=== PATIENT | male | born 1955 | race Caucasian/White ===

== ENCOUNTER 2016-06-08 16:38 | Inpatient (IN) ==
[2016-06-08 19:54] LABS: Basophils % 0.5 %; Eosinophils # 0.2 K/mcL (0.0-0.6); Eosinophils % 5.8 %; Hematocrit 24.2 % (37.5-50.1); Hemoglobin 7.9 g/dL (12.9-16.9); Immature Granulocytes % 0.3 % (0-4); Lymphocytes # 0.7 K/mcL (0.6-4.6); Lymphocytes % 16.3 %; Mean Corpuscular HGB Conc 32.6 g/dL (31.6-35.5); Mean Corpuscular Hemoglobin 28.6 pg (28.0-33.3); Mean Corpuscular Volume 87.7 fL (83.0-100.0); Mean Platelet Volume 10.6 fL (9.4-12.4); Monocytes # 0.3 K/mcL (0.0-1.3); Monocytes % 7.8 %; Neutrophils # 2.8 K/mcL (1.6-8.9); Platelet Count 135 K/mcL (140-400); Red Blood Count 2.76 M/mcL (4.19-5.50); Red Cell Distribution Width 13.3 % (11.5-14.5); Segmented Neutrophils % 69.3 %
[2016-06-08 20:09] LABS: Albumin 2.3 g/dL (3.5-5.0); Albumin/Globulin Ratio 0.8 (1.1-2.2); Bilirubin,Direct 0.2 mg/dL (0.0-0.5); Bilirubin,Indirect 0.4 mg/dL (0.0-1.2); Bilirubin,Total 0.6 mg/dL (0.2-1.2); Calcium 7.7 mg/dL (8.6-10.8); Globulin 2.9 g/dL (2.4-3.5); Potassium 4.8 mEq/L (3.5-4.5); Total Protein 5.2 g/dL (6.0-8.3)
--- NOTE | 2016-06-08 20:43 | Emergency Department Note ---
Disposition Clinical Impression: Generalized edema Proteinuria Qualifiers: Proteinuria type: other Qualified Code(s): R80.8 - Other proteinuria Disposition: Admitted As Inpatient Condition: Fair General Adult HPI - General Chief complaint: ED General Medical Stated complaint: "all swollen up" Time Seen by Provider: 06/08/16 18:41 Source: patient Limitations: no limitations Nursing Notes Reviewed: Yes Vital Signs Reviewed: Yes - History of Present Illness HPI Narrative: Mr. Renee, a 60yo male, presents from home by POV with chief complaint of, "swollen all over." Onset 2-3 days ago. Patient states this happened previously and he was admitted to [facility], transferred to [place], and diagnosed with congestive heart failure. He currently follows with Dr. Cha at [place] [facility]. Patient has associated dyspnea; he does not use supplemental oxygen at home however does require the use of it in the emergency department. PMH: CHF. Hypertension, hyperlipidemia, history of [place] with stent 12/2013, diabetes. Current everyday smoker; [id number] history. Patient has bladder dysfunction requiring self catheterization.. Pain Scale: 0 - Related Data Home Medications Medication Instructions Recorded Confirmed Aspirin Enteric Coated [Aspirin EC] 81 mg PO DAILY 06/08/16 06/08/16 Atorvastatin Calcium [Lipitor] 80 mg PO HS 06/08/16 06/08/16 Carvedilol [Coreg] 6.25 mg PO BIDWM 06/08/16 06/08/16 Clopidogrel [Plavix] 75 mg PO DAILY 06/08/16 06/08/16 Cyclobenzaprine HCl 5 mg PO TID 06/08/16 06/08/16 Dextrose [Glucose Gel] 15 gm PO ONCE PRN 06/08/16 06/08/16 Ergocalciferol (VITAMIN D2) 50,000 unit PO QWEEK 06/08/16 06/08/16 [Vitamin D2] FLUoxetine HCl [Prozac] 40 mg PO QAM 06/08/16 06/08/16 Furosemide [Lasix] 40 mg PO DAILY 06/08/16 06/08/16 Glucagon,Human Recombinant 1 mg IJ ONCE PRN 06/08/16 06/08/16 [Glucagon Emergency Kit] Insulin ASPART [Novolog Flexpen] 20 unit SQ TIDAC 06/08/16 06/08/16 Insulin DETEMIR [Levemir Flextouch] 30 unit SQ QAM 06/08/16 06/08/16 Insulin DETEMIR [Levemir Flextouch] 60 unit SQ HS 06/08/16 06/08/16 Isosorbide MONOnitrate (24 HR) 60 mg PO DAILY 06/08/16 06/08/16 [Imdur] Lubiprostone [Amitiza] 24 mcg PO BID 06/08/16 06/08/16 Nitroglycerin [Nitrostat] 0.4 mg SL Q5M PRN 06/08/16 06/08/16 Oxycodone HCl 10 mg PO Q6H PRN 06/08/16 06/08/16 Pantoprazole Sodium [Protonix] 40 mg PO DAILY 06/08/16 06/08/16 Pregabalin [Lyrica] 50 mg PO BID 06/08/16 06/08/16 Quetiapine Fumarate [Seroquel] 50 mg PO HS 06/08/16 06/08/16 Ranitidine HCl [Zantac] 150 mg PO BID 06/08/16 06/08/16 Ranolazine [Ranexa] 500 mg PO BID 06/08/16 06/08/16 Tamsulosin [Flomax] 0.4 mg PO DAILY 06/08/16 06/08/16 Topiramate [Topamax] 25 mg PO BID 06/08/16 06/08/16 Allergies Allergy/AdvReac Type Severity Reaction Status Date / Time Methadone Allergy Hives Verified 06/08/16 17:11 Penicillins Allergy Hives Verified 06/08/16 17:11 linaclotide [From Linzess] AdvReac Nausea Verified 06/08/16 17:11 All systems ED: reviewed and negative except as stated. Constitutional: Reports: weakness. Denies: fever, chills ENT ED: Denies: congestion Cardiovascular: Reports: dyspnea on exertion. Denies: chest pain, palpitations Respiratory: Reports: dyspnea. Denies: cough, wheezes Gastrointestinal: Denies: abdominal pain, nausea, vomiting, diarrhea, constipation, hematemesis, melena, hematochezia Genitourinary: Denies: urgency, dysuria Musculoskeletal: Denies: back pain, neck pain, joint swelling, myalgia Integumentary: Denies: rash, abrasion Neurological: Denies: headache, weakness, numbness, paresthesias, confusion, abnormal gait, vertigo Hematological/Lymphatic: Denies: easy bleeding, easy bruising Past Medical History - Past Medical History Medical history: Reports: coronary artery disease, diabetes, renal disease - Social History Smoking Status: Current every day smoker Alcohol use: Reports: none Drug use: Reports: none Physical Exam General: Patient is alert, oriented, and in no acute distress. HEENT: No facial asymmetry. Head is normocephalic and atraumatic. Oral mucosa moist. Trachea midline. Cardiovascular: Heart regular rate and rhythm without clicks, rubs, gallops, or murmurs. No JVD. PMI nondisplaced. 2+ pitting pedal edema bilaterally extending to the patient's knee. Notable increase in swelling in patient's hands and fingers. Respiratory: Symmetric chest rise with good respiratory effort. Bilateral breath sounds are clear without wheezing, crackles, or rhonchi. Abdomen: Bowel sounds present normoactive x-4 quadrants. Abdomen is soft, nondistended, and nontender. Psych: Patient's affect is appropriate for situation. - General Limitations: no limitations General appearance: alert, in no apparent distress Course Course Narrative: Carotid image 04/14/16: Right carotid with minimal plaque throughout. Left carotid normal. Echo 05/25/16: LVEF 60-65%. Mild left ventricular diastolic dysfunction. No significant valvular dysfunction. Normal right ventricular size and function. Patient's lab studies show leukocytopenia, slowly progressive anemia, low albumin, elevated BNP. He does have elevated creatinine. Normal hepatic function. Given that the patient is unable to urinate and requires self-catheterization, I will order a Quan catheter in place urine sample looking for proteinuria. Patient's urine return was noted to have proteinuria. Cause is currently unknown this time. However this does give explanation for his low albumin causing low oncotic pressure causing generalized edema. Spoke with the patient and his at bedside regarding the need for continued evaluation. That he was told previously he had congestive heart failure, his recent echo would suggest otherwise. They agree to admission for continued evaluation. I spoke with the hospitalist, Dr. Mace, regarding the patient's story, history, laboratory workup. He agrees to accept the patient for continued evaluation. Vital Signs Temperature 97.9 F 06/08/16 17:11 Pulse Rate 66 06/08/16 17:11 Respiratory Rate 18 06/08/16 17:11 Blood Pressure 98/58 06/08/16 17:11 O2 Sat by Pulse Oximetry 96 06/08/16 17:11 Temperature 97.3 F L 06/08/16 22:31 Pulse Rate 62 06/08/16 22:31 Respiratory Rate 15 06/08/16 22:31 Blood Pressure 181/80 06/08/16 22:31 O2 Sat by Pulse Oximetry 97 06/08/16 22:31 Oxygen Delivery Oxygen Delivery Nasal Cannula Medical Decision Making - Medical Records Medical records reviewed: Yes I reviewed the patient's medical records. - Lab Data Lab results reviewed: Yes I reviewed the patient's lab results. Result diagrams: 06/08/16 19:43 06/08/16 19:43 Lab Results 06/08/16 06/08/16 06/08/16 Range/Units 19:43 19:43 19:43 WBC 4.0 L (4.3-11.1) K/mcL RBC 2.76 L (4.19-5.50) M/mcL Hgb 7.9 L (12.9-16.9) g/dL Hct 24.2 L (37.5-50.1) % MCV 87.7 (83.0-100.0) fL MCH 28.6 (28.0-33.3) pg MCHC 32.6 (31.6-35.5) g/dL RDW 13.3 (11.5-14.5) % Plt Count 135 L (140-400) K/mcL MPV 10.6 (9.4-12.4) fL Immature Gran % 0.3 (0-4) % Seg Neutrophils % 69.3 % Lymphocytes % 16.3 % Monocytes % 7.8 % Eosinophils % 5.8 % Basophils % 0.5 % Neutrophils # 2.8 (1.6-8.9) K/mcL Lymphocytes # 0.7 (0.6-4.6) K/mcL Monocytes # 0.3 (0.0-1.3) K/mcL Eosinophils # 0.2 (0.0-0.6) K/mcL Basophils # 0.0 (0.0-0.2) K/mcL Sodium 136 (136-145) mEq/L Potassium 4.8 H (3.5-4.5) mEq/L Chloride 106 (98-109) mEq/L Carbon Dioxide 25 (19-29) mEq/L BUN 42 H (8-26) mg/dL Creatinine 1.59 H (0.72-1.25) mg/dL Est GFR ( Amer) 54 L (> 60) Est GFR (Non-Af Amer) 45 L (> 60) BUN/Creatinine Ratio 26 (6-26) Glucose 368 H (70-99) mg/dL Calculated Osmolality 307 H (280-300) Calcium 7.7 L (8.6-10.8) mg/dL Total Bilirubin 0.6 (0.2-1.2) mg/dL Direct Bilirubin 0.2 (0.0-0.5) mg/dL Indirect Bilirubin 0.4 (0.0-1.2) mg/dL AST 9 (5-34) Units/L ALT 12 (0-55) Units/L Alkaline Phosphatase 74 (38-126) Units/L Troponin I (0-0.03) ng/mL B-Natriuretic Peptide 495 H (0-100) pg/mL Serum Total Protein 5.2 L (6.0-8.3) g/dL Albumin 2.3 L (3.5-5.0) g/dL Globulin 2.9 (2.4-3.5) g/dL Albumin/Globulin Ratio 0.8 L (1.1-2.2) 06/08/16 Range/Units 19:43 WBC (4.3-11.1) K/mcL RBC (4.19-5.50) M/mcL Hgb (12.9-16.9) g/dL Hct (37.5-50.1) % MCV (83.0-100.0) fL MCH (28.0-33.3) pg MCHC (31.6-35.5) g/dL RDW (11.5-14.5) % Plt Count (140-400) K/mcL MPV (9.4-12.4) fL Immature Gran % (0-4) % Seg Neutrophils % % Lymphocytes % % Monocytes % % Eosinophils % % Basophils % % Neutrophils # (1.6-8.9) K/mcL Lymphocytes # (0.6-4.6) K/mcL Monocytes # (0.0-1.3) K/mcL Eosinophils # (0.0-0.6) K/mcL Basophils # (0.0-0.2) K/mcL Sodium (136-145) mEq/L Potassium (3.5-4.5) mEq/L Chloride (98-109) mEq/L Carbon Dioxide (19-29) mEq/L BUN (8-26) mg/dL Creatinine (0.72-1.25) mg/dL Est GFR ( Amer) (> 60) Est GFR (Non-Af Amer) (> 60) BUN/Creatinine Ratio (6-26) Glucose (70-99) mg/dL Calculated Osmolality (280-300) Calcium (8.6-10.8) mg/dL Total Bilirubin (0.2-1.2) mg/dL Direct Bilirubin (0.0-0.5) mg/dL Indirect Bilirubin (0.0-1.2) mg/dL AST (5-34) Units/L ALT (0-55) Units/L Alkaline Phosphatase (38-126) Units/L Troponin I 0.01 (0-0.03) ng/mL B-Natriuretic Peptide (0-100) pg/mL Serum Total Protein (6.0-8.3) g/dL Albumin (3.5-5.0) g/dL Globulin (2.4-3.5) g/dL Albumin/Globulin Ratio (1.1-2.2) - Radiology Data Radiology results reviewed: Yes I reviewed the patient's radiology results. Chest X-Ray 06/08/16 19:04 IMPRESSION: Incomplete inspiration with bibasilar atelectasis D/ / Hector Gallegos MD / Hector Gallegos MD Interpreting Provider: Hector Gallegos MD - EKG Data EKG #1 EKG attestation: Yes I reviewed and interpreted this EKG. EKG results narrative: EKG dated marked at 19:13 interpreted as sinus rhythm with rate of 61. Normal intervals with UT 164, QRS 109, QT/QTc 434/438. Left axis. Nonspecific ST-T changes. Compared to previous dated 07/24/2013 shows no acute ischemic changes a comparison. Attestation Statement - Attestation Attestation: DR Abbott note: Pt seen in conjunction w/ Resident Tawanda Clark; Please see his charting for complete documentation; I agree w/ pt's treatment and disposition and spent face to face time w/ the pt; x-ray was REVIEWED. Progressive anemia noted. Admitted in stable condition
[2016-06-08 22:03] LABS: Bilirubin,Urine Negative (Negative); Blood,Urine Small (Negative); Clarity,Urine Clear (Clear); Color,Urine Yellow (Yellow); Glucose,Urine (UA) 250 mg/dL (Normal); Ketones,Urine Negative (Negative); Leukocyte Esterase,Urine Negative (Negative); Nitrite,Urine Negative (Negative); PH,Urine 6.5 pH Units (5.0-8.0); Protein,Urine >=300 mg/dL (Neg-Trace); Specific Gravity,Urine 1.016 (1.010-1.025); Urobilinogen,Urine Normal (Normal)
[2016-06-08 22:05] LABS: Bacteria,Urine Many per hpf (None-Few); Hyaline Casts,Urine None Seen per lpf (None-Few); Squamous Epithelial Cell,Urine Many per lpf (None-Few)
[2016-06-09] MEDS ORDERED: Naloxone 0.4 MG/ML INJ IVP PRN (00:35)
[2016-06-09] MEDS ORDERED: Nitroglycerin 0.4 MG TAB.SUBL SL PRN (00:39)
[2016-06-09] MEDS ORDERED: D5% in Water 1,000 ML IV PRN (00:44)
[2016-06-09] MEDS ORDERED: Dextrose Gel 15 GM PO PRN ×2 (00:44)
[2016-06-09] MEDS ORDERED: *HR* Dextrose 50 % in Water (Syg) 50 ML SYRINGE IVP PRN (00:44)
[2016-06-09] MEDS ORDERED: Furosemide 20 MG/2 ML VIAL IVP ONE (00:46)
--- NOTE | 2016-06-09 00:51 | Internal Med History&Physical ---
Date of Encounter: 06/09/16 Time of Encounter: 00:51 Assessment and Plan (1) Anasarca Current visit: Yes Status: Acute Possibly due to CHF + hypoalbuminemia related to proteinuria. Treatment intravenous Lasix. Daily weights. Low sodium diet and fluid restriction. Cardiology consultation. (2) Heart failure with preserved ejection fraction Current visit: Yes Status: Chronic Treatment intravenous Lasix. Daily weights. Low sodium diet and fluid restriction. Cardiology consultation. Pt has significant proteinuria. Consider starting ACEI, prior to discharge. 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 Continue tamsulosin. (6) Normocytic anemia Current visit: Yes Status: Acute Possibly related to CKD/anemia of chronic disease. Will check for iron profile , vitamin B12 and folate level. (7) CKD (chronic kidney disease) Current visit: Yes Status: Acute Monitor renal function. Pt has proteinuria. Consider Nephrology consult. Qualifiers: Chronic kidney disease stage: stage 3 (moderate) Qualified Code(s): N18.3 - Chronic kidney disease, stage 3 (moderate) (8) Hypoalbuminemia Current visit: Yes Status: Acute Possibly due to proteinuria. Consider Nephrology consultation. Internal Medicine - H&P: HPI Chief complaint: Swelling of extremities Admitted From: Emergency Dept Plans for Post Hospital Care: Home History of present illness: Mr. Renee is a 60 year old male with Past medical history significant for Hypertension, hyperlipidemia, history of [place] with stent 12/2013, CHF (Echo in May 2015 showed LVEF of 60-65%), diabetes, neurogenic bladder requiring intermittent self-catheterization. He presents to the emergency department with history of swelling all over for 3 days. Started in the legs and now in the upper extremities as well. He denies chest pain, shortness of breath, cough , expectoration, palpitations, fever, chills, abdominal pain, hematuria, bowel problems. He was evaluated in the emergency department and was noted to have elevated BNP. He is admitted to the hospitalist service for further management. Family hx of CAD Past Med Surg Social Fam HX - Past Medical History Medical history: coronary artery disease, diabetes, renal disease Psychiatric history: depression - Past Surgical History Surgical History: other - Social History Smoking Status: Current every day smoker Packs per day: 1 Smokeless Tobacco Status: No Alcohol use: none Drug use: none Internal Medicine - H&P: Meds Aspirin Enteric Coated [Aspirin EC] 81 mg PO DAILY 06/08/16 [History] Atorvastatin Calcium [Lipitor] 80 mg PO HS 06/08/16 [History] Carvedilol [Coreg] 6.25 mg PO BIDWM 06/08/16 [History] Clopidogrel [Plavix] 75 mg PO DAILY 06/08/16 [History] Cyclobenzaprine HCl 5 mg PO TID 06/08/16 [History] Dextrose [Glucose Gel] 15 gm PO ONCE PRN 06/08/16 [History] Ergocalciferol (VITAMIN D2) [Vitamin D2] 50,000 unit PO QWEEK 06/08/16 [History] FLUoxetine HCl [Prozac] 40 mg PO QAM 06/08/16 [History] Furosemide [Lasix] 40 mg PO DAILY 06/08/16 [History] Glucagon,Human Recombinant [Glucagon Emergency Kit] 1 mg IJ ONCE PRN 06/08/16 [ History] Insulin ASPART [Novolog Flexpen] 20 unit SQ TIDAC 06/08/16 [History] Insulin DETEMIR [Levemir Flextouch] 30 unit SQ QAM 06/08/16 [History] Insulin DETEMIR [Levemir Flextouch] 60 unit SQ HS 06/08/16 [History] Isosorbide MONOnitrate (24 HR) [Imdur] 60 mg PO DAILY 06/08/16 [History] Lubiprostone [Amitiza] 24 mcg PO BID 06/08/16 [History] Nitroglycerin [Nitrostat] 0.4 mg SL Q5M PRN 06/08/16 [History] Oxycodone HCl 10 mg PO Q6H PRN 06/08/16 [History] Pantoprazole Sodium [Protonix] 40 mg PO DAILY 06/08/16 [History] Pregabalin [Lyrica] 50 mg PO BID 06/08/16 [History] Quetiapine Fumarate [Seroquel] 50 mg PO HS 06/08/16 [History] Ranitidine HCl [Zantac] 150 mg PO BID 06/08/16 [History] Ranolazine [Ranexa] 500 mg PO BID 06/08/16 [History] Tamsulosin [Flomax] 0.4 mg PO DAILY 06/08/16 [History] Topiramate [Topamax] 25 mg PO BID 06/08/16 [History] Allergies Methadone Allergy (Verified 06/08/16 17:11) Hives Penicillins Allergy (Verified 06/08/16 17:11) Hives linaclotide [From Linzess] Adverse Reaction (Verified 06/08/16 17:11) Nausea All Systems PM: A 10-system review of systems was performed and is negative for pertinent findings except as documented above in the HPI. - Constitutional Vitals: Temp Pulse Resp BP Pulse Ox 97.3 F L 62 15 181/80 97 06/08/16 22:31 06/08/16 22:31 06/08/16 22:31 06/08/16 22:31 06/08/16 22:31 Exam: General: Not in acute distress at the time of my evaluation HEENT: Oral mucosa is moist. No conjunctival palor or scleral icterus Neck: No obvious neck swellings Lungs: B/L basal crackles present Cardiac: Regular rate and rhythm. No significant murmurs Abdomen: Soft, non tender. Bowel sounds present Genitourinary: niño catheter present Neurological: Alert and oriented. No gross localizing deficits Psych: Not aggressive or agitated Extremities: B/L leg edema present Skin: No generalized rash Internal Med - H&P Results - Labs CBC & Chem 7: 06/09/16 04:06 06/09/16 04:06 Labs: Urine 06/08/16 Range/Units 21:40 Urine Color Yellow (Yellow) Urine Clarity Clear (Clear) Urine pH 6.5 (5.0-8.0) pH Units Ur Specific [place] 1.016 (1.010-1.025) Urine Protein >=300 H (Neg-Trace) mg/dL Urine Glucose (UA) 250 H (Normal) mg/dL - EKG Data -: EKG Interpreted by Myself EKG shows normal: sinus rhythm - Impressions ITS Impressions Chest X-Ray 06/08/16 19:04 IMPRESSION: Incomplete inspiration with bibasilar atelectasis D/ / Hector Gallegos MD / Hector Gallegos MD Interpreting Provider: Hector Gallegos MD
[2016-06-09] MEDS: *HR* OxyCODONE Immed Rel 5 MG TABLET PO PRN ×2 (04:17→19:49)
[2016-06-09 04:49] LABS: Hematocrit 24.5 % (37.5-50.1); Hemoglobin 8.2 g/dL (12.9-16.9); Mean Corpuscular HGB Conc 33.5 g/dL (31.6-35.5); Mean Corpuscular Hemoglobin 29.3 pg (28.0-33.3); Mean Corpuscular Volume 87.5 fL (83.0-100.0); Mean Platelet Volume 11.4 fL (9.4-12.4); Platelet Count 141 K/mcL (140-400); Red Cell Distribution Width 13.2 % (11.5-14.5)
[2016-06-09 05:03] LABS: BUN/Creatinine Ratio 28 (6-26); Blood Urea Nitrogen 38 mg/dL (8-26); Calcium 7.7 mg/dL (8.6-10.8); Carbon Dioxide 24 mEq/L (19-29); Chloride 108 mEq/L (98-109); Glucose 330 mg/dL (70-99); Magnesium 2.3 mg/dL (1.6-2.6); Osmolality,Calculated 310 (280-300); Sodium 139 mEq/L (136-145); eGFR For African Americans > 60 (> 60); eGFR For Non-African Americans 53 (> 60)
[2016-06-09] MEDS: Famotidine 20 MG TABLET PO SCH ×2 (08:18→15:45)
[2016-06-09] MEDS: Pregabalin 50 MG CAPSULE PO SCH ×2 (08:18→20:01)
[2016-06-09] MEDS: Furosemide 40 MG/4 ML VIAL IVP SCH (08:18)
[2016-06-09] MEDS: FLUoxetine 20 MG CAPSULE PO SCH (08:19)
[2016-06-09] MEDS: Topiramate 25 MG TABLET PO SCH ×2 (08:19→20:01)
[2016-06-09] MEDS: Aspirin Enteric Coated 81 MG Tablet PO SCH (08:19)
[2016-06-09] MEDS: Isosorbide MONOnitrate (24 HR) 60 MG TAB.ER.24H PO SCH (08:19)
[2016-06-09] MEDS: Insulin LISPRO 300 UNITS/3 ML VIAL SQ SCH ×4 (08:42→20:58)
[2016-06-09] MEDS: Ranolazine 500 MG TAB.ER.12H PO SCH ×2 (08:43→20:00)
[2016-06-09] MEDS ORDERED: NON-FORMULARY MEDICATION 1 EACH EACH (Insulin Detemir [Levemir Flextouch] 30 UNIT) SQ SCH (09:00)
[2016-06-09] MEDS ORDERED: Insulin DETEMIR 100 UNIT/ML X5UNITS SQ SCH ×2 (09:00→21:00)
--- NOTE | 2016-06-09 10:29 | Cardiology Consult Note ---
Date of Encounter: 06/09/16 Time of Encounter: 10:23 Assessment and Plan (1) Anasarca Current Visit: Yes Status: Acute Likely secondary to hypoalbuminemia, proteinuria and recent increased PO fluid intake due to constipation. BNP 495. Albumin 2.3. Currently receiving IV Lasix, 40mg daily and reports improving symptoms. Recommend daily weights, low sodium diet and fluid restriction. Recommend elevation of lower extremities, compression stockings. Recent echo 05/25/16 EF preserved 60-65%, mild diastolic dysfunction. No further cardiac work-up warranted while inpt. Anticipate sign off once seen and evaluated by Dr. Cha. (2) CAD (coronary artery disease) Current Visit: Yes Status: Acute [facility] 11/14/13--3 vessel CAD, CLAIMS ATTORNEY of prox-mid LAD with mid-distal LAD filling via R -L collaterals, moderate ISR of prior LCx stent, EF 65%, medical management was recommended. Pt denies chest pain. Continue ASA, Plavix, Statin, BB. Qualifiers: Coronary Disease-Associated Artery/Lesion type: [place] artery [place] vs. transplanted heart: [place] heart Associated angina: without angina Qualified Code(s): I25.10 - Atherosclerotic heart disease of [place] coronary artery without angina pectoris (3) Hypoalbuminemia Current Visit: Yes Status: Acute Possibly due to proteinuria. Primary team noted to be considering nephrology consult. (4) Hypertension Current Visit: Yes Status: Chronic Not well controlled. BP 180s systolic this AM. Add norvasc and adjust antihypertensives as necessary. Qualifiers: Hypertension type: essential hypertension Qualified Code(s): I10 - Essential (primary) hypertension (5) CKD (chronic kidney disease) Current Visit: Yes Status: Acute Monitor renal function with diuresis. Pt has proteinuria. Primary team noted to be considering nephrology consult. Qualifiers: Chronic kidney disease stage: stage 3 (moderate) Qualified Code(s): N18.3 - Chronic kidney disease, stage 3 (moderate) (6) Normocytic anemia Current Visit: Yes Status: Acute Possibly related to CKD/anemia of chronic disease. 7.9 on admission, 8.2 today. Pt denies any evidence of bleeding. Reports recent EGD at [facility] and polyp removal. Management per primary team. Discussion w patient/family: The assessment and plan as outlined above was discussed with the patient and/or family members who expressed understanding and agreement. All questions were answered. Thank you for involving us in the care of your patient. Please call with any questions. I will discuss all the above with Dr. Cha and make changes as necessary. History of Present Illness Consult date: 06/09/16 Requesting physician: Madhu Landa Consult reason: edema Chief complaint: edema, dyspnea History of present illness: Mr. Renee is a 60 year old male with PMH of hypertension, hyperlipidemia, tobacco abuse, CAD with history of MS and PCI, diabetes, neurogenic bladder requiring intermittent self-catheterization, pancreatitis. He presented to the ED with history of swelling all over for 3 days. He reports it started in the legs and now in the upper extremities as well. He denies chest pain. He reports worsening dyspnea. He reported being seen at [facility] ED this past week and was told he was constipated and to increase his fluid intake and after increasing fluids, noticed the swelling. Found to have proteinuria, hypoalbuminemia 2.3, mildly elevated BNP 495, CXR with atelectasis. Recent echo 05/25/16 EF 60-65%, mild diastolic dysfunction. HGB 7.9, then 8.2 today. Reports EGD last month at [facility] with polyp removal. States he has ongoing issues with chronic pacreatitis. Given IV Lasix and reports improved symptoms. Weight does appear to be up 9 lbs compared to office visit with Dr. Ramsey on 05/15. [facility] 11/14/13--3 vessel CAD, CLAIMS ATTORNEY of prox-mid LAD with mid-distal LAD filling via R -L collaterals, moderate ISR of prior LCx stent, EF 65%, medical management was recommended. Past Med Surg Social Fam HX - Past Medical History Medical history: coronary artery disease, diabetes, renal disease Psychiatric history: depression - Past Surgical History Surgical History: other - Social History Smoking Status: Current every day smoker Packs per day: 1 Smokeless Tobacco Status: No Alcohol use: none Drug use: none Medications and Allergies Aspirin Enteric Coated [Aspirin EC] 81 mg PO DAILY 06/08/16 [History] Atorvastatin Calcium [Lipitor] 80 mg PO HS 06/08/16 [History] Carvedilol [Coreg] 6.25 mg PO BIDWM 06/08/16 [History] Clopidogrel [Plavix] 75 mg PO DAILY 06/08/16 [History] Cyclobenzaprine HCl 5 mg PO TID 06/08/16 [History] Dextrose [Glucose Gel] 15 gm PO ONCE PRN 06/08/16 [History] Ergocalciferol (VITAMIN D2) [Vitamin D2] 50,000 unit PO QWEEK 06/08/16 [History] FLUoxetine HCl [Prozac] 40 mg PO QAM 06/08/16 [History] Furosemide [Lasix] 40 mg PO DAILY 06/08/16 [History] Glucagon,Human Recombinant [Glucagon Emergency Kit] 1 mg IJ ONCE PRN 06/08/16 [ History] Insulin ASPART [Novolog Flexpen] 20 unit SQ TIDAC 06/08/16 [History] Insulin DETEMIR [Levemir Flextouch] 30 unit SQ QAM 06/08/16 [History] Insulin DETEMIR [Levemir Flextouch] 60 unit SQ HS 06/08/16 [History] Isosorbide MONOnitrate (24 HR) [Imdur] 60 mg PO DAILY 06/08/16 [History] Lubiprostone [Amitiza] 24 mcg PO BID 06/08/16 [History] Nitroglycerin [Nitrostat] 0.4 mg SL Q5M PRN 06/08/16 [History] Oxycodone HCl 10 mg PO Q6H PRN 06/08/16 [History] Pantoprazole Sodium [Protonix] 40 mg PO DAILY 06/08/16 [History] Pregabalin [Lyrica] 50 mg PO BID 06/08/16 [History] Quetiapine Fumarate [Seroquel] 50 mg PO HS 06/08/16 [History] Ranitidine HCl [Zantac] 150 mg PO BID 06/08/16 [History] Ranolazine [Ranexa] 500 mg PO BID 06/08/16 [History] Tamsulosin [Flomax] 0.4 mg PO DAILY 06/08/16 [History] Topiramate [Topamax] 25 mg PO BID 06/08/16 [History] Allergies Methadone Allergy (Verified 06/08/16 17:11) Hives Penicillins Allergy (Verified 06/08/16 17:11) Hives linaclotide [From Linzess] Adverse Reaction (Verified 06/08/16 17:11) Nausea All Systems Review: A 10-system review of systems was performed and is negative for pertinent findings except as documented above in the HPI. - Cardiovascular Cardiovascular: as per HPI, dyspnea at rest, dyspnea on exertion, leg edema, orthopnea - Respiratory Respiratory: dyspnea Physical Examination Vital Signs, Last 4 Hours Temp Pulse Resp BP Pulse Ox 06/09/16 08:19 98.1 F 71 17 182/53 96 Vital Signs Temp Pulse Resp BP Pulse Ox 06/09/16 08:19 98.1 F 71 17 182/53 96 06/09/16 05:19 97.7 F 63 15 165/68 95 06/09/16 03:17 98.8 F 63 15 194/78 96 06/08/16 22:31 97.3 F L 62 15 181/80 97 06/08/16 22:17 98 F 18 148/80 06/08/16 21:26 97 06/08/16 21:25 65 18 153/86 97 06/08/16 18:46 64 16 145/65 97 06/08/16 17:11 97.9 F 66 18 98/58 96 Intake and Output 06/08/16 06/09/16 06/09/16 23:59 07:59 15:59 Intake Total 0 / 0 340 / 340 240 / 240 Output Total 100 / 100 2099 / 2100 Balance -100 / -100 -1760 / -1760 240 / 240 Intake: Oral 0 / 0 340 / 340 240 / 240 Output: Catheter 100 / 100 2099 / 2100 Other: Meal Breakfast Percent of Meal Consumed 100% Weight 87.572 kg 87.543 kg Blood Glucose* 363 Patient Weight 06/09/16 23:59 Weight 87.543 kg General: Conversant HEENT: Atraumatic, Normocephaly, Mucus Membranes Moist Neck: No JVD, Normal carotid pulses Cardiac: Reg Rate and Rhythm, Normal S1 and S2, No Murmur Lungs: Normal Breath Sounds, No Wheeze, Rales, Rhonchi Neuro: Alert and responsive, No focal deficits noted Abdomen: Soft, Non-Tender Skin: No rashes noted on visualized skin Musculoskeletal: No Chest Wall Tenderness Extremities: Other (mild BLE edema) Results 06/09/16 04:06 06/09/16 04:06 Lab Results 06/09/16 06/09/16 04:06 04:06 WBC 4.5 Hgb 8.2 L Hct 24.5 L Plt Count 141 Sodium 139 Potassium 4.0 Chloride 108 Carbon Dioxide 24 BUN 38 H Creatinine 1.37 H Glucose 330 H Calcium 7.7 L Magnesium 2.3 Short CBC 06/09/16 06/08/16 Range/Units 04:06 19:43 WBC 4.5 4.0 L (4.3-11.1) K/mcL Hgb 8.2 L 7.9 L (12.9-16.9) g/dL Hct 24.5 L 24.2 L (37.5-50.1) % Plt Count 141 135 L (140-400) K/mcL Neutrophils # 2.8 (1.6-8.9) K/mcL BMP 06/09/16 06/08/16 Range/Units 04:06 19:43 Sodium 139 136 (136-145) mEq/L Potassium 4.0 4.8 H (3.5-4.5) mEq/L Chloride 108 106 (98-109) mEq/L Carbon Dioxide 24 25 (19-29) mEq/L BUN 38 H 42 H (8-26) mg/dL Creatinine 1.37 H 1.59 H (0.72-1.25) mg/dL Glucose 330 H 368 H (70-99) mg/dL Calcium 7.7 L 7.7 L (8.6-10.8) mg/dL Cardiac Enzymes 06/08/16 Range/Units 19:43 Troponin I 0.01 (0-0.03) ng/mL Liver Function 06/08/16 Range/Units 19:43 Total Bilirubin 0.6 (0.2-1.2) mg/dL Direct Bilirubin 0.2 (0.0-0.5) mg/dL AST 9 (5-34) Units/L ALT 12 (0-55) Units/L Alkaline Phosphatase 74 (38-126) Units/L Albumin 2.3 L (3.5-5.0) g/dL Urine 06/08/16 Range/Units 21:40 Urine Color Yellow (Yellow) Urine Clarity Clear (Clear) Urine pH 6.5 (5.0-8.0) pH Units Ur Specific [place] 1.016 (1.010-1.025) Urine Protein >=300 H (Neg-Trace) mg/dL Urine Glucose (UA) 250 H (Normal) mg/dL Impressions Chest X-Ray 06/08/16 19:04 IMPRESSION: Incomplete inspiration with bibasilar atelectasis D/ / Hector Gallegos MD / Hector Gallegos MD Interpreting Provider: Hector Gallegos MD Active Medications Aspirin (Aspirin Ec) 81 mg PO DAILY [facility] Stop: 12/09/16 09:01 Last Admin: 06/09/16 08:19 Dose: 81 mg Atorvastatin Calcium (Lipitor) 80 mg PO HS [facility] Stop: 12/09/16 21:01 Carvedilol (Coreg) 6.25 mg PO BIDWM [facility] PRN Reason: Protocol Stop: 12/09/16 08:01 Last Admin: 06/09/16 08:20 Dose: 6.25 mg Clopidogrel Bisulfate (Plavix) 75 mg PO DAILY [facility] Stop: 12/09/16 09:01 Last Admin: 06/09/16 08:18 Dose: 75 mg Cyclobenzaprine HCl (Flexeril) 5 mg PO TID [facility] Stop: 12/09/16 09:01 Last Admin: 06/09/16 08:19 Dose: 5 mg Dextrose/Water (Dextrose 50% (Syg)) 25 ml IVP AD PRN PRN Reason: Hypoglycemia Stop: 12/09/16 00:45 Ergocalciferol (Drisdol (50,000 Unit)) 50,000 unit PO QWEEK [facility] Stop: 12/11/16 09:01 Famotidine (Pepcid) 20 mg PO BIDAC [facility] Stop: 12/09/16 07:31 Last Admin: 06/09/16 08:18 Dose: 20 mg Fluoxetine HCl (Prozac) 40 mg PO QAM [facility] Stop: 12/09/16 09:01 Last Admin: 06/09/16 08:19 Dose: 40 mg Furosemide (Lasix) 40 mg IVP DAILY [facility] Stop: 12/09/16 09:01 Last Admin: 06/09/16 08:18 Dose: 40 mg Glucagon (Glucagen) 1 mg IM ONCE PRN PRN Reason: Hypoglycemia Stop: 12/09/16 00:45 Glucose (Gluctose) 15 gm PO ONCE PRN PRN Reason: Hypoglycemia Stop: 12/09/16 00:45 Glucose (Gluctose) 30 gm PO ONCE PRN PRN Reason: Hypoglycemia Stop: 12/09/16 00:45 Dextrose (Dextrose 5%) 1,000 mls @ 100 mls/hr IV CONT PRN PRN Reason: HYPOGLYCEMIA Stop: 12/09/16 00:45 Insulin Detemir (Levemir) 30 unit SQ QAM [facility] Stop: 12/09/16 09:01 Last Admin: 06/09/16 08:40 Dose: 30 unit Insulin Detemir (Levemir) 60 unit SQ HS [facility] Stop: 12/09/16 21:01 Insulin Human Lispro (Humalog) 0 units SQ HS [facility] PRN Reason: Protocol Stop: 12/09/16 21:01 Insulin Human Lispro (Humalog) 0 units SQ TIDAC [facility] PRN Reason: Protocol Stop: 12/09/16 07:31 Last Admin: 06/09/16 08:42 Dose: 14 units Isosorbide Mononitrate (Imdur) 60 mg PO DAILY [facility] Stop: 12/09/16 09:01 Last Admin: 06/09/16 08:19 Dose: 60 mg Naloxone HCl (Narcan) 0.4 mg IVP Q2MIN PRN PRN Reason: Opioid Reversal Stop: 12/09/16 00:36 Nitroglycerin (Nitroglycerin) 0.4 mg SL Q5M PRN PRN Reason: Chest Pain Stop: 12/09/16 00:40 Omeprazole (Prilosec) 20 mg PO 0630 [facility] Stop: 12/09/16 06:31 Last Admin: 06/09/16 05:33 Dose: 20 mg Oxycodone HCl (Roxicodone) 10 mg PO Q6H PRN PRN Reason: Pain Last Admin: 06/09/16 04:17 Dose: 10 mg Pharmacy Profile Note (Patient Taking Own Medication) 1 each PO BID [facility] Stop: 12/09/16 09:01 Last Admin: 06/09/16 08:36 Dose: Not Given Pregabalin (Lyrica) 50 mg PO BID [facility] Stop: 12/09/16 09:01 Last Admin: 06/09/16 08:18 Dose: 50 mg Quetiapine Fumarate (Seroquel) 50 mg PO HS [facility] Stop: 12/09/16 00:46 Last Admin: 06/09/16 01:02 Dose: 50 mg Ranolazine (Ranexa) 500 mg PO BID [facility] Stop: 12/09/16 09:01 Last Admin: 06/09/16 08:43 Dose: 500 mg Tamsulosin HCl (Flomax) 0.4 mg PO HS [facility] PRN Reason: Protocol Stop: 12/09/16 21:01 Topiramate (Topamax) 25 mg PO BID [facility] Stop: 12/09/16 09:01 Last Admin: 06/09/16 08:19 Dose: 25 mg - Imaging and Cardiology Chest Xray: report reviewed Echo: report reviewed (05/25/16 EF 60-65%, mild diastolic dysfunction.) Cardiac cath: report reviewed (11/14/13--3 vessel CAD, CLAIMS ATTORNEY of prox-mid LAD with mid-distal LAD filling via R-L collaterals, moderate ISR of prior LCx stent, EF 65%, medical management was recommended.) - EKG Interpretation EKG results cardiology: personally reviewed (SR) Consult Discharge Plan - Plan Referrals: Marcial Wolf DO [Primary Care Provider] -
--- NOTE | 2016-06-09 13:40 | Event Note ---
Date of Encounter: 06/09/16 Time of Encounter: 13:35 Mr. Renee is a 60 year old male with PMH of hypertension, hyperlipidemia, tobacco abuse, CAD with history of RI and PCI, diabetes, neurogenic bladder requiring intermittent self-catheterization, pancreatitis. He presented to the ED with history of swelling all over for 3 days. work u revealed proteinuria, hypoalbuminemia 2.3, mildly elevated BNP 495, CXR with atelectasis. Recent echo 05/25/16 EF 60-65%, mild diastolic dysfunction. HGB 7.9, then 8.2 today. Reports EGD last month at [facility] with polyp removal.Given IV Lasix and reports improved symptoms. his symptoms could be mutifactorial in etiology , he may have diastolic CHF, cardio was consulted and recommended to continue IV lasix for now. he says he was going to his kidney doctor for his CKD which he says is from his DM, the vice president of sales left and he has not seen a nephrologost after that. given the worsening anasarca , proteinuria and hypoalbuminemia, will consult renal for any further intervention for possible nephrotic syndrome. AT the bedside he says he feels a lot better, however still has generalized anasarca. will continue the IV lasix for now, appreciate cardio recs, will follwo renal recx.
--- NOTE | 2016-06-09 18:00 | Electrocardiograph Report ---
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
[2016-06-09] MEDS ORDERED: NON-FORMULARY MEDICATION 1 EACH EACH (Insulin Detemir [Levemir Flextouch] 60 UNIT) SQ SCH (21:00)
[2016-06-09 22:26] LABS: % Iron Saturation 18 % (20-55); Iron 42 mcg/dL (65-175); Transferrin 171 mg/dL (174-364)
[2016-06-09 22:47] LABS: Ferritin 61 ng/ml (22-275)
[2016-06-09 23:01] LABS: Folate 17.3 ng/mL (7.0-31.4)
[2016-06-10] MEDS: Acetaminophen 325 MG TABLET PO PRN (00:23)
[2016-06-10] MEDS: D10% in Water 500 ML IVC SCH (03:27)
[2016-06-10] MEDS: Ranolazine 500 MG TAB.ER.12H PO SCH ×2 (08:03→20:43)
[2016-06-10] MEDS: Aspirin Enteric Coated 81 MG Tablet PO SCH (08:03)
[2016-06-10] MEDS: Famotidine 20 MG TABLET PO SCH ×2 (08:04→16:30)
[2016-06-10] MEDS: Isosorbide MONOnitrate (24 HR) 60 MG TAB.ER.24H PO SCH (08:04)
[2016-06-10] MEDS: FLUoxetine 20 MG CAPSULE PO SCH (08:04)
[2016-06-10] MEDS: Pregabalin 50 MG CAPSULE PO SCH ×2 (08:04→20:44)
[2016-06-10] MEDS: Furosemide 40 MG/4 ML VIAL IVP SCH (08:04)
[2016-06-10] MEDS: Topiramate 25 MG TABLET PO SCH ×2 (08:07→20:44)
[2016-06-10] MEDS: Insulin LISPRO 300 UNITS/3 ML VIAL SQ SCH ×4 (08:20→20:50)
[2016-06-10 10:07] LABS: Albumin 2.2 g/dL (3.5-5.0); Albumin/Globulin Ratio 0.7 (1.1-2.2); Bilirubin,Total 0.4 mg/dL (0.2-1.2); Calcium 7.8 mg/dL (8.6-10.8); Potassium 3.9 mEq/L (3.5-4.5); Total Protein 5.2 g/dL (6.0-8.3)
--- NOTE | 2016-06-10 12:55 | Nephrology Consult Note ---
Date of Encounter: 06/10/16 Time of Encounter: 12:15 Assessment and Plan (1) Proteinuria Current Visit: Yes Status: Acute Proteuinuria most likely in setting of known CKD stage 3 in setting of DM, HTN, neurogenic bladder, renal stone. Baseline creat 1.3-1.6. Will start on ACEI, will check complements, IEP, SETH, Hep B/C, 24 HR urine protein in progress. Avoid nephrotoxins. Qualifiers: Proteinuria type: persistent Qualified Code(s): R80.1 - Persistent proteinuria, unspecified History of Present Illness - Reason for Consult proteinuria - History of Present Illness Mr. Renee is a 60 year old male who presented to ER with "swelling all over." for three days. PMH DM, HTN, CAD, [place] with stent, CHF. denies SOB or CP, fever, chills, abdominal pain, N/V or diarrhea. ER labs showed elevated BNP , proteinuria, elevated creatinine, low albumin and normal hepatic fct. [facility] had similar swelling incident in April and was started on Lasix. Today Mr Renee is sitting up in chair, states swelling greatly improved. [facility] told he has CKD stage 3 in Apr 2016, followed by Dr. Casillas at [facility].He admits diabetes since 1994, insulin dependent since 1995, never under good control. Hypertension diagnosed "few months ago." He denies past or present NSAID use. He has neurogenic bladder since 2006 and straight caths self. Follows with Dr. Olmstead. He denies proteinuria, admits hematuria. History of renal stone/bladder stone event x one with Lithotrypsy in 2006, Denies other events and does not know stone composition. Denies UTI's. Past Med Surg Social Fam HX - Past Medical History Medical history: coronary artery disease, diabetes, renal disease Psychiatric history: depression - Past Surgical History Surgical History: other - Social History Smoking Status: Current every day smoker Packs per day: 1 Smokeless Tobacco Status: No Alcohol use: none Drug use: none Medications and Allergies Aspirin Enteric Coated [Aspirin EC] 81 mg PO DAILY 06/08/16 [History] Atorvastatin Calcium [Lipitor] 80 mg PO HS 06/08/16 [History] Carvedilol [Coreg] 6.25 mg PO BIDWM 06/08/16 [History] Clopidogrel [Plavix] 75 mg PO DAILY 06/08/16 [History] Cyclobenzaprine HCl 5 mg PO TID 06/08/16 [History] Dextrose [Glucose Gel] 15 gm PO ONCE PRN 06/08/16 [History] Ergocalciferol (VITAMIN D2) [Vitamin D2] 50,000 unit PO QWEEK 06/08/16 [History] FLUoxetine HCl [Prozac] 40 mg PO QAM 06/08/16 [History] Furosemide [Lasix] 40 mg PO DAILY 06/08/16 [History] Glucagon,Human Recombinant [Glucagon Emergency Kit] 1 mg IJ ONCE PRN 06/08/16 [ History] Insulin ASPART [Novolog Flexpen] 20 unit SQ TIDAC 06/08/16 [History] Insulin DETEMIR [Levemir Flextouch] 30 unit SQ QAM 06/08/16 [History] Insulin DETEMIR [Levemir Flextouch] 60 unit SQ HS 06/08/16 [History] Isosorbide MONOnitrate (24 HR) [Imdur] 60 mg PO DAILY 06/08/16 [History] Lubiprostone [Amitiza] 24 mcg PO BID 06/08/16 [History] Nitroglycerin [Nitrostat] 0.4 mg SL Q5M PRN 06/08/16 [History] Oxycodone HCl 10 mg PO Q6H PRN 06/08/16 [History] Pantoprazole Sodium [Protonix] 40 mg PO DAILY 06/08/16 [History] Pregabalin [Lyrica] 50 mg PO BID 06/08/16 [History] Quetiapine Fumarate [Seroquel] 50 mg PO HS 06/08/16 [History] Ranitidine HCl [Zantac] 150 mg PO BID 06/08/16 [History] Ranolazine [Ranexa] 500 mg PO BID 06/08/16 [History] Tamsulosin [Flomax] 0.4 mg PO DAILY 06/08/16 [History] Topiramate [Topamax] 25 mg PO BID 06/08/16 [History] Allergies Methadone Allergy (Verified 06/08/16 17:11) Hives Penicillins Allergy (Verified 06/08/16 17:11) Hives linaclotide [From Linzess] Adverse Reaction (Verified 06/08/16 17:11) Nausea Review of Systems All Systems: reviewed and no additional remarkable complaints except as stated Exam - Vital Signs Vital signs: Initial Vital Signs Temp Pulse Resp BP Pulse Ox 97.9 F 66 18 98/58 96 06/08/16 17:11 06/08/16 17:11 06/08/16 17:11 06/08/16 17:11 06/08/16 17:11 Vital Signs - Last 8 Hours Temp Pulse Resp BP Pulse Ox 06/10/16 10:44 97.5 F L 69 16 100/46 96 06/10/16 08:00 64 06/10/16 07:04 97.6 F 58 16 163/76 97 Intake and Output 06/09/16 06/10/16 06/10/16 23:59 07:59 15:59 Intake Total 240 / 240 721 / 721 480 / 480 Output Total 900 / 900 450 / 450 800 / 800 Balance -660 / -660 271 / 271 -320 / -320 Intake: IV Fluids 121 / 121 Dextrose 10% Water 500 Ml 121 / 121 Ivbag 500 ML @ 50 mls/hr IVC .Q10H [facility] Rx#: [id number] Oral 240 / 240 600 / 600 480 / 480 Output: Urine 450 / 450 Catheter 900 / 900 0 / 0 800 / 800 Other: Meal Breakfast Percent of Meal Consumed 100% # Bowel Movements 0 # Bowel Movement Diapers 0 Weight 84.878 kg Blood Glucose* 138 205 202 Patient Weight 06/10/16 23:59 Weight 84.878 kg - General Appearance General appearance: well-developed, well-nourished, appears started age EENT: mucous membranes moist Neck: no JVD Respiratory: clear Cardiology: regular rate, regular rhythm Additional Comments: mild to 1+ pitting edema knees down. Gastrointestinal: normoactive bowel sounds, no tenderness Integumentary: no rash, warm and dry Neurologic: alert and oriented x3 Psychiatric: mood/affect appropriate, cooperative Results - Lab Results 06/09/16 04:06 06/10/16 09:37 Most recent lab results Calcium 7.8 mg/dL (8.6-10.8) L 06/10/16 09:37 Magnesium 2.3 mg/dL (1.6-2.6) 06/09/16 04:06 Consult Discharge Plan - Plan Referrals: Marcial Wolf DO [Primary Care Provider] -
[2016-06-10 14:37] LABS: Hepatitis B Surface Antigen Nonreactive (Nonreactive)
--- NOTE | 2016-06-10 17:31 | Internal Med Progress Note ---
Date of Encounter: 06/10/16 Time of Encounter: 17:29 - Assessment and plan (1) Anasarca Current Visit: Yes Status: Acute Assessment and plan: possible multifactorial given CHF, CKD , proteinuria and hypoalbuminemia. will check 24 hrs urine protein for renal loss (2) CAD (coronary artery disease) Current Visit: Yes Status: Acute Assessment and plan: stable Qualifiers: Coronary Disease-Associated Artery/Lesion type: [place] artery [place] vs. transplanted heart: [place] heart Associated angina: without angina Qualified Code(s): I25.10 - Atherosclerotic heart disease of [place] coronary artery without angina pectoris (3) CHF (congestive heart failure) Current Visit: Yes Status: Acute Assessment and plan: Recent echo 05/25/16 EF preserved 60-65%, mild diastolic dysfunction. No further cardiac work-up warranted while inpt as per cardio currently on lasix and tolerating well. Qualifiers: Congestive heart failure type: diastolic Congestive heart failure chronicity: acute on chronic Qualified Code(s): I50.33 - Acute on chronic diastolic (congestive) heart failure (4) CKD (chronic kidney disease) Current Visit: Yes Status: Acute Assessment and plan: 2/2 DM most likely however given worsening anasarca, proteinuria and hypoalbuminemia will check for 24 hrs urine protein. renal has been consulted, will follow recommendtaion has been added lisinopril Qualifiers: Chronic kidney disease stage: stage 3 (moderate) Qualified Code(s): N18.3 - Chronic kidney disease, stage 3 (moderate) - Time Spent With Patient 25 - 35 minutes - Subjective Interval history: seen at the bedside, reports that he feels better. blood sugar was noted to be low this morning, he says that if his blood sugar is ~200 at night, he only takes half his levemir. reports that the swelling is getting better - Constitutional Vitals: Temp Pulse Resp BP Pulse Ox 98.1 F 63 16 143/60 98 06/10/16 14:35 06/10/16 14:35 06/10/16 14:35 06/10/16 14:35 06/10/16 14:35 General appearance: Present: A&O X 3, no acute distress Exam: HEENT: Atraumatic, Normocephaly, Mucus Membranes Moist Neck: No JVD, Normal carotid pulses Cardiac: Reg Rate and Rhythm, Normal S1 and S2, No Murmur Lungs: Normal Breath Sounds, No Wheeze, Rales, Rhonchi Neuro: Alert and responsive, No focal deficits noted Abdomen: Soft, Non-Tender Skin: No rashes noted on visualized skin Musculoskeletal: No Chest Wall Tenderness Extremities: Other (mild BLE edema) Internal Medicine: Result - Labs CBC & Chem 7: 06/09/16 04:06 06/10/16 09:37 Labs: BMP 06/10/16 09:37 Sodium 142 Potassium 3.9 Chloride 110 H Carbon Dioxide 25 BUN 38 H Creatinine 1.57 H Glucose 200 H Calcium 7.8 L Liver Function 06/10/16 Range/Units 09:37 Total Bilirubin 0.4 (0.2-1.2) mg/dL AST 11 (5-34) Units/L ALT 10 (0-55) Units/L Alkaline Phosphatase 67 (38-126) Units/L Albumin 2.2 L (3.5-5.0) g/dL Consult Discharge Plan - Plan Referrals: Marcial Wolf DO [Primary Care Provider] -
[2016-06-10] MEDS: *HR* OxyCODONE Immed Rel 5 MG TABLET PO PRN (20:43)
[2016-06-11] MEDS: Acetaminophen 325 MG TABLET PO PRN (01:48)
[2016-06-11] MEDS: Insulin LISPRO 300 UNITS/3 ML VIAL SQ SCH ×4 (08:33→20:51)
[2016-06-11] MEDS: Furosemide 40 MG/4 ML VIAL IVP SCH (08:33)
[2016-06-11] MEDS: FLUoxetine 20 MG CAPSULE PO SCH (08:34)
[2016-06-11] MEDS: Isosorbide MONOnitrate (24 HR) 60 MG TAB.ER.24H PO SCH (08:34)
[2016-06-11] MEDS: Famotidine 20 MG TABLET PO SCH ×2 (08:34→17:05)
[2016-06-11] MEDS: Aspirin Enteric Coated 81 MG Tablet PO SCH (08:34)
[2016-06-11] MEDS: Ranolazine 500 MG TAB.ER.12H PO SCH ×2 (08:34→20:50)
[2016-06-11] MEDS: Pregabalin 50 MG CAPSULE PO SCH ×2 (08:35→20:49)
[2016-06-11] MEDS: Topiramate 25 MG TABLET PO SCH ×2 (08:38→20:50)
[2016-06-11 08:54] LABS: Alanine Aminotransferase 11 Units/L (0-55); Albumin 2.2 g/dL (3.5-5.0); Albumin/Globulin Ratio 0.7 (1.1-2.2); Alkaline Phosphatase 66 Units/L (38-126); Aspartate Amino Transferase 12 Units/L (5-34); BUN/Creatinine Ratio 26 (6-26); Bilirubin,Total 0.4 mg/dL (0.2-1.2); Blood Urea Nitrogen 37 mg/dL (8-26); Carbon Dioxide 24 mEq/L (19-29); Chloride 113 mEq/L (98-109); Globulin 3.2 g/dL (2.4-3.5); Glucose 165 mg/dL (70-99); Osmolality,Calculated 308 (280-300); Potassium 3.7 mEq/L (3.5-4.5); Sodium 143 mEq/L (136-145); Total Protein 5.4 g/dL (6.0-8.3); eGFR For African Americans > 60 (> 60); eGFR For Non-African Americans 52 (> 60)
--- NOTE | 2016-06-11 09:39 | Nephrology Progress Note ---
Date of Encounter: 06/11/16 Time of Encounter: 09:20 - Assessment and Plan (1) Proteinuria Current Visit: Yes Status: Acute Proteuinuria most likely in setting of known CKD stage 3 in setting of DM, HTN, neurogenic bladder, renal stone. Baseline creat 1.3-1.6. Renal fct stable. Started on ACEI, will check complements, IEP, SETH, Hep B/C, 24 HR urine protein in progress. Avoid nephrotoxins. Qualifiers: Qualifiers: Proteinuria type: persistent Qualified Code(s): R80.1 - Persistent proteinuria, unspecified Subjective Interval history: Sitting up in bed, states no swelling, feeling better. Objective - Vital Signs Vital signs: Vital Signs Temp Pulse Resp BP Pulse Ox 06/11/16 06:44 98.0 F 58 15 172/73 95 06/11/16 03:00 97.6 F 60 15 165/62 98 06/10/16 20:00 98.4 F 65 16 147/61 98 06/10/16 14:35 98.1 F 63 16 143/60 98 06/10/16 10:44 97.5 F L 69 16 100/46 96 Intake and Output 06/10/16 06/11/16 06/11/16 22:59 07:59 15:59 Intake Total Output Total Balance Intake: Oral Output: Catheter Other: Meal Percent of Meal Consumed # Bowel Movements Weight Blood Glucose* Patient Weight 06/12/16 00:59 Weight 86.2 kg - General Appearance General appearance: Present: well-developed, well-nourished, appears started age EENT: Present: mucous membranes moist Neck: Present: no JVD Respiratory: Present: clear Cardiology: Present: regular rate, regular rhythm Additional Comments: trace pitting LE Gastrointestinal: Present: normoactive bowel sounds, no tenderness Integumentary: Present: warm and dry Neurologic: Present: alert and oriented x3 Psychiatric: Present: mood/affect appropriate, cooperative - Lab 06/09/16 04:06 06/11/16 08:12 Most recent lab results Calcium 8.0 mg/dL (8.6-10.8) L 06/11/16 08:12 Magnesium 2.3 mg/dL (1.6-2.6) 06/09/16 04:06 Consult Discharge Plan - Plan Referrals: Marcial Wolf DO [Primary Care Provider] -
--- NOTE | 2016-06-11 10:06 | Internal Med Progress Note ---
Date of Encounter: 06/11/16 Time of Encounter: 10:04 - Assessment and plan (1) Anasarca Current Visit: Yes Status: Acute Assessment and plan: possible multifactorial given CHF, CKD , proteinuria and hypoalbuminemia. will check 24 hrs urine protein for renal loss results pending currently on 40 mg of IV lasix, swelling has imporved (2) CAD (coronary artery disease) Current Visit: Yes Status: Acute Assessment and plan: stable continue home meds Qualifiers: Coronary Disease-Associated Artery/Lesion type: [place] artery [place] vs. transplanted heart: [place] heart Associated angina: without angina Qualified Code(s): I25.10 - Atherosclerotic heart disease of [place] coronary artery without angina pectoris (3) CHF (congestive heart failure) Current Visit: Yes Status: Acute Assessment and plan: Recent echo 05/25/16 EF preserved 60-65%, mild diastolic dysfunction. No further cardiac work-up warranted while inpt as per cardio currently on lasix and tolerating well. Qualifiers: Congestive heart failure type: diastolic Congestive heart failure chronicity: acute on chronic Qualified Code(s): I50.33 - Acute on chronic diastolic (congestive) heart failure (4) CKD (chronic kidney disease) Current Visit: Yes Status: Acute Assessment and plan: 2/2 DM most likely however given worsening anasarca, proteinuria and hypoalbuminemia will check for 24 hrs urine protein. renal has been consulted, will follow recommendtaion has been added lisinopril, urine results pending Qualifiers: Chronic kidney disease stage: stage 3 (moderate) Qualified Code(s): N18.3 - Chronic kidney disease, stage 3 (moderate) - Time Spent With Patient 25 - 35 minutes - Subjective Interval history: seen at the bedside, reports that he feels better. blood sugar was noted to be low yest morning, has stopped the levemir, doing better today. no further episodes of hypoglycemia - Constitutional Vitals: Temp Pulse Resp BP Pulse Ox 98.0 F 58 15 172/73 95 06/11/16 06:44 06/11/16 06:44 06/11/16 06:44 06/11/16 06:44 06/11/16 06:44 General appearance: Present: A&O X 3, no acute distress Exam: HEENT: Atraumatic, Normocephaly, Mucus Membranes Moist Neck: No JVD, Normal carotid pulses Cardiac: Reg Rate and Rhythm, Normal S1 and S2, No Murmur Lungs: Normal Breath Sounds, No Wheeze, Rales, Rhonchi Neuro: Alert and responsive, No focal deficits noted Abdomen: Soft, Non-Tender Skin: No rashes noted on visualized skin Musculoskeletal: No Chest Wall Tenderness Extremities: b/l lower leg edema has improved. Internal Medicine: Result - Labs CBC & Chem 7: 06/09/16 04:06 06/11/16 08:12 Labs: BMP 06/10/16 06/11/16 09:37 08:12 Sodium 142 143 Potassium 3.9 3.7 Chloride 110 H 113 H Carbon Dioxide 25 24 BUN 38 H 37 H Creatinine 1.57 H 1.41 H Glucose 200 H 165 H Calcium 7.8 L 8.0 L Liver Function 06/10/16 06/11/16 Range/Units 09:37 08:12 Total Bilirubin 0.4 0.4 (0.2-1.2) mg/dL AST 11 12 (5-34) Units/L ALT 10 11 (0-55) Units/L Alkaline Phosphatase 67 66 (38-126) Units/L Albumin 2.2 L 2.2 L (3.5-5.0) g/dL Consult Discharge Plan - Plan Referrals: Marcial Wolf DO [Primary Care Provider] -
[2016-06-11 13:22] LABS: Total Volume 24 Hour,Urine 1.83 Liters (0.80-1.80)
[2016-06-11 13:49] LABS: Creatinine 24 Hour,Urine 1.28 g/day (0.71-1.65)
[2016-06-11 13:50] LABS: Creatinine 24 Hour,Urine 1.28 g/day (0.71-1.65); Creatinine,Urine 70 mg/dL; Microalbum/Creatinine Ratio,Ur 2857 (0-30)
[2016-06-11 13:52] LABS: Microalbumin,Urine > 2000 mg/L
[2016-06-11] MEDS: *HR* OxyCODONE Immed Rel 5 MG TABLET PO PRN (15:32)
[2016-06-11] MEDS: D10% in Water 500 ML IVC SCH ×3 (20:51→20:56)
[2016-06-12] MEDS: Insulin LISPRO 300 UNITS/3 ML VIAL SQ SCH ×2 (09:28→12:01)
[2016-06-12] MEDS: Furosemide 40 MG/4 ML VIAL IVP SCH (09:28)
[2016-06-12] MEDS: FLUoxetine 20 MG CAPSULE PO SCH (09:31)
[2016-06-12] MEDS: amLODIPine 5 MG TABLET PO SCH ×2 (09:31→09:41)
[2016-06-12] MEDS: Aspirin Enteric Coated 81 MG Tablet PO SCH (09:31)
[2016-06-12] MEDS: Famotidine 20 MG TABLET PO SCH (09:32)
[2016-06-12] MEDS: Pregabalin 50 MG CAPSULE PO SCH (09:32)
[2016-06-12] MEDS: Topiramate 25 MG TABLET PO SCH (09:33)
[2016-06-12] MEDS: Isosorbide MONOnitrate (24 HR) 60 MG TAB.ER.24H PO SCH (09:34)
[2016-06-12] MEDS: Ranolazine 500 MG TAB.ER.12H PO SCH (09:34)
--- NOTE | 2016-06-12 09:46 | Nephrology Progress Note ---
Date of Encounter: 06/12/16 Time of Encounter: 09:44 - Assessment and Plan (1) Proteinuria Current Visit: Yes Status: Acute The patient has a clinical picture of stage III chronic kidney disease with nephrotic range proteinuria. This is in the setting of long-standing diabetes. He also has a neurogenic bladder and requires bladder self-catheterization. Currently evaluation is in progress to rule out any other causes of his proteinuria. His lisinopril is being increased today. I am going to discontinue the IV Lasix and place him on chlorthalidone both for diuretic and also to assist with blood pressure control. Patient will require nephrology follow-up following hospital discharge. Qualifiers: Proteinuria type: persistent Qualified Code(s): R80.1 - Persistent proteinuria, unspecified (2) Chronic kidney disease, stage III (moderate) Current Visit: Yes Status: Acute (3) Diabetic renal disease Current Visit: Yes Status: Acute Qualifiers: Diabetes mellitus type: type 2 Qualified Code(s): E11.21 - Type 2 diabetes mellitus with diabetic nephropathy Subjective Interval history: Patient reports she is feeling better. His swelling seems to have resolved. Renal function remained stable. 24-hour urine protein shows nephrotic range proteinuria with 6.6 g per day. Blood pressure remains elevated. Urine culture is growing Klebsiella. Objective - Vital Signs Vital signs: Vital Signs Temp Pulse Resp BP Pulse Ox 06/12/16 05:44 98.1 F 60 16 182/73 96 06/11/16 23:45 98.3 F 62 16 171/76 96 06/11/16 17:00 98.1 F 58 14 164/73 97 06/11/16 14:38 97.5 F L 61 16 160/67 98 06/11/16 11:04 98.1 F 65 16 157/69 97 Intake and Output 06/11/16 06/12/16 06/12/16 23:59 07:59 15:59 Intake Total 340 / 340 240 / 240 Output Total 500 / 500 350 / 350 Balance 340 / 340 -500 / -500 -110 / -110 Intake: Oral 340 / 340 240 / 240 Output: Catheter 500 / 500 350 / 350 Other: Meal Dinner Breakfast Percent of Meal Consumed 75% 20% Weight 84.5 kg Blood Glucose* 157 183 Patient Weight 06/12/16 23:59 Weight 84.5 kg - General Appearance Exam: Patient is alert and oriented. He is in no acute distress. Lungs breath sounds otherwise clear. Heart regular rate and rhythm. Abdomen is benign. There is no notable peripheral edema. - Lab 06/09/16 04:06 06/11/16 08:12 Most recent lab results Calcium 8.0 mg/dL (8.6-10.8) L 06/11/16 08:12 Magnesium 2.3 mg/dL (1.6-2.6) 06/09/16 04:06 Urine Creatinine 70 mg/dL 06/11/16 12:00 Ur Total Protein 24 Hr 6643 mg/day (0-299) H 06/11/16 12:00 Urine Total Protein 363 mg/dL (1-14) H 06/11/16 12:00 Consult Discharge Plan - Plan Referrals: Marcial Wolf DO [Primary Care Provider] -
[2016-06-12 10:18] LABS: Hepatitis B Surface Antibody 0.11 mIU/mL; Hepatitis C Virus Antibody Nonreactive (Nonreactive)
[2016-06-12] MEDS ORDERED: *HR* OxyCODONE Immed Rel 5 MG TABLET PO PRN (10:24)
[2016-06-12] MEDS: D10% in Water 500 ML IVC SCH (11:11)
[2016-06-12 14:35] VITALS: BP 114/56
--- NOTE | 2016-06-12 15:40 | Discharge Summary ---
Date of Encounter: 06/12/16 Time of Encounter: 15:27 - Discharge Diagnosis (1) Anasarca Priority: Primary Status: Acute (2) CAD (coronary artery disease) Priority: Secondary Status: Acute Qualifiers: Coronary Disease-Associated Artery/Lesion type: [place] artery [place] vs. transplanted heart: [place] heart Associated angina: without angina Qualified Code(s): I25.10 - Atherosclerotic heart disease of [place] coronary artery without angina pectoris (3) CHF (congestive heart failure) Priority: Secondary Status: Acute Qualifiers: Congestive heart failure type: diastolic Congestive heart failure chronicity: acute on chronic Qualified Code(s): I50.33 - Acute on chronic diastolic (congestive) heart failure (4) CKD (chronic kidney disease) Priority: Secondary Status: Acute Qualifiers: Chronic kidney disease stage: stage 3 (moderate) Qualified Code(s): N18.3 - Chronic kidney disease, stage 3 (moderate) - Discharge Medications Prescriptions: Amlodipine [Norvasc] 10 mg PO DAILY #60 tablet Carvedilol [Coreg] 12.5 mg PO BIDWM #120 tablet Chlorthalidone 50 mg PO DAILY #30 tablet Furosemide [Lasix] 20 mg PO DAILY #30 tablet Lisinopril [Zestril] 20 mg PO DAILY #30 tablet Home Medications: Aspirin Enteric Coated [Aspirin EC] 81 mg PO DAILY 06/08/16 [History] Atorvastatin Calcium [Lipitor] 80 mg PO HS 06/08/16 [History] Clopidogrel [Plavix] 75 mg PO DAILY 06/08/16 [History] Cyclobenzaprine HCl 5 mg PO TID 06/08/16 [History] Dextrose [Glucose Gel] 15 gm PO ONCE PRN 06/08/16 [History] Ergocalciferol (VITAMIN D2) [Vitamin D2] 50,000 unit PO QWEEK 06/08/16 [History] FLUoxetine HCl [Prozac] 40 mg PO QAM 06/08/16 [History] Glucagon,Human Recombinant [Glucagon Emergency Kit] 1 mg IJ ONCE PRN 06/08/16 [ History] Insulin ASPART [Novolog Flexpen] 20 unit SQ TIDAC 06/08/16 [History] Insulin DETEMIR [Levemir Flextouch] 30 unit SQ QAM 06/08/16 [History] Insulin DETEMIR [Levemir Flextouch] 60 unit SQ HS 06/08/16 [History] Isosorbide MONOnitrate (24 HR) [Imdur] 60 mg PO DAILY 06/08/16 [History] Lubiprostone [Amitiza] 24 mcg PO BID 06/08/16 [History] Nitroglycerin [Nitrostat] 0.4 mg SL Q5M PRN 06/08/16 [History] Oxycodone HCl 10 mg PO Q6H PRN 06/08/16 [History] Pantoprazole Sodium [Protonix] 40 mg PO DAILY 06/08/16 [History] Pregabalin [Lyrica] 50 mg PO BID 06/08/16 [History] Quetiapine Fumarate [Seroquel] 50 mg PO HS 06/08/16 [History] Ranitidine HCl [Zantac] 150 mg PO BID 06/08/16 [History] Ranolazine [Ranexa] 500 mg PO BID 06/08/16 [History] Tamsulosin [Flomax] 0.4 mg PO DAILY 06/08/16 [History] Topiramate [Topamax] 25 mg PO BID 06/08/16 [History] Amlodipine [Norvasc] 10 mg PO DAILY #60 tablet 06/12/16 [Rx] Carvedilol [Coreg] 12.5 mg PO BIDWM #120 tablet 06/12/16 [Rx] Chlorthalidone 50 mg PO DAILY #30 tablet 06/12/16 [Rx] Furosemide [Lasix] 20 mg PO DAILY #30 tablet 06/12/16 [Rx] Lisinopril [Zestril] 20 mg PO DAILY #30 tablet 06/12/16 [Rx] Allergies/Adverse Reactions: Allergies Methadone Allergy (Verified 06/08/16 17:11) Hives Penicillins Allergy (Verified 06/08/16 17:11) Hives linaclotide [From Linzess] Adverse Reaction (Verified 06/08/16 17:11) Nausea Procedures/tests Complete & Pending: Procedures Performed prior 72 hours Category Date Time Status Retroperitoneal Ultrasound - Complete [US Exams 06/12/16 10:00 Draft retroperitoneal comp] [US] Stat Date of admission: 06/09/16 00:35 Primary care physician: Marcial Wolf, Consults: 06/09/16 00:47 Consult to Cardiology [CONS] Routine Comment: Consulting Provider: Cardiology Susie Reason for Consult: Acute exacerbation of CHF Call Completed: No 06/09/16 12:53 Consult to Nephrology [CONS] Routine Consulting Provider: [facility] Hoang PALOMARES Reason for Consult: please evaluate for worsening anasarca and hypoalbunemia in this patinet with CKD for any further testing. thank you. Call Completed: Yes Discharging clinician: August Gillette Anticipated date of discharge: 06/12/16 - Patient Status Disposition: Home, Self-Care Condition: Fair Functional capacity at discharge: independent ambulation Overall status at discharge: patient is back to baseline - Discharge Instructions Follow Up With: Jorge Palomares DO [Non-Partnered Physician] - Marcial Wolf DO [Primary Care Provider] - 06/23/16 1:35 pm - Diet and Activity Activity: resume usual activities as tolerated Diet: diabetic diet (fluid restriction to 1.5l/day) Interval History: Mr. Renee is a 60 year old male with Past medical history significant for Hypertension, hyperlipidemia, history of VT with stent 12/2013, CHF (Echo in May 2015 showed LVEF of 60-65%), diabetes, neurogenic bladder requiring intermittent self-catheterization. He presents to the emergency department with history of swelling all over for 3 days. Started in the legs and now in the upper extremities as well. He denies chest pain, shortness of breath, cough , expectoration, palpitations, fever, chills, abdominal pain, hematuria, bowel problems. He was evaluated in the emergency department and was noted to have elevated BNP. He is admitted to the hospitalist service for further management. HE was started on IV lasix,cardio and renal was consulted. cardio recommended cautious diuresus however no other medication change was done.Recent echo 05/25/16 EF preserved 60-65%, mild diastolic dysfunction. No further cardiac work-up warranted while inpt. Patient had a 24-hour urine protein checked. As per nephrology, the patient has a clinical picture of stage III chronic kidney disease with nephrotic range proteinuria. This is in the setting of long-standing diabetes. He also has a neurogenic bladder and requires bladder self-catheterization. Currently evaluation is in progress to rule out any other causes of his proteinuria. His blood pressure was noted to be very high, lisinopril was added along with Norvasc and chlorthalidone was added by a renal. With the medication adjustment, his blood pressure seems to be stable today. Given the addition of chlorthalidone, we will decrease the dose of Lasix to 20 mg daily at home to prevent dehydration. Patient will require nephrology follow-up following hospital discharge. He is being discharged today in stable condition, his edema and anasarca has improved. Hospital course: Mr. Renee is a 60 year old male Time spent discussing smoking cessation with patient: more than 10 minutes - Time Spent with Patient Total time spent providing and/or coordinating discharge services: Greater than 30 minutes - Constitutional Vitals: Temp Pulse Resp BP Pulse Ox 98.0 F 63 14 114/56 97 06/12/16 14:34 06/12/16 14:34 06/12/16 14:34 06/12/16 14:34 06/12/16 14:34 General appearance: Present: A&O X 3, no acute distress Exam: HEENT: Atraumatic, Normocephaly, Mucus Membranes Moist Neck: No JVD, Normal carotid pulses Cardiac: Reg Rate and Rhythm, Normal S1 and S2, No Murmur Lungs: Normal Breath Sounds, No Wheeze, Rales, Rhonchi Neuro: Alert and responsive, No focal deficits noted Abdomen: Soft, Non-Tender Skin: No rashes noted on visualized skin Musculoskeletal: No Chest Wall Tenderness Extremities: b/l lower leg edema has improved. - VTE Documentation of Mechanical Device: Graduated compression elastic hosiery
[2016-06-14 07:38] LABS: Complement Component 3 109 mg/dL (88-201); Complement Component 4 23 mg/dL (10-40)
[2016-06-14 15:11] LABS: ANA IgG by ELISA NONE DETECTED (None Detected)
[2016-06-14 22:33] LABS: Urine Collection Duration 24 hr; Urine Collection Volume 1829 mL
[2016-06-15 01:33] LABS: Alpha 2 Globulin (PEP) 0.97 g/dL (0.48-1.05); Beta Globulin (PEP) 0.66 g/dL (0.48-1.10)
[2016-06-15 07:33] LABS: IFE Reflexed NOT DONE
== END 2016-06-12 17:00 | disposition home or self-care (01) | DRG 291 ==
LOC: 3ANU 16:38 → EMEROO 16:38 → 3ANU 22:19 → SUATTDRO 06-09 00:35
PROVIDERS: ADMIT Hospitalist; ATTEND Internal Medicine Endocrinology, Diabetes & Metabolism

== ENCOUNTER 2016-08-31 18:16 | Inpatient (IN) ==
--- NOTE | 2016-08-31 19:25 | Emergency Department Note ---
Disposition Clinical Impression: Hematuria, Renal failure (ARF), acute on chronic, Emphysematous cystitis CKD (chronic kidney disease) Qualifiers: Chronic kidney disease stage: unspecified stage Qualified Code(s): N18.9 - Chronic kidney disease, unspecified Disposition: Admitted As Inpatient Condition: Fair Referrals: Marcial Wolf DO [Primary Care Provider] - Forms: ED Satisfaction Letter General Adult HPI - General Chief complaint: ED Urogenital-Male Stated complaint: Blood in urine, sent from [facility] Time Seen by Provider: 08/31/16 18:28 Source: patient Limitations: no limitations Nursing Notes Reviewed: Yes Vital Signs Reviewed: Yes - History of Present Illness HPI Narrative: Patient presents with hematuria which started home yesterday which was bright red blood present every time that he did self-catheterization on himself and he was seen at the [facility] emergency department and sent here for a CT scan. He does have some bruising of the skin but is on Plavix after a myocardial infarction - he does have chronic back pain but nothing new. Denies any abdominal pain. No fevers. He has not used any medication for the hematuria. He has had 5 pounds unintentional weight loss. Social history: Smoker, no alcohol or drugs Pain Scale: 8 - Related Data Home Medications Medication Instructions Recorded Confirmed Aspirin Enteric Coated [Aspirin EC] 81 mg PO DAILY 06/08/16 08/31/16 Atorvastatin Calcium [Lipitor] 80 mg PO HS 06/08/16 08/31/16 Clopidogrel [Plavix] 75 mg PO DAILY 06/08/16 08/31/16 Cyclobenzaprine HCl 5 mg PO TID 06/08/16 08/31/16 Dextrose [Glucose Gel] 15 gm PO ONCE PRN 06/08/16 08/31/16 Ergocalciferol (VITAMIN D2) 50,000 unit PO QWEEK 06/08/16 08/31/16 [Vitamin D2] FLUoxetine HCl [Prozac] 40 mg PO QAM 06/08/16 08/31/16 Glucagon,Human Recombinant 1 mg IJ ONCE PRN 06/08/16 08/31/16 [Glucagon Emergency Kit] Insulin ASPART [Novolog Flexpen] 20 unit SQ TIDAC 06/08/16 08/31/16 Insulin DETEMIR [Levemir Flextouch] 30 unit SQ QAM 06/08/16 08/31/16 Insulin DETEMIR [Levemir Flextouch] 60 unit SQ HS 06/08/16 08/31/16 Isosorbide MONOnitrate (24 HR) 60 mg PO DAILY 06/08/16 08/31/16 [Imdur] Nitroglycerin [Nitrostat] 0.4 mg SL Q5M PRN 06/08/16 08/31/16 Oxycodone HCl 10 mg PO Q6H PRN 06/08/16 08/31/16 Pregabalin [Lyrica] 50 mg PO TID 06/08/16 08/31/16 Ranitidine HCl [Zantac] 150 mg PO BID 06/08/16 08/31/16 Ranolazine [Ranexa] 500 mg PO BID 06/08/16 08/31/16 Tamsulosin [Flomax] 0.4 mg PO DAILY 06/08/16 08/31/16 Topiramate [Topamax] 25 mg PO BID 06/08/16 08/31/16 Furosemide [Lasix] 20 mg PO BID 08/31/16 08/31/16 Lipase/Protease/Amylase [Zenpep Dr 1 cap PO AD 08/31/16 08/31/16 40,000 Units Capsule] Previous Rx's Medication Instructions Recorded Carvedilol [Coreg] 12.5 mg PO BIDWM #120 tablet 06/12/16 Allergies Allergy/AdvReac Type Severity Reaction Status Date / Time Methadone Allergy Hives Verified 08/31/16 18:23 Penicillins Allergy Hives Verified 08/31/16 18:23 linaclotide [From Linzess] AdvReac Nausea Verified 08/31/16 18:23 phenazopyridine AdvReac See Verified 08/31/16 18:23 [From Pyridium] Comments Review of Systems: Constitutional: No fever Vision: + blurred vision ENT: No rhinorrhea Respiratory: No cough Allergic: No allergies : + blood in urine GI: No blood in stool Hematologic: + bruising Dermatologic: No skin rash Musculoskeletal: No pain in the extremities Neuro: No new numbness of the extremities but does have chronic lower extremity peripheral neuropathy Past Medical History - Past Medical History Medical history: Reports: coronary artery disease, diabetes, renal disease Surgical history: Reports: other Psychiatric history: Reports: depression - Social History Smoking Status: Current every day smoker Smokeless Tobacco Status: No Alcohol use: Reports: none Drug use: Reports: none Physical Exam CONSTITUTIONAL: Alert and oriented X3, well-nourished, well appearing, in no apparent distress HEAD: Normocephalic; atraumatic. EYES: PERRL, no scleral icterus. NOSE: The nose is normal in appearance without rhinorrhea RESP: Normal chest excursion with respiration; breath sounds clear and equal bilaterally; no wheezes, rhonchi, or rales CARD: Regular rhythm, without murmurs, rub or gallop ABD: Non-distended; non-tender, soft,without rigidity, rebound or guarding SKIN: Normal for age and race; warm and dry; no apparent lesions - General Limitations: no limitations General appearance: alert, in no apparent distress Course Vital Signs Temperature 98.9 F 08/31/16 18:24 Pulse Rate 72 08/31/16 18:24 Respiratory Rate 18 08/31/16 18:24 Blood Pressure 104/56 08/31/16 18:24 O2 Sat by Pulse Oximetry 97 08/31/16 18:24 Temperature 98.9 F 08/31/16 18:24 Pulse Rate 72 08/31/16 18:24 Respiratory Rate 18 08/31/16 18:24 Blood Pressure 104/56 08/31/16 18:24 O2 Sat by Pulse Oximetry 97 08/31/16 18:24 Oxygen Delivery Oxygen Delivery Room Air Medical Decision Making - [facility] Narrative Medical decision making narrative: Patient does have labs which were done earlier today and not repeat those. He does seem to have increased creatinine level which is worse than baseline as the level was 2.0 today. He does have a CT scan ordered to look for a ureteral stone or mass. Did have some bacteria and a few white blood cells in his urine but much blood. Urinalysis will be repeated here. 1926 I did get additional history in that the patient had a large bladder stone 11 years ago and did have lithotripsy but no surgery however had been left with a atonic bladder and so has been performing self catheterization. The patient's CT scan, and I did speak with the radiologist, does show emphysematous cystitis and I did discuss this further with Dr. Ayala from urology and the patient is not a emergent surgical candidate tonight and I will admit the patient and start the patient on Rocephin 2 g IV and I will admit to the hospitalist doctor. At this point he is bright and alert and in no distress. He does have acute on chronic renal failure. He did have labs done just several hours ago at the outside emergency department so not repeat those at this time. 2022 I did speak with Dr. Chong who accepted the patient for admission 2131 - Medical Records Medical records reviewed: Yes I reviewed the patient's medical records. - Lab Data Lab results reviewed: Yes I reviewed the patient's lab results. Lab Results 08/31/16 Range/Units 19:47 Urine Color Red A (Yellow) Urine Clarity Turbid A (Clear) Urine pH 5.5 (5.0-8.0) pH Units Ur Specific [place] 1.030 H (1.010-1.025) Urine Protein >=300 H (Neg-Trace) mg/dL Urine Glucose (UA) 100 H (Normal) mg/dL Urine Ketones Trace H (Negative) mg/dL Urine Blood Large H (Negative) Urine Nitrite Negative (Negative) Urine Bilirubin Negative (Negative) Urine Urobilinogen Normal (Normal) mg/dL Ur Leukocyte Esterase Moderate H (Negative) Urine Microscopic RBC TNTC H (0-3) per hpf Urine Microscopic WBC TNTC H (0-3) per hpf Ur Squamous Epith Cells Many H (None-Few) per lpf Urine Bacteria Moderate H (None-Few) per hpf Hyaline Casts None Seen (None-Few) per lpf - Radiology Data Radiology results reviewed: Yes I reviewed the patient's radiology results. Abdomen/Pelvis CT 08/31/16 18:54 IMPRESSION: Markedly thickened urinary bladder wall which contains gas. 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 Left nephrolithiasis. D/ / Ebony Interiano Cha, MD / Ebony Interiano Cha, MD Interpreting Provider: Ebony Interiano Cha, MD
[2016-08-31 20:05] LABS: Bilirubin,Urine Negative (Negative); Blood,Urine Large (Negative); Clarity,Urine Turbid (Clear); Color,Urine Red (Yellow); Glucose,Urine (UA) 100 mg/dL (Normal); Ketones,Urine Trace mg/dL (Negative); Leukocyte Esterase,Urine Moderate (Negative); Nitrite,Urine Negative (Negative); PH,Urine 5.5 pH Units (5.0-8.0); Protein,Urine >=300 mg/dL (Neg-Trace); Urobilinogen,Urine Normal (Normal)
[2016-08-31 20:07] LABS: Bacteria,Urine Moderate per hpf (None-Few); Hyaline Casts,Urine None Seen per lpf (None-Few); RBC,Urine TNTC per hpf (0-3); Squamous Epithelial Cell,Urine Many per lpf (None-Few); WBC,Urine TNTC per hpf (0-3)
[2016-08-31 22:01] LABS: Basophils % 0.5 %; Eosinophils # 0.2 K/mcL (0.0-0.6); Eosinophils % 2.6 %; Hematocrit 25.7 % (37.5-50.1); Hemoglobin 8.7 g/dL (12.9-16.9); Immature Granulocytes % 0.4 % (0-4); Lymphocytes % 11.7 %; Mean Corpuscular HGB Conc 33.9 g/dL (31.6-35.5); Mean Corpuscular Hemoglobin 28.8 pg (28.0-33.3); Mean Corpuscular Volume 85.1 fL (83.0-100.0); Mean Platelet Volume 11.2 fL (9.4-12.4); Monocytes # 0.5 K/mcL (0.0-1.3); Monocytes % 6.4 %; Neutrophils # 6.4 K/mcL (1.6-8.9); Platelet Count 136 K/mcL (140-400); Red Blood Count 3.02 M/mcL (4.19-5.50); Red Cell Distribution Width 13.2 % (11.5-14.5); Segmented Neutrophils % 78.4 %
[2016-08-31 22:14] LABS: Albumin 2.7 g/dL (3.5-5.0); Albumin/Globulin Ratio 0.9 (1.1-2.2); Bilirubin,Total 0.7 mg/dL (0.2-1.2); Calcium 8.8 mg/dL (8.6-10.8); Globulin 3.1 g/dL (2.4-3.5); Potassium 4.6 mEq/L (3.5-4.5); Total Protein 5.8 g/dL (6.0-8.3)
[2016-08-31] MEDS ORDERED: Naloxone 0.4 MG/ML INJ IVP PRN (23:08)
[2016-08-31] MEDS ORDERED: Nitroglycerin 0.4 MG TAB.SUBL SL PRN (23:11)
[2016-08-31] MEDS ORDERED: D5% in Water 1,000 ML IVC PRN ×2 (23:14→23:19)
[2016-08-31] MEDS ORDERED: Dextrose Gel 15 GM PO PRN ×2 (23:14)
[2016-08-31] MEDS ORDERED: Insulin DETEMIR 100 UNIT/ML X5UNITS SQ SCH (23:15)
[2016-08-31] MEDS ORDERED: Insulin LISPRO 300 UNITS/3 ML VIAL SQ SCH (23:34)
[2016-09-01] MEDS: *HR* OxyCODONE Immed Rel 5 MG TABLET PO PRN ×2 (01:58→16:21)
[2016-09-01 04:38] LABS: Calcium 9.1 mg/dL (8.6-10.8); Potassium 3.9 mEq/L (3.5-4.5)
[2016-09-01 04:39] LABS: Basophils % 0.5 %; Eosinophils # 0.3 K/mcL (0.0-0.6); Eosinophils % 5.5 %; Hematocrit 26.5 % (37.5-50.1); Hemoglobin 8.8 g/dL (12.9-16.9); Immature Granulocytes % 0.2 % (0-4); Lymphocytes # 1.1 K/mcL (0.6-4.6); Lymphocytes % 18.4 %; Mean Corpuscular HGB Conc 33.2 g/dL (31.6-35.5); Mean Corpuscular Hemoglobin 28.4 pg (28.0-33.3); Mean Corpuscular Volume 85.5 fL (83.0-100.0); Mean Platelet Volume 11.8 fL (9.4-12.4); Monocytes # 0.6 K/mcL (0.0-1.3); Neutrophils # 3.8 K/mcL (1.6-8.9); Platelet Count 132 K/mcL (140-400); Red Cell Distribution Width 13.3 % (11.5-14.5); Segmented Neutrophils % 65.4 %
--- NOTE | 2016-09-01 04:57 | Internal Med History&Physical ---
Date of Encounter: 08/31/16 Time of Encounter: 23:00 Assessment and Plan (1) DVT prophylaxis Current visit: Yes Status: Acute EPCD, no heparin because of hematuria (2) Diabetes mellitus Current visit: No Status: Chronic Poorly controlled. No DKA. Continue basal and sliding scale insulin. Closely monitor glucose. 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 mellitus complication status: with kidney complications Diabetes mellitus complication detail: with chronic kidney disease Diabetes mellitus exterminator termite insulin use: with exterminator termite use Chronic kidney disease stage: stage 3 (moderate) Qualified Code(s): E11.22 - Type 2 diabetes mellitus with diabetic chronic kidney disease; N18.3 - Chronic kidney disease, stage 3 (moderate); Z79.4 - adjunct faculty for medical terminology (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 insulin (3) Hypertension Current visit: No Status: Chronic Continue home medications. Qualifiers: Hypertension type: essential hypertension Qualified Code(s): I10 - Essential (primary) hypertension (4) Neurogenic bladder Current visit: No Status: Chronic (5) CKD (chronic kidney disease) Current visit: Yes Status: Acute Closely follow renal function. Avoid the nephrotoxic medication Qualifiers: Chronic kidney disease stage: stage 3 (moderate) Qualified Code(s): N18.9 - Chronic kidney disease, unspecified (6) Hematuria Current visit: Yes Status: Acute Possibly due to UTI. Closely monitor hemoglobin. Urology consult. (7) Emphysematous cystitis Current visit: Yes Status: Acute Consuled urology. Recommend Rocephin 2 g IV. We will continue Rocephin IV. Urology consult will see patient. Internal Medicine - H&P: HPI Chief complaint: Hematuria Admitted From: Home Plans for Post Hospital Care: Home History of present illness: Mr. Renee is a 61 year old male with history of neurogenic bladder need to self catheterization present to ER for hematuria for 2 days. Patient also complained burning when he urinates. Patient denies fever, no nausea, no vomiting, no abdominal pain. In emergency room, CT scan shows gas in the bladder wall. Urology was counseled by the emergency doctor, recommend admitted patient and urology will consult in a.m. Patient was admitted as UTI. CODE STATUS discussed with patient. He is a full code. Past Med Surg Social Fam HX - Past Medical History Medical history: coronary artery disease, diabetes, renal disease Psychiatric history: depression - Past Surgical History Surgical History: other - Social History Smoking Status: Current every day smoker Smokeless Tobacco Status: No Alcohol use: none Drug use: none - Family History Father Hx Family Cardiac Disorders: Yes (triple bypass) Hx Family Cancer: Yes (lung) Hx Family Endocrine Disorder: Yes (diabetes) Mother Hx Family Respiratory Disorders: No Hx Family Cancer: Yes (throat, lung) Internal Medicine - H&P: Meds Aspirin Enteric Coated [Aspirin EC] 81 mg PO DAILY 06/08/16 [History] Atorvastatin Calcium [Lipitor] 80 mg PO HS 06/08/16 [History] Clopidogrel [Plavix] 75 mg PO DAILY 06/08/16 [History] Cyclobenzaprine HCl 5 mg PO TID 06/08/16 [History] Dextrose [Glucose Gel] 15 gm PO ONCE PRN 06/08/16 [History] Ergocalciferol (VITAMIN D2) [Vitamin D2] 50,000 unit PO QWEEK 06/08/16 [History] FLUoxetine HCl [Prozac] 40 mg PO QAM 06/08/16 [History] Glucagon,Human Recombinant [Glucagon Emergency Kit] 1 mg IJ ONCE PRN 06/08/16 [ History] Insulin ASPART [Novolog Flexpen] 20 unit SQ TIDAC 06/08/16 [History] Insulin DETEMIR [Levemir Flextouch] 30 unit SQ QAM 06/08/16 [History] Insulin DETEMIR [Levemir Flextouch] 60 unit SQ HS 06/08/16 [History] Isosorbide MONOnitrate (24 HR) [Imdur] 60 mg PO DAILY 06/08/16 [History] Nitroglycerin [Nitrostat] 0.4 mg SL Q5M PRN 06/08/16 [History] Oxycodone HCl 10 mg PO Q6H PRN 06/08/16 [History] Pregabalin [Lyrica] 50 mg PO TID 06/08/16 [History] Ranitidine HCl [Zantac] 150 mg PO BID 06/08/16 [History] Ranolazine [Ranexa] 500 mg PO BID 06/08/16 [History] Tamsulosin [Flomax] 0.4 mg PO DAILY 06/08/16 [History] Topiramate [Topamax] 25 mg PO BID 06/08/16 [History] Carvedilol [Coreg] 12.5 mg PO BIDWM #120 tablet 06/12/16 [Rx] Furosemide [Lasix] 20 mg PO BID 08/31/16 [History] Lipase/Protease/Amylase [Zenpep Dr 40,000 Units Capsule] 1 cap PO AD 08/31/16 [ History] Allergies Methadone Allergy (Verified 08/31/16 18:23) Hives Penicillins Allergy (Verified 08/31/16 18:23) Hives linaclotide [From Linzess] Adverse Reaction (Verified 08/31/16 18:23) Nausea phenazopyridine [From Pyridium] Adverse Reaction (Verified 08/31/16 18:23) See Comments bladder spasms All Systems PM: A 10-system review of systems was performed and is negative for pertinent findings except as documented above in the HPI. - Constitutional Vitals: Temp Pulse Resp BP Pulse Ox 97.9 F 55 16 159/70 93 09/01/16 04:18 09/01/16 04:18 09/01/16 04:18 09/01/16 04:18 09/01/16 04:18 General appearance: Present: A&O X 3, no acute distress, answers questions appropriately - Head Head exam: Present: atraumatic, normocephalic - Eye Eye exam: Present: PERRL, conjuntiva pink, sclera anicteric Pupils: Present: PERRL - Neck Neck exam general surgery: Present: supple, trachea midline. Absent: lymphadenopathy - Respiratory Respiratory exam: Present: CTAB. Absent: accessory muscle use, rales, rhonchi, wheezes - Cardiovascular Cardiovascular exam: Present: RRR, +S1, +S2. Absent: diastolic murmur, gallop, rubs, systolic murmur - GI/Abdominal GI/Abdominal exam: Present: normal bowel sounds, soft, no peritoneal signs. Absent: distended, tenderness - Extremities Exam Extremities exam: Present: warm, radial pulses palpable and symetrical. Absent : calf tenderness, cyanotic, pedal edema - Neurological Exam Neurological exam: Present: CN II-XII intact, oriented X3, no focal deficits. Absent: pronater drift, facial droop, speech deficit - Skin Skin exam: Present: dry, intact Internal Med - H&P Results - Labs CBC & Chem 7: 09/01/16 04:06 09/01/16 04:06 Labs: Short CBC 09/01/16 Range/Units 04:06 WBC 5.8 (4.3-11.1) K/mcL Hgb 8.8 L (12.9-16.9) g/dL Hct 26.5 L (37.5-50.1) % Plt Count 132 L (140-400) K/mcL Neutrophils # 3.8 (1.6-8.9) K/mcL BMP 09/01/16 04:06 Sodium 142 Potassium 3.9 Chloride 108 Carbon Dioxide 28 BUN 55 H Creatinine 1.70 H Glucose 50 L Calcium 9.1
[2016-09-01] MEDS ORDERED: *HR* Heparin 5,000 UNIT/ML VIAL SQ SCH (06:00)
[2016-09-01] MEDS ORDERED: Insulin LISPRO 300 UNITS/3 ML VIAL SQ SCH ×4 (06:44→21:00)
[2016-09-01] MEDS: FLUoxetine 20 MG CAPSULE PO SCH (08:35)
[2016-09-01] MEDS: Aspirin Enteric Coated 81 MG Tablet PO SCH (08:35)
[2016-09-01] MEDS: Ranolazine 500 MG TAB.ER.12H PO SCH ×2 (08:35→21:04)
[2016-09-01] MEDS: Famotidine 20 MG TABLET PO SCH ×2 (08:35→16:21)
[2016-09-01] MEDS: Pregabalin 50 MG CAPSULE PO SCH ×3 (08:35→21:03)
[2016-09-01] MEDS: Isosorbide MONOnitrate (24 HR) 60 MG TAB.ER.24H PO SCH (08:36)
[2016-09-01] MEDS: Topiramate 25 MG TABLET PO SCH ×2 (08:36→21:03)
[2016-09-01] MEDS: Furosemide 40 MG TABLET PO SCH ×2 (08:36→16:20)
[2016-09-01] MEDS ORDERED: Insulin DETEMIR 100 UNIT/ML X5UNITS SQ SCH ×2 (09:00→21:00)
--- NOTE | 2016-09-01 10:57 | Event Note ---
Date of Encounter: 09/01/16 Time of Encounter: 10:57 Patient is a 61y/o male who was admitted for hematuria, UTI, and hyperglycemia secondary to uncontrolled DM. pt has a history of urinary retention and continues to self catheterize. Pt seen and examined at bedside. Reports of feeling well. States he saw his PCP a month ago. reports of having appropriate control of his BG. Will obtain A1C given his current FS readings. Will continue IV abx for UTI urology consultation placed, Dr. Ayala to see the patient later today Insulin regimen adjusted as per his current BG readings, will closely monitor and adjust insulin therapy as needed. Noted to be hypertensive. Started Hydralazine 10mg IV q6h PRN SBP>150 and Amlodipine 5mg PO qd. Will closely monitor BP.
[2016-09-01 11:19] LABS: Hemoglobin A1C 10.6 %
[2016-09-01] MEDS: Insulin LISPRO 300 UNITS/3 ML VIAL SQ SCH ×5 (11:25→21:04)
[2016-09-01] MEDS: amLODIPine 5 MG TABLET PO SCH (12:34)
[2016-09-01] MEDS: Nicotine 21 MG PATCH.TD24 TD SCH (17:22)
--- NOTE | 2016-09-01 18:46 | Urology - Consult Note ---
Date of Encounter: 09/01/16 Time of Encounter: 18:44 - Assessment and Plan (1) Emphysematous cystitis Current Visit: Yes Status: Acute Assessment and plan: 61-year-old man with a history of diabetes and neurogenic bladder. He now has emphysematous cystitis. I recommend placement of a Quan catheter and treatment with broad spectrum antibiotics. Once his infection has resolved, we can have him resume intermittent catheterization. At this point, there doesn't appear to be a surgical urgency. The antibiotics should resolve this infection. I will follow along. Urology [id number]:[email or web address] Consult date: 09/01/16 Reason for consult Urology: Other (emphysematous cystitis) Requesting physician: Elizabeth Muse History of present illness: 61-year-old man presents with fevers and lower abdominal pain. He has a history of urinary retention and performs intermittent catheterization 6 times a day. He was seen in the emergency department yesterday. A CT scan was performed which showed gas within the bladder. This was concerning for emphysematous cystitis. He was started on broad-spectrum antibiotics and admitted to the hospital. He continues to catheterize himself. He says he is feeling better. He had some hematuria, but he says his urine is clearing now. Past Med Surg Social Fam HX - Past Medical History Medical history: coronary artery disease, diabetes, renal disease Psychiatric history: depression - Past Surgical History Surgical History: other - Social History Smoking Status: Current every day smoker Smokeless Tobacco Status: No Alcohol use: none Drug use: none - Family History Father Hx Family Cardiac Disorders: Yes (triple bypass) Hx Family Cancer: Yes (lung) Hx Family Endocrine Disorder: Yes (diabetes) Mother Hx Family Respiratory Disorders: No Hx Family Cancer: Yes (throat, lung) Medications and Allergies Aspirin Enteric Coated [Aspirin EC] 81 mg PO DAILY 06/08/16 [History] Atorvastatin Calcium [Lipitor] 80 mg PO HS 06/08/16 [History] Clopidogrel [Plavix] 75 mg PO DAILY 06/08/16 [History] Cyclobenzaprine HCl 5 mg PO TID 06/08/16 [History] Dextrose [Glucose Gel] 15 gm PO ONCE PRN 06/08/16 [History] Ergocalciferol (VITAMIN D2) [Vitamin D2] 50,000 unit PO QWEEK 06/08/16 [History] FLUoxetine HCl [Prozac] 40 mg PO QAM 06/08/16 [History] Glucagon,Human Recombinant [Glucagon Emergency Kit] 1 mg IJ ONCE PRN 06/08/16 [ History] Insulin ASPART [Novolog Flexpen] 20 unit SQ TIDAC 06/08/16 [History] Insulin DETEMIR [Levemir Flextouch] 30 unit SQ QAM 06/08/16 [History] Insulin DETEMIR [Levemir Flextouch] 60 unit SQ HS 06/08/16 [History] Isosorbide MONOnitrate (24 HR) [Imdur] 60 mg PO DAILY 06/08/16 [History] Nitroglycerin [Nitrostat] 0.4 mg SL Q5M PRN 06/08/16 [History] Oxycodone HCl 10 mg PO Q6H PRN 06/08/16 [History] Pregabalin [Lyrica] 50 mg PO TID 06/08/16 [History] Ranitidine HCl [Zantac] 150 mg PO BID 06/08/16 [History] Ranolazine [Ranexa] 500 mg PO BID 06/08/16 [History] Tamsulosin [Flomax] 0.4 mg PO DAILY 06/08/16 [History] Topiramate [Topamax] 25 mg PO BID 06/08/16 [History] Carvedilol [Coreg] 12.5 mg PO BIDWM #120 tablet 06/12/16 [Rx] Furosemide [Lasix] 20 mg PO BID 08/31/16 [History] Lipase/Protease/Amylase [Zenpep Dr 40,000 Units Capsule] 1 cap PO AD 08/31/16 [ History] Allergies Methadone Allergy (Verified 08/31/16 18:23) Hives Penicillins Allergy (Verified 08/31/16 18:23) Hives linaclotide [From Linzess] Adverse Reaction (Verified 08/31/16 18:23) Nausea phenazopyridine [From Pyridium] Adverse Reaction (Verified 08/31/16 18:23) See Comments bladder spasms Review of Systems - Constitutional no chills, no fever(s) - EENT Nose, mouth and throat: no dizziness - Cardiovascular no chest pain - Respiratory no dyspnea - Gastrointestinal no nausea, no vomiting - Genitourinary hematuria, no flank pain - Musculoskeletal no back pain - Integumentary no erythema, no rash - Neurological no weakness - Psychiatric no suicidal ideation - Hematologic/Lymphatic no easy bleeding - Allergic/Immunologic no wheezing Exam Initial Vital Signs Temp Pulse Resp BP Pulse Ox 98.9 F 72 18 104/56 97 08/31/16 18:24 08/31/16 18:24 08/31/16 18:24 08/31/16 18:24 08/31/16 18:24 - General physical appearance Present: well developed, well nourished, no distress - Eyes Absent: icteric - ENT Present: normal nares - Neck Present: trachea midline - Respiratory Present: normal respiratory effort - Cardiovascular Cardiovascular exam IM: RRR - Abdomen Abdomen: Present: soft Urology Results - Labs 09/01/16 04:06 09/01/16 04:06 Abnormal lab results RBC 3.10 M/mcL (4.19-5.50) L 09/01/16 04:06 Hgb 8.8 g/dL (12.9-16.9) L 09/01/16 04:06 Hct 26.5 % (37.5-50.1) L 09/01/16 04:06 Plt Count 132 K/mcL (140-400) L 09/01/16 04:06 BUN 55 mg/dL (8-26) H 09/01/16 04:06 Creatinine 1.70 mg/dL (0.72-1.25) H 09/01/16 04:06 Est GFR ( Amer) 50 (> 60) L 09/01/16 04:06 Est GFR (Non-Af Amer) 41 (> 60) L 09/01/16 04:06 BUN/Creatinine Ratio 32 (6-26) H 09/01/16 04:06 Glucose 50 mg/dL (70-99) L 09/01/16 04:06 Hemoglobin A1c 10.6 % (-5.6) H 09/01/16 04:06 Calculated Osmolality 306 (280-300) H 09/01/16 04:06 Serum Total Protein 5.8 g/dL (6.0-8.3) L 08/31/16 21:55 Albumin 2.7 g/dL (3.5-5.0) L 08/31/16 21:55 Albumin/Globulin Ratio 0.9 (1.1-2.2) L 08/31/16 21:55 Urine Color Red (Yellow) A 08/31/16 19:47 Urine Clarity Turbid (Clear) A 08/31/16 19:47 Ur Specific [place] 1.030 (1.010-1.025) H 08/31/16 19:47 Urine Protein >=300 mg/dL (Neg-Trace) H 08/31/16 19:47 Urine Glucose (UA) 100 mg/dL (Normal) H 08/31/16 19:47 Urine Ketones Trace mg/dL (Negative) H 08/31/16 19:47 Urine Blood Large (Negative) H 08/31/16 19:47 Ur Leukocyte Esterase Moderate (Negative) H 08/31/16 19:47 Urine Microscopic RBC TNTC per hpf (0-3) H 08/31/16 19:47 Urine Microscopic WBC TNTC per hpf (0-3) H 08/31/16 19:47 Ur Squamous Epith Cells Many per lpf (None-Few) H 08/31/16 19:47 Urine Bacteria Moderate per hpf (None-Few) H 08/31/16 19:47 Diabetes panel 09/01/16 09/01/16 Range/Units 04:06 04:06 Sodium 142 (136-145) mEq/L Potassium 3.9 (3.5-4.5) mEq/L Chloride 108 (98-109) mEq/L Carbon Dioxide 28 (19-29) mEq/L BUN 55 H (8-26) mg/dL Creatinine 1.70 H (0.72-1.25) mg/dL Glucose 50 L (70-99) mg/dL Hemoglobin A1c 10.6 H ( - 5.6) % Calcium 9.1 (8.6-10.8) mg/dL Calcium panel 09/01/16 Range/Units 04:06 Calcium 9.1 (8.6-10.8) mg/dL Pituitary panel 09/01/16 Range/Units 04:06 Sodium 142 (136-145) mEq/L Potassium 3.9 (3.5-4.5) mEq/L Chloride 108 (98-109) mEq/L Carbon Dioxide 28 (19-29) mEq/L BUN 55 H (8-26) mg/dL Creatinine 1.70 H (0.72-1.25) mg/dL Glucose 50 L (70-99) mg/dL Calcium 9.1 (8.6-10.8) mg/dL Adrenal panel 09/01/16 Range/Units 04:06 Sodium 142 (136-145) mEq/L Potassium 3.9 (3.5-4.5) mEq/L Chloride 108 (98-109) mEq/L Carbon Dioxide 28 (19-29) mEq/L BUN 55 H (8-26) mg/dL Creatinine 1.70 H (0.72-1.25) mg/dL Glucose 50 L (70-99) mg/dL Calcium 9.1 (8.6-10.8) mg/dL All other labs normal. - Imaging CT scan - abdomen: report reviewed, image reviewed CT scan - pelvis: report reviewed, image reviewed Consult Discharge Plan - Plan Referrals: Marcial Wolf DO [Primary Care Provider] - (Web requested 08/31/16)
[2016-09-01] MEDS: Insulin DETEMIR 100 UNIT/ML X5UNITS SQ SCH (22:27)
[2016-09-02] MEDS ORDERED: Nitroglycerin 1 INCH/GM PACKET TP ONE (03:40)
[2016-09-02] MEDS: *HR* Dextrose 50 % in Water (Syg) 50 ML SYRINGE IVP PRN ×2 (04:14→20:16)
[2016-09-02] MEDS: Famotidine 20 MG TABLET PO SCH ×2 (06:41→15:56)
[2016-09-02 06:52] LABS: Basophils % 0.3 %; Eosinophils # 0.2 K/mcL (0.0-0.6); Eosinophils % 2.1 %; Hematocrit 29.1 % (37.5-50.1); Hemoglobin 9.8 g/dL (12.9-16.9); Immature Granulocytes % 0.5 % (0-4); Lymphocytes % 8.3 %; Mean Corpuscular HGB Conc 33.7 g/dL (31.6-35.5); Mean Corpuscular Hemoglobin 28.7 pg (28.0-33.3); Mean Corpuscular Volume 85.1 fL (83.0-100.0); Mean Platelet Volume 12.1 fL (9.4-12.4); Monocytes # 0.5 K/mcL (0.0-1.3); Monocytes % 5.3 %; Neutrophils # 8.5 K/mcL (1.6-8.9); Platelet Count 144 K/mcL (140-400); Red Blood Count 3.42 M/mcL (4.19-5.50); Red Cell Distribution Width 13.4 % (11.5-14.5); Segmented Neutrophils % 83.5 %
[2016-09-02 06:59] LABS: Lymphocytes # 0.9 K/mcL (0.6-4.6)
[2016-09-02 07:01] LABS: Calcium 8.7 mg/dL (8.6-10.8); Magnesium 2.1 mg/dL (1.6-2.6); Phosphorous 3.3 mg/dL (2.3-4.7); Potassium 3.7 mEq/L (3.5-4.5)
[2016-09-02] MEDS ORDERED: Insulin DETEMIR 100 UNIT/ML X5UNITS SQ SCH (09:00)
--- NOTE | 2016-09-02 09:53 | Urology Progress Note ---
Date of Encounter: 09/02/16 Time of Encounter: 09:52 - Assessment and Plan (1) Emphysematous cystitis Current Visit: Yes Status: Acute Assessment and plan: continue IV antibiotics. Await urine cultures. Continue catheter to maximally drain urine. Okay to resume clean intermittent catheterization upon discharge. Progress Note Narrative: Doing well. Catheter placed yesterday. Urine is clear yellow. Objective Initial Vital Signs Temp Pulse Resp BP Pulse Ox 98.9 F 72 18 104/56 97 08/31/16 18:24 08/31/16 18:24 08/31/16 18:24 08/31/16 18:24 08/31/16 18:24 - General physical appearance Present: well developed, well nourished, no distress - Respiratory Present: normal respiratory effort - Abdomen Present: soft - Genitourinary Urine Appearance: Present: Clear - Labs 09/02/16 06:24 09/02/16 06:24 Diabetes panel 09/01/16 09/02/16 Range/Units 04:06 06:24 Sodium 141 (136-145) mEq/L Potassium 3.7 (3.5-4.5) mEq/L Chloride 108 (98-109) mEq/L Carbon Dioxide 25 (19-29) mEq/L BUN 49 H (8-26) mg/dL Creatinine 1.64 H (0.72-1.25) mg/dL Glucose 93 (70-99) mg/dL Hemoglobin A1c 10.6 H ( - 5.6) % Calcium 8.7 (8.6-10.8) mg/dL Calcium panel 09/02/16 Range/Units 06:24 Calcium 8.7 (8.6-10.8) mg/dL Phosphorus 3.3 (2.3-4.7) mg/dL Pituitary panel 09/02/16 Range/Units 06:24 Sodium 141 (136-145) mEq/L Potassium 3.7 (3.5-4.5) mEq/L Chloride 108 (98-109) mEq/L Carbon Dioxide 25 (19-29) mEq/L BUN 49 H (8-26) mg/dL Creatinine 1.64 H (0.72-1.25) mg/dL Glucose 93 (70-99) mg/dL Calcium 8.7 (8.6-10.8) mg/dL Adrenal panel 09/02/16 Range/Units 06:24 Sodium 141 (136-145) mEq/L Potassium 3.7 (3.5-4.5) mEq/L Chloride 108 (98-109) mEq/L Carbon Dioxide 25 (19-29) mEq/L BUN 49 H (8-26) mg/dL Creatinine 1.64 H (0.72-1.25) mg/dL Glucose 93 (70-99) mg/dL Calcium 8.7 (8.6-10.8) mg/dL - VTE Documentation of Mechanical Device: Intermittent pneumatic compression device Consult Discharge Plan - Plan Referrals: Marcial Wolf DO [Primary Care Provider] - (Web requested 08/31/16)
[2016-09-02] MEDS: FLUoxetine 20 MG CAPSULE PO SCH (10:17)
[2016-09-02] MEDS: Ranolazine 500 MG TAB.ER.12H PO SCH ×2 (10:17→20:24)
[2016-09-02] MEDS: Furosemide 40 MG TABLET PO SCH ×2 (10:17→17:08)
[2016-09-02] MEDS: Insulin LISPRO 300 UNITS/3 ML VIAL SQ SCH ×6 (10:18→17:12)
[2016-09-02] MEDS: Isosorbide MONOnitrate (24 HR) 60 MG TAB.ER.24H PO SCH (10:18)
[2016-09-02] MEDS: amLODIPine 5 MG TABLET PO SCH (10:18)
[2016-09-02] MEDS: Pregabalin 50 MG CAPSULE PO SCH ×3 (10:18→20:23)
[2016-09-02] MEDS: Aspirin Enteric Coated 81 MG Tablet PO SCH (10:18)
[2016-09-02] MEDS: Topiramate 25 MG TABLET PO SCH ×2 (10:18→20:25)
[2016-09-02] MEDS: Nicotine 21 MG PATCH.TD24 TD SCH (10:19)
--- NOTE | 2016-09-02 12:14 | Internal Med Progress Note ---
Date of Encounter: 09/02/16 Time of Encounter: 12:13 - Subjective Interval history: Patient seen and examined. rEsting comfortably in chair. reports of feeling well. Noted to be have recurrent episodes of hypoglycemia. Home dose of basal insulin has been decreased. BP better controlled. Urology follow up appreciated. Niño cath in place Assessment and Plan (1) DVT prophylaxis Current visit: Yes Status: Acute SCD (2) Diabetes mellitus Current visit: No Status: Chronic BG better controlled A1C: 10.6, unclear of patient's compliance, as patient is noted to become severely hypoglycemic with administration of his home insulin dose however A1C is worsened from earlier this year will only continue Levemir 25units SQ daily continue sliding scale insulin algorithm monitor FS and BG will adjust insulin therapy as needed 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 mellitus complication status: with kidney complications Diabetes mellitus complication detail: with chronic kidney disease Diabetes mellitus detention insulin use: with tool adjuster use Chronic kidney disease stage: stage 3 (moderate) Qualified Code(s): E11.22 - Type 2 diabetes mellitus with diabetic chronic kidney disease; N18.3 - Chronic kidney disease, stage 3 (moderate); Z79.4 - shelter (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 insulin (3) Hypertension Current visit: No Status: Chronic BP within acceptable range Continue home medications. Qualifiers: Hypertension type: essential hypertension Qualified Code(s): I10 - Essential (primary) hypertension (4) Neurogenic bladder Current visit: No Status: Chronic patient to continue self clean catheterizations after discharge will continue niño cath at this time (5) CKD (chronic kidney disease) Current visit: Yes Status: Acute Renal function at baseline continue to monitor Qualifiers: Chronic kidney disease stage: stage 3 (moderate) Qualified Code(s): N18.9 - Chronic kidney disease, unspecified (6) Hematuria Current visit: Yes Status: Acute resolved (7) Emphysematous cystitis Current visit: Yes Status: Acute Urology consultation appreciated continue IV abx f/u urine cultures - Constitutional Vitals: Temp Pulse Resp BP Pulse Ox 97.6 F 64 16 149/68 99 09/02/16 11:41 09/02/16 11:41 09/02/16 11:41 09/02/16 11:41 09/02/16 11:41 General appearance: Present: A&O X 3, no acute distress, answers questions appropriately - Head Head exam: Present: atraumatic, normocephalic - Respiratory Respiratory exam: Present: CTAB. Absent: respiratory distress, wheezes - Cardiovascular Cardiovascular exam: Present: RRR, +S1, +S2. Absent: diastolic murmur, gallop, rubs, systolic murmur - GI/Abdominal GI/Abdominal exam: Present: normal bowel sounds, soft, no peritoneal signs. Absent: distended, tenderness - Extremities Exam Extremities exam: Present: warm, radial pulses palpable and symetrical. Absent : calf tenderness, pedal edema - Neurological Exam Neurological exam: Present: alert, oriented X3 - Psychiatric Psychiatric exam: Present: normal affect, normal mood Internal Medicine: Result - Labs CBC & Chem 7: 09/02/16 06:24 09/02/16 06:24 Labs: Short CBC 09/02/16 Range/Units 06:24 WBC 10.2 D (4.3-11.1) K/mcL Hgb 9.8 L (12.9-16.9) g/dL Hct 29.1 L (37.5-50.1) % Plt Count 144 (140-400) K/mcL Neutrophils # 8.5 (1.6-8.9) K/mcL BMP 09/02/16 06:24 Sodium 141 Potassium 3.7 Chloride 108 Carbon Dioxide 25 BUN 49 H Creatinine 1.64 H Glucose 93 Calcium 8.7 - VTE Documentation of Mechanical Device: Intermittent pneumatic compression device Consult Discharge Plan - Plan Referrals: Marcial Wolf DO [Primary Care Provider] - (Web requested 08/31/16)
[2016-09-03] MEDS ORDERED: *HR* LORazepam 0.5 MG TABLET PO ONE (00:03)
[2016-09-03] MEDS: Insulin LISPRO 300 UNITS/3 ML VIAL SQ SCH ×8 (00:21→20:01)
[2016-09-03] MEDS: Insulin DETEMIR 100 UNIT/ML X5UNITS SQ SCH ×2 (01:16→20:02)
[2016-09-03 07:00] LABS: Calcium 8.3 mg/dL (8.6-10.8); Magnesium 2.1 mg/dL (1.6-2.6); Phosphorous 3.2 mg/dL (2.3-4.7); Potassium 4.1 mEq/L (3.5-4.5)
[2016-09-03 07:09] LABS: Basophils % 0.6 %; Eosinophils # 0.2 K/mcL (0.0-0.6); Eosinophils % 2.7 %; Hematocrit 29.6 % (37.5-50.1); Hemoglobin 9.6 g/dL (12.9-16.9); Immature Granulocytes % 0.3 % (0-4); Lymphocytes # 0.8 K/mcL (0.6-4.6); Lymphocytes % 11.9 %; Mean Corpuscular HGB Conc 32.4 g/dL (31.6-35.5); Mean Corpuscular Volume 86.3 fL (83.0-100.0); Mean Platelet Volume 12.3 fL (9.4-12.4); Monocytes # 0.4 K/mcL (0.0-1.3); Monocytes % 6.3 %; Neutrophils # 5.2 K/mcL (1.6-8.9); Platelet Count 145 K/mcL (140-400); Red Blood Count 3.43 M/mcL (4.19-5.50); Red Cell Distribution Width 13.5 % (11.5-14.5); Segmented Neutrophils % 78.2 %
[2016-09-03] MEDS ORDERED: Insulin DETEMIR 100 UNIT/ML X5UNITS SQ ONE (08:21)
[2016-09-03] MEDS: Ranolazine 500 MG TAB.ER.12H PO SCH ×2 (09:03→20:00)
[2016-09-03] MEDS: Aspirin Enteric Coated 81 MG Tablet PO SCH (09:04)
[2016-09-03] MEDS: Famotidine 20 MG TABLET PO SCH ×2 (09:04→16:55)
[2016-09-03] MEDS: Isosorbide MONOnitrate (24 HR) 60 MG TAB.ER.24H PO SCH (09:04)
[2016-09-03] MEDS: Furosemide 40 MG TABLET PO SCH ×2 (09:04→16:56)
[2016-09-03] MEDS: Pregabalin 50 MG CAPSULE PO SCH ×3 (09:05→20:00)
[2016-09-03] MEDS: Topiramate 25 MG TABLET PO SCH ×2 (09:05→20:00)
[2016-09-03] MEDS: Nicotine 21 MG PATCH.TD24 TD SCH (09:06)
[2016-09-03] MEDS: amLODIPine 5 MG TABLET PO SCH (09:07)
[2016-09-03] MEDS: FLUoxetine 20 MG CAPSULE PO SCH (09:07)
[2016-09-03] MEDS: *HR* OxyCODONE Immed Rel 5 MG TABLET PO PRN (09:09)
--- NOTE | 2016-09-03 10:03 | Internal Med Progress Note ---
Date of Encounter: 09/03/16 Time of Encounter: 09:59 - Subjective Interval history: Patient seen and examined. Resting comfortably in chair, denies any discomfort. Noted to have BG in low 100s overnight due to which he did not receive his Levemir dose last night, this morning he is noted to have hyperglycemia in 300s. Nursing staff educated in regards to not holding full levemir dosing despite FS readings and to cut the dose in half if patient is found to have low BG readings. Pt also noted to have elevated BP, however he is to receive his morning medications and will recheck BP after. Urology follow up appreciated. Niño cath in place. Will remove niño prior to discharge and patient will continue to self catheterize. Assessment and Plan (1) DVT prophylaxis Current visit: Yes Status: Acute SCD (2) Diabetes mellitus Current visit: No Status: Chronic Noted to be hyperglycemic this morning due to missed levemir dosing overnight Will give one time dose of Levemir 15unit this morning (pt reports of taking Levemir 30 qAM and 60qPM) A1C: 10.6, unclear of patient's compliance, as patient is noted to become severely hypoglycemic with administration of his home insulin dose however A1C is worsened from earlier this year will only continue Levemir 25units SQ HS, reduce the dose by half if noted to have BG in low 100s. continue sliding scale insulin algorithm monitor FS and BG will adjust insulin therapy as needed 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 mellitus complication status: with kidney complications Diabetes mellitus complication detail: with chronic kidney disease Diabetes mellitus medical terminologist insulin use: with medical terminologist use Chronic kidney disease stage: stage 3 (moderate) Qualified Code(s): E11.22 - Type 2 diabetes mellitus with diabetic chronic kidney disease; N18.3 - Chronic kidney disease, stage 3 (moderate); Z79.4 - care home (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 insulin (3) Hypertension Current visit: No Status: Chronic Noted to be hypertensive this morning, will repeat BP after he receives his morning meds Clinically asymptomatic will continue to monitor. Continue home medications. Qualifiers: Hypertension type: essential hypertension Qualified Code(s): I10 - Essential (primary) hypertension (4) Neurogenic bladder Current visit: No Status: Chronic patient to continue self clean catheterizations after discharge will continue niño cath at this time (5) CKD (chronic kidney disease) Current visit: Yes Status: Acute Renal function at baseline continue to monitor Qualifiers: Chronic kidney disease stage: stage 3 (moderate) Qualified Code(s): N18.9 - Chronic kidney disease, unspecified (6) Hematuria Current visit: Yes Status: Acute resolved (7) Emphysematous cystitis Current visit: Yes Status: Acute Urology consultation appreciated continue IV abx f/u urine cultures - Constitutional Vitals: Temp Pulse Resp BP Pulse Ox 98.4 F 65 16 172/83 98 09/03/16 07:15 09/03/16 07:15 09/03/16 07:15 09/03/16 07:15 09/03/16 07:15 General appearance: Present: A&O X 3, no acute distress, answers questions appropriately - Head Head exam: Present: atraumatic, normocephalic - Eye Eye exam: Present: normal appearance, conjuntiva pink, sclera anicteric - Respiratory Respiratory exam: Present: CTAB. Absent: respiratory distress, wheezes - Cardiovascular Cardiovascular exam: Present: RRR, +S1, +S2. Absent: diastolic murmur, gallop, rubs, systolic murmur - GI/Abdominal GI/Abdominal exam: Present: normal bowel sounds, soft. Absent: distended, tenderness - Extremities Exam Extremities exam: Present: warm, radial pulses palpable and symetrical. Absent : pedal edema - Neurological Exam Neurological exam: Present: alert, oriented X3 - Psychiatric Psychiatric exam: Present: normal affect, normal mood Internal Medicine: Result - Labs CBC & Chem 7: 09/03/16 05:21 09/03/16 05:21 Labs: Short CBC 09/03/16 Range/Units 05:21 WBC 6.6 (4.3-11.1) K/mcL Hgb 9.6 L (12.9-16.9) g/dL Hct 29.6 L (37.5-50.1) % Plt Count 145 (140-400) K/mcL Neutrophils # 5.2 (1.6-8.9) K/mcL BMP 09/03/16 05:21 Sodium 139 Potassium 4.1 Chloride 107 Carbon Dioxide 24 BUN 46 H Creatinine 1.92 H Glucose 355 H Calcium 8.3 L - VTE Documentation of Mechanical Device: Intermittent pneumatic compression device Consult Discharge Plan - Plan Referrals: Marcial Wolf DO [Primary Care Provider] - (Web requested 08/31/16)
[2016-09-03] MEDS: 0.9 % Sodium Chloride 1,000 ML IVC SCH (10:35)
[2016-09-03 23:51] VITALS: BP 155/80
[2016-09-04] MEDS: 0.9 % Sodium Chloride 1,000 ML IVC SCH (00:27)
--- NOTE | 2016-09-04 07:08 | Event Note ---
Date of Encounter: 09/04/16 Time of Encounter: 03:00 Called by RN that pt wants to leave with AMA. D/W pt at bedside, he is awake, alert, oriented x 3, understanding the risk of leaving hospital w/o treatment. He said he will see PCP tomorrow and no need for any prescription. Finally pt signed AMA form and left hospital.
== END 2016-09-04 03:00 | disposition left against medical advice (07) | DRG 690 ==
LOC: 2ANU 18:16 → EMEROO 18:16 → 2ANU 22:41
PROVIDERS: ADMIT Internal Medicine; ATTEND Internal Medicine

== ENCOUNTER 2017-01-01 00:41 | Inpatient (IN) ==
[2017-01-01] MEDS ORDERED: Ondansetron 4 MG/2 ML VIAL IVP PRN (02:53)
[2017-01-01] MEDS ORDERED: *HR* Morphine 2 MG/ML SYRINGE IVP PRN (02:53)
[2017-01-01] MEDS ORDERED: Naloxone 0.4 MG/ML INJ IVP PRN (02:53)
[2017-01-01] MEDS ORDERED: Nitroglycerin 0.4 MG TAB.SUBL SL PRN (03:05)
[2017-01-01] MEDS ORDERED: *HR* Dextrose 50 % in Water (Syg) 50 ML SYRINGE IVP PRN (03:08)
[2017-01-01] MEDS ORDERED: Dextrose Gel 15 GM PO PRN ×2 (03:08)
[2017-01-01] MEDS ORDERED: D5% in Water 1,000 ML IVC PRN (03:08)
--- NOTE | 2017-01-01 03:12 | Internal Med History&Physical ---
Date of Encounter: 01/01/17 Time of Encounter: 02:45 Assessment and Plan (1) CHF (congestive heart failure) Current visit: No Status: Chronic Acute exacerbation of chronic diastolic CHF LVEF 60-65% - with worsening bilateral leg edema Continue IV Lasix, Coreg, Imdur, Ranexa Chest x-ray - pending BNP - pending EKG - pending Troponin - pending Cardiac telemetry, fluid restriction, strict I's and O's, daily weight, monitor closely Qualifiers: Congestive heart failure type: diastolic Congestive heart failure chronicity: acute on chronic Qualified Code(s): I50.33 - Acute on chronic diastolic (congestive) heart failure (2) CAD (coronary artery disease) Current visit: No Status: Acute Coronary artery disease, stable - status post stent Continue Aspirin, Plavix, Lipitor Troponin - pending EKG - pending Qualifiers: Coronary Disease-Associated Artery/Lesion type: [place] artery [place] vs. transplanted heart: [place] heart Associated angina: without angina Qualified Code(s): I25.10 - Atherosclerotic heart disease of [place] coronary artery without angina pectoris (3) Chronic kidney disease, stage III (moderate) Current visit: No Status: Chronic Chronic Kidney Disease stage III with probable TIANA, as per report from [facility] pending (4) Diabetes mellitus Current visit: No Status: Chronic Diabetes mellitus type 2, insulin-dependent, hyperglycemia Continue Levemir, insulin sliding scale, glucose checks 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 mellitus complication status: with kidney complications Diabetes mellitus complication detail: with chronic kidney disease Diabetes mellitus terminologist insulin use: with terminologist use Chronic kidney disease stage: stage 3 (moderate) Qualified Code(s): E11.22 - Type 2 diabetes mellitus with diabetic chronic kidney disease; N18.3 - Chronic kidney disease, stage 3 (moderate); Z79.4 - [facility] (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 insulin (5) Hypertension Current visit: No Status: Chronic Essential hypertension, uncontrolled, monitor Continue home dose of Coreg, Imdur Qualifiers: Hypertension type: essential hypertension Qualified Code(s): I10 - Essential (primary) hypertension (6) Neurogenic bladder Current visit: No Status: Chronic Chronic neurogenic bladder, patient self caths at home (7) Tobacco abuse Current visit: Yes Status: Chronic Patient states he smokes about 1 pack of cigarettes daily Counseled about cessation, nicotine patch (8) DVT prophylaxis Current visit: Yes Status: Acute Continue heparin subcutaneous Internal Medicine - H&P: HPI Chief complaint: Edema Admitted From: Emergency Dept Plans for Post Hospital Care: Home History of present illness: Mr. Renee is a 61 year old male with past medical history of hypertension, diabetes, chronic kidney disease, neurogenic bladder, CHF, COPD, hyperlipidemia and chronic anemia. Patient presents as a transfer from [facility] for worsening edema and mild shortness of breath. Examined in the room. Patient is awake and alert. Not in any distress. Able to provide all history. No family members at bedside. Patient states his bilateral lower leg edema has been worsening over the past week. Patient states it is severe and he is having difficulty walking because of edema. He also complains of mild shortness of breath. Denies chest pain or palpitations or headache or vomiting or fever. Patient denies any aggravating or alleviating factors. He states he has been taking all his medications regularly. Patient states he has not been drinking more fluids than what he is supposed to. No other associated symptoms. No other acute complaints. Patient has apparently been to the ER at [facility] several times over the past few days for edema. Initial workup is pending. From the reports that I have reviewed from [facility], workup is negative. Chest x-ray is pending. Patient will be continued on all home medications and he will be on IV Lasix. Patient has been explained about his condition and plan of care in detail. He understood and agreed. No unanswered questions. CODE STATUS full code. Past Med Surg Social Fam HX - Past Medical History Medical history: coronary artery disease, diabetes, renal disease Psychiatric history: depression - Past Surgical History Surgical History: other - Social History Smoking Status: Current every day smoker Smokeless Tobacco Status: No Alcohol use: none Drug use: none - Family History Father Hx Family Cardiac Disorders: Yes (triple bypass) Hx Family Cancer: Yes (lung) Hx Family Endocrine Disorder: Yes (diabetes) Mother Hx Family Respiratory Disorders: No Hx Family Cancer: Yes (throat, lung) Internal Medicine - H&P: Meds Aspirin Enteric Coated [Aspirin EC] 81 mg PO DAILY 06/08/16 [History] Atorvastatin Calcium [Lipitor] 80 mg PO HS 06/08/16 [History] Clopidogrel [Plavix] 75 mg PO DAILY 06/08/16 [History] Cyclobenzaprine HCl 5 mg PO TID 06/08/16 [History] Dextrose [Glucose Gel] 15 gm PO ONCE PRN 06/08/16 [History] Ergocalciferol (VITAMIN D2) [Vitamin D2] 50,000 unit PO QWEEK 06/08/16 [History] FLUoxetine HCl [Prozac] 40 mg PO QAM 06/08/16 [History] Glucagon,Human Recombinant [Glucagon Emergency Kit] 1 mg IJ ONCE PRN 06/08/16 [ History] Insulin ASPART [Novolog Flexpen] 20 unit SQ TIDAC 06/08/16 [History] Insulin DETEMIR [Levemir Flextouch] 30 unit SQ QAM 06/08/16 [History] Insulin DETEMIR [Levemir Flextouch] 60 unit SQ HS 06/08/16 [History] Isosorbide MONOnitrate (24 HR) [Imdur] 60 mg PO DAILY 06/08/16 [History] Nitroglycerin [Nitrostat] 0.4 mg SL Q5M PRN 06/08/16 [History] Oxycodone HCl 10 mg PO Q6H PRN 06/08/16 [History] Pregabalin [Lyrica] 50 mg PO TID 06/08/16 [History] Ranitidine HCl [Zantac] 150 mg PO BID 06/08/16 [History] Ranolazine [Ranexa] 500 mg PO BID 06/08/16 [History] Tamsulosin [Flomax] 0.4 mg PO DAILY 06/08/16 [History] Topiramate [Topamax] 25 mg PO BID 06/08/16 [History] Carvedilol [Coreg] 12.5 mg PO BIDWM #120 tablet 06/12/16 [Rx] Furosemide [Lasix] 20 mg PO BID 08/31/16 [History] Lipase/Protease/Amylase [Zenpep Dr 40,000 Units Capsule] 1 cap PO AD 08/31/16 [ History] 3 Allergy/AdvReac Type Severity Reaction Status Date / Time Methadone Allergy Hives Verified 08/31/16 18:23 Penicillins Allergy Hives Verified 08/31/16 18:23 linaclotide [From Linzess] AdvReac Nausea Verified 08/31/16 18:23 phenazopyridine AdvReac See Verified 08/31/16 18:23 [From Pyridium] Comments All Systems PM: A 10-system review of systems was performed and is negative for pertinent findings except as documented above in the HPI. - Constitutional Constitutional: fatigue, weakness, no fever(s) - EENT Eyes: no blurry vision - Cardiovascular Cardiovascular ROS IM: dyspnea, dyspnea on exertion, edema, no chest pain, no claudication, no orthopnea, no palpitations, no syncope - Respiratory Respiratory: dyspnea, dyspnea on exertion, no cough, no hemoptysis, no wheezing , no snoring, no chest congestion - Gastrointestinal Gastrointestinal: no abdominal pain, no cramping, no diarrhea, no hematemesis, no hematochezia, no melena, no nausea, no vomiting - Genitourinary Genitourinary ROS male: no dysuria - Neurological Neurological ROS: no abnormal gait, no confusion, no dizziness, no loss of vision, no numbness, no tingling - Constitutional Vitals: Temp Pulse Resp BP Pulse Ox 98.0 F 72 16 173/81 94 01/01/17 02:34 01/01/17 02:34 01/01/17 02:34 01/01/17 02:34 01/01/17 02:34 General appearance: Present: cooperative, A&O X 3, pleasant, no acute distress, answers questions appropriately - Head Head exam: Present: atraumatic - Eye Eye exam: Present: EOMI - ENT ENT exam: Present: mucous membranes moist - Respiratory Respiratory exam: Present: CTAB. Absent: accessory muscle use, chest wall tenderness, rales, rhonchi, wheezes, tachypnea - Cardiovascular Cardiovascular exam: Present: RRR, +S1, +S2 - GI/Abdominal GI/Abdominal exam: Present: soft. Absent: distended, firm, guarding, tenderness - Additional comments: Edema to the groin - Extremities Exam Extremities exam: Present: pedal edema (Bilateral lower leg 3+ pitting edema), radial pulses palpable and symmetrical. Absent: calf tenderness, cyanotic - Neurological Exam Neurological exam: Present: alert, oriented X3, no focal deficits. Absent: facial droop, speech deficit
[2017-01-01 04:04] LABS: Basophils % 0.5 %; Eosinophils # 0.2 K/mcL (0.0-0.6); Eosinophils % 2.1 %; Hematocrit 26.7 % (37.5-50.1); Hemoglobin 8.8 g/dL (12.9-16.9); Immature Granulocytes % 0.5 % (0-4); Lymphocytes # 0.9 K/mcL (0.6-4.6); Lymphocytes % 11.6 %; Mean Corpuscular Hemoglobin 28.4 pg (28.0-33.3); Mean Corpuscular Volume 86.1 fL (83.0-100.0); Mean Platelet Volume 10.8 fL (9.4-12.4); Monocytes # 0.6 K/mcL (0.0-1.3); Monocytes % 7.5 %; Platelet Count 200 K/mcL (140-400); Red Cell Distribution Width 13.5 % (11.5-14.5); Segmented Neutrophils % 77.8 %
[2017-01-01 04:09] LABS: INR 0.9; Prothrombin Time 9.6 Seconds (9.4-12.1)
[2017-01-01 04:21] LABS: Hemoglobin A1C 9.7 %
[2017-01-01 04:23] LABS: Potassium 4.2 mEq/L (3.5-4.5)
[2017-01-01 04:24] LABS: Chol/HDL Ratio 9.6 (0-4.9); Cholesterol 316 mg/dL (< 200); HDL Cholesterol 33 mg/dL (40-59); Triglycerides 579 mg/dL (< 150)
[2017-01-01 04:31] LABS: Magnesium 2.2 mg/dL (1.6-2.6)
[2017-01-01] MEDS ORDERED: Famotidine 20 MG/2 ML VIAL IVP SCH (06:00)
[2017-01-01] MEDS: *HR* Heparin 5,000 UNIT/ML VIAL SQ SCH ×2 (06:29→17:01)
[2017-01-01] MEDS: Topiramate 25 MG TABLET PO SCH ×2 (07:36→21:36)
[2017-01-01] MEDS: Aspirin Enteric Coated 81 MG Tablet PO SCH (07:36)
[2017-01-01] MEDS: Ranolazine 500 MG TAB.ER.12H PO SCH ×2 (07:36→21:36)
[2017-01-01] MEDS: FLUoxetine 20 MG CAPSULE PO SCH (07:36)
[2017-01-01] MEDS: Isosorbide MONOnitrate (24 HR) 60 MG TAB.ER.24H PO SCH (07:36)
[2017-01-01] MEDS: Nicotine 21 MG PATCH.TD24 TD SCH (07:37)
[2017-01-01] MEDS: Furosemide 40 MG/4 ML VIAL IVP SCH ×2 (07:37→16:28)
[2017-01-01] MEDS: Insulin LISPRO 300 UNITS/3 ML VIAL SQ SCH ×4 (07:39→20:19)
[2017-01-01] MEDS ORDERED: AMYLASE PO SCH (08:00)
[2017-01-01] MEDS ORDERED: [UNRECOGNIZED DRUG - OTHER] PO SCH (08:00)
[2017-01-01] MEDS ORDERED: LIPASE PO SCH (08:00)
[2017-01-01] MEDS ORDERED: PROTEASE PO SCH (08:00)
--- NOTE | 2017-01-01 08:33 | Nephrology Consult Note ---
Date of Encounter: 01/01/17 Time of Encounter: 08:31 Assessment and Plan (1) Acute kidney failure, unspecified Current Visit: Yes Status: Acute The patient has a clinical picture of acute kidney injury superimposed on stage III chronic kidney disease. Presents with a complaint of worsening lower extremity swelling. His edema may be related to the fact that he has proteinuria and possible nephrotic syndrome in the face of chronic kidney disease. He also presents with poorly controlled hypertension. From a cardiac perspective he appears to be stable. He has no symptoms of shortness of breath orthopnea or chest pain. I would recommend continuing with the Lasix for diuresis. We will quantitate the 24 hour urine protein excretion. We will make changes to his antihypertensive regimen for better blood pressure control. We will also repeat an echocardiogram to see if there has been any changes in his left ventricular function. Qualifiers: Acute renal failure type: unspecified Qualified Code(s): N17.9 - Acute kidney failure, unspecified (2) Generalized edema Current Visit: Yes Status: Acute (3) Chronic kidney disease, stage III (moderate) Current Visit: Yes Status: Acute (4) Proteinuria Current Visit: Yes Status: Acute Qualifiers: Proteinuria type: unspecified Qualified Code(s): R80.9 - Proteinuria, unspecified (5) Neurogenic bladder Current Visit: No Status: Chronic History of Present Illness - History of Present Illness This is a 61-year-old male who was admitted to the hospital with a one-week history of worsening lower extremity swelling. He denies any shortness of breath orthopnea or chest pain. He was noted to have a creatinine of 2.53 which is higher than usual. He has a history of underlying stage III chronic kidney disease and proteinuria. Baseline creatinine ranges from 1.6-1.9. He does have a long-standing history of diabetes, diabetic retinopathy, and diabetic nephropathy, he presents with poorly controlled hypertension with a blood pressure of 202/84. He has a neurogenic bladder and does self- catheterization 6 times per day. He denies any history of hematuria or renal stones or recurrent urinary tract infections. He does have a history of coronary disease. He has an occlusion of the LAD with collaterals. He has a stent in the circumflex artery. His echocardiogram in May of this year showed a preserved EF of 60-65% and no significant valvular heart disease. He presents with a hemoglobin A1c of 9.7. He is currently undergoing diuresis with Lasix. He reports his lower extremity swelling appears to be improved today. Past Med Surg Social Fam HX - Past Medical History Medical history: coronary artery disease, diabetes, renal disease Psychiatric history: depression - Past Surgical History Surgical History: other - Social History Smoking Status: Current every day smoker Smokeless Tobacco Status: No Alcohol use: none Drug use: none - Family History Father Hx Family Cardiac Disorders: Yes (triple bypass) Hx Family Cancer: Yes (lung) Hx Family Endocrine Disorder: Yes (diabetes) Mother Hx Family Respiratory Disorders: No Hx Family Cancer: Yes (throat, lung) Medications and Allergies Aspirin Enteric Coated [Aspirin EC] 81 mg PO DAILY 06/08/16 [History] Atorvastatin Calcium [Lipitor] 80 mg PO HS 06/08/16 [History] Clopidogrel [Plavix] 75 mg PO DAILY 06/08/16 [History] Dextrose [Glucose Gel] 15 gm PO ONCE PRN 06/08/16 [History] FLUoxetine HCl [Prozac] 40 mg PO QAM 06/08/16 [History] Glucagon,Human Recombinant [Glucagon Emergency Kit] 1 mg IJ ONCE PRN 06/08/16 [ History] Insulin ASPART [Novolog Flexpen] 20 unit SQ TIDAC 06/08/16 [History] Isosorbide MONOnitrate (24 HR) [Imdur] 60 mg PO DAILY 06/08/16 [History] Nitroglycerin [Nitrostat] 0.4 mg SL Q5M PRN 06/08/16 [History] Oxycodone HCl 10 mg PO Q6H PRN 06/08/16 [History] Ranitidine HCl [Zantac] 150 mg PO BID 06/08/16 [History] Ranolazine [Ranexa] 500 mg PO BID 06/08/16 [History] Topiramate [Topamax] 25 mg PO BID 06/08/16 [History] Carvedilol [Coreg] 12.5 mg PO BIDWM #120 tablet 06/12/16 [Rx] Furosemide [Lasix] 40 mg PO BID 08/31/16 [History] Amlodipine Besylate 10 mg PO DAILY 01/01/17 [History] Insulin Degludec [Tresiba Flextouch U-200] 90 unit SQ HS 01/01/17 [History] Naloxegol Oxalate [Movantik] 12.5 mg PO DAILY 01/01/17 [History] Pregabalin [Lyrica] 100 mg PO BID 01/01/17 [History] Tizanidine HCl [Zanaflex] 4 mg PO TID PRN 01/01/17 [History] Trazodone HCl 50 mg PO HS 01/01/17 [History] 3 Allergy/AdvReac Type Severity Reaction Status Date / Time Methadone Allergy Hives Verified 01/01/17 07:13 Penicillins Allergy Hives Verified 01/01/17 07:13 linaclotide [From Linzess] AdvReac Nausea Verified 01/01/17 07:13 phenazopyridine AdvReac See Verified 01/01/17 07:13 [From Pyridium] Comments Review of Systems Constitutional: as per HPI Eyes: bilateral: blurred vision (patient denies), diplopia (patient denies) Nose, mouth and throat: no dizziness, no headache(s) Cardiovascular: edema, no chest pain, no palpitations Respiratory: no cough, no dyspnea Gastrointestinal: no abdominal pain, no change in bowel habits Genitourinary Male: difficulty urinating Musculoskeletal: no muscle weakness, no numbness Integumentary: no hirsutism, no striae Neurological: as per HPI Psychiatric: no depression, no difficulty concentrating Endocrine: as per HPI Hematologic/Lymphatic: no easy bruising, no lymphadenopathy Exam - Vital Signs Vital signs: Initial Vital Signs Temp Pulse Resp BP Pulse Ox 98.0 F 72 16 173/81 94 01/01/17 02:34 01/01/17 02:34 01/01/17 02:34 01/01/17 02:34 01/01/17 02:34 Vital Signs - Last 8 Hours Temp Pulse Resp BP Pulse Ox 01/01/17 07:51 95 01/01/17 07:12 198/70 01/01/17 06:59 98.1 F 68 18 202/84 95 01/01/17 02:34 98.0 F 72 16 173/81 94 Intake and Output 12/31/16 01/01/17 01/01/17 23:59 07:59 15:59 Output Total 600 / 600 Balance -600 / -600 Output: Catheter 600 / 600 Other: Weight 87.2 kg Blood Glucose* 239 Patient Weight 01/01/17 23:59 Weight 87.2 kg - General Appearance Exam: Patient is alert and oriented. He is in no acute distress. Neck is supple. Lungs coarse breath sounds in the bases otherwise clear. Heart regular rate and rhythm with a 2/6 ejection murmur. Abdomen shows normal bowel sounds. No bruits masses organomegaly or tenderness. Lower extremities show 2+ swelling up to the patient's knees. Results - Lab Results 01/01/17 03:52 01/01/17 03:52 Most recent lab results Calcium 8.0 mg/dL (8.6-10.8) L 01/01/17 03:52 Magnesium 2.2 mg/dL (1.6-2.6) 01/01/17 03:52 Consult Discharge Plan - Plan Referrals: Marcial Wolf DO [Primary Care Provider] -
--- NOTE | 2017-01-01 08:46 | Internal Med Progress Note ---
Date of Encounter: 01/01/17 Time of Encounter: 08:44 - Assessment and plan (1) CHF (congestive heart failure) Current Visit: Yes Status: Chronic Qualifiers: Congestive heart failure type: diastolic Congestive heart failure chronicity: acute on chronic Qualified Code(s): I50.33 - Acute on chronic diastolic (congestive) heart failure (2) CKD (chronic kidney disease) Current Visit: Yes Status: Acute Qualifiers: Chronic kidney disease stage: stage 3 (moderate) Qualified Code(s): N18.3 - Chronic kidney disease, stage 3 (moderate) (3) Diabetes mellitus Current Visit: Yes Status: Chronic 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 mellitus complication status: with kidney complications Diabetes mellitus complication detail: with chronic kidney disease Diabetes mellitus penitentiary insulin use: with penitentiary use Chronic kidney disease stage: stage 3 (moderate) Qualified Code(s): E11.22 - Type 2 diabetes mellitus with diabetic chronic kidney disease; N18.3 - Chronic kidney disease, stage 3 (moderate); N18.3 - Chronic kidney disease, stage 3 ( moderate); Z79.4 - [facility] (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 insulin; Z79.4 - USP ( 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 insulin; Z79.4 - USP (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 insulin; Z79.4 - [facility]P (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 insulin (4) Hypertension Current Visit: Yes Status: Chronic Qualifiers: Hypertension type: essential hypertension Qualified Code(s): I10 - Essential (primary) hypertension (5) Neurogenic bladder Current Visit: Yes Status: Chronic (6) CAD (coronary artery disease) Current Visit: Yes Status: Acute Qualifiers: Coronary Disease-Associated Artery/Lesion type: [place] artery [place] vs. transplanted heart: [place] heart Associated angina: without angina Qualified Code(s): I25.10 - Atherosclerotic heart disease of [place] coronary artery without angina pectoris - Subjective Interval history: Mr. Renee is a 61 year old male with past medical history of hypertension, diabetes, chronic kidney disease, neurogenic bladder, CHF, COPD, hyperlipidemia and chronic anemia. Patient presents as a transfer from [facility] for worsening edema and mild shortness of breath. However patient told me that he does not have any shortness of breath or orthopnea. The main reason he came because of scrotal swelling as well as penile edema which he could not self catheterize himself. He has neurogenic bladder. He was also concerned about his bilateral lower extremity edema. Detailed discussion carried about the nature of lower extremity edema and the need of her head and keeping his legs slightly inclined. We will try to diurese the patient aggressively and check CBC CMP magnesium and phosphate on daily basis. Anticipate worsening of renal function while trying to get diuresed. His scrotal and penile swelling examined and does not seem too much but patient states he has improved since yesterday. Urology has already seen the patient and asked that patient can self catheterize himself now. - Constitutional Vitals: Temp Pulse Resp BP Pulse Ox 98.1 F 68 18 198/70 95 01/01/17 06:59 01/01/17 06:59 01/01/17 06:59 01/01/17 07:12 01/01/17 07:51 General appearance: Present: cooperative, A&O X 3, pleasant, no acute distress, answers questions appropriately Internal Medicine: Result - Labs CBC & Chem 7: 01/01/17 03:52 01/01/17 12:01 Labs: Short CBC 01/01/17 Range/Units 03:52 WBC 7.7 (4.3-11.1) K/mcL Hgb 8.8 L (12.9-16.9) g/dL Hct 26.7 L (37.5-50.1) % Plt Count 200 (140-400) K/mcL Neutrophils # 6.0 (1.6-8.9) K/mcL BMP 01/01/17 03:52 Sodium 137 Potassium 4.2 Chloride 108 Carbon Dioxide 22 BUN 51 H Creatinine 2.53 H Glucose 302 H Calcium 8.0 L Cardiac Enzymes 01/01/17 Range/Units 03:52 Troponin I 0.01 (0-0.03) ng/mL - ABG Interpretation ABG results: PT/INR, D-dimer PT 9.6 Seconds (9.4-12.1) 01/01/17 03:52 - Impressions Impressions Chest X-Ray 01/01/17 03:55 IMPRESSION: Left lower lobe atelectasis or pneumonia. D/ / Freddy Shields MD / Freddy Shields MD Interpreting Provider: Freddy Shields MD Consult Discharge Plan - Plan Referrals: Marcial Wolf DO [Primary Care Provider] - 01/08/17 9:30 am ()
[2017-01-01] MEDS ORDERED: NON-FORMULARY MEDICATION 1 EACH EACH (Insulin Detemir [Levemir Flextouch] 30 UNIT) SQ SCH (09:00)
[2017-01-01] MEDS: Insulin DETEMIR 100 UNIT/ML X5UNITS SQ SCH ×2 (09:11→21:37)
--- NOTE | 2017-01-01 10:40 | Urology - Consult Note ---
Date of Encounter: 01/01/17 Time of Encounter: 10:38 - Assessment and Plan (1) Acute kidney failure, unspecified Current Visit: Yes Status: Acute Assessment and plan: will follow GFR. will obtain ct scan to better evaluate if emphysematous cystitis has progressed orifice developed any hydronephrosis. Qualifiers: Acute renal failure type: unspecified Qualified Code(s): N17.9 - Acute kidney failure, unspecified (2) Neurogenic bladder Current Visit: Yes Status: Chronic Assessment and plan: He does have some mild penile swelling but it is not severe. There is no reason he cannot resume intermittent catheterization after his acute illness is better controlled. Urology CN:HPI Consult date: 01/01/17 History of present illness: Patient known to the urology practice. Recent consult in the last 2 months. Neurogenic bladder, renal insufficiency, emphysematous cystitis. Presents today with acute illness and acute on chronic renal insufficiency. States she's been having trouble placing the catheter because of penile swelling. Past Med Surg Social Fam HX - Past Medical History Medical history: coronary artery disease, diabetes, renal disease Psychiatric history: depression - Past Surgical History Surgical History: other - Social History Smoking Status: Current every day smoker Smokeless Tobacco Status: No Alcohol use: none Drug use: none - Family History Father Hx Family Cardiac Disorders: Yes (triple bypass) Hx Family Cancer: Yes (lung) Hx Family Endocrine Disorder: Yes (diabetes) Mother Hx Family Respiratory Disorders: No Hx Family Cancer: Yes (throat, lung) Medications and Allergies Aspirin Enteric Coated [Aspirin EC] 81 mg PO DAILY 06/08/16 [History] Atorvastatin Calcium [Lipitor] 80 mg PO HS 06/08/16 [History] Clopidogrel [Plavix] 75 mg PO DAILY 06/08/16 [History] Dextrose [Glucose Gel] 15 gm PO ONCE PRN 06/08/16 [History] FLUoxetine HCl [Prozac] 40 mg PO QAM 06/08/16 [History] Glucagon,Human Recombinant [Glucagon Emergency Kit] 1 mg IJ ONCE PRN 06/08/16 [ History] Insulin ASPART [Novolog Flexpen] 20 unit SQ TIDAC 06/08/16 [History] Isosorbide MONOnitrate (24 HR) [Imdur] 60 mg PO DAILY 06/08/16 [History] Nitroglycerin [Nitrostat] 0.4 mg SL Q5M PRN 06/08/16 [History] Oxycodone HCl 10 mg PO Q6H PRN 06/08/16 [History] Ranitidine HCl [Zantac] 150 mg PO BID 06/08/16 [History] Ranolazine [Ranexa] 500 mg PO BID 06/08/16 [History] Topiramate [Topamax] 25 mg PO BID 06/08/16 [History] Carvedilol [Coreg] 12.5 mg PO BIDWM #120 tablet 06/12/16 [Rx] Furosemide [Lasix] 40 mg PO BID 08/31/16 [History] Amlodipine Besylate 10 mg PO DAILY 01/01/17 [History] Insulin Degludec [Tresiba Flextouch U-200] 90 unit SQ HS 01/01/17 [History] Naloxegol Oxalate [Movantik] 12.5 mg PO DAILY 01/01/17 [History] Pregabalin [Lyrica] 100 mg PO BID 01/01/17 [History] Tizanidine HCl [Zanaflex] 4 mg PO TID PRN 01/01/17 [History] Trazodone HCl 50 mg PO HS 01/01/17 [History] 3 Allergy/AdvReac Type Severity Reaction Status Date / Time Methadone Allergy Hives Verified 01/01/17 07:13 Penicillins Allergy Hives Verified 01/01/17 07:13 linaclotide [From Linzess] AdvReac Nausea Verified 01/01/17 07:13 phenazopyridine AdvReac See Verified 01/01/17 07:13 [From Pyridium] Comments Review of Systems - Constitutional malaise, no fever(s) - EENT Nose, mouth and throat: no dizziness - Cardiovascular no chest pain - Respiratory no cough - Gastrointestinal abdominal pain - Genitourinary difficulty urinating - Musculoskeletal back pain - Integumentary no erythema - Neurological no confusion - Psychiatric no anxiety - Hematologic/Lymphatic no easy bleeding - Allergic/Immunologic no throat swelling Exam Initial Vital Signs Temp Pulse Resp BP Pulse Ox 98.0 F 72 16 173/81 94 01/01/17 02:34 01/01/17 02:34 01/01/17 02:34 01/01/17 02:34 01/01/17 02:34 - General physical appearance Present: no distress, chronically ill - Eyes Present: PERRL - ENT Present: normal nares - Neck Present: no masses - Respiratory Present: normal respiratory effort - Cardiovascular Cardiovascular exam IM: RRR - Abdomen Abdomen: Present: soft, suprapubic tenderness - Integumentary Present: no rash - Neurologic Present: normal coordination. Absent: disoriented, confused - Additional Findings circumsized phallus. some edema of mid shaft but no problems visualizing the glans. scrotal wall edema. no tenderness. Urology Results - Labs 01/01/17 03:52 01/01/17 03:52 Abnormal lab results RBC 3.10 M/mcL (4.19-5.50) L 01/01/17 03:52 Hgb 8.8 g/dL (12.9-16.9) L 01/01/17 03:52 Hct 26.7 % (37.5-50.1) L 01/01/17 03:52 BUN 51 mg/dL (8-26) H 01/01/17 03:52 Creatinine 2.53 mg/dL (0.72-1.25) H 01/01/17 03:52 Est GFR ( Amer) 32 (> 60) L 01/01/17 03:52 Est GFR (Non-Af Amer) 26 (> 60) L 01/01/17 03:52 Glucose 302 mg/dL (70-99) H 01/01/17 03:52 POC Glucose 239 (58-89) H 01/01/17 07:02 Hemoglobin A1c 9.7 % (-5.6) H 01/01/17 03:52 Calculated Osmolality 309 (280-300) H 01/01/17 03:52 Calcium 8.0 mg/dL (8.6-10.8) L 01/01/17 03:52 B-Natriuretic Peptide 188 pg/mL (0-100) H 01/01/17 03:52 Triglycerides 579 mg/dL (< 150) H 01/01/17 03:52 Cholesterol 316 mg/dL (< 200) H 01/01/17 03:52 HDL Cholesterol 33 mg/dL (40-59) L 01/01/17 03:52 Cholesterol/HDL Ratio 9.6 (0-4.9) H 01/01/17 03:52 Diabetes panel 01/01/17 01/01/17 01/01/17 Range/Units 03:52 03:52 03:52 Sodium 137 (136-145) mEq/L Potassium 4.2 (3.5-4.5) mEq/L Chloride 108 (98-109) mEq/L Carbon Dioxide 22 (19-29) mEq/L BUN 51 H (8-26) mg/dL Creatinine 2.53 H (0.72-1.25) mg/dL Glucose 302 H (70-99) mg/dL Hemoglobin A1c 9.7 H ( - 5.6) % Calcium 8.0 L (8.6-10.8) mg/dL Triglycerides 579 H (< 150) mg/dL HDL Cholesterol 33 L (40-59) mg/dL Calcium panel 01/01/17 Range/Units 03:52 Calcium 8.0 L (8.6-10.8) mg/dL Pituitary panel 01/01/17 Range/Units 03:52 Sodium 137 (136-145) mEq/L Potassium 4.2 (3.5-4.5) mEq/L Chloride 108 (98-109) mEq/L Carbon Dioxide 22 (19-29) mEq/L BUN 51 H (8-26) mg/dL Creatinine 2.53 H (0.72-1.25) mg/dL Glucose 302 H (70-99) mg/dL Calcium 8.0 L (8.6-10.8) mg/dL Adrenal panel 01/01/17 Range/Units 03:52 Sodium 137 (136-145) mEq/L Potassium 4.2 (3.5-4.5) mEq/L Chloride 108 (98-109) mEq/L Carbon Dioxide 22 (19-29) mEq/L BUN 51 H (8-26) mg/dL Creatinine 2.53 H (0.72-1.25) mg/dL Glucose 302 H (70-99) mg/dL Calcium 8.0 L (8.6-10.8) mg/dL All other labs normal. Consult Discharge Plan - Plan Referrals: Marcial Wolf DO [Primary Care Provider] -
[2017-01-01 11:02] LABS: Bilirubin,Urine Negative (Negative); Blood,Urine Moderate (Negative); Clarity,Urine Clear (Clear); Color,Urine Yellow (Yellow); Glucose,Urine (UA) Normal (Normal); Ketones,Urine Negative (Negative); Leukocyte Esterase,Urine Negative (Negative); Nitrite,Urine Negative (Negative); Protein,Urine >=300 mg/dL (Neg-Trace); Specific Gravity,Urine 1.012 (1.010-1.025); Urobilinogen,Urine Normal (Normal)
[2017-01-01 11:04] LABS: Bacteria,Urine None Seen per hpf (None-Few); Hyaline Casts,Urine None Seen per lpf (None-Few); Squamous Epithelial Cell,Urine Many per lpf (None-Few)
[2017-01-01 11:15] LABS: % Iron Saturation 18 % (20-55); Iron 39 mcg/dL (65-175); Transferrin 155 mg/dL (174-364)
[2017-01-01 11:41] LABS: Ferritin 69 ng/ml (22-275)
[2017-01-01 12:33] LABS: Albumin 2.1 g/dL (3.5-5.0); Albumin/Globulin Ratio 0.7 (1.1-2.2); Bilirubin,Total 0.2 mg/dL (0.2-1.2); Calcium 8.1 mg/dL (8.6-10.8); Globulin 3.2 g/dL (2.4-3.5); Potassium 3.9 mEq/L (3.5-4.5); Total Protein 5.3 g/dL (6.0-8.3)
[2017-01-01] MEDS: Famotidine 20 MG TABLET PO SCH (16:27)
[2017-01-01] MEDS: Acetaminophen 325 MG TABLET PO PRN (16:27)
[2017-01-01] MEDS: hydrALAZINE 25 MG TABLET PO SCH (16:27)
--- NOTE | 2017-01-01 17:07 | Electrocardiograph Report ---
[place] [id number] Test Date: 2017-01-01 Pat Name: Joesph Renee Department: 112 Room: 2A16 Gender: M [employer] Hel[employer]: BEATRIZ : 1955 Requested By: Issa Haque Order Number: [id number] Reading MD: Rafaela West Measurements Intervals [place] Rate: 67 P: -11 IA: 153 QRS: -35 QRSD: 114 T: 36 QT: 428 QTc: 444 Interpretive Statements SINUS RHYTHM LEFT AXIS DEVIATION INTRAVENTRICULAR CONDUCTION DELAY Electronically Signed On 01-01-2017 17:05:11 EDT by Rafaela West
[2017-01-01] MEDS ORDERED: Insulin DETEMIR 100 UNIT/ML X5UNITS SQ SCH (21:00)
[2017-01-01] MEDS ORDERED: NON-FORMULARY MEDICATION 1 EACH EACH (Insulin Detemir [Levemir Flextouch] 60 UNIT) SQ SCH (21:00)
[2017-01-02] MEDS: hydrALAZINE 25 MG TABLET PO SCH ×3 (00:34→16:16)
[2017-01-02] MEDS ORDERED: Acetaminophen/Butalbital/CaffeineTABLET PO ONE (01:40)
[2017-01-02] MEDS: *HR* Heparin 5,000 UNIT/ML VIAL SQ SCH ×2 (05:28→16:15)
[2017-01-02] MEDS: Acetaminophen 325 MG TABLET PO PRN (05:28)
[2017-01-02 06:02] LABS: Magnesium 2.1 mg/dL (1.6-2.6); Phosphorous 4.4 mg/dL (2.3-4.7)
[2017-01-02 06:03] LABS: Alanine Aminotransferase 8 Units/L (0-55); Albumin/Globulin Ratio 0.7 (1.1-2.2); Alkaline Phosphatase 83 Units/L (38-126); Aspartate Amino Transferase 10 Units/L (5-34); BUN/Creatinine Ratio 21 (6-26); Blood Urea Nitrogen 48 mg/dL (8-26); Carbon Dioxide 24 mEq/L (19-29); Chloride 112 mEq/L (98-109); Globulin 2.9 g/dL (2.4-3.5); Glucose 92 mg/dL (70-99); Osmolality,Calculated 308 (280-300); Potassium 3.7 mEq/L (3.5-4.5); Sodium 143 mEq/L (136-145); Total Protein 4.8 g/dL (6.0-8.3); eGFR For African Americans 37 (> 60); eGFR For Non-African Americans 30 (> 60)
[2017-01-02 06:06] LABS: Albumin 1.9 g/dL (3.5-5.0); Bilirubin,Total < 0.2 mg/dL (0.2-1.2)
[2017-01-02] MEDS: Insulin LISPRO 300 UNITS/3 ML VIAL SQ SCH ×4 (07:52→21:06)
[2017-01-02] MEDS: Famotidine 20 MG TABLET PO SCH ×2 (07:53→16:16)
[2017-01-02] MEDS: Topiramate 25 MG TABLET PO SCH ×2 (07:53→21:30)
[2017-01-02] MEDS: Ranolazine 500 MG TAB.ER.12H PO SCH ×2 (07:53→21:30)
[2017-01-02] MEDS: Aspirin Enteric Coated 81 MG Tablet PO SCH (07:53)
[2017-01-02] MEDS: FLUoxetine 20 MG CAPSULE PO SCH (07:53)
[2017-01-02] MEDS: Furosemide 40 MG/4 ML VIAL IVP SCH ×2 (07:53→16:16)
[2017-01-02] MEDS: Isosorbide MONOnitrate (24 HR) 60 MG TAB.ER.24H PO SCH (07:53)
--- NOTE | 2017-01-02 08:42 | Nephrology Progress Note ---
Date of Encounter: 01/02/17 Time of Encounter: 08:25 - Assessment and Plan (1) Acute kidney failure, unspecified Current Visit: Yes Status: Acute TIANA superimposed on CKD 3. Proteinuria, 24 hour urine protein in progress. Swelling improved. LVEF 60%.Renal fct somwhwat improved, recommendcontinuing diuresis, unless rise in creatinine. When creatinine stable should be on ACEI or ARB-this could also be done outpatient. Started on Hydralazine yesterday , BP improving. Qualifiers: Acute renal failure type: unspecified Qualified Code(s): N17.9 - Acute kidney failure, unspecified Subjective Interval history: Sitting up in bed, eating breakfast. States feeling better, less swelling in LE but hands remain swollen. Objective - Vital Signs Vital signs: Vital Signs Temp Pulse Resp BP Pulse Ox 01/02/17 07:08 98.2 F 67 12 145/65 97 01/02/17 03:06 98.1 F 67 16 160/72 97 01/02/17 00:45 190/80 01/01/17 23:29 98.4 F 69 16 172/79 98 01/01/17 19:37 98.2 F 70 17 197/87 97 01/01/17 16:05 71 18 206/88 96 01/01/17 10:55 97.7 F 62 17 186/84 96 Intake and Output 01/01/17 01/02/17 01/02/17 23:59 07:59 15:59 Intake Total 240 / 240 Output Total 1999 / 1999 1000 / 1000 Balance -1760 / -1760 -1000 / -1000 Intake: Oral 240 / 240 Output: Catheter 1999 1000 / 1000 Other: Meal Dinner Percent of Meal Consumed 75% Weight 87 kg Blood Glucose* 76 67 Patient Weight 01/02/17 23:59 Weight 87 kg - General Appearance General appearance: Present: well-developed, well-nourished, appears started age EENT: Present: mucous membranes moist Neck: Present: no JVD Respiratory: Present: clear Cardiology: Present: edema, regular rate, regular rhythm Additional Comments: No LE edema, bilateral hands swollen. Gastrointestinal: Present: normoactive bowel sounds, no tenderness Integumentary: Present: warm and dry Neurologic: Present: alert and oriented x3 Psychiatric: Present: mood/affect appropriate, cooperative - Lab 01/01/17 03:52 01/02/17 05:12 Most recent lab results Calcium 8.0 mg/dL (8.6-10.8) L 01/02/17 05:12 Phosphorus 4.4 mg/dL (2.3-4.7) 01/02/17 05:12 Magnesium 2.1 mg/dL (1.6-2.6) 01/02/17 05:12 - VTE Documentation of Mechanical Device: Intermittent pneumatic compression device Consult Discharge Plan - Plan Referrals: Marcial Wolf DO [Primary Care Provider] - 01/08/17 9:30 am ()
[2017-01-02] MEDS: Insulin DETEMIR 100 UNIT/ML X5UNITS SQ SCH ×2 (09:31→21:28)
[2017-01-02] MEDS: Nicotine 21 MG PATCH.TD24 TD SCH (09:32)
--- NOTE | 2017-01-02 14:15 | Internal Med Progress Note ---
Date of Encounter: 01/02/17 Time of Encounter: 14:06 - Assessment and plan (1) Renal failure (ARF), acute on chronic Current Visit: No Status: Acute Assessment and plan: nephrology on board and consultation appreciated continue IV diuresis 24 hour urine protein in progress renal function mildly improved from previous day, will continue to closely monitor Qualifiers: Acute renal failure type: unspecified Chronic kidney disease stage: stage 3 (moderate) Qualified Code(s): N17.9 - Acute kidney failure, unspecified; N18.3 - Chronic kidney disease, stage 3 (moderate); N18.3 - Chronic kidney disease, stage 3 (moderate) (2) Proteinuria Current Visit: Yes Status: Acute Assessment and plan: plan as listed above Qualifiers: Proteinuria type: unspecified Qualified Code(s): R80.9 - Proteinuria, unspecified (3) CHF (congestive heart failure) Current Visit: Yes Status: Chronic Assessment and plan: not in acute exacerbation will continue IV diuresis increased Imdur to 90mg PO qd for better BP control in addition to continuation of Hydralazine 25mg PO q8h d/c amlodipine Qualifiers: Congestive heart failure type: diastolic Congestive heart failure chronicity: acute on chronic Qualified Code(s): I50.33 - Acute on chronic diastolic (congestive) heart failure (4) Diabetes mellitus Current Visit: Yes Status: Chronic Assessment and plan: continue sliding scale insulin algorithm monitor FS and BG ADA diet 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 mellitus complication status: with kidney complications Diabetes mellitus complication detail: with chronic kidney disease Diabetes mellitus fdc insulin use: 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 Chronic kidney disease stage: stage 3 (moderate) Qualified Code(s): E11.22 - Type 2 diabetes mellitus with diabetic chronic kidney disease; N18.3 - Chronic kidney disease, stage 3 (moderate); N18.3 - Chronic kidney disease, stage 3 ( moderate); 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; Z79.4 - skilled nursing ( 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 insulin; 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; Z79.4 - skilled nursing (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 insulin (5) Hypertension Current Visit: Yes Status: Chronic Assessment and plan: BP better controlled continue hydralazine 25mg PO q8h increased imdur to 90mg PO qd d/abel amlodipine given peripheral edema will continue to closely monitor Qualifiers: Hypertension type: essential hypertension Qualified Code(s): I10 - Essential (primary) hypertension (6) Neurogenic bladder Current Visit: Yes Status: Chronic Assessment and plan: will d/c niño urology consultation appreciated pt to continue with self catheterization (7) DVT prophylaxis Current Visit: Yes Status: Acute Assessment and plan: Heparin SQ - Subjective Interval history: Pt is a 61 y/o male admitted for worsening lower extremity edema, scrotal edema , and acute renal failure. Pt seen and examined at bedside. Resting in bed and reports of feeling significantly better compared to previous day. reports of significant improvement in scrotal edema since hospitalization. No overnight events reported. - Constitutional Vitals: Temp Pulse Resp BP Pulse Ox 97.6 F 62 12 134/63 97 01/02/17 10:46 01/02/17 10:46 01/02/17 10:46 01/02/17 10:46 01/02/17 10:46 General appearance: Present: cooperative, A&O X 3, pleasant, no acute distress, answers questions appropriately - Head Head exam: Present: atraumatic, normocephalic - Eye Eye exam: Present: conjuntiva pink, sclera anicteric - Respiratory Respiratory exam: Present: CTAB. Absent: respiratory distress, wheezes - Cardiovascular Cardiovascular exam: Present: RRR, +S1, +S2. Absent: diastolic murmur, gallop, rubs, systolic murmur - GI/Abdominal GI/Abdominal exam: Present: normal bowel sounds, soft, no peritoneal signs. Absent: distended, tenderness - Extremities Exam Extremities exam: Present: pedal edema, warm, radial pulses palpable and symmetrical. Absent: calf tenderness - Neurological Exam Neurological exam: Present: alert, oriented X3 - Psychiatric Psychiatric exam: Present: normal affect, normal mood Internal Medicine: Result - Labs CBC & Chem 7: 01/01/17 03:52 01/02/17 05:12 Labs: BMP 01/02/17 05:12 Sodium 143 Potassium 3.7 Chloride 112 H Carbon Dioxide 24 BUN 48 H Creatinine 2.24 H Glucose 92 Calcium 8.0 L Liver Function 01/02/17 Range/Units 05:12 Total Bilirubin < 0.2 L (0.2-1.2) mg/dL AST 10 (5-34) Units/L ALT 8 (0-55) Units/L Alkaline Phosphatase 83 (38-126) Units/L Albumin 1.9 L (3.5-5.0) g/dL - ABG Interpretation ABG results: PT/INR, D-dimer PT 9.6 Seconds (9.4-12.1) 01/01/17 03:52 - Impressions Impressions Abdomen/Pelvis CT 01/01/17 08:00 IMPRESSION: 1. Findings consistent with anasarca with diffuse abdominal wall edema, bilateral scrotal hydroceles, mild ascites and peritoneal/retroperitoneal edema. 2. Nonspecific jejunal bowel wall thickening which could relate to edema versus possible enteritis. No obstruction, perforation, or abscess. Normal appendix. 3. The bladder has a Niño catheter in position. There are no findings to suggest cystitis. D/ / 01/01/2017 09:01:05 Dominic Valentin MD / enedelia Interpreting Provider: Dominic Valentin MD - VTE Documentation of Mechanical Device: Intermittent pneumatic compression device Consult Discharge Plan - Plan Referrals: Marcial Wolf DO [Primary Care Provider] - 01/08/17 9:30 am ()
[2017-01-02 15:27] LABS: Total Volume 24 Hour,Urine 2.55 Liters (0.80-1.80)
[2017-01-02 15:32] LABS: Creatinine 24 Hour,Urine 1.17 g/day (0.71-1.65)
[2017-01-03] MEDS: hydrALAZINE 25 MG TABLET PO SCH ×2 (00:01→08:25)
[2017-01-03] MEDS: *HR* Heparin 5,000 UNIT/ML VIAL SQ SCH (05:32)
[2017-01-03 06:21] LABS: Basophils % 0.5 %; Eosinophils # 0.1 K/mcL (0.0-0.6); Eosinophils % 1.6 %; Hematocrit 29.7 % (37.5-50.1); Hemoglobin 9.9 g/dL (12.9-16.9); Immature Granulocytes % 0.8 % (0-4); Lymphocytes % 15.6 %; Mean Corpuscular HGB Conc 33.3 g/dL (31.6-35.5); Mean Corpuscular Hemoglobin 28.8 pg (28.0-33.3); Mean Corpuscular Volume 86.3 fL (83.0-100.0); Mean Platelet Volume 10.8 fL (9.4-12.4); Monocytes # 0.4 K/mcL (0.0-1.3); Monocytes % 6.5 %; Neutrophils # 4.8 K/mcL (1.6-8.9); Platelet Count 204 K/mcL (140-400); Red Blood Count 3.44 M/mcL (4.19-5.50)
[2017-01-03 06:39] LABS: Albumin/Globulin Ratio 0.6 (1.1-2.2); Bilirubin,Total 0.2 mg/dL (0.2-1.2); Globulin 3.1 g/dL (2.4-3.5); Magnesium 2.1 mg/dL (1.6-2.6); Phosphorous 4.4 mg/dL (2.3-4.7); Potassium 3.7 mEq/L (3.5-4.5); Total Protein 5.1 g/dL (6.0-8.3)
--- NOTE | 2017-01-03 08:02 | Nephrology Progress Note ---
Date of Encounter: 01/03/17 Time of Encounter: 08:00 - Assessment and Plan (1) Acute kidney failure, unspecified Current Visit: Yes Status: Acute The patient has some acute worsening of his chronic kidney disease. His creatinine has subsequently remained stable. He does have evidence of nephrotic syndrome as well as nephrotic range proteinuria related to his underlying renal disease. I suspect his lower extremity swelling is a combination of both nephrotic syndrome as well as possibly some diastolic congestive heart failure. His blood pressure remains suboptimal. Since his renal function is stable and going to get him started on an DENIZ inhibitor. From a renal perspective he could probably be discharged home today and we can follow him up as an outpatient in the office. Qualifiers: Acute renal failure type: unspecified Qualified Code(s): N17.9 - Acute kidney failure, unspecified (2) Generalized edema Current Visit: Yes Status: Acute (3) Chronic kidney disease, stage III (moderate) Current Visit: Yes Status: Acute (4) Proteinuria Current Visit: Yes Status: Acute Qualifiers: Proteinuria type: unspecified Qualified Code(s): R80.9 - Proteinuria, unspecified (5) Neurogenic bladder Current Visit: Yes Status: Chronic Subjective Interval history: Patient reports she is feeling better. His swelling is improved. He denies any shortness of breath. Renal function is essentially stable with a creatinine of 2.28. 24-hour urine protein excretion is 8.1 g. Objective - Vital Signs Vital signs: Vital Signs Temp Pulse Resp BP Pulse Ox 01/03/17 07:22 97.7 F 77 18 164/62 97 01/03/17 05:30 160/48 01/03/17 03:25 98.3 F 68 18 179/80 97 01/03/17 01:06 178/72 01/02/17 23:02 98.2 F 66 17 189/69 97 01/02/17 20:43 98.1 F 61 17 179/68 98 01/02/17 16:04 97.6 F 63 14 188/85 97 01/02/17 14:23 62 12 134/63 97 01/02/17 10:46 97.6 F 62 12 134/63 97 01/02/17 09:41 98 Intake and Output 01/02/17 01/03/17 01/03/17 23:59 07:59 15:59 Intake Total 0 / 0 Balance 0 / 0 Intake: Oral 0 / 0 Other: Meal Dinner Percent of Meal Consumed 85% # Voids 1 Weight 87.2 kg Blood Glucose* 85 193 Patient Weight 01/03/17 23:59 Weight 87.2 kg - General Appearance Exam: Patient is alert and oriented. He denies any complaints. Lungs sounds otherwise clear. Heart regular rate and rhythm. Abdomen is benign. There is no significant lower extremity swelling. - Lab 01/03/17 05:43 01/03/17 05:43 Most recent lab results Calcium 8.0 mg/dL (8.6-10.8) L 01/03/17 05:43 Phosphorus 4.4 mg/dL (2.3-4.7) 01/03/17 05:43 Magnesium 2.1 mg/dL (1.6-2.6) 01/03/17 05:43 Urine Creatinine 46 mg/dL 01/01/17 08:39 Ur Total Protein 24 Hr 8186 mg/day (0-299) H 01/01/17 08:39 Urine Total Protein 321 mg/dL (1-14) H 01/01/17 08:39 - VTE Documentation of Mechanical Device: Intermittent pneumatic compression device Consult Discharge Plan - Plan Referrals: Marcial Wolf DO [Primary Care Provider] - 01/08/17 9:30 am ()
[2017-01-03] MEDS: Ranolazine 500 MG TAB.ER.12H PO SCH (08:24)
[2017-01-03] MEDS: FLUoxetine 20 MG CAPSULE PO SCH (08:24)
[2017-01-03] MEDS: Famotidine 20 MG TABLET PO SCH (08:24)
[2017-01-03] MEDS: Insulin DETEMIR 100 UNIT/ML X5UNITS SQ SCH (08:25)
[2017-01-03] MEDS: Nicotine 21 MG PATCH.TD24 TD SCH (08:25)
[2017-01-03] MEDS: Topiramate 25 MG TABLET PO SCH (08:25)
[2017-01-03] MEDS: Aspirin Enteric Coated 81 MG Tablet PO SCH (08:25)
[2017-01-03] MEDS: Insulin LISPRO 300 UNITS/3 ML VIAL SQ SCH ×2 (08:26→12:08)
[2017-01-03] MEDS: Furosemide 40 MG/4 ML VIAL IVP SCH (08:29)
[2017-01-03] MEDS ORDERED: Isosorbide MONOnitrate (24 HR) 60 MG TAB.ER.24H PO SCH (09:00)
[2017-01-03 10:58] VITALS: BP 108/58
--- NOTE | 2017-01-03 11:23 | Discharge Summary ---
Date of Encounter: 01/03/17 Time of Encounter: 11:23 - Discharge Diagnosis (1) Renal failure (ARF), acute on chronic Priority: Primary Status: Acute Qualifiers: Acute renal failure type: unspecified Chronic kidney disease stage: stage 3 (moderate) Qualified Code(s): N17.9 - Acute kidney failure, unspecified; N18.3 - Chronic kidney disease, stage 3 (moderate); N18.3 - Chronic kidney disease, stage 3 (moderate) (2) Proteinuria Priority: Primary Status: Acute Qualifiers: Proteinuria type: unspecified Qualified Code(s): R80.9 - Proteinuria, unspecified (3) CHF (congestive heart failure) Priority: Secondary Status: Chronic Qualifiers: Congestive heart failure type: diastolic Congestive heart failure chronicity: acute on chronic Qualified Code(s): I50.33 - Acute on chronic diastolic (congestive) heart failure (4) Diabetes mellitus Priority: Secondary Status: Chronic 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 mellitus complication status: with kidney complications Diabetes mellitus complication detail: with chronic kidney disease Diabetes mellitus manager intermediate insulin use: with mcc use Chronic kidney disease stage: stage 3 (moderate) Qualified Code(s): E11.22 - Type 2 diabetes mellitus with diabetic chronic kidney disease; N18.3 - Chronic kidney disease, stage 3 (moderate); N18.3 - Chronic kidney disease, stage 3 ( moderate); Z79.4 - tank terminal gauger (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 insulin; Z79.4 - tank terminal gauger ( 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 insulin; Z79.4 - tank terminal gauger (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 insulin; Z79.4 - half-way (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 insulin (5) Hypertension Priority: Secondary Status: Chronic Qualifiers: Hypertension type: essential hypertension Qualified Code(s): I10 - Essential (primary) hypertension (6) Neurogenic bladder Priority: Secondary Status: Chronic (7) DVT prophylaxis Priority: Secondary Status: Acute - Discharge Medications Prescriptions: hydrALAZINE [HydrALAZINE] 25 mg PO Q8HR #60 tablet Lisinopril [Zestril] 5 mg PO DAILY #30 tablet Home Medications: Aspirin Enteric Coated [Aspirin EC] 81 mg PO DAILY 06/08/16 [History] Atorvastatin Calcium [Lipitor] 80 mg PO HS 06/08/16 [History] Clopidogrel [Plavix] 75 mg PO DAILY 06/08/16 [History] Dextrose [Glucose Gel] 15 gm PO ONCE PRN 06/08/16 [History] FLUoxetine HCl [Prozac] 40 mg PO QAM 06/08/16 [History] Glucagon,Human Recombinant [Glucagon Emergency Kit] 1 mg IJ ONCE PRN 06/08/16 [ History] Insulin ASPART [Novolog Flexpen] 20 unit SQ TIDAC 06/08/16 [History] Isosorbide MONOnitrate (24 HR) [Imdur] 60 mg PO DAILY 06/08/16 [History] Nitroglycerin [Nitrostat] 0.4 mg SL Q5M PRN 06/08/16 [History] Oxycodone HCl 10 mg PO Q6H PRN 06/08/16 [History] Ranitidine HCl [Zantac] 150 mg PO BID 06/08/16 [History] Ranolazine [Ranexa] 500 mg PO BID 06/08/16 [History] Topiramate [Topamax] 25 mg PO BID 06/08/16 [History] Carvedilol [Coreg] 12.5 mg PO BIDWM #120 tablet 06/12/16 [Rx] Furosemide [Lasix] 40 mg PO BID 08/31/16 [History] Insulin Degludec [Tresiba Flextouch U-200] 90 unit SQ HS 01/01/17 [History] Naloxegol Oxalate [Movantik] 12.5 mg PO DAILY 01/01/17 [History] Pregabalin [Lyrica] 100 mg PO BID 01/01/17 [History] Tizanidine HCl [Zanaflex] 4 mg PO TID PRN 01/01/17 [History] Trazodone HCl 50 mg PO HS 01/01/17 [History] Lisinopril [Zestril] 5 mg PO DAILY #30 tablet 01/03/17 [Rx] hydrALAZINE [HydrALAZINE] 25 mg PO Q8HR #60 tablet 01/03/17 [Rx] Allergies/Adverse Reactions: 3 Allergy/AdvReac Type Severity Reaction Status Date / Time Methadone Allergy Hives Verified 01/01/17 07:13 Penicillins Allergy Hives Verified 01/01/17 07:13 linaclotide [From Linzess] AdvReac Nausea Verified 01/01/17 07:13 phenazopyridine AdvReac See Verified 01/01/17 07:13 [From Pyridium] Comments Procedures/tests Complete & Pending: Procedures Performed prior 72 hours Category Date Time Status CT abd pelvis wo no iv no oral [CT] Routine Cat Scan 01/01/17 08:00 Completed ECG 12 lead ECG [ECG] Routine Y 01/01/17 02:53 Completed EV echocardiogram Routine Y 01/01/17 08:39 Completed Date of admission: 01/01/17 02:54 Primary care physician: Marcial Wolf DO Consults: 01/01/17 06:48 Consult to Nephrology [CONS] Routine Consulting Provider: [facility] MARIELLE Reason for Consult: Acute kidney injury on CKD Call Completed: No Consult to Urology [CONS] Routine Consulting Provider: Urology Susie Reason for Consult: Neurogenic bladder Call Completed: No 01/01/17 06:50 Consult to Occupational Therapy [CONS] Routine Comment: Evaluate, develop and implement POC Reason for Consult: OT eval Consult to Physical Therapy [CONS] Routine Comment: Evaluate, develop and implement POC Reason for Consult: PT eval Discharging clinician: Elizabeth Muse Anticipated date of discharge: 01/03/17 - Patient Status Disposition: Home, Self-Care Condition: Good Functional capacity at discharge: independent ambulation Overall status at discharge: patient is back to baseline - Discharge Instructions Follow Up With: Marcial Wolf DO [Primary Care Provider] - 01/08/17 9:30 am () Additional Instructions: Please follow up with your primary care physician within five days after your discharge from the hospital. Please follow up with your meat soaker within one to two weeks after your discharge from the hospital. Your home medications have been readjusted as follow: 1. Amlodipine has been discontinued 2. Hydralazine 25mg three times a day has been added 3. Lisinopril 5mg once a day has been added. Please take the medications as prescribed. Please closely monitor your blood pressure at home, if your Systolic blood pressure<100, please hold your BP medications. If your systolic blood pressure is greater than 160, please increase your lisinopril to 10mg once a day. Please check your blood pressure before taking your medications until your follow up with your meat soaker. Please keep a log of your blood pressure readings and take this with you for your follow up doctor appointments Please resume all your other home medications as prescribed by your primary care physician. Continue with self catherization as before and follow up with your urologist as per your previously scheduled appointments. - Diet and Activity Activity: resume usual activities as tolerated Diet: low salt diet Hospital course: Mr. Renee is a 61 year old male with PMH of HTN, DM, CKD, neurogenic bladder requiring self catheterization, CHF, COPD, HLD, and chronic anemia who was admitted for management of worsening lower extremity edema, sob, and scrotal edema. Pt was started on IV diuretics, niño cath was inserted. He was also noted to have uncontrolled hypertension and proteinuria. Nephrology and urology were consulted. Pt's home medications were readjusted for better BP control. Resolution of edema occurred after initiation of IV diuresis. Niño cath was removed. Pt is hemodynamicall stable and currently saturating well on room air. He will be discharged to home with follow up with primary care physician, and meat soaker. Patient demonstrates understanding of his diagnosis and agrees with the discharge care and plan. - Time Spent with Patient Total time spent providing and/or coordinating discharge services: Greater than 30 minutes - Constitutional Vitals: Temp Pulse Resp BP Pulse Ox 97.6 F 69 18 108/58 98 01/03/17 10:53 01/03/17 10:53 01/03/17 10:53 01/03/17 10:53 01/03/17 10:53 General appearance: Present: cooperative, A&O X 3, pleasant, no acute distress, answers questions appropriately - Head Head exam: Present: atraumatic, normocephalic - Eye Eye exam: Present: conjuntiva pink, sclera anicteric - Respiratory Respiratory exam: Present: CTAB. Absent: accessory muscle use, rales, rhonchi, wheezes - Cardiovascular Cardiovascular exam: Present: RRR, +S1, +S2. Absent: diastolic murmur, gallop, rubs, systolic murmur - GI/Abdominal GI/Abdominal exam: Present: normal bowel sounds, soft, no peritoneal signs. Absent: distended, tenderness - Extremities Exam Extremities exam: Present: warm, radial pulses palpable and symmetrical. Absent : calf tenderness, cyanotic, pedal edema - Neurological Exam Neurological exam: Present: alert, oriented X3 - Psychiatric Psychiatric exam: Present: normal affect, normal mood - VTE Documentation of Mechanical Device: Graduated compression elastic hosiery
[2017-01-03] MEDS ORDERED: FLUARIX QUAD 2017-18 36MOS UP/PF 0.5 ML SYRINGE IM ONE (11:53)
== END 2017-01-03 13:13 | disposition home or self-care (01) | DRG 291 ==
LOC: 2ANU → SUATTDRO 02:54
PROVIDERS: ADMIT Family Medicine; ATTEND Internal Medicine

== ENCOUNTER 2017-04-27 18:06 | Inpatient (IN) ==
--- NOTE | 2017-04-27 20:08 | Emergency Department Note ---
Disposition Clinical Impression: Peripheral edema CHF (congestive heart failure) Qualifiers: Congestive heart failure type: unspecified Congestive heart failure chronicity : chronic Qualified Code(s): I50.9 - Heart failure, unspecified CKD (chronic kidney disease) Qualifiers: Chronic kidney disease stage: stage 3 (moderate) Qualified Code(s): N18.3 - Chronic kidney disease, stage 3 (moderate) Disposition: Admitted As Inpatient Condition: Good Time of Disposition: 21:14 General Adult HPI - General Chief complaint: ED Shortness of Breath/Dyspnea Stated complaint: CHF,Bi-lateral leg/feet edema Time Seen by Provider: 04/27/17 19:24 Source: patient, family Limitations: no limitations Nursing Notes Reviewed: Yes Vital Signs Reviewed: Yes - History of Present Illness HPI Narrative: Patient is a 61-year-old male that presents the emergency department for bilateral lower extremity swelling. Patient states that he recently had stitches placed and was taken off his "water pills". Patient states that yesterday his legs began swelling and became mildly short of breath with exertion. Patient denies any chest pain or shortness of breath at rest. Patient states that he has had similar episodes in the past. He said usually this is due to his congestive heart failure. Pain Scale: 0 - Related Data Home Medications Medication Instructions Recorded Confirmed Aspirin Enteric Coated [Aspirin EC] 81 mg PO DAILY 06/08/16 01/01/17 Atorvastatin Calcium [Lipitor] 80 mg PO HS 06/08/16 01/01/17 Clopidogrel [Plavix] 75 mg PO DAILY 06/08/16 01/01/17 Dextrose [Glucose Gel] 15 gm PO ONCE PRN 06/08/16 01/01/17 FLUoxetine HCl [Prozac] 40 mg PO QAM 06/08/16 01/01/17 Glucagon,Human Recombinant 1 mg IJ ONCE PRN 06/08/16 01/01/17 [Glucagon Emergency Kit] Insulin ASPART [Novolog Flexpen] 20 unit SQ TIDAC 06/08/16 01/01/17 Isosorbide MONOnitrate (24 HR) 60 mg PO DAILY 06/08/16 01/01/17 [Imdur] Nitroglycerin [Nitrostat] 0.4 mg SL Q5M PRN 06/08/16 01/01/17 OxyCODONE Immed Rel [Roxicodone 10 10 mg PO Q6H PRN 06/08/16 01/01/17 MG] Ranitidine HCl [Zantac] 150 mg PO BID 06/08/16 01/01/17 Ranolazine [Ranexa] 500 mg PO BID 06/08/16 01/01/17 Topiramate [Topamax] 25 mg PO BID 06/08/16 01/01/17 Furosemide [Lasix] 40 mg PO BID 08/31/16 01/01/17 Insulin Degludec [Tresiba 90 unit SQ HS 01/01/17 01/01/17 Flextouch U-200] Naloxegol Oxalate [Movantik] 12.5 mg PO DAILY 01/01/17 01/01/17 Pregabalin [Lyrica] 100 mg PO BID 01/01/17 01/01/17 Tizanidine HCl [Zanaflex] 4 mg PO TID PRN 01/01/17 01/01/17 Trazodone HCl 50 mg PO HS 01/01/17 01/01/17 Previous Rx's Medication Instructions Recorded Carvedilol [Coreg] 12.5 mg PO BIDWM #120 tablet 06/12/16 Lisinopril [Zestril] 5 mg PO DAILY #30 tablet 01/03/17 hydrALAZINE [HydrALAZINE] 25 mg PO Q8HR #60 tablet 01/03/17 Allergies Allergy/AdvReac Type Severity Reaction Status Date / Time Methadone Allergy Hives Verified 01/01/17 07:13 Penicillins Allergy Hives Verified 01/01/17 07:13 linaclotide [From Linzess] AdvReac Nausea Verified 01/01/17 07:13 phenazopyridine AdvReac See Verified 01/01/17 07:13 [From Pyridium] Comments All systems ED: reviewed and negative except as stated. Cardiovascular: Reports: dyspnea on exertion. Denies: chest pain Hematological/Lymphatic: Reports: other (Bilateral lower extremity swelling) Past Medical History - Past Medical History Medical history: Reports: CHF, coronary artery disease, diabetes, myocardial infarction, renal disease Surgical history: Reports: other Psychiatric history: Reports: depression - Social History Smoking Status: Former smoker Smokeless Tobacco Status: No Alcohol use: Reports: none Drug use: Reports: none Physical Exam - General Limitations: no limitations General appearance: alert, in no apparent distress - Head Head exam: atraumatic, normocephalic - Eye Eye exam: Present: normal appearance, EOMI - Neck Neck exam: Present: normal inspection, full ROM, trachea midline - Respiratory Respiratory exam: Present: normal lung sounds bilaterally. Absent: respiratory distress, wheezes - Cardiovascular Cardiovascular exam: Present: regular rate, normal rhythm, normal heart sounds, +S1, +S2 - Abdominal Exam Abdominal exam: Present: soft, Non-Tender, normal bowel sounds - Expanded Lower Extremity Exam Upper leg exam: Present: normal inspection, full ROM, swelling. Absent: tenderness Knee exam: Present: normal inspection, full ROM. Absent: tenderness Lower leg exam: Present: normal inspection, full ROM, swelling (2+ pitting edema ). Absent: tenderness Ankle exam: Present: normal inspection, full ROM, swelling. Absent: tenderness Foot/toe exam: Present: normal inspection, full ROM, swelling. Absent: tenderness - Neurological Exam Neurological exam: Present: alert, oriented X3 - Psychiatric Psychiatric exam: Present: normal affect, normal mood - Skin Skin exam: Present: warm, dry, intact Course Vital Signs Temperature 97.6 F 04/27/17 18:29 Pulse Rate 71 04/27/17 18:29 Respiratory Rate 18 04/27/17 18:29 Blood Pressure 126/64 04/27/17 18:29 O2 Sat by Pulse Oximetry 97 04/27/17 18:29 Temperature 97.6 F 04/27/17 18:29 Pulse Rate 71 04/27/17 20:30 Respiratory Rate 18 04/27/17 20:30 Blood Pressure 141/70 04/27/17 20:30 O2 Sat by Pulse Oximetry 97 04/27/17 20:30 Oxygen Delivery Oxygen Delivery Room Air Medical Decision Making - [facility] Narrative Medical decision making narrative: Due to the patient presented to the hospital with bilateral lower jaw swelling and shortness of breath on exertion and will obtain a CBC, BMP, BNP, troponin, chest x-ray to evaluate this patient. The patient had an elevated creatinine which is approximately at his baseline. The patient did have a troponin of 0.12 which is likely due to having recent cardiac stents placed and having an elevated creatinine. The chest x-ray right middle and left lower lobe airspace disease, atelectasis and/or pneumonia. However the patient does not have pneumonia symptoms. The patient does not have an elevated white count, fever, cough or any other symptoms suggesting pneumonia at this time. However the patient will need to be admitted to the hospital for CHF exacerbation. The patient has stated that he has previously needed to be dialyzed for fluid overload. The patient has an elevated kidney function so we will administer only 40mg of Lasix here in the emergency department and admit for further evaluation and management. I called and spoke with the hospitalist and they have accepted the patient for service. The patient be admitted to the hospital this time for further evaluation and management. - Medical Records Medical records reviewed: Yes I reviewed the patient's medical records. - Lab Data Lab results reviewed: Yes I reviewed the patient's lab results. Result diagrams: 04/27/17 20:05 04/27/17 20:05 Lab Results 04/27/17 04/27/17 04/27/17 Range/Units 20:05 20:05 20:05 WBC 6.9 (4.3-11.1) K/mcL RBC 3.34 L (4.19-5.50) M/mcL Hgb 9.4 L (12.9-16.9) g/dL Hct 30.1 L (37.5-50.1) % MCV 90.1 (83.0-100.0) fL MCH 28.1 (28.0-33.3) pg MCHC 31.2 L (31.6-35.5) g/dL RDW 15.4 H (11.5-14.5) % Plt Count 259 (140-400) K/mcL MPV 10.1 (9.4-12.4) fL Immature Gran % 0.3 (0-4) % Seg Neutrophils % 74.2 % Lymphocytes % 10.4 % Monocytes % 12.5 % Eosinophils % 1.3 % Basophils % 1.3 % Neutrophils # 5.2 (1.6-8.9) K/mcL Lymphocytes # 0.7 (0.6-4.6) K/mcL Monocytes # 0.9 (0.0-1.3) K/mcL Eosinophils # 0.1 (0.0-0.6) K/mcL Basophils # 0.1 (0.0-0.2) K/mcL Sodium 132 L (136-145) mEq/L Potassium 5.7 H (3.5-5.1) mEq/L Chloride 105 (98-107) mEq/L Carbon Dioxide 24 (23-29) mEq/L BUN 73 H (6-20) mg/dL Creatinine 2.51 H (0.70-1.30) mg/dL Est GFR ( Amer) 32 L (> 60) Est GFR (Non-Af Amer) 26 L (> 60) BUN/Creatinine Ratio 29 H (6-26) Glucose 156 H (70-105) mg/dL Calculated Osmolality 299 (280-300) Lactic Acid 0.5 (0.5-2.2) mmol/L Calcium 8.3 L (8.6-10.3) mg/dL Troponin I (< 0.04) ng/mL B-Natriuretic Peptide (Less than 100) pg/mL 04/27/17 04/27/17 Range/Units 20:05 20:05 WBC (4.3-11.1) K/mcL RBC (4.19-5.50) M/mcL Hgb (12.9-16.9) g/dL Hct (37.5-50.1) % MCV (83.0-100.0) fL MCH (28.0-33.3) pg MCHC (31.6-35.5) g/dL RDW (11.5-14.5) % Plt Count (140-400) K/mcL MPV (9.4-12.4) fL Immature Gran % (0-4) % Seg Neutrophils % % Lymphocytes % % Monocytes % % Eosinophils % % Basophils % % Neutrophils # (1.6-8.9) K/mcL Lymphocytes # (0.6-4.6) K/mcL Monocytes # (0.0-1.3) K/mcL Eosinophils # (0.0-0.6) K/mcL Basophils # (0.0-0.2) K/mcL Sodium (136-145) mEq/L Potassium (3.5-5.1) mEq/L Chloride (98-107) mEq/L Carbon Dioxide (23-29) mEq/L BUN (6-20) mg/dL Creatinine (0.70-1.30) mg/dL Est GFR ( Amer) (> 60) Est GFR (Non-Af Amer) (> 60) BUN/Creatinine Ratio (6-26) Glucose (70-105) mg/dL Calculated Osmolality (280-300) Lactic Acid (0.5-2.2) mmol/L Calcium (8.6-10.3) mg/dL Troponin I 0.12 H* (< 0.04) ng/mL B-Natriuretic Peptide 613 H (Less than 100) pg/mL - Radiology Data Radiology results reviewed: Yes I reviewed the patient's radiology results. Chest X-Ray 04/27/17 18:55 IMPRESSION: Right middle and left lower lobe airspace disease, atelectasis and/or pneumonia. Follow-up to resolution is recommended. D/ / Ebony Interiano Cha, MD / Ebony Interiano Cha, MD Interpreting Provider: Ebony Interiano Cha, MD - EKG Data EKG #1 EKG attestation: Yes I reviewed and interpreted this EKG. EKG results narrative: EKG shows sinus rhythm at a rate of 70 bpm, MI interval of 163, QRS duration of 98, QTC of 428. There are some nonspecific T-wave and ST changes. This is compared to previous EKG on 01/01/17 which showed a sinus rhythm at a rate of 67 bpm. Attestation Statement - Attestation Attestation: I examined this patient and my medical decision-making was reviewed with the Resident Physician. I agree with the documented findings, disposition and treatment plan as described except to the extent set forth below. Patient presents to the ED with a chief complaint of leg swelling. Onset yesterday. Patient was recently admitted at [facility] and had cardiac stents placed. He was discharged 6 days ago. His legs began swelling yesterday. He has not had any shortness of breath. He has not had chest pain. He states when he was admitted they took him off his water pill because of his kidney function. On examination he has 3+ pitting edema bilateral lower extremities. His lungs are clear. He is no respiratory distress. Plan. Cardiac workup. We will obtain his paperwork for [facility]. Patient's labs show stable renal function. We will give him IV Lasix and admitted to medicine. Troponin is 0.12. This is believed to be from recent stent. He is not having any chest pain or difficulty in breathing to suggest cardiac ischemia.
[2017-04-27 20:13] LABS: Basophils # 0.1 K/mcL (0.0-0.2); Basophils % 1.3 %; Eosinophils # 0.1 K/mcL (0.0-0.6); Eosinophils % 1.3 %; Hematocrit 30.1 % (37.5-50.1); Hemoglobin 9.4 g/dL (12.9-16.9); Immature Granulocytes % 0.3 % (0-4); Lymphocytes # 0.7 K/mcL (0.6-4.6); Lymphocytes % 10.4 %; Mean Corpuscular HGB Conc 31.2 g/dL (31.6-35.5); Mean Corpuscular Hemoglobin 28.1 pg (28.0-33.3); Mean Corpuscular Volume 90.1 fL (83.0-100.0); Mean Platelet Volume 10.1 fL (9.4-12.4); Monocytes # 0.9 K/mcL (0.0-1.3); Monocytes % 12.5 %; Neutrophils # 5.2 K/mcL (1.6-8.9); Platelet Count 259 K/mcL (140-400); Red Blood Count 3.34 M/mcL (4.19-5.50); Red Cell Distribution Width 15.4 % (11.5-14.5); Segmented Neutrophils % 74.2 %
[2017-04-27 20:50] LABS: Calcium 8.3 mg/dL (8.6-10.3); Potassium 5.7 mEq/L (3.5-5.1)
[2017-04-27] MEDS ORDERED: Furosemide 40 MG/4 ML VIAL IVP ONE (21:10)
--- NOTE | 2017-04-27 21:51 | Internal Med History&Physical ---
Date of Encounter: 04/27/17 Time of Encounter: 21:45 Assessment and Plan (1) CHF (congestive heart failure) Current visit: Yes Status: Chronic IV diuretics overnight, watch renal function Quan for now given neurogenic bladder with intermittent self cath at home consult cardiology - known to Dr Escobar Qualifiers: Congestive heart failure type: combined Congestive heart failure chronicity : chronic Qualified Code(s): I50.42 - Chronic combined systolic (congestive) and diastolic (congestive) heart failure (2) Chronic kidney disease, stage III (moderate) Current visit: No Status: Acute trend Cr on lasix given in the ED consult nephrology to assist with volume management (3) Hyperkalemia Current visit: Yes Status: Acute hyperK protocol recheck K renal diet (4) Hospital acquired PNA Current visit: Yes Status: Acute CXR with possible infiltrates to suggest PNA ??? Will check CT chest -non-contrast Will hold antibiotics for now since he completed a course of cefepime 04/18 for HCAP at [facility]. MRSA probe and sputum cx negative at [facility]. Monitor symptoms. Pulse ox. This may be resolving infiltrates that may take 3-4 weeks to improve (5) CAD (coronary artery disease) Current visit: No Status: Acute s/p stenting. Cardiology eval Qualifiers: Coronary Disease-Associated Artery/Lesion type: [place] artery [place] vs. transplanted heart: [place] heart Associated angina: without angina Qualified Code(s): I25.10 - Atherosclerotic heart disease of [place] coronary artery without angina pectoris (6) Type 2 diabetes mellitus with diabetic chronic kidney disease Current visit: No Status: Acute Continue insulin Qualifiers: Chronic kidney disease stage: stage 4 (severe) Qualified Code(s): E11.22 - Type 2 diabetes mellitus with diabetic chronic kidney disease; N18.4 - Chronic kidney disease, stage 4 (severe); N18.4 - Chronic kidney disease, stage 4 ( severe); N18.4 - Chronic kidney disease, stage 4 (severe); N18.4 - Chronic kidney disease, stage 4 (severe); 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 Renee is a 61 year old male who presents with b/l LE swelling, scrotal edema. Found acute on chronic CHF exacerbation. Patient reported being seen at [facility] 7-Apr for a "heart attack" and was found to have triple vessel disease and is s/p BUNNY RCA and circ on 04/19. Was seen by cardiology at [facility] with increase dose of coreg and discontinuation of ranexa (and diuretics which he reports taking 1 mg bumex QD previously). Of note, at [facility], he was also found to have HCAP and influenza A that was treated with tamiflu and cefepime. Of note, he has CKD and visits with Dr Garcia. He received 2 HD sessions while at [facility] for volume and clearance issues (e.g renal failure and CHF) He visits with Dr Escobar at [facility]. Since being discharged from [facility], he experience fluid overload with progressive b/l LE swelling and scrotal edema that is progressive over the last 2 days. Worsen with time and without improvement. This led to visit to the ED. On review, he notes of some SOB, CLARKE and evaluation He has neurogenic bladder and gets intermittent self cath since around 2006 EKG personall reviewed with rate 70, NSR, T-wave changes that appears unchanged from prior XR/XR chest 2V IMPRESSION: Right middle and left lower lobe airspace disease, atelectasis and/or pneumonia. Follow-up to resolution is recommended. Past Med Surg Social Fam HX - Past Medical History Medical history: CHF, coronary artery disease, diabetes, myocardial infarction, renal disease Psychiatric history: depression - Past Surgical History Surgical History: other - Social History Smoking Status: Former smoker Smokeless Tobacco Status: No Alcohol use: none Drug use: none - Family History Father Hx Family Cardiac Disorders: Yes (triple bypass) Hx Family Cancer: Yes (lung) Hx Family Endocrine Disorder: Yes (diabetes) Mother Hx Family Respiratory Disorders: No Hx Family Cancer: Yes (throat, lung) Internal Medicine - H&P: Meds Aspirin Enteric Coated [Aspirin EC] 81 mg PO DAILY 06/08/16 [History] Atorvastatin Calcium [Lipitor] 80 mg PO HS 06/08/16 [History] Clopidogrel [Plavix] 75 mg PO DAILY 06/08/16 [History] Dextrose [Glucose Gel] 15 gm PO ONCE PRN 06/08/16 [History] FLUoxetine HCl [Prozac] 40 mg PO QAM 06/08/16 [History] Glucagon,Human Recombinant [Glucagon Emergency Kit] 1 mg IJ ONCE PRN 06/08/16 [ History] Insulin ASPART [Novolog Flexpen] 20 unit SQ TIDAC 06/08/16 [History] Isosorbide MONOnitrate (24 HR) [Imdur] 60 mg PO DAILY 06/08/16 [History] Nitroglycerin [Nitrostat] 0.4 mg SL Q5M PRN 06/08/16 [History] OxyCODONE Immed Rel [Roxicodone 10 MG] 10 mg PO Q6H PRN 06/08/16 [History] Ranitidine HCl [Zantac] 150 mg PO BID 06/08/16 [History] Ranolazine [Ranexa] 500 mg PO BID 06/08/16 [History] Topiramate [Topamax] 25 mg PO BID 06/08/16 [History] Carvedilol [Coreg] 12.5 mg PO BIDWM #120 tablet 06/12/16 [Rx] Furosemide [Lasix] 40 mg PO BID 08/31/16 [History] Insulin Degludec [Tresiba Flextouch U-200] 90 unit SQ HS 01/01/17 [History] Naloxegol Oxalate [Movantik] 12.5 mg PO DAILY 01/01/17 [History] Pregabalin [Lyrica] 100 mg PO BID 01/01/17 [History] Tizanidine HCl [Zanaflex] 4 mg PO TID PRN 01/01/17 [History] Trazodone HCl 50 mg PO HS 01/01/17 [History] Lisinopril [Zestril] 5 mg PO DAILY #30 tablet 01/03/17 [Rx] hydrALAZINE [HydrALAZINE] 25 mg PO Q8HR #60 tablet 01/03/17 [Rx] 3 Allergy/AdvReac Type Severity Reaction Status Date / Time Methadone Allergy Hives Verified 01/01/17 07:13 Penicillins Allergy Hives Verified 01/01/17 07:13 linaclotide [From Linzess] AdvReac Nausea Verified 01/01/17 07:13 phenazopyridine AdvReac See Verified 01/01/17 07:13 [From Pyridium] Comments All Systems PM: A 10-system review of systems was performed and is negative for pertinent findings except as documented above in the HPI. Review of systems: ROS 14 point review of systems reviewed as best as possible given presentation. Pertinent positive or negative as per HPI or otherwise reviewed as negative - Constitutional Vitals: Temp Pulse Resp BP Pulse Ox 97.6 F 71 18 141/70 97 04/27/17 18:29 04/27/17 20:30 04/27/17 20:30 04/27/17 20:30 04/27/17 20:30 Exam: General - AAO x 3 Psych - Appropriate affect/speech. No agitation Eyes - SCOTT. Eye lids intact. No scleral icterus Neuro - No gross peripheral or central neuro deficits with intact CN 2-12 exam Heart - Sinus. RRR. S1 and S2 present. No added HS/murmurs appreciated. No elevated JVD appreciated. Lung - Adequate air entry b/l, No crackles/wheezes appreciated GI - Soft, non-tender. No hepatosplenomegaly/ascites. BS+ - No CVA/suprapubic tenderness or palpable bladder distension Skin - Intact. No rash/petechiae/ecchymosis. Warm extremities. + 2 b/l LE edema. Scrotal edema Internal Med - H&P Results - Labs CBC & Chem 7: 04/27/17 20:05 04/27/17 20:05
[2017-04-27] MEDS ORDERED: tiZANidine 4 MG TABLET PO PRN (22:02)
[2017-04-27] MEDS ORDERED: Naloxone 0.4 MG/ML INJ IVP PRN (22:04)
[2017-04-27] MEDS ORDERED: Dextrose Gel 15 GM/37.5 ML TUBE PO PRN ×2 (22:06)
[2017-04-27] MEDS ORDERED: D5% in Water 1,000 ML IVC PRN (22:06)
[2017-04-27] MEDS ORDERED: *HR* Dextrose 50 % in Water (Syg) 50 ML SYRINGE IVP PRN (22:06)
[2017-04-27] MEDS ORDERED: Ipratropium/Albuterol Neb 3 ML IH PRN (22:08)
[2017-04-27] MEDS ORDERED: *HR* Dextrose 50 % in Water (Syg) 50 ML SYRINGE IVP ONE (22:09)
[2017-04-27] MEDS ORDERED: Calcium Chloride 1,000 MG in 0.9 % Sodium Chloride 100 ML IVPB ONE (22:09)
[2017-04-27] MEDS ORDERED: Insulin Human Regular 10 UNIT in 0.9 % Sodium Chloride 10 ML IV ONE (22:09)
[2017-04-28] MEDS: Ipratropium/Albuterol Neb 3 ML IH SCH ×4 (04:53→22:42)
[2017-04-28] MEDS: *HR* Heparin 5,000 UNIT/ML VIAL SQ SCH ×2 (05:13→17:20)
[2017-04-28 05:21] LABS: Basophils # 0.1 K/mcL (0.0-0.2); Basophils % 1.2 %; Eosinophils # 0.1 K/mcL (0.0-0.6); Eosinophils % 1.9 %; Hematocrit 27.1 % (37.5-50.1); Hemoglobin 8.7 g/dL (12.9-16.9); Immature Granulocytes % 0.5 % (0-4); Lymphocytes # 0.8 K/mcL (0.6-4.6); Lymphocytes % 13.4 %; Mean Corpuscular HGB Conc 32.1 g/dL (31.6-35.5); Mean Corpuscular Hemoglobin 28.7 pg (28.0-33.3); Mean Corpuscular Volume 89.4 fL (83.0-100.0); Mean Platelet Volume 10.2 fL (9.4-12.4); Monocytes # 0.5 K/mcL (0.0-1.3); Neutrophils # 4.3 K/mcL (1.6-8.9); Platelet Count 238 K/mcL (140-400); Red Blood Count 3.03 M/mcL (4.19-5.50); Red Cell Distribution Width 15.3 % (11.5-14.5)
[2017-04-28 05:37] LABS: Calcium 8.4 mg/dL (8.6-10.3); Magnesium 2.3 mg/dL (1.6-2.6); Potassium 5.3 mEq/L (3.5-5.1)
[2017-04-28] MEDS: Insulin LISPRO 300 UNITS/3 ML VIAL SQ SCH ×4 (07:45→20:35)
--- NOTE | 2017-04-28 08:45 | Internal Med Progress Note ---
<Samuel Agosto - Last Filed: 04/28/17 14:17> Date of Encounter: 04/28/17 Time of Encounter: 08:44 - Assessment and plan (1) CHF (congestive heart failure) Current Visit: Yes Status: Chronic Assessment and plan: Patient symptomatically has increased SOB on exertion, PND, orthopnea, and bilateral leg swelling. IV diurectis were given overnight, and niño was placed (intermittent self cath at home). Trop 0.12, 0.13. BNP 613. Today patient has clinically improved. - cardiology and nephrology consulted - avoid nephrotoxins - serial fluid evaluation - fluid restriction 1.5L and Na restriction - elevate head of bed - morning labs Qualifiers: Congestive heart failure type: systolic Congestive heart failure chronicity : chronic Qualified Code(s): I50.22 - Chronic systolic (congestive) heart failure (2) CAD (coronary artery disease) Current Visit: Yes Status: Acute Assessment and plan: 04/08/17 patient was at [facility] with CP, found to have triple vessel disease, received BUNNY RCA and circ on 04/19/17. Patient sees cardiology at [facility] with recent dose change increase of coreg and discontinuation of ranexa, and bumex. he also received 2 cycles of dialysis at [facility]. 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 Qualifiers: Coronary Disease-Associated Artery/Lesion type: [place] artery [place] vs. transplanted heart: [place] heart Associated angina: without angina Qualified Code(s): I25.10 - Atherosclerotic heart disease of [place] coronary artery without angina pectoris (3) Chronic kidney disease, stage III (moderate) Current Visit: Yes Status: Chronic Assessment and plan: Patient see Dr. Garcia. at recent hospitalization patient received 2 HD session. Cr on this visit 2.65 -> 2.51 -> 2.43 (today). baseline ~1.5-2.5. - nephrology consulted (4) DVT prophylaxis Current Visit: Yes Status: Acute Assessment and plan: heparin SQ (5) Hospital acquired PNA Current Visit: Yes Status: Acute Assessment and plan: during hospitalization at [facility] patient was also positive for HCAP and influenza. He was treated with tamiflu and cefepime. no leukocytosis. (6) Hyperkalemia Current Visit: Yes Status: Acute Assessment and plan: On admission K+ was 5.7, kayexelate was given and next morning K+ 5.3. - Calcium gluconate + Kayexelate ordered - will continue to follow closely (7) Type 2 diabetes mellitus with diabetic chronic kidney disease Current Visit: Yes Status: Acute Assessment and plan: SSI low. 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 Patient reports legs remain swollen but have slightly improved, and he continues to complain of scrotal swelling. He also states in general he doesn't feel great. He denies chest pain, diaphoresis, n/v. - Constitutional Vitals: Temp Pulse Resp BP Pulse Ox 98.2 F 77 17 155/68 94 04/28/17 07:30 04/28/17 07:30 04/28/17 07:30 04/28/17 07:30 04/28/17 07:30 General appearance: Present: cooperative, A&O X 3, pleasant, answers questions appropriately Exam: moderate discomfort - Respiratory Respiratory exam: Present: CTAB. Absent: accessory muscle use, rales, rhonchi, wheezes - Cardiovascular Cardiovascular exam: Present: RRR. Absent: diastolic murmur, gallop, rubs, systolic murmur - exam: Present: scrotal swelling - Back Exam Back exam: Absent: CVA tenderness (L), CVA tenderness (R) - Psychiatric Psychiatric exam: Present: normal affect, normal mood Internal Medicine: Result - Labs CBC & Chem 7: 04/28/17 05:11 04/28/17 05:11 Labs: Short CBC 04/28/17 Range/Units 05:11 WBC 5.8 (4.3-11.1) K/mcL Hgb 8.7 L (12.9-16.9) g/dL Hct 27.1 L (37.5-50.1) % Plt Count 238 (140-400) K/mcL Neutrophils # 4.3 (1.6-8.9) K/mcL BMP 04/28/17 05:11 Sodium 135 L Potassium 5.3 H Chloride 107 Carbon Dioxide 25 BUN 74 H Creatinine 2.43 H Glucose 110 H Calcium 8.4 L Consult Discharge Plan - Plan Referrals: Marcial Wolf DO [Primary Care Provider] - (web request 04/28/2017) <Ernesto Luna - Last Filed: 04/28/17 16:37> Date of Encounter: 04/28/17 - Assessment and plan (1) CHF (congestive heart failure) Current Visit: Yes Status: Chronic Qualifiers: Congestive heart failure type: systolic Congestive heart failure chronicity : acute on chronic Qualified Code(s): I50.23 - Acute on chronic systolic ( congestive) heart failure (2) Anasarca Current Visit: No Status: Acute Assessment and plan: Related to renal disease. 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 transplanted heart: [place] heart Associated angina: without angina Qualified Code(s): I25.10 - Atherosclerotic heart disease of [place] coronary artery without angina pectoris (7) Hypertension Current Visit: No Status: Chronic Qualifiers: Hypertension type: essential hypertension Qualified Code(s): I10 - Essential (primary) hypertension (8) Neurogenic bladder Current Visit: No Status: Chronic - Constitutional Vitals: Temp Pulse Resp BP Pulse Ox 97.9 F 72 17 168/74 95 04/28/17 15:58 04/28/17 15:58 04/28/17 15:58 04/28/17 15:58 04/28/17 15:58 Internal Medicine: Result - Labs CBC & Chem 7: 04/28/17 05:11 04/28/17 05:11 Labs: Short CBC 04/28/17 Range/Units 05:11 WBC 5.8 (4.3-11.1) K/mcL Hgb 8.7 L (12.9-16.9) g/dL Hct 27.1 L (37.5-50.1) % Plt Count 238 (140-400) K/mcL Neutrophils # 4.3 (1.6-8.9) K/mcL BMP 04/28/17 05:11 Sodium 135 L Potassium 5.3 H Chloride 107 Carbon Dioxide 25 BUN 74 H Creatinine 2.43 H Glucose 110 H Calcium 8.4 L Cardiac Enzymes 04/28/17 Range/Units 08:25 Troponin I 0.13 H* (< 0.04) ng/mL - Attending Attestation I examined this patient and my medical decision-making was reviewed with the Resident Physician on 04/28/17. I agree with the documented findings, disposition and treatment plan as described except to the extent set forth below. Mr Renee is currently admitted for volume overload and CKD. He remains moderate to high risk due to potential for worsening clinical status. Mr Renee is resting at this time. He overall just does not feel well. He is still very edematous. No fever. Creatinine a little better today. No CP or cough. Exam alert. Resting on side Mucus membranes dry Heart distant and regular Lungs diminished Abd soft Edema present I/P 1. Anasarca related to renal disease/proteinuria - appreciate renal input and management. Hx of nephrotic range proteinuria. 2. CKD 4 3. DM 4. CAD s/p stents - appreciate cardiology input and management. Further diagnoses and plan as above
--- NOTE | 2017-04-28 09:15 | Cardiology Consult Note ---
<Marina Mathew Omaira - Last Filed: 04/28/17 13:02> Date of Encounter: 04/28/17 Time of Encounter: 07:30 Assessment and Plan (1) Elevated troponin Current Visit: Yes Status: Acute Mild, adynamic troponin elevation. Likely demand ischemia in the setting of CHF exacerbation, CKD. Patient is chest pain free. Ischemic ECG changes when compared to prior; however recently underwent multivessel PCI at [facility]. No indication for cardiac rehab. Asa, plavix, statin, betablocker and nitrates. (2) CHF (congestive heart failure) Current Visit: Yes Status: Chronic Mildly reduced LVEF, 45% per [facility] Records. Patient was not discharged home on diuretic, likely cause of exacerbation. Cumulative I&O: -2330 mL. Symptoms improving, not yet at baseline. Appears volume overload upon exam. Given 40 mg IV lasix in ED with significant diuresis, SCr improved. Of note, x2 HD sessions as inpatient at [facility]. Will defer diuretic recommendations to Nephrology. Continue coreg. No ACEi/ARB due to CKD. Strict I&Os, daily weights, Na/fluid restriction diet. Qualifiers: Congestive heart failure type: systolic Congestive heart failure chronicity : chronic Qualified Code(s): I50.22 - Chronic systolic (congestive) heart failure (3) CKD (chronic kidney disease) Current Visit: Yes Status: Acute As above, Nephrology following. Qualifiers: Chronic kidney disease stage: stage 4 (severe) Qualified Code(s): N18.4 - Chronic kidney disease, stage 4 (severe) (4) CAD (coronary artery disease) Current Visit: Yes Status: Acute Recent PCI at [facility]. Deemed high-risk CABG candidate. DAPT, statin, betablocker. Qualifiers: Coronary Disease-Associated Artery/Lesion type: [place] artery [place] vs. transplanted heart: [place] heart Associated angina: without angina Qualified Code(s): I25.10 - Atherosclerotic heart disease of [place] coronary artery without angina pectoris Discussion w patient/family: The assessment and plan as outlined above was discussed with the patient and/or family members who expressed understanding and agreement. All questions were answered. Thank you for involving us in the care of your patient. Please call with any questions. The patient will be discussed and reviewed with Dr. Galvin, changes to be made accordingly. History of Present Illness Consult date: 04/28/17 Requesting physician: Josué Jerez Consult reason: Elevated troponin Chief complaint: LE/scrotal edema History of present illness: Mr. Renee is a 61 year old male with PMHx significant for CAD s/p recent PCI, dCHF, CKD, tobacco use, HTN, and neurogenic bladder who presented to the ED with complaints of worsening bilateral lower extremity and scrotal edema. Associated symptoms included shortness of breath. He was recently hospitalized at [facility] at the beginning of the month for acute hypoxic respiratory failure/NSTEMI/influenza A/TIANA on CKD/ CHF. During hospitalization he underwent LHC which demonstrated severe 3v CAD, he was determined to be a high risk CABG candidate and therefore underwent multivessel PCI (RCA, LCx) on . EF was 45% per records. Also under HD x2 sessions for worsening SCr. Patient reports he was not discharged home on diuretic. Prior CV testing: TTE 01/01/17: EF 60%, mild LVDD, mild TR/PH, normal wall motion. Past Med Surg Social Fam HX - Past Medical History Attestation: Yes The following information was validated with the patient. Source: patient Medical history: CHF, coronary artery disease, diabetes, hypertension, myocardial infarction, renal disease, other (neurogenic bladder) Psychiatric history: depression - Past Surgical History Surgical History: angioplasty/stent - Social History Smoking Status: Former smoker Smokeless Tobacco Status: No Alcohol use: none Drug use: none - Family History Father Hx Family Cardiac Disorders: Yes (triple bypass) Hx Family Cancer: Yes (lung) Hx Family Endocrine Disorder: Yes (diabetes) Mother Hx Family Respiratory Disorders: No Hx Family Cancer: Yes (throat, lung) Medications and Allergies Aspirin Enteric Coated [Aspirin EC] 81 mg PO DAILY 06/08/16 [History] Atorvastatin Calcium [Lipitor] 80 mg PO HS 06/08/16 [History] Clopidogrel [Plavix] 75 mg PO DAILY 06/08/16 [History] Dextrose [Glucose Gel] 15 gm PO ONCE PRN 06/08/16 [History] FLUoxetine HCl [Prozac] 40 mg PO QAM 06/08/16 [History] Glucagon,Human Recombinant [Glucagon Emergency Kit] 1 mg IJ ONCE PRN 06/08/16 [ History] Insulin ASPART [Novolog Flexpen] 20 unit SQ TIDAC 06/08/16 [History] Isosorbide MONOnitrate (24 HR) [Imdur] 60 mg PO DAILY 06/08/16 [History] Nitroglycerin [Nitrostat] 0.4 mg SL Q5M PRN 06/08/16 [History] OxyCODONE Immed Rel [Roxicodone 10 MG] 10 mg PO Q6H PRN 06/08/16 [History] Ranitidine HCl [Zantac] 150 mg PO BID 06/08/16 [History] Ranolazine [Ranexa] 500 mg PO BID 06/08/16 [History] Topiramate [Topamax] 25 mg PO BID 06/08/16 [History] Carvedilol [Coreg] 12.5 mg PO BIDWM #120 tablet 06/12/16 [Rx] Furosemide [Lasix] 40 mg PO BID 08/31/16 [History] Insulin Degludec [Tresiba Flextouch U-200] 90 unit SQ HS 01/01/17 [History] Naloxegol Oxalate [Movantik] 12.5 mg PO DAILY 01/01/17 [History] Pregabalin [Lyrica] 100 mg PO BID 01/01/17 [History] Tizanidine HCl [Zanaflex] 4 mg PO TID PRN 01/01/17 [History] Trazodone HCl 50 mg PO HS 01/01/17 [History] Lisinopril [Zestril] 5 mg PO DAILY #30 tablet 01/03/17 [Rx] hydrALAZINE [HydrALAZINE] 25 mg PO Q8HR #60 tablet 01/03/17 [Rx] 3 Allergy/AdvReac Type Severity Reaction Status Date / Time Methadone Allergy Hives Verified 01/01/17 07:13 Penicillins Allergy Hives Verified 01/01/17 07:13 linaclotide [From Linzess] AdvReac Nausea Verified 01/01/17 07:13 phenazopyridine AdvReac See Verified 01/01/17 07:13 [From Pyridium] Comments All Systems Review: A 10-system review of systems was performed and is negative for pertinent findings except as documented above in the HPI. - Cardiovascular Cardiovascular: as per HPI Physical Examination Vital Signs, Last 4 Hours Temp Pulse Resp BP Pulse Ox 04/28/17 07:30 98.2 F 77 17 155/68 94 General: Conversant HEENT: Atraumatic, Normocephaly Cardiac: Reg Rate and Rhythm, Normal S1 and S2 Lungs: Other (Decreased bilaterally) Neuro: Alert and responsive Abdomen: Soft Skin: No rashes noted on visualized skin Musculoskeletal: No Chest Wall Tenderness Extremities: Other (+2-3 BLE edema) Results 04/28/17 05:11 04/28/17 05:11 Lab Results 04/28/17 04/28/17 04/28/17 05:11 05:11 08:25 WBC 5.8 Hgb 8.7 L Hct 27.1 L Plt Count 238 Sodium 135 L Potassium 5.3 H Chloride 107 Carbon Dioxide 25 BUN 74 H Creatinine 2.43 H Glucose 110 H Calcium 8.4 L Magnesium 2.3 Troponin I 0.13 H* Active Medications Albuterol/Ipratropium (Duoneb) 3 ml IH QIDR [facility] Stop: 10/28/17 05:01 Last Admin: 04/28/17 11:03 Dose: 3 ml Albuterol/Ipratropium (Duoneb) 3 ml IH [id number] PRN PRN Reason: Shortness Of Breath/Wheezing Stop: 10/27/17 22:09 Aspirin (Aspirin Ec) 81 mg PO DAILY [facility] Stop: 10/28/17 09:01 Last Admin: 04/28/17 09:18 Dose: 81 mg Atorvastatin Calcium (Lipitor) 80 mg PO HS [facility] Stop: 10/28/17 21:01 Carvedilol (Coreg) 12.5 mg PO BIDWM CLYDE PRN Reason: Protocol Stop: 10/28/17 08:01 Last Admin: 04/28/17 09:18 Dose: 12.5 mg Clopidogrel Bisulfate (Plavix) 75 mg PO DAILY [facility] Stop: 10/28/17 09:01 Last Admin: 04/28/17 09:20 Dose: 75 mg Dextrose/Water (Dextrose 50% (Syg)) 25 ml IVP AD PRN PRN Reason: Hypoglycemia Stop: 10/27/17 22:07 Famotidine (Pepcid) 20 mg PO BIDAC [facility] Stop: 10/28/17 07:31 Last Admin: 04/28/17 09:20 Dose: 20 mg Fluoxetine HCl (Prozac) 40 mg PO QAM [facility] Stop: 10/28/17 09:01 Last Admin: 04/28/17 09:18 Dose: 40 mg Heparin Sodium (Porcine) (Heparin) 5,000 unit SQ Q12HR [facility] Stop: 10/28/17 06:01 Last Admin: 04/28/17 05:13 Dose: 5,000 unit Dextrose (Dextrose 5%) 1,000 mls @ 100 mls/hr IVC .Q10H PRN PRN Reason: HYPOGLYCEMIA Stop: 10/27/17 22:07 Insulin Detemir (Levemir) 30 unit SQ HS [facility] Stop: 10/28/17 21:01 Insulin Human Lispro (Humalog) 0 units SQ TIDAC CLYDE PRN Reason: Protocol Stop: 10/28/17 07:31 Last Admin: 04/28/17 07:45 Dose: Not Given Insulin Human Lispro (Humalog) 0 units SQ HS CLYDE PRN Reason: Protocol Stop: 10/28/17 21:01 Isosorbide Mononitrate (Imdur) 60 mg PO DAILY [facility] Stop: 10/28/17 09:01 Last Admin: 04/28/17 09:20 Dose: 60 mg Naloxone HCl (Narcan) 0.4 mg IVP Q2MIN PRN PRN Reason: Opioid Reversal Stop: 10/27/17 22:05 Oxycodone HCl (Roxicodone) 10 mg PO Q6H PRN PRN Reason: Moderate Pain Pregabalin (Lyrica) 100 mg PO BID [facility] Stop: 10/28/17 09:01 Last Admin: 04/28/17 09:20 Dose: 100 mg Tizanidine HCl (Zanaflex) 4 mg PO TID PRN PRN Reason: Muscle Spasm Topiramate (Topamax) 25 mg PO BID [facility] Stop: 10/28/17 09:01 Last Admin: 04/28/17 09:20 Dose: 25 mg - Imaging and Cardiology Echo: report reviewed Other Results: 12 hour tele: avg HR=76. No events noted. - EKG Interpretation EKG results cardiology: personally reviewed Consult Discharge Plan - Plan Referrals: Marcial Wolf DO [Primary Care Provider] - (web request 04/28/2017) <Kristian Galvin - Last Filed: 04/28/17 19:06> Date of Encounter: 04/28/17 Time of Encounter: 19:00 - Attending Attestation I have personally performed a face to face evaluation on this patient. I have reviewed and agree with the care plan. History and Exam by me shows CC: shortness of breath, lower ext swelling Pt presented to ER with complaint of increased shortness of breath with activity and at rest over the last week. He has also noted increased bilateral lower extremty swelling, extends from knees to toes, improves overnight with elevation of legs, but gets worse throughtout he day. He notes two pillow orthopnea last two nights before admission. He has extensive cardiac history, with admission for ACS, acute exacerbation of CHF in early April, was transferred to [facility] with subsequent PCI of Cx and RCA, complicated by acute renal failure requiring hemodyalysis. He denies chest pain consistent with previous anginal pain, reports those symptoms have resolved. PE: Reviewed, agree with above. IMP: 1. Acute on chronic systolic heart failure, due to discontinuation of oral diuretics secondary to acute renal failure, with subseqent volume overload, now responding to IV diuresis. 2. Ischemic cardiomyopathy, EF 45%, not clearly imporoved post PCI, will repeat echo to eval wall motion, LV function. 3. CAD: severe triple vessel CAD with recent revascularization of RCA and CX, will obtain old records to evaluate residual stenosis in LAD, in not able to revascularize may have residual ischemia contributing to LV systolic impairment and CHF. 4. Elevated troponin: minimal elevation, most likely due to demand ischemia, will review cath reports when available, concerned he may still need PCI of LAD , not previously preformed due to concern for nephrotoxicity of contrast dye. : Assessment and Plan Discussion w patient/family: The assessment and plan as outlined above was discussed with the patient and/or family members who expressed understanding and agreement. All questions were answered. Thank you for involving us in the care of your patient. Please call with any questions. History of Present Illness History of present illness: Mr. Renee is a 61 year old male All Systems Review: A 10-system review of systems was performed and is negative for pertinent findings except as documented above in the HPI. Physical Examination Vital Signs, Last 4 Hours Temp Pulse Resp BP Pulse Ox 04/28/17 15:58 97.9 F 72 17 168/74 95 04/28/17 15:43 17 95 Results 04/28/17 05:11 04/28/17 05:11 Lab Results 04/28/17 04/28/17 04/28/17 05:11 05:11 08:25 WBC 5.8 Hgb 8.7 L Hct 27.1 L Plt Count 238 Sodium 135 L Potassium 5.3 H Chloride 107 Carbon Dioxide 25 BUN 74 H Creatinine 2.43 H Glucose 110 H Calcium 8.4 L Magnesium 2.3 Troponin I 0.13 H*
[2017-04-28] MEDS: Aspirin Enteric Coated 81 MG Tablet PO SCH (09:18)
[2017-04-28] MEDS: FLUoxetine 20 MG CAPSULE PO SCH (09:18)
[2017-04-28] MEDS: Famotidine 20 MG TABLET PO SCH ×2 (09:20→17:21)
[2017-04-28] MEDS: Pregabalin 50 MG CAPSULE PO SCH ×2 (09:20→20:34)
[2017-04-28] MEDS: Isosorbide MONOnitrate (24 HR) 60 MG TAB.ER.24H PO SCH (09:20)
[2017-04-28] MEDS: Topiramate 25 MG TABLET PO SCH ×2 (09:20→20:34)
--- NOTE | 2017-04-28 11:43 | Nephrology Consult Note ---
Date of Encounter: 04/28/17 Time of Encounter: 10:40 Assessment and Plan (1) Renal failure (ARF), acute on chronic Current Visit: No Status: Acute TIANA is unclear since recent renal fct not available and may be his new baseline. Diuretics may be contributing. Known nephrotic range proteinuria in setting of poorly controlled DM and HTN. Pregabalin may be contributing to edema. History of neurogenic bladder. Maintain niño catheter, Accurate I&O's. Avoid nephrotoxins. Will continue to monitor. Qualifiers: Acute renal failure type: unspecified Chronic kidney disease stage: stage 3 (moderate) Qualified Code(s): N17.9 - Acute kidney failure, unspecified; N18.3 - Chronic kidney disease, stage 3 (moderate); N18.3 - Chronic kidney disease, stage 3 (moderate) History of Present Illness - Reason for Consult Acute Kidney Injury - History of Present Illness Mr. Renee is a 61 year old male known to practice with CKD 3, baseline creat 1.6-1.9. Nephrotic range proteinuria 8 gms in setting of DM, poorly controlled HTN and neurogenic bladder. He is compliant and straight caths 5 times daily and follows with [facility]. He states is non compliant in monitoring blood sugars or BP. Other PMH- CHF, coronary artery disease, diabetes, myocardial infarction, renal disease. Mr. Renee presented to ER yesterday with bilateral LE swelling and increasing shortness of breath. He states "taken off water pills." He states recently had cardiac stents placed at [place] and required HD in setting of fluid overload and not because of TIANA. CXR- right middle and left lower lobe airspace disease, atelectasis and/or pneumonia. Initial creat 2.51, now 2.43, however renal fct during and at discharge from [place] is unavailable. K 5.7, given Kaexylate, now 5.3. Troponin 0.12. BNP 613. He was given IV diuretics and indwelling Niño catheter placed. This morning Mr. Renee is side lying, states breathing much easier. LE edema 1+ knees down which he states is his normal. Past Med Surg Social Fam HX - Past Medical History Medical history: CHF, coronary artery disease, diabetes, myocardial infarction, renal disease Psychiatric history: depression - Past Surgical History Surgical History: other - Social History Smoking Status: Former smoker Smokeless Tobacco Status: No Alcohol use: none Drug use: none - Family History Father Hx Family Cardiac Disorders: Yes (triple bypass) Hx Family Cancer: Yes (lung) Hx Family Endocrine Disorder: Yes (diabetes) Mother Hx Family Respiratory Disorders: No Hx Family Cancer: Yes (throat, lung) Medications and Allergies Aspirin Enteric Coated [Aspirin EC] 81 mg PO DAILY 06/08/16 [History] Atorvastatin Calcium [Lipitor] 80 mg PO HS 06/08/16 [History] Clopidogrel [Plavix] 75 mg PO DAILY 06/08/16 [History] Dextrose [Glucose Gel] 15 gm PO ONCE PRN 06/08/16 [History] FLUoxetine HCl [Prozac] 40 mg PO QAM 06/08/16 [History] Glucagon,Human Recombinant [Glucagon Emergency Kit] 1 mg IJ ONCE PRN 06/08/16 [ History] Insulin ASPART [Novolog Flexpen] 20 unit SQ TIDAC 06/08/16 [History] Isosorbide MONOnitrate (24 HR) [Imdur] 60 mg PO DAILY 06/08/16 [History] Nitroglycerin [Nitrostat] 0.4 mg SL Q5M PRN 06/08/16 [History] OxyCODONE Immed Rel [Roxicodone 10 MG] 10 mg PO Q6H PRN 06/08/16 [History] Ranitidine HCl [Zantac] 150 mg PO BID 06/08/16 [History] Ranolazine [Ranexa] 500 mg PO BID 06/08/16 [History] Topiramate [Topamax] 25 mg PO BID 06/08/16 [History] Carvedilol [Coreg] 12.5 mg PO BIDWM #120 tablet 06/12/16 [Rx] Furosemide [Lasix] 40 mg PO BID 08/31/16 [History] Insulin Degludec [Tresiba Flextouch U-200] 90 unit SQ HS 01/01/17 [History] Naloxegol Oxalate [Movantik] 12.5 mg PO DAILY 01/01/17 [History] Pregabalin [Lyrica] 100 mg PO BID 01/01/17 [History] Tizanidine HCl [Zanaflex] 4 mg PO TID PRN 01/01/17 [History] Trazodone HCl 50 mg PO HS 01/01/17 [History] Lisinopril [Zestril] 5 mg PO DAILY #30 tablet 01/03/17 [Rx] hydrALAZINE [HydrALAZINE] 25 mg PO Q8HR #60 tablet 01/03/17 [Rx] 3 Allergy/AdvReac Type Severity Reaction Status Date / Time Methadone Allergy Hives Verified 01/01/17 07:13 Penicillins Allergy Hives Verified 01/01/17 07:13 linaclotide [From Linzess] AdvReac Nausea Verified 01/01/17 07:13 phenazopyridine AdvReac See Verified 01/01/17 07:13 [From Pyridium] Comments Review of Systems All Systems: reviewed and no additional remarkable complaints except as stated Exam - Vital Signs Vital signs: Initial Vital Signs Temp Pulse Resp BP Pulse Ox 97.6 F 71 18 126/64 97 04/27/17 18:29 04/27/17 18:29 04/27/17 18:29 04/27/17 18:29 04/27/17 18:29 Vital Signs - Last 8 Hours Temp Pulse Resp BP Pulse Ox 04/28/17 11:28 97.8 F 69 17 173/75 95 04/28/17 11:04 17 94 04/28/17 09:29 94 04/28/17 07:30 98.2 F 77 17 155/68 94 04/28/17 05:06 98.5 F 78 16 162/67 100 04/28/17 04:53 16 94 Intake and Output 04/27/17 04/28/17 04/28/17 23:59 07:59 15:59 Intake Total 120 / 120 Output Total 1150 / 1150 1300 / 1300 Balance -1150 / -1150 -1180 / -1180 Intake: Oral 120 / 120 Output: Catheter 1150 / 1150 1300 / 1300 Other: Meal Breakfast Percent of Meal Consumed 100% Weight 85.3 kg 85.3 kg Blood Glucose* 162 130 191 Patient Weight 04/28/17 23:59 Weight 85.3 kg - General Appearance General appearance: well-developed, well-nourished, appears started age EENT: mucous membranes moist Respiratory: clear Cardiology: edema, regular rate, regular rhythm Gastrointestinal: normoactive bowel sounds, no tenderness Integumentary: warm and dry Neurologic: alert and oriented x3 Results - Lab Results 04/28/17 05:11 04/28/17 05:11 Most recent lab results Calcium 8.4 mg/dL (8.6-10.3) L 04/28/17 05:11 Magnesium 2.3 mg/dL (1.6-2.6) 04/28/17 05:11 Consult Discharge Plan - Plan Referrals: Marcial Wolf DO [Primary Care Provider] -
[2017-04-28] MEDS ORDERED: Insulin DETEMIR 100 UNIT/ML X5UNITS SQ SCH (21:00)
[2017-04-29] MEDS ORDERED: D5% in 0.45% NACL 1,000 ML IVC SCH (04:00)
[2017-04-29] MEDS: Ipratropium/Albuterol Neb 3 ML IH SCH ×4 (04:55→22:07)
[2017-04-29] MEDS: *HR* Heparin 5,000 UNIT/ML VIAL SQ SCH ×2 (05:34→17:36)
[2017-04-29 05:43] LABS: Calcium 8.3 mg/dL (8.6-10.3); Magnesium 2.3 mg/dL (1.6-2.6); Potassium 3.7 mEq/L (3.5-5.1)
[2017-04-29 05:53] LABS: Basophils % 0.6 %; Eosinophils % 0.6 %; Hematocrit 30.8 % (37.5-50.1); Hemoglobin 9.6 g/dL (12.9-16.9); Immature Granulocytes % 0.5 % (0-4); Lymphocytes # 0.4 K/mcL (0.6-4.6); Lymphocytes % 6.9 %; Mean Corpuscular HGB Conc 31.2 g/dL (31.6-35.5); Mean Corpuscular Hemoglobin 27.9 pg (28.0-33.3); Mean Corpuscular Volume 89.5 fL (83.0-100.0); Mean Platelet Volume 10.4 fL (9.4-12.4); Monocytes # 0.5 K/mcL (0.0-1.3); Monocytes % 7.9 %; Neutrophils # 5.2 K/mcL (1.6-8.9); Platelet Count 249 K/mcL (140-400); Red Blood Count 3.44 M/mcL (4.19-5.50); Red Cell Distribution Width 15.3 % (11.5-14.5); Segmented Neutrophils % 83.5 %
[2017-04-29] MEDS: Pregabalin 50 MG CAPSULE PO SCH ×2 (07:53→20:24)
[2017-04-29] MEDS: Isosorbide MONOnitrate (24 HR) 60 MG TAB.ER.24H PO SCH ×2 (07:53→08:54)
[2017-04-29] MEDS: Famotidine 20 MG TABLET PO SCH ×2 (07:53→17:36)
[2017-04-29] MEDS: Topiramate 25 MG TABLET PO SCH ×2 (07:54→20:24)
[2017-04-29] MEDS: FLUoxetine 20 MG CAPSULE PO SCH (07:54)
[2017-04-29] MEDS: Aspirin Enteric Coated 81 MG Tablet PO SCH (07:54)
--- NOTE | 2017-04-29 07:54 | Internal Med Progress Note ---
<Samuel Agosto - Last Filed: 04/29/17 07:48> Date of Encounter: 04/29/17 Time of Encounter: 07:49 - Assessment and plan (1) Hypoglycemia Current Visit: Yes Status: Acute Assessment and plan: Patient BG on admission was 82, on the night of 04/29/17 BG went down to 23, and patient was unresponsive. Patient was given D5, and OJ and became responsive again. Patient admitted that he has not eaten in the few days prior to admission because he did not have enough money. - social psychologist consult for food assistance - lower levemir to 10 mg - give D5 and OJ if BG goes low again. (2) CHF (congestive heart failure) Current Visit: Yes Status: Chronic Assessment and plan: Patient symptomatically has increased SOB on exertion, PND, orthopnea, and bilateral leg swelling. IV diurectis were given over the first night, and niño was placed (intermittent self cath at home). Trop 0.12, 0.13. BNP 613. Today patient has clinically remained stable. He had a hypoglycemic episode last night and his BP remained elevated SBP ~180. - cardiology and nephrology consulted - avoid nephrotoxins - serial fluid evaluation - fluid restriction 1.5L and Na restriction - elevate head of bed - morning labs Qualifiers: Congestive heart failure type: systolic Congestive heart failure chronicity : acute on chronic Qualified Code(s): I50.23 - Acute on chronic systolic ( congestive) heart failure (3) CAD (coronary artery disease) Current Visit: Yes Status: Acute Assessment and plan: 04/08/17 patient was at [facility] with CP, found to have triple vessel disease, received BUNNY RCA and circ on 04/19/17. Patient sees cardiology at [facility] with recent dose change increase of coreg and discontinuation of ranexa, and bumex. he also received 2 cycles of dialysis at [facility]. 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 Qualifiers: Coronary Disease-Associated Artery/Lesion type: [place] artery [place] vs. transplanted heart: eagle heart Associated angina: without angina Qualified Code(s): I25.10 - Atherosclerotic heart disease of eagle coronary artery without angina pectoris (4) Chronic kidney disease, stage III (moderate) Current Visit: Yes Status: Chronic Assessment and plan: Patient see Dr. Garcia. at recent hospitalization patient received 2 HD session. Cr on this visit 2.65 -> 2.51 -> 2.43 -> 2.42 (today). baseline ~1.5- 2.5. - nephrology consulted (5) DVT prophylaxis Current Visit: Yes Status: Acute Assessment and plan: heparin SQ (6) Hospital acquired PNA Current Visit: Yes Status: Acute Assessment and plan: during hospitalization at [facility] patient was also positive for HCAP and influenza. He was treated with tamiflu and cefepime. no leukocytosis at this time, will continue to monitor. (7) Hyperkalemia Current Visit: Yes Status: Acute Assessment and plan: On admission K+ was 5.7, kayexelate was given and next morning K+ 5.3. K+ 3.7 on 04/29/17. Currently resolved. (8) Type 2 diabetes mellitus with diabetic chronic kidney disease Current Visit: Yes Status: Acute Assessment and plan: SSI low. will continue to monitor Qualifiers: Diabetes mellitus oil heaterman insulin use: with oil heaterman use Chronic kidney disease stage: stage 4 (severe) Qualified Code(s): E11.22 - Type 2 diabetes mellitus with diabetic chronic kidney disease; N18.4 - Chronic kidney disease, stage 4 (severe); N18.4 - Chronic kidney disease, stage 4 (severe); N18.4 - Chronic kidney disease, stage 4 (severe); N18.4 - Chronic kidney disease, stage 4 (severe); Z79.4 - terminal operations supervisor (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 insulin; Z79.4 - retirement ( 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 insulin; Z79.4 - terminal operations supervisor (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 insulin; Z79.4 - terminal operations supervisor (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 insulin (9) Elevated blood pressure reading Current Visit: Yes Status: Acute Assessment and plan: BP has remained elevated SBP ~180's. has hydralazine PRN but has not lowered. will consider gentle diuresis. - Subjective Interval history: Mr Rhodes is a 61 yo M here for fluid overload most likely secondary to chf exacerbation w/ possible PNA contributing. Last night patient had an episode of hypoglycemia and was unresponsive to verbal stimulation or sternal rub. He was given D5, and orange juice and became responsive. As well, his BP remained elevated at SBP ~180's, hydralazine was ordered and his BP remains in the 180' s. Patient admits that prior to hospitalization he went a few days without eating because he didn't have enough money. Today patient reports feeling tired but has no new complaints. He reports to continue to have scrotal and leg swelling. He denies chest pain, diaphoresis, n/v. - Constitutional Vitals: Temp Pulse Resp BP Pulse Ox 98.9 F 55 13 182/75 99 04/29/17 05:35 04/29/17 07:12 04/29/17 07:12 04/29/17 07:12 04/29/17 07:12 General appearance: Present: cooperative, A&O X 3, pleasant, answers questions appropriately - Respiratory Respiratory exam: Present: CTAB. Absent: accessory muscle use, rales, rhonchi, wheezes - Cardiovascular Cardiovascular exam: Present: RRR, +S1, +S2. Absent: diastolic murmur, gallop, rubs, systolic murmur - exam: Present: scrotal swelling - Psychiatric Psychiatric exam: Present: normal affect, normal mood Internal Medicine: Result - Labs CBC & Chem 7: 04/29/17 05:10 04/29/17 05:10 Labs: Short CBC 04/29/17 Range/Units 05:10 WBC 6.2 (4.3-11.1) K/mcL Hgb 9.6 L (12.9-16.9) g/dL Hct 30.8 L (37.5-50.1) % Plt Count 249 (140-400) K/mcL Neutrophils # 5.2 (1.6-8.9) K/mcL BMP 04/29/17 05:10 Sodium 142 Potassium 3.7 D Chloride 112 H Carbon Dioxide 25 BUN 66 H Creatinine 2.42 H Glucose 75 Calcium 8.3 L Cardiac Enzymes 04/28/17 Range/Units 08:25 Troponin I 0.13 H* (< 0.04) ng/mL Consult Discharge Plan - Plan Referrals: Marcial Wolf DO [Primary Care Provider] - (web request 04/28/2017) <Ernesto Luna - Last Filed: 04/29/17 18:20> Date of Encounter: 04/29/17 - Assessment and plan (1) CHF (congestive heart failure) Current Visit: Yes Status: Chronic Qualifiers: Congestive heart failure type: systolic Congestive heart failure chronicity : acute on chronic Qualified Code(s): I50.23 - Acute on chronic systolic ( congestive) heart failure (2) Anasarca Current Visit: No Status: Acute (3) Type 2 diabetes mellitus with diabetic chronic kidney disease Current Visit: Yes Status: Acute Qualifiers: Diabetes mellitus fci insulin use: with fci use Chronic kidney disease stage: stage 4 (severe) Qualified Code(s): E11.22 - Type 2 diabetes mellitus with diabetic chronic kidney disease; N18.4 - Chronic kidney disease, stage 4 (severe); N18.4 - Chronic kidney disease, stage 4 (severe); N18.4 - Chronic kidney disease, stage 4 (severe); N18.4 - Chronic kidney disease, stage 4 (severe); 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 transplanted heart: eagle heart Associated angina: without angina Qualified Code(s): I25.10 - Atherosclerotic heart disease of [place] coronary artery without angina pectoris (8) Hypertension Current Visit: Yes Status: Chronic Qualifiers: Hypertension type: renovascular hypertension Qualified Code(s): I15.0 - Renovascular hypertension (9) Neurogenic bladder Current Visit: No Status: Chronic - Constitutional Vitals: Temp Pulse Resp BP Pulse Ox 98.4 F 79 17 179/81 95 04/29/17 15:37 04/29/17 15:37 04/29/17 15:51 04/29/17 15:37 04/29/17 15:51 Internal Medicine: Result - Labs CBC & Chem 7: 04/29/17 05:10 04/29/17 05:10 Labs: Short CBC 04/29/17 Range/Units 05:10 WBC 6.2 (4.3-11.1) K/mcL Hgb 9.6 L (12.9-16.9) g/dL Hct 30.8 L (37.5-50.1) % Plt Count 249 (140-400) K/mcL Neutrophils # 5.2 (1.6-8.9) K/mcL BMP 04/29/17 05:10 Sodium 142 Potassium 3.7 D Chloride 112 H Carbon Dioxide 25 BUN 66 H Creatinine 2.42 H Glucose 75 Calcium 8.3 L - Attending Attestation I examined this patient and my medical decision-making was reviewed with the Resident Physician on 04/29/17. I agree with the documented findings, disposition and treatment plan as described except to the extent set forth below. Mr rhodes is currently admitted for anasarca and HTN. He remains moderate to high risk due to potential for worsening clinical status. Mr Rhodes is resting. He feels about the same. No fever or CP. His blood sugars have been very low. BP has been up and down. Exam alert. Comfortable Mucus membranes dry Heart distant Lungs no wheeze Edema present I/P 1. Hypoglycemia 2/ Anasarca Further diagnoses and plan as above.
--- NOTE | 2017-04-29 09:35 | Cardiology Progress Note ---
Date of Encounter: 04/29/17 Time of Encounter: 07:30 Assessment and Plan (1) Elevated troponin Current Visit: Yes Status: Acute Mild, adynamic troponin elevation. Likely demand ischemia in the setting of CHF exacerbation, CKD, and bilateral PNA. Patient is chest pain free. Ischemic ECG changes when compared to prior; however recently underwent multivessel PCI at [facility]. No indication for cardiac rehab. Asa, plavix, statin, betablocker and nitrates. (2) CHF (congestive heart failure) Current Visit: Yes Status: Chronic Mildly reduced LVEF, 45% per [facility]. Patient was not discharged home on diuretic, likely cause of exacerbation. Cumulative I&O: -4310 mL. Symptoms improving, not yet at baseline. Still with BLE edema, +1 upon exam. Given 40 mg IV lasix in ED with significant diuresis, SCr improved. Of note, x2 HD sessions as inpatient at [facility]. Will defer diuretic recommendations to Nephrology. Continue coreg. No ACEi/ARB due to CKD. Strict I&Os, daily weights, Na/fluid restriction diet. Qualifiers: Congestive heart failure type: systolic Congestive heart failure chronicity : acute on chronic Qualified Code(s): I50.23 - Acute on chronic systolic ( congestive) heart failure (3) CKD (chronic kidney disease) Current Visit: Yes Status: Acute As above, Nephrology following. Qualifiers: Chronic kidney disease stage: stage 4 (severe) Qualified Code(s): N18.4 - Chronic kidney disease, stage 4 (severe) (4) CAD (coronary artery disease) Current Visit: Yes Status: Acute Recent PCI at [facility]. Deemed high-risk CABG candidate. DAPT, statin, betablocker. Qualifiers: Coronary Disease-Associated Artery/Lesion type: [place] artery [place] vs. transplanted heart: h[place] heart Associated angina: without angina Qualified Code(s): I25.10 - Atherosclerotic heart disease of [place] coronary artery without angina pectoris (5) Hypertension Current Visit: Yes Status: Chronic Poorly controlled. Will increase imdur to 90 mg this AM. Will defer further antihypertensive medication adjustments to Primary/Nephrology. Qualifiers: Hypertension type: essential hypertension Qualified Code(s): I10 - Essential (primary) hypertension Discussion w patient/family: The assessment and plan as outlined above was discussed with the patient and/or family members who expressed understanding and agreement. All questions were answered. Thank you for involving us in the care of your patient. Please call with any questions. The patient will be discussed and reviewed with Dr. Galvin, changes to be made accordingly. Cardiology will sign-off, follow-up with NGHIA Xavier as scheduled. Subjective Principal diagnosis: CHF exacerbation, TIANA, CAD Interval history: Seen and examined. Patient is noticeable more alert this morning upon exam. He reports shortness of breath is now at baseline. Continues to have LE edema, improved from yesterday. Denies chest pain or discomfort upon exam. Objective Vital Signs, Last 4 Hours Temp Pulse Resp BP Pulse Ox 04/29/17 07:12 55 13 182/75 99 04/29/17 05:35 98.9 F 54 16 185/84 97 General: Conversant, No Apparent Distress HEENT: Atraumatic, Normocephaly, Mucus Membranes Moist Cardiac: Reg Rate and Rhythm, Normal S1 and S2 Lungs: Other (decreased bilaterally) Neuro: Alert and responsive Abdomen: Soft Skin: No rashes noted on visualized skin Extremities: Other (+1 BLE edema to knees) Results 04/29/17 05:10 04/29/17 05:10 Lab Results 04/29/17 04/29/17 05:10 05:10 WBC 6.2 Hgb 9.6 L Hct 30.8 L Plt Count 249 Sodium 142 Potassium 3.7 D Chloride 112 H Carbon Dioxide 25 BUN 66 H Creatinine 2.42 H Glucose 75 Calcium 8.3 L Magnesium 2.3 Active Medications Albuterol/Ipratropium (Duoneb) 3 ml IH QIDR CLYDE Stop: 10/28/17 05:01 Last Admin: 04/29/17 04:55 Dose: 3 ml Albuterol/Ipratropium (Duoneb) 3 ml IH [id number] PRN PRN Reason: Shortness Of Breath/Wheezing Stop: 10/27/17 22:09 Aspirin (Aspirin Ec) 81 mg PO DAILY CLYDE Stop: 10/28/17 09:01 Last Admin: 04/29/17 07:54 Dose: 81 mg Atorvastatin Calcium (Lipitor) 80 mg PO HS [facility] Stop: 10/28/17 21:01 Last Admin: 04/28/17 20:34 Dose: 80 mg Carvedilol (Coreg) 12.5 mg PO BIDWM CLYDE PRN Reason: Protocol Stop: 10/28/17 08:01 Last Admin: 04/29/17 07:54 Dose: 12.5 mg Clopidogrel Bisulfate (Plavix) 75 mg PO DAILY [facility] Stop: 10/28/17 09:01 Last Admin: 04/29/17 07:53 Dose: 75 mg Dextrose/Water (Dextrose 50% (Syg)) 25 ml IVP AD PRN PRN Reason: Hypoglycemia Stop: 10/27/17 22:07 Last Admin: 04/29/17 03:19 Dose: 25 ml Famotidine (Pepcid) 20 mg PO BIDAC [facility] Stop: 10/28/17 07:31 Last Admin: 04/29/17 07:53 Dose: 20 mg Fluoxetine HCl (Prozac) 40 mg PO QAM [facility] Stop: 10/28/17 09:01 Last Admin: 04/29/17 07:54 Dose: 40 mg Heparin Sodium (Porcine) (Heparin) 5,000 unit SQ Q12HR [facility] Stop: 10/28/17 06:01 Last Admin: 04/29/17 05:34 Dose: 5,000 unit Hydralazine HCl (Hydralazine) 10 mg IVP Q6HR PRN PRN Reason: Hypertension Stop: 10/29/17 04:38 Last Admin: 04/29/17 04:59 Dose: 10 mg Dextrose (Dextrose 5%) 1,000 mls @ 100 mls/hr IVC .Q10H PRN PRN Reason: HYPOGLYCEMIA Stop: 10/27/17 22:07 Insulin Detemir (Levemir) 10 unit SQ HS [facility] Stop: 10/29/17 21:01 Insulin Human Lispro (Humalog) 0 units SQ TIDAC [facility] PRN Reason: Protocol Stop: 10/28/17 07:31 Last Admin: 04/28/17 17:20 Dose: 4 units Insulin Human Lispro (Humalog) 0 units SQ HS [facility] PRN Reason: Protocol Stop: 10/28/17 21:01 Last Admin: 04/28/17 20:35 Dose: Not Given Isosorbide Mononitrate (Imdur) 90 mg PO DAILY [facility] Stop: 10/29/17 09:01 Last Admin: 04/29/17 08:54 Dose: 90 mg Naloxone HCl (Narcan) 0.4 mg IVP Q2MIN PRN PRN Reason: Opioid Reversal Stop: 10/27/17 22:05 Oxycodone HCl (Roxicodone) 10 mg PO Q6H PRN PRN Reason: Moderate Pain Pregabalin (Lyrica) 100 mg PO BID [facility] Stop: 10/28/17 09:01 Last Admin: 04/29/17 07:53 Dose: 100 mg Tizanidine HCl (Zanaflex) 4 mg PO TID PRN PRN Reason: Muscle Spasm Topiramate (Topamax) 25 mg PO BID [facility] Stop: 10/28/17 09:01 Last Admin: 04/29/17 07:54 Dose: 25 mg - Imaging and Cardiology Echo: report reviewed Cardiac cath: report reviewed Other Results: 12 hour tele: avg HR=64 SR. No significant event noted. - EKG Interpretation EKG results cardiology: personally reviewed Consult Discharge Plan - Plan Referrals: Marcial Wolf DO [Primary Care Provider] - (web request 04/28/2017)
--- NOTE | 2017-04-29 10:38 | Nephrology Progress Note ---
Date of Encounter: 04/29/17 Time of Encounter: 10:30 - Assessment and Plan (1) Renal failure (ARF), acute on chronic Current Visit: No Status: Acute TIANA is unclear since recent renal fct not available and may be his new baseline. Diuretics may be contributing. Known nephrotic range proteinuria in setting of poorly controlled DM and HTN. Pregabalin may be contributing to edema. History of neurogenic bladder. Renal fct plateud and/or may be his new baseline. SBP elevated, will start Hydralazine 25 mg Q8hrs. Maintain niño catheter, Accurate I&O's. Avoid nephrotoxins. Will continue to monitor. Qualifiers: Acute renal failure type: unspecified Chronic kidney disease stage: stage 3 (moderate) Qualified Code(s): N17.9 - Acute kidney failure, unspecified; N18.3 - Chronic kidney disease, stage 3 (moderate); N18.3 - Chronic kidney disease, stage 3 (moderate) Subjective Principal diagnosis: CHF exacerbation, TIANA, CAD Interval history: Sleeping left side, arouses easily. States feels good. Denies difficulty in breathing. Objective - Vital Signs Vital signs: Vital Signs Temp Pulse Resp BP Pulse Ox 04/29/17 10:00 179/74 04/29/17 09:45 97.5 F L 04/29/17 07:12 55 13 182/75 99 04/29/17 05:35 98.9 F 54 16 185/84 97 04/29/17 04:55 16 98 04/29/17 03:25 97.3 F L 73 16 183/76 96 04/28/17 23:49 98.1 F 65 17 170/74 98 04/28/17 22:44 16 97 04/28/17 19:02 98.3 F 74 17 163/79 96 04/28/17 15:58 97.9 F 72 17 168/74 95 04/28/17 15:43 17 95 04/28/17 11:28 97.8 F 69 17 173/75 95 04/28/17 11:04 17 94 Intake and Output 04/28/17 04/29/17 04/29/17 23:59 07:59 15:59 Intake Total 120 / 120 240 / 240 Output Total 700 / 700 1100 / 1100 Balance -580 / -580 -1100 / -1100 240 / 240 Intake: Oral 120 / 120 240 / 240 Output: Straight Cath 700 / 700 Catheter 1100 / 1100 Other: Meal Dinner Breakfast Percent of Meal Consumed 100% 100% Weight 85.3 kg Blood Glucose* 194 126 Patient Weight 04/29/17 23:59 Weight 85.3 kg - General Appearance General appearance: Present: well-developed, well-nourished, appears started age EENT: Present: mucous membranes moist Neck: Present: no JVD Respiratory: Present: clear Cardiology: Present: edema, regular rate, regular rhythm Additional Comments: mild LE edema Integumentary: Present: warm and dry Neurologic: Present: alert and oriented x3 Psychiatric: Present: mood/affect appropriate, cooperative - Lab 04/29/17 05:10 04/29/17 05:10 Most recent lab results Calcium 8.3 mg/dL (8.6-10.3) L 04/29/17 05:10 Magnesium 2.3 mg/dL (1.6-2.6) 04/29/17 05:10 Consult Discharge Plan - Plan Referrals: Marcial Wolf DO [Primary Care Provider] - (web request 04/28/2017)
[2017-04-29] MEDS: *HR* OxyCODONE Immed Rel 5 MG TABLET PO PRN ×2 (15:02→22:26)
[2017-04-29] MEDS: Insulin LISPRO 300 UNITS/3 ML VIAL SQ SCH (20:25)
[2017-04-29] MEDS ORDERED: Insulin DETEMIR 100 UNIT/ML X5UNITS SQ SCH (21:00)
[2017-04-30 03:56] LABS: Basophils # 0.1 K/mcL (0.0-0.2); Eosinophils # 0.1 K/mcL (0.0-0.6); Hematocrit 25.9 % (37.5-50.1); Hemoglobin 8.3 g/dL (12.9-16.9); Immature Granulocytes % 0.4 % (0-4); Lymphocytes # 0.9 K/mcL (0.6-4.6); Lymphocytes % 17.3 %; Mean Corpuscular Hemoglobin 28.6 pg (28.0-33.3); Mean Corpuscular Volume 89.3 fL (83.0-100.0); Mean Platelet Volume 10.2 fL (9.4-12.4); Monocytes # 0.6 K/mcL (0.0-1.3); Monocytes % 12.8 %; Neutrophils # 3.3 K/mcL (1.6-8.9); Platelet Count 213 K/mcL (140-400); Red Cell Distribution Width 15.4 % (11.5-14.5); Segmented Neutrophils % 66.5 %
[2017-04-30] MEDS: Ipratropium/Albuterol Neb 3 ML IH SCH ×3 (05:19→15:32)
[2017-04-30] MEDS: *HR* Heparin 5,000 UNIT/ML VIAL SQ SCH (05:58)
[2017-04-30] MEDS: Famotidine 20 MG TABLET PO SCH ×2 (05:58→15:51)
--- NOTE | 2017-04-30 08:47 | Internal Med Progress Note ---
Date of Encounter: 04/30/17 Time of Encounter: 08:47 - Assessment and plan (1) CHF (congestive heart failure) Current Visit: Yes Status: Chronic Assessment and plan: Improving. Upon admission Patient symptomatically had increased SOB on exertion , PND, orthopnea, and bilateral leg swelling. IV diurectis were given over the first night, and niño was placed (intermittent self cath at home). Current at balance -4.243 L - Suspected association between nephrotic syndrome secondary to diabetes. - avoid nephrotoxins - serial fluid evaluation - fluid restriction 1.5L and Na restriction Qualifiers: Congestive heart failure type: systolic Congestive heart failure chronicity : acute on chronic Qualified Code(s): I50.23 - Acute on chronic systolic ( congestive) heart failure (2) Diabetes mellitus Current Visit: No Status: Chronic Assessment and plan: Known type II diabetic, glucoses monitored. Did have an episode of hypoglycemia 2 nights ago last evening has been stable. 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 Renee is been seen and evaluated patient bedside this morning. He is later awake interactive denies any acute distress. States that he is ready to be discharged home and has no other concerns at this time. He denies any other discomforts. - Constitutional Vitals: Temp Pulse Resp BP Pulse Ox 98.1 F 72 17 148/61 96 04/30/17 06:56 04/30/17 06:56 04/30/17 06:56 04/30/17 06:56 04/30/17 06:56 General appearance: Present: cooperative, A&O X 3, pleasant, answers questions appropriately Exam: General: Patient alert, awake, oriented 3, interactive, in no acute distress HEENT: Normocephalic, atraumatic, pupils equal reactive to light, nasal cavity patent and open septum median position, oral mucosa moist, uvula midline, neck supple trachea midline no palpable lymphadenopathy, no thyromegaly. Chest: Symmetric bilateral correlating with respiratory effort, effort nonlabored. Cardiac: Regular rate and rhythm, positive S1 and S2. no bruits appreciated bilateral carotids, Radial pulses 2+ bilateral, posterior tibial and dorsal pedal pulses 2+ bilateral. Respiratory: Diminished bilateral lung bases. Abdomen: Soft, nontender, positive bowel sounds, no palpable masses appreciated on examination Extremities: Symmetric bilateral, bilateral lower extremities without erythema or edema patient moving all 4 extremities spontaneously. Neurologic: No focal deficits appreciated on examination. Face symmetric, muscle strength symmetric bilateral upper and lower extremities. Internal Medicine: Result - Labs CBC & Chem 7: 04/30/17 03:42 04/30/17 03:42 Labs: Short CBC 04/30/17 Range/Units 03:42 WBC 4.9 (4.3-11.1) K/mcL Hgb 8.3 L (12.9-16.9) g/dL Hct 25.9 L (37.5-50.1) % Plt Count 213 (140-400) K/mcL Neutrophils # 3.3 (1.6-8.9) K/mcL Consult Discharge Plan - Plan Referrals: Marcial Wolf DO [Primary Care Provider] - (web request 04/28/2017)
[2017-04-30] MEDS: Isosorbide MONOnitrate (24 HR) 60 MG TAB.ER.24H PO SCH (09:39)
[2017-04-30] MEDS: Topiramate 25 MG TABLET PO SCH (09:40)
[2017-04-30] MEDS: FLUoxetine 20 MG CAPSULE PO SCH (09:40)
[2017-04-30] MEDS: Pregabalin 50 MG CAPSULE PO SCH (09:40)
[2017-04-30] MEDS: Aspirin Enteric Coated 81 MG Tablet PO SCH (09:40)
[2017-04-30] MEDS: hydrALAZINE 25 MG TABLET PO SCH ×2 (09:41→15:51)
[2017-04-30 10:55] LABS: Calcium 7.6 mg/dL (8.6-10.3); Magnesium 2.1 mg/dL (1.6-2.6); Potassium 3.5 mEq/L (3.5-5.1)
--- NOTE | 2017-04-30 12:25 | Nephrology Progress Note ---
Date of Encounter: 04/30/17 Time of Encounter: 12:10 - Assessment and Plan (1) Renal failure (ARF), acute on chronic Current Visit: No Status: Acute TIANA is unclear since recent renal fct not available and may be his new baseline. Diuretics may be contributing. Known nephrotic range proteinuria in setting of poorly controlled DM and HTN. Pregabalin may be contributing to edema. History of neurogenic bladder. Renal fct plateud and/or may be his new baseline. creat 2.39. [id number], improved with Hydralazine 25 mg Q8hrs. Maintain niño catheter, Accurate I&O's. Avoid nephrotoxins. Will continue to monitor. Qualifiers: Acute renal failure type: unspecified Chronic kidney disease stage: stage 3 (moderate) Qualified Code(s): N17.9 - Acute kidney failure, unspecified; N18.3 - Chronic kidney disease, stage 3 (moderate); N18.3 - Chronic kidney disease, stage 3 (moderate) Subjective Principal diagnosis: CHF exacerbation, TIANA, CAD Interval history: Sitting on bed, eating lunch. States feels good. Denies difficulty in breathing. Objective - Vital Signs Vital signs: Vital Signs Temp Pulse Resp BP Pulse Ox 04/30/17 11:28 97.9 F 66 16 170/78 94 04/30/17 10:47 18 97 04/30/17 09:42 69 141/52 04/30/17 06:56 98.1 F 72 17 148/61 96 04/30/17 05:19 16 96 04/30/17 04:04 97.9 F 63 17 153/66 96 04/29/17 23:31 97.5 F L 70 17 130/64 98 04/29/17 22:08 18 99 04/29/17 19:15 98 F 72 16 163/69 97 04/29/17 15:51 17 95 04/29/17 15:37 98.4 F 79 17 179/81 95 Intake and Output 04/29/17 04/30/17 04/30/17 23:59 07:59 15:59 Intake Total 840 / 840 237 / 237 240 / 240 Output Total 500 / 500 850 / 850 Balance 340 / 340 237 / 237 -610 / -610 Intake: Oral 840 / 840 237 / 237 240 / 240 Output: Urine 0 / 0 Catheter 500 / 500 850 / 850 Other: Meal Jello Breakfast Percent of Meal Consumed 100% 100% Weight 85.3 kg Blood Glucose* 345 151 157 Patient Weight 04/30/17 23:59 Weight 85.3 kg - General Appearance General appearance: Present: well-developed, well-nourished, appears started age EENT: Present: mucous membranes moist Neck: Present: no JVD Respiratory: Present: clear Cardiology: Present: edema, regular rate, regular rhythm Additional Comments: mild Gastrointestinal: Present: normoactive bowel sounds, no tenderness Integumentary: Present: warm and dry Neurologic: Present: alert and oriented x3 - Lab 04/30/17 03:42 04/30/17 03:42 Most recent lab results Calcium 7.6 mg/dL (8.6-10.3) L 04/30/17 03:42 Magnesium 2.1 mg/dL (1.6-2.6) 04/30/17 03:42 Consult Discharge Plan - Plan Referrals: Marcial Wolf DO [Primary Care Provider] - (web request 04/28/2017)
[2017-04-30 15:47] VITALS: BP 161/72
--- NOTE | 2017-04-30 16:03 | Discharge Summary ---
Date of Encounter: 04/30/17 Time of Encounter: 15:55 - Discharge Diagnosis (1) CHF (congestive heart failure) Priority: Primary Status: Resolved Qualifiers: Congestive heart failure type: systolic Congestive heart failure chronicity : acute on chronic Qualified Code(s): I50.23 - Acute on chronic systolic ( congestive) heart failure (2) Anasarca Priority: Primary Status: Chronic (3) Type 2 diabetes mellitus with diabetic chronic kidney disease Priority: Secondary Status: Chronic Qualifiers: Diabetes mellitus intermediate insulin use: with intermediate use Chronic kidney disease stage: stage 4 (severe) Qualified Code(s): E11.22 - Type 2 diabetes mellitus with diabetic chronic kidney disease; N18.4 - Chronic kidney disease, stage 4 (severe); N18.4 - Chronic kidney disease, stage 4 (severe); N18.4 - Chronic kidney disease, stage 4 (severe); N18.4 - Chronic kidney disease, stage 4 (severe); Z79.4 - long-term (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 insulin; Z79.4 - terminal makeup operator ( 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 insulin; Z79.4 - long-term (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 insulin; Z79.4 - terminal makeup operator (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 insulin (4) Hypoglycemia Priority: Secondary Status: Resolved (5) 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 transplanted heart: [place] heart Associated angina: without angina Qualified Code(s): I25.10 - Atherosclerotic heart disease of [place] coronary artery without angina pectoris (8) Hypertension Priority: Secondary Status: Chronic Qualifiers: Hypertension type: renovascular hypertension Qualified Code(s): I15.0 - Renovascular hypertension (9) Neurogenic bladder Priority: Secondary Status: Chronic - Discharge Medications Prescriptions: Tamsulosin HCl [Flomax] 0.4 mg PO DAILY #30 cap.er.24h Home Medications: Aspirin Enteric Coated [Aspirin EC] 81 mg PO DAILY 06/08/16 [History] Atorvastatin Calcium [Lipitor] 80 mg PO HS 06/08/16 [History] Clopidogrel [Plavix] 75 mg PO DAILY 06/08/16 [History] Dextrose [Glucose Gel] 15 gm PO ONCE PRN 06/08/16 [History] FLUoxetine HCl [Prozac] 40 mg PO QAM 06/08/16 [History] Glucagon,Human Recombinant [Glucagon Emergency Kit] 1 mg IJ ONCE PRN 06/08/16 [ History] Insulin ASPART [Novolog Flexpen] 20 unit SQ TIDAC 06/08/16 [History] Isosorbide MONOnitrate (24 HR) [Imdur] 60 mg PO DAILY 06/08/16 [History] Nitroglycerin [Nitrostat] 0.4 mg SL Q5M PRN 06/08/16 [History] OxyCODONE Immed Rel [Roxicodone 10 MG] 10 mg PO Q6H PRN 06/08/16 [History] Ranitidine HCl [Zantac] 150 mg PO BID 06/08/16 [History] Topiramate [Topamax] 25 mg PO BID 06/08/16 [History] Carvedilol [Coreg] 12.5 mg PO BIDWM #120 tablet 06/12/16 [Rx] Insulin Degludec [Tresiba Flextouch U-200] 90 unit SQ HS 01/01/17 [History] Naloxegol Oxalate [Movantik] 12.5 mg PO DAILY 01/01/17 [History] Pregabalin [Lyrica] 100 mg PO BID 01/01/17 [History] Tizanidine HCl [Zanaflex] 4 mg PO TID PRN 01/01/17 [History] Trazodone HCl 50 mg PO HS 01/01/17 [History] NIFEdipine XL (24 HR) [Procardia XL] 60 mg PO DAILY 04/29/17 [History] hydrALAZINE [HydrALAZINE] 50 mg PO Q8HR 04/29/17 [History] Tamsulosin HCl [Flomax] 0.4 mg PO DAILY #30 cap.er.24h 04/30/17 [Rx] Allergies/Adverse Reactions: 3 Allergy/AdvReac Type Severity Reaction Status Date / Time Methadone Allergy Hives Verified 04/29/17 16:32 Penicillins Allergy Hives Verified 04/29/17 16:32 linaclotide [From Linzess] AdvReac Nausea Verified 04/29/17 16:32 phenazopyridine AdvReac See Verified 04/29/17 16:32 [From Pyridium] Comments Date of admission: 04/27/17 22:39 Primary care physician: Marcial Wolf DO Consults: 04/29/17 08:05 Consult to Business Data Analyst [CONS] Routine Reason for SW Consult: prior to hospitalization patient ran out of food, and did not eat Discharging clinician: Ernesto Luna Anticipated date of discharge: 04/30/17 - Patient Status Disposition: Home, Self-Care Condition: Good Functional capacity at discharge: independent ambulation Overall status at discharge: patient is progressing back to baseline - Discharge Instructions Follow Up With: Marcial Wolf DO [Primary Care Provider] - 05/04/17 3:00 pm (web request 04/28/2017) - Diet and Activity Activity: increase activity as tolerated Diet: advance to your usual diet Hospital course: Mr. Renee is a 61 year old male with hx of nephrotic syndrome due to diabetic nephropathy presented to ED with increased dyspnea and swelling. He was evaluated and subsequently admitted for further evaluation and treatment. Mr Renee was admitted to [facility]. His fluids were restricted and due to increase in his creatinine he was evaluated by nephrology. His BP was monitored and medications adjusted as needed. He had slow improvement overall and no acute issues. Nephrology feels this is his new baseline creatinine and will follow him as an outpatient. At this time he is afebrile with stable vitals and ready for discharge home. - Time Spent with Patient Total time spent providing and/or coordinating discharge services: 42min - Constitutional Vitals: Temp Pulse Resp BP Pulse Ox 98.5 F 74 20 161/72 95 04/30/17 15:42 04/30/17 15:42 04/30/17 15:42 04/30/17 15:42 04/30/17 15:42 General appearance: Present: cooperative, A&O X 3, pleasant, answers questions appropriately - Head Head exam: Present: atraumatic, normocephalic - Eye Eye exam: Present: EOMI, conjuntiva pink - ENT ENT exam: Present: mucous membranes dry - Respiratory Respiratory exam: Present: decreased breath sounds. Absent: rales, wheezes - Cardiovascular Cardiovascular exam: Present: RRR. Absent: tachycardia - GI/Abdominal GI/Abdominal exam: Present: soft. Absent: tenderness - Extremities Exam Extremities exam: Present: warm. Absent: tenderness Additional comments: Edema present - Neurological Exam Neurological exam: Present: alert, oriented X3 - Skin Skin exam: Present: dry, warm. Absent: rash
--- NOTE | 2017-05-01 15:33 | Electrocardiograph Report ---
[place] [id number] Test Date: 2017-04-27 Pat Name: Joesph Renee Department: 102 Room: 2A43 Gender: M Application Specialist: Zac : 1955 Requested By: Fernandez Garcia Order Number: [id number] Reading MD: Amrik Cha DO Measurements Intervals [place] Rate: 70 P: -23 UT: 163 QRS: -48 QRSD: 98 T: 55 QT: 407 QTc: 428 Interpretive Statements SINUS RHYTHM LEFT ANTERIOR FASCICULAR BLOCK MARKED T-WAVE ABNORMALITY, CONSIDER ANTERIOR ISCHEMIA Electronically Signed On 05-01-2017 15:31:26 EST by Amrik Cha DO
== END 2017-04-30 16:17 | disposition home or self-care (01) | DRG 291 ==
LOC: EMEROO 18:06 → 2ANU 18:06 → SUATTDRO 22:39
PROVIDERS: ADMIT Internal Medicine; ATTEND Internal Medicine

== ENCOUNTER 2017-05-10 12:02 | Inpatient (IN) ==
[2017-05-10 13:14] LABS: Basophils % 0.4 %; Eosinophils # 0.2 K/mcL (0.0-0.6); Eosinophils % 2.7 %; Hematocrit 26.3 % (37.5-50.1); Hemoglobin 8.3 g/dL (12.9-16.9); Immature Granulocytes % 1.2 % (0-4); Lymphocytes # 0.7 K/mcL (0.6-4.6); Lymphocytes % 10.3 %; Mean Corpuscular HGB Conc 31.6 g/dL (31.6-35.5); Mean Corpuscular Hemoglobin 28.1 pg (28.0-33.3); Mean Corpuscular Volume 89.2 fL (83.0-100.0); Mean Platelet Volume 11.2 fL (9.4-12.4); Monocytes # 0.7 K/mcL (0.0-1.3); Monocytes % 9.7 %; Neutrophils # 5.2 K/mcL (1.6-8.9); Platelet Count 185 K/mcL (140-400); Red Blood Count 2.95 M/mcL (4.19-5.50); Red Cell Distribution Width 15.3 % (11.5-14.5); Segmented Neutrophils % 75.7 %
[2017-05-10 13:32] LABS: Potassium 4.8 mEq/L (3.5-5.1)
[2017-05-10] MEDS ORDERED: Furosemide 80 MG in 0.9 % Sodium Chloride 50 ML IVPB ONE (14:01)
--- NOTE | 2017-05-10 14:05 | Emergency Department Note ---
Disposition Clinical Impression: CHF (congestive heart failure) Qualifiers: Congestive heart failure type: unspecified Congestive heart failure chronicity : acute on chronic Qualified Code(s): I50.9 - Heart failure, unspecified Disposition: Admitted As Inpatient Condition: Fair Referrals: Marcial Wolf DO [Primary Care Provider] - Forms: ED Satisfaction Letter, Work/School Release Time of Disposition: 14:17 General Adult HPI - General Chief complaint: ED General Medical Stated complaint: "sent from PCP for CHF" Time Seen by Provider: 05/10/17 13:51 Source: patient Limitations: no limitations Nursing Notes Reviewed: Yes Vital Signs Reviewed: Yes - History of Present Illness HPI Narrative: History of present illness: 61-year-old male history of ASVD has a history of 2 coronary stents. Last one placed approximately one month ago at [facility]. Agents plastic joint maker is Dr. Mccormick from [facility]. Patient's primary care provider is Marcial Hernández. It was he requested the patient come in for further evaluation. Patient notices like to becoming progressively more swollen for the past several days dyspnea on exertion and even dyspnea at rest. Patient denies any chest pain, sputum, fever, chills, medication changes, ill contacts, exotic foods or recent travel. Pain Scale: 8 - Related Data Home Medications Medication Instructions Recorded Confirmed Aspirin Enteric Coated [Aspirin EC] 81 mg PO DAILY 06/08/16 04/29/17 Atorvastatin Calcium [Lipitor] 80 mg PO HS 06/08/16 04/29/17 Clopidogrel [Plavix] 75 mg PO DAILY 06/08/16 04/29/17 Dextrose [Glucose Gel] 15 gm PO ONCE PRN 06/08/16 04/29/17 FLUoxetine HCl [Prozac] 40 mg PO QAM 06/08/16 04/29/17 Glucagon,Human Recombinant 1 mg IJ ONCE PRN 06/08/16 04/29/17 [Glucagon Emergency Kit] Insulin ASPART [Novolog Flexpen] 20 unit SQ TIDAC 06/08/16 04/29/17 Isosorbide MONOnitrate (24 HR) 60 mg PO DAILY 06/08/16 04/29/17 [Imdur] Nitroglycerin [Nitrostat] 0.4 mg SL Q5M PRN 06/08/16 04/29/17 OxyCODONE Immed Rel [Roxicodone 10 10 mg PO Q6H PRN 06/08/16 04/29/17 MG] Ranitidine HCl [Zantac] 150 mg PO BID 06/08/16 04/29/17 Topiramate [Topamax] 25 mg PO BID 06/08/16 04/29/17 Insulin Degludec [Tresiba 90 unit SQ HS 01/01/17 04/29/17 Flextouch U-200] Naloxegol Oxalate [Movantik] 12.5 mg PO DAILY 01/01/17 04/29/17 Pregabalin [Lyrica] 100 mg PO BID 01/01/17 04/29/17 Tizanidine HCl [Zanaflex] 4 mg PO TID PRN 01/01/17 04/29/17 Trazodone HCl 50 mg PO HS 01/01/17 04/29/17 NIFEdipine XL (24 HR) [Procardia 60 mg PO DAILY 04/29/17 04/29/17 XL] hydrALAZINE [HydrALAZINE] 50 mg PO Q8HR 04/29/17 04/29/17 Previous Rx's Medication Instructions Recorded Carvedilol [Coreg] 12.5 mg PO BIDWM #120 tablet 06/12/16 Tamsulosin HCl [Flomax] 0.4 mg PO DAILY #30 cap.er.24h 04/30/17 Allergies Allergy/AdvReac Type Severity Reaction Status Date / Time Methadone Allergy Hives Verified 05/10/17 12:17 Penicillins Allergy Hives Verified 05/10/17 12:17 linaclotide [From Linzess] AdvReac Nausea Verified 05/10/17 12:17 phenazopyridine AdvReac See Verified 05/10/17 12:17 [From Pyridium] Comments All systems ED: reviewed and negative except as stated. Cardiovascular: Reports: dyspnea on exertion, edema Past Medical History - Past Medical History Attestation: Yes The following information was validated with the patient. Source: patient Medical history: Reports: CHF, coronary artery disease, diabetes, hypertension, myocardial infarction, renal disease, other Surgical history: Reports: angioplasty/stent Psychiatric history: Reports: depression - Social History Smoking Status: Former smoker Smokeless Tobacco Status: No Alcohol use: Reports: none Drug use: Reports: none Physical Exam - General Limitations: no limitations General appearance: alert, in distress - Head Head exam: atraumatic, normocephalic - Eye Eye exam: Present: normal appearance, PERRL - ENT ENT exam: normal exam, normal oropharynx - Neck Neck exam: Present: normal inspection, full ROM - Chest Chest inspection: Present: normal inspection - Respiratory Respiratory exam: Present: normal lung sounds bilaterally - Cardiovascular Cardiovascular exam: Present: regular rate - Abdominal Exam Abdominal exam: Present: soft, Non-Tender - Extremities Exam Extremities exam: Present: full ROM, pedal edema (Marcated lower extremity edema to the mid tibia bilaterally) - Expanded Lower Extremity Exam Neurovascular/Tendon exam: Present: normal capillary refill Gait: observed and normal - Back Exam Back exam: Present: normal inspection, full ROM - Neurological Exam Neurological exam: Present: alert, oriented X3 - Psychiatric Psychiatric exam: Present: normal affect, normal mood - Skin Skin exam: Present: warm, dry, intact Course - Reevaluation(s) Reevaluation #1: ED workup is complete. Patient has chronic CK D elevated troponin 0.06, S x- ray showing CHF. Discussed case with the hospitalist Dr. Amezcua who accepted the patient for admission in stable condition Time: 14:16 Vital Signs Temperature 97.8 F 05/10/17 12:13 Pulse Rate 64 05/10/17 12:13 Respiratory Rate 16 05/10/17 12:13 Blood Pressure 156/68 05/10/17 12:13 O2 Sat by Pulse Oximetry 97 05/10/17 12:13 Temperature 97.8 F 05/10/17 12:13 Pulse Rate 64 05/10/17 12:13 Respiratory Rate 16 05/10/17 12:13 Blood Pressure 156/68 05/10/17 12:13 O2 Sat by Pulse Oximetry 97 05/10/17 12:13 Oxygen Delivery Oxygen Delivery Room Air Medical Decision Making - Medical Records Medical records reviewed: Yes I reviewed the patient's medical records. - Lab Data Lab results reviewed: Yes I reviewed the patient's lab results. Result diagrams: 05/10/17 13:06 05/10/17 13:06 Lab Results 05/10/17 05/10/17 05/10/17 Range/Units 13:06 13:06 13:06 WBC 6.9 (4.3-11.1) K/mcL RBC 2.95 L (4.19-5.50) M/mcL Hgb 8.3 L (12.9-16.9) g/dL Hct 26.3 L (37.5-50.1) % MCV 89.2 (83.0-100.0) fL MCH 28.1 (28.0-33.3) pg MCHC 31.6 (31.6-35.5) g/dL RDW 15.3 H (11.5-14.5) % Plt Count 185 (140-400) K/mcL MPV 11.2 (9.4-12.4) fL Immature Gran % 1.2 (0-4) % Seg Neutrophils % 75.7 % Lymphocytes % 10.3 % Monocytes % 9.7 % Eosinophils % 2.7 % Basophils % 0.4 % Neutrophils # 5.2 (1.6-8.9) K/mcL Lymphocytes # 0.7 (0.6-4.6) K/mcL Monocytes # 0.7 (0.0-1.3) K/mcL Eosinophils # 0.2 (0.0-0.6) K/mcL Basophils # 0.0 (0.0-0.2) K/mcL Sodium (136-145) mEq/L Potassium (3.5-5.1) mEq/L Chloride (98-107) mEq/L Carbon Dioxide (23-29) mEq/L BUN (6-20) mg/dL Creatinine (0.70-1.30) mg/dL Est GFR ( Amer) (> 60) Est GFR (Non-Af Amer) (> 60) BUN/Creatinine Ratio (6-26) Glucose (70-105) mg/dL Calculated Osmolality (280-300) Lactic Acid 0.6 (0.5-2.2) mmol/L Calcium (8.6-10.3) mg/dL Troponin I (< 0.04) ng/mL B-Natriuretic Peptide 1032 H (Less than 100) pg/mL 05/10/17 05/10/17 Range/Units 13:06 13:06 WBC (4.3-11.1) K/mcL RBC (4.19-5.50) M/mcL Hgb (12.9-16.9) g/dL Hct (37.5-50.1) % MCV (83.0-100.0) fL MCH (28.0-33.3) pg MCHC (31.6-35.5) g/dL RDW (11.5-14.5) % Plt Count (140-400) K/mcL MPV (9.4-12.4) fL Immature Gran % (0-4) % Seg Neutrophils % % Lymphocytes % % Monocytes % % Eosinophils % % Basophils % % Neutrophils # (1.6-8.9) K/mcL Lymphocytes # (0.6-4.6) K/mcL Monocytes # (0.0-1.3) K/mcL Eosinophils # (0.0-0.6) K/mcL Basophils # (0.0-0.2) K/mcL Sodium 138 (136-145) mEq/L Potassium 4.8 (3.5-5.1) mEq/L Chloride 114 H (98-107) mEq/L Carbon Dioxide 19 L (23-29) mEq/L BUN 76 H (6-20) mg/dL Creatinine 2.30 H (0.70-1.30) mg/dL Est GFR ( Amer) 35 L (> 60) Est GFR (Non-Af Amer) 29 L (> 60) BUN/Creatinine Ratio 33 H (6-26) Glucose 194 H (70-105) mg/dL Calculated Osmolality 314 H (280-300) Lactic Acid (0.5-2.2) mmol/L Calcium 8.0 L (8.6-10.3) mg/dL Troponin I 0.06 H* (< 0.04) ng/mL B-Natriuretic Peptide (Less than 100) pg/mL - Radiology Data Radiology results reviewed: Yes I reviewed the patient's radiology results. - EKG Data EKG #1 EKG attestation: Yes I reviewed and interpreted this EKG. EKG results narrative: 12-lead EKG reviewed without Cardiologic assistance shows the following: Sinus rhythm at 61 bpm, normal ID QRS and QT corrected. Patient has some flipped T waves which show some slight change from prior EKG dated 2617. Patient has markedly left axis deviation and has a intraventricular conduction block.
--- NOTE | 2017-05-10 14:31 | Internal Med History&Physical ---
Date of Encounter: 05/10/17 Time of Encounter: 15:25 Assessment and Plan (1) CHF (congestive heart failure) Current visit: Yes Status: Acute 1200 ml oral fluid restriction Lasix 40 mg IVP BID Echo Hold DENIZ/ARB Monitor I&Os Consider cardiology consult if not improving Qualifiers: Congestive heart failure type: systolic Congestive heart failure chronicity : acute on chronic Qualified Code(s): I50.23 - Acute on chronic systolic ( congestive) heart failure (2) CAD (coronary artery disease) Current visit: No Status: Chronic Trend Jose. Repeat ECG Telemetry No chest pain Resent stents Continue dual antiplatelet therapy, BB, statin Qualifiers: Coronary Disease-Associated Artery/Lesion type: [place] artery [place] vs. transplanted heart: [place] heart Associated angina: without angina Qualified Code(s): I25.10 - Atherosclerotic heart disease of [place] coronary artery without angina pectoris (3) Chronic kidney disease, stage III (moderate) Current visit: No Status: Chronic Hold DENIZ/ARB while increasing diuresis. Closely monitor I&O (4) Type 2 diabetes mellitus with diabetic chronic kidney disease Current visit: No Status: Chronic Continue home dose of Lantus and SSI Humalog with meals AccuChecks ACHS Qualifiers: Diabetes mellitus continuous churn buttermaker insulin use: with long-term use Chronic kidney disease stage: stage 3 (moderate) Qualified Code(s): E11.22 - Type 2 diabetes mellitus with diabetic chronic kidney disease; N18.3 - Chronic kidney disease, stage 3 (moderate); N18.3 - Chronic kidney disease, stage 3 (moderate); Z79.4 - continuous churn buttermaker (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 insulin; Z79.4 - senior care (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 insulin; Z79.4 - senior care (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 insulin; Z79.4 - continuous churn buttermaker (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 insulin (5) Bilateral lower extremity edema Current visit: Yes Status: Acute Increase Lasix to 40 mg IVP BID (6) Neurogenic bladder Current visit: No Status: Chronic Place [facility] Internal Medicine - H&P: HPI Admitted From: Emergency Dept Plans for Post Hospital Care: Home History of present illness: 61-year-old man with history of CAD and chronic systolic HF who had 2 coronary artery stents placed at [facility] in [place], [place] approximately one month ago. When he was discharded his Bumex was not restarted and he began noticing increasing LE edema so he restarted it himself (1 mg PO daily). His LE edema has worsened and he's SOB today. He denies chest pain. His Trp is mildly elevated 0.06. He has CKD-3 and his creatinine is essentially near BL for him ( 2.3). His LE edema extends from feet to scrotum and is 4+. He was given 80 mg IV Lasix x1 dose in the ER. He has neurogenic bladder syndrom so a Quan cath was placed. He 's currently hemodynamically stable. Past Med Surg Social Fam HX - Past Medical History Medical history: CHF, coronary artery disease, diabetes, hypertension, myocardial infarction, renal disease, other Psychiatric history: depression - Past Surgical History Surgical History: angioplasty/stent - Social History Smoking Status: Former smoker Smokeless Tobacco Status: No Alcohol use: none Drug use: none - Family History Father Hx Family Cardiac Disorders: Yes (triple bypass) Hx Family Cancer: Yes (lung) Hx Family Endocrine Disorder: Yes (diabetes) Mother Hx Family Respiratory Disorders: No Hx Family Cancer: Yes (throat, lung) Internal Medicine - H&P: Meds Aspirin Enteric Coated [Aspirin EC] 81 mg PO DAILY 06/08/16 [History] Atorvastatin Calcium [Lipitor] 80 mg PO HS 06/08/16 [History] Clopidogrel [Plavix] 75 mg PO DAILY 06/08/16 [History] Dextrose [Glucose Gel] 15 gm PO ONCE PRN 06/08/16 [History] FLUoxetine HCl [Prozac] 40 mg PO QAM 06/08/16 [History] Glucagon,Human Recombinant [Glucagon Emergency Kit] 1 mg IJ ONCE PRN 06/08/16 [ History] Insulin ASPART [Novolog Flexpen] 20 unit SQ TIDAC 06/08/16 [History] Isosorbide MONOnitrate (24 HR) [Imdur] 60 mg PO DAILY 06/08/16 [History] Nitroglycerin [Nitrostat] 0.4 mg SL Q5M PRN 06/08/16 [History] OxyCODONE Immed Rel [Roxicodone 10 MG] 10 mg PO Q6H PRN 06/08/16 [History] Topiramate [Topamax] 25 mg PO BID 06/08/16 [History] Carvedilol [Coreg] 12.5 mg PO BIDWM #120 tablet 03/13/17 [Rx] Insulin Degludec [Tresiba Flextouch U-200] 90 unit SQ HS 01/01/17 [History] Naloxegol Oxalate [Movantik] 12.5 mg PO DAILY 01/01/17 [History] Pregabalin [Lyrica] 100 mg PO BID 01/01/17 [History] Tizanidine HCl [Zanaflex] 4 mg PO TID PRN 01/01/17 [History] Trazodone HCl 50 mg PO HS 01/01/17 [History] NIFEdipine XL (24 HR) [Procardia XL] 60 mg PO DAILY 04/29/17 [History] hydrALAZINE [HydrALAZINE] 50 mg PO Q8HR 04/29/17 [History] Tamsulosin HCl [Flomax] 0.4 mg PO DAILY #30 cap.er.24h 04/30/17 [Rx] Pantoprazole Sodium [Protonix] 40 mg PO DAILY 05/10/17 [History] 3 Allergy/AdvReac Type Severity Reaction Status Date / Time Methadone Allergy Hives Verified 05/10/17 12:17 Penicillins Allergy Hives Verified 05/10/17 12:17 linaclotide [From Linzess] AdvReac Nausea Verified 05/10/17 12:17 phenazopyridine AdvReac See Verified 05/10/17 12:17 [From Pyridium] Comments All Systems PM: A 10-system review of systems was performed and is negative for pertinent findings except as documented above in the HPI. - Constitutional Constitutional: fatigue, weakness, weight gain, no chills, no fever(s), no falls , no night sweats - EENT Eyes: as per HPI Ears: as per HPI Nose, mouth and throat: no hoarseness, no lip swelling, no mouth lesions, no mouth pain, no sore throat, no throat swelling, no tongue swelling - Cardiovascular Cardiovascular ROS IM: dyspnea on exertion, edema, no chest pain - Respiratory Respiratory: dyspnea, no cough, no hemoptysis, no stridor - Gastrointestinal Gastrointestinal: abdominal pain, no change in stool character, no coffee ground emesis, no hematemesis, no hematochezia, no melena, no vomiting - Genitourinary Genitourinary ROS male: difficulty urinating, scrotal swelling, testicular pain , no dysuria, no flank pain, no hematuria - Musculoskeletal Musculoskeletal ROS IM: no stiffness, no tingling - Integumentary Integumentary IM: no erythema, no pruritus, no rash, no jaundice - Neurological Neurological ROS: weakness, no paresthesias, no radicular pain, no vertigo - Endocrine Endocrine IM: fatigue, no polydipsia, no polyphagia, no polyuria - Hematologic/Lymphatic Hematologic/Lymphatic: no easy bleeding, no easy bruising, no lymphadenopathy - Allergic/Immunologic Allergic/Immunologic: no tongue swelling, no throat swelling, no uticaria, no wheezing - Constitutional Vitals: Temp Pulse Resp BP Pulse Ox 97.8 F 64 16 156/68 97 05/10/17 12:13 05/10/17 12:13 05/10/17 12:13 05/10/17 12:13 05/10/17 12:13 General appearance: Present: mild distress, A&O X 3 - Head Head exam: Present: atraumatic, normocephalic - Eye Eye exam: Present: EOMI, PERRL, conjuntiva pink, sclera anicteric Pupils: Present: PERRL - Neck Neck exam general surgery: Present: supple, trachea midline. Absent: lymphadenopathy - Respiratory Respiratory exam: Present: CTAB. Absent: accessory muscle use, rales, rhonchi, wheezes - Cardiovascular Cardiovascular exam: Present: RRR, +S1, +S2. Absent: diastolic murmur, gallop, rubs, systolic murmur - GI/Abdominal GI/Abdominal exam: Present: distended, normal bowel sounds, soft, no peritoneal signs. Absent: guarding, tenderness - Extremities Exam Extremities exam: Present: warm, radial pulses palpable and symmetrical. Absent : calf tenderness, cyanotic, pedal edema - Neurological Exam Neurological exam: Present: CN II-XII intact, oriented X3, no focal deficits. Absent: pronater drift, facial droop, speech deficit - Expanded Psychiatric Exam Focused psych exam: Absent: catatonic, paranoid, pressured speech, restlessness - Skin Skin exam: Present: dry, intact Internal Med - H&P Results - Labs CBC & Chem 7: 05/10/17 13:06 05/10/17 13:06 Labs: Short CBC 05/10/17 Range/Units 13:06 WBC 6.9 (4.3-11.1) K/mcL Hgb 8.3 L (12.9-16.9) g/dL Hct 26.3 L (37.5-50.1) % Plt Count 185 (140-400) K/mcL Neutrophils # 5.2 (1.6-8.9) K/mcL BMP 05/10/17 13:06 Sodium 138 Potassium 4.8 Chloride 114 H Carbon Dioxide 19 L BUN 76 H Creatinine 2.30 H Glucose 194 H Calcium 8.0 L Cardiac Enzymes 05/10/17 Range/Units 13:06 Troponin I 0.06 H* (< 0.04) ng/mL - Impressions ITS Impressions Chest X-Ray 05/10/17 12:18 IMPRESSION: Mild right perihilar airspace disease, which may be secondary to asymmetric edema, and small pleural effusions. D/ / Cb Cabrera MD / Cb Cabrera MD Interpreting Provider: Cb Cabrera MD
[2017-05-10] MEDS ORDERED: Dextrose Gel 15 GM/37.5 ML TUBE PO PRN ×3 (16:18→16:38)
[2017-05-10] MEDS ORDERED: Nitroglycerin 0.4 MG TAB.SUBL SL PRN (16:18)
[2017-05-10] MEDS ORDERED: D5% in Water 1,000 ML IVC PRN (16:38)
--- NOTE | 2017-05-10 19:00 | Urology - Consult Note ---
Date of Encounter: 05/10/17 Time of Encounter: 18:58 - Assessment and Plan (1) Urinary retention Current Visit: Yes Status: Acute Assessment and plan: Patient was prepped and draped in normal sterile fashion. I then was able to place 18-Irish coude catheter with some resistance around the prostate. 700 mL 's of urine were returned. Plan would be to keep this catheter in place during the patient's admission.. will continue to follow along. (2) Acute kidney failure, unspecified Current Visit: No Status: Acute Assessment and plan: Patient serum creatinine is elevated but relatively stable. We will continue to follow now the bladder is completely drained. Qualifiers: Acute renal failure type: unspecified Qualified Code(s): N17.9 - Acute kidney failure, unspecified (3) Neurogenic bladder Current Visit: No Status: Chronic Assessment and plan: Patient will need to resume intermittent catheterization upon discharge. Urology CN:IWONA Consult date: 05/10/17 Reason for consult Urology: Difficult Quan Requesting physician: Jose Amezcua History of present illness: Joesph is a 61-year-old male well-known to the urology service for chronic permanent urinary retention secondary to neurogenic bladder from likely diabetes. Patient was admitted recently secondary to CHF exacerbation. Patient had been performing intermittent catheterization at home was unable to place a catheter today. Multiple nurses had tried to place a catheter were unsuccessful. Patient states that he has been having some difficulty with low urine volume for the past few days. Patient does admit to feeling full at this time. Lower abdominal discomfort 2-3/10 pressure in nature with no radiation. No current nausea or vomiting. No fevers. Past Med Surg Social Fam HX - Past Medical History Medical history: CHF, coronary artery disease, diabetes, hypertension, myocardial infarction, renal disease, other Psychiatric history: depression - Past Surgical History Surgical History: angioplasty/stent - Social History Smoking Status: Former smoker Smokeless Tobacco Status: No Alcohol use: none Drug use: none - Family History Father Adopted: [place]: Duane Renee Family Member Ethnicity: Non- Living Status: Age at : 77 Cause of : Cancer Hx Family Cardiac Disorders: Yes (triple bypass) Hx Family Respiratory Disorders: Yes Hx Family Cancer: Yes (lung) Hx Family GI Disorders: No Hx Family Genitourinary Disorders: No Hx Family Endocrine Disorder: Yes (diabetes) Hx Family Musculoskeletal Disorders: No Hx Family Neuromuscular Disorders: No Hx Family Neurologic Disorders: No Hx Family HEENT Disorders: No Hx Family Autoimmune Disorders: No Hx Family Reproductive Disorders: No Hx Family Psychosocial Disorders: No Hx Family Medical Disorders: No Mother Adopted: [place]: Tori Renee Family Member Ethnicity: Non- Living Status: Cause of : Cancer Hx Family Cardiac Disorders: No Hx Family Respiratory Disorders: No Hx Family Cancer: Yes (throat, lung) Hx Family GI Disorders: No Hx Family Genitourinary Disorders: No Hx Family Endocrine Disorder: No Hx Family Musculoskeletal Disorders: No Hx Family Neuromuscular Disorders: No Hx Family Neurologic Disorders: No Hx Family HEENT Disorders: No Hx Family Autoimmune Disorders: No Hx Family Reproductive Disorders: No Hx Family Psychosocial Disorders: No Hx Family Medical Disorders: No Medications and Allergies Aspirin Enteric Coated [Aspirin EC] 81 mg PO DAILY 06/08/16 [History] Atorvastatin Calcium [Lipitor] 80 mg PO HS 06/08/16 [History] Clopidogrel [Plavix] 75 mg PO DAILY 06/08/16 [History] Dextrose [Glucose Gel] 15 gm PO ONCE PRN 06/08/16 [History] FLUoxetine HCl [Prozac] 40 mg PO QAM 06/08/16 [History] Glucagon,Human Recombinant [Glucagon Emergency Kit] 1 mg IJ ONCE PRN 06/08/16 [ History] Insulin ASPART [Novolog Flexpen] 20 unit SQ TIDAC 06/08/16 [History] Isosorbide MONOnitrate (24 HR) [Imdur] 60 mg PO DAILY 06/08/16 [History] Nitroglycerin [Nitrostat] 0.4 mg SL Q5M PRN 06/08/16 [History] OxyCODONE Immed Rel [Roxicodone 10 MG] 10 mg PO Q6H PRN 06/08/16 [History] Topiramate [Topamax] 25 mg PO BID 06/08/16 [History] Carvedilol [Coreg] 12.5 mg PO BIDWM #120 tablet 06/12/16 [Rx] Insulin Degludec [Tresiba Flextouch U-200] 90 unit SQ HS 01/01/17 [History] Naloxegol Oxalate [Movantik] 12.5 mg PO DAILY 01/01/17 [History] Pregabalin [Lyrica] 100 mg PO BID 01/01/17 [History] Tizanidine HCl [Zanaflex] 4 mg PO TID PRN 01/01/17 [History] Trazodone HCl 50 mg PO HS 01/01/17 [History] NIFEdipine XL (24 HR) [Procardia XL] 60 mg PO DAILY 04/29/17 [History] hydrALAZINE [HydrALAZINE] 50 mg PO Q8HR 04/29/17 [History] Tamsulosin HCl [Flomax] 0.4 mg PO DAILY #30 cap.er.24h 04/30/17 [Rx] Pantoprazole Sodium [Protonix] 40 mg PO DAILY 05/10/17 [History] 3 Allergy/AdvReac Type Severity Reaction Status Date / Time Methadone Allergy Hives Verified 05/10/17 12:17 Penicillins Allergy Hives Verified 05/10/17 12:17 linaclotide [From Linzess] AdvReac Nausea Verified 05/10/17 12:17 phenazopyridine AdvReac See Verified 05/10/17 12:17 [From Pyridium] Comments Review of Systems - Constitutional no fever(s), no weakness - EENT Nose, mouth and throat: no dizziness - Cardiovascular no chest pain - Respiratory no cough - Gastrointestinal abdominal pain - Genitourinary as per HPI - Musculoskeletal no back pain, no muscle weakness - Integumentary no erythema, no rash - Neurological no confusion - Psychiatric no confusion Exam Initial Vital Signs Temp Pulse Resp BP Pulse Ox 97.8 F 64 16 156/68 97 05/10/17 12:13 05/10/17 12:13 05/10/17 12:13 05/10/17 12:13 05/10/17 12:13 - General physical appearance Present: well developed, no distress - Eyes Absent: icteric - Respiratory Present: normal respiratory effort - Cardiovascular Cardiovascular exam IM: RRR - Abdomen Abdomen: Present: soft, suprapubic tenderness. Absent: masses - Genitourinary normal penis with no external lesions - Integumentary Present: no rash, no abnormal pigmentation - Neurologic Present: normal coordination. Absent: confused Urology Results - Labs 05/10/17 13:06 05/10/17 13:06 Abnormal lab results RBC 2.95 M/mcL (4.19-5.50) L 05/10/17 13:06 Hgb 8.3 g/dL (12.9-16.9) L 05/10/17 13:06 Hct 26.3 % (37.5-50.1) L 05/10/17 13:06 RDW 15.3 % (11.5-14.5) H 05/10/17 13:06 Chloride 114 mEq/L (98-107) H 05/10/17 13:06 Carbon Dioxide 19 mEq/L (23-29) L 05/10/17 13:06 BUN 76 mg/dL (6-20) H 05/10/17 13:06 Creatinine 2.30 mg/dL (0.70-1.30) H 05/10/17 13:06 Est GFR ( Amer) 35 (> 60) L 05/10/17 13:06 Est GFR (Non-Af Amer) 29 (> 60) L 05/10/17 13:06 BUN/Creatinine Ratio 33 (6-26) H 05/10/17 13:06 Glucose 194 mg/dL (70-105) H 05/10/17 13:06 Calculated Osmolality 314 (280-300) H 05/10/17 13:06 Calcium 8.0 mg/dL (8.6-10.3) L 05/10/17 13:06 Troponin I 0.06 ng/mL (< 0.04) H* 05/10/17 13:06 B-Natriuretic Peptide 1032 pg/mL (Less than 100) H 05/10/17 13:06 All other labs normal. Consult Discharge Plan - Plan Referrals: Marcial Wolf DO [Primary Care Provider] -
[2017-05-10] MEDS: Pregabalin 50 MG CAPSULE PO SCH (20:07)
[2017-05-10] MEDS: traZODone 50 MG TABLET PO SCH (20:07)
[2017-05-10] MEDS: Furosemide 40 MG/4 ML VIAL IVP SCH (20:07)
[2017-05-10] MEDS: Topiramate 25 MG TABLET PO SCH (20:07)
[2017-05-10] MEDS ORDERED: Insulin DETEMIR 100 UNIT/ML X5UNITS SQ SCH (21:00)
[2017-05-10] MEDS ORDERED: NON-FORMULARY MEDICATION 1 EACH EACH (Insulin Degludec [Tresiba Flextouch U-200] 90 UNIT) SQ SCH (21:00)
[2017-05-11] MEDS: hydrALAZINE 25 MG TABLET PO SCH ×3 (00:12→16:17)
[2017-05-11] MEDS: *HR* Dextrose 50 % in Water (Syg) 50 ML SYRINGE IVP PRN ×8 (06:18→09:22)
[2017-05-11] MEDS ORDERED: D10% in Water 500 ML IVC ONE (06:24)
[2017-05-11 06:40] LABS: ABG Base Excess -5 mEq/L (-2 to 3); ABG HCO3 21 mEq/L (21-27); ABG Oxygen Saturation 97 % (95-98); ABG PCO2 44 mmHg (35-45); ABG PO2 96 mmHg (85-104); ABG TCO2 23 mEq/L (20-26)
--- NOTE | 2017-05-11 06:47 | Electrocardiograph Report ---
[facility] Test Date: 2017-05-10 Pat Name: Joesph Renee Department: [id number] Room: 2A51 Gender: M Inspector Bicycle: : 1955 Requested By: Jennifer Burden Order Number: [id number] Reading MD: Albaro Lockett MD Measurements Intervals [place] Rate: 61 P: -18 KS: 146 QRS: -39 QRSD: 118 T: 44 QT: 487 QTc: 490 Interpretive Statements SINUS RHYTHM MARKED LEFT AXIS DEVIATION MODERATE INTRAVENTRICULAR CONDUCTION DELAY MARKED T-WAVE ABNORMALITY, CONSIDER ANTERIOR ISCHEMIA Electronically Signed On 05-11-2017 6:45:34 EST by Albaro Lockett MD
--- NOTE | 2017-05-11 06:49 | Event Note ---
Date of Encounter: 05/11/17 Time of Encounter: 06:45 MANAGER MERCHANDISING Note: Pt was found unresponsive and drenching in severe sweat this morning around 6.15AM. His BS was 15, MANAGER MERCHANDISING was initiated by nursing staff. By the time I went there, he received 2 amp D50, his BS went tup 280, however pt is still unresponsive, SPo2 was 77% on RA, BP 121/48 HR-72. So I gave him 1 amp Glucagon IM x 1 dose, NaHCo3 IV x 1 dose. Pt was placed on the monitor he is in NSR with HR in 70's. Pt started moving little bit, he was placed on NRB O2, his Spo2 is 98 % now. His accucheck dropped down to 140 after Glucagon, so gave him another D50 IV x 1 dose. His ABG showed MIld hypercapneic resp failure with PCo2 44 PH 7.30.. So I transferred the pt to ICU and started him on BiPAP. Pt..Slightly arousable now. Apparently pt received Levemir 90 U last night, which is his home dose. Also noticed chronic non healing ulcer over Rt foot..Concerned for sepsis too. So sent for stat BMP, Mg, ESR, CRP.. Close monitoring.. Will do accucheck Q15min x 4 then Q30 x 4 then Q1hr x 4 Placed him on D10 @ 100cc/hr for now. His EKG showed NSR HR @ 68, Spent 45 minutes of Critical care time on this pt.
[2017-05-11 07:31] LABS: Calcium 7.7 mg/dL (8.6-10.3); Potassium 4.1 mEq/L (3.5-5.1)
[2017-05-11] MEDS ORDERED: Albuterol 2.5 MG/3 ML NEBULIZER IH PRN (07:56)
--- NOTE | 2017-05-11 07:57 | Pulmonology Consult Note ---
<Antoni Galan - Last Filed: 05/11/17 11:17> Date of Encounter: 05/11/17 Time of Encounter: 07:57 Assessment and Plan (1) Acute CHF Current Visit: Yes Status: Acute Patient's swelling has continued to worsen and bilateral lower extremities. The patient is currently on 40 mg IV Lasix twice a day. This will be continued. The patient does have a worsening pleural effusion of the right lower lobe. Given the patient's cough and findings, he was started on vancomycin, Flagyl, cefepime at this time. The patient will continue receiving his diuresis. We will continue to monitor the patient's respiratory status. He is currently on BiPAP when he is tolerating this well. He does have some intermittent episodes of somnolence I am concerned about the patient's mental status. But he is quickly arousable and answering questions and following commands. We will perform an echocardiogram as well to determine if there is any LV dysfunction that is worsening. Qualifiers: Heart failure type: combined systolic and diastolic Qualified Code(s): I50.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 (2) Pleural effusion, right Current Visit: Yes Status: Acute (3) Bilateral lower extremity edema Current Visit: Yes Status: Acute In addition to the patient's bilateral lower external swelling he does have what appears to be some ulcerations to bilateral feet. Worse on the right heel. X-ray was performed. Wound care is consulted at this time. The wounds continue to worsen we will consult podiatry. The patient does also have a blister that appeared fluid-filled of his left hip. Wound care again is consulted. (4) Renal failure (ARF), acute on chronic Current Visit: No Status: Acute The patient does have what appears to be CK D stage III. 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 We have consulted nephrology, Dr. Gomez for further recommendations and care. Qualifiers: Acute renal failure type: unspecified Chronic kidney disease stage: stage 3 (moderate) Qualified Code(s): N17.9 - Acute kidney failure, unspecified; N18.3 - Chronic kidney disease, stage 3 (moderate); N18.3 - Chronic kidney disease, stage 3 (moderate) (5) Urinary retention Current Visit: Yes Status: Acute Urology consulted. (6) Type 2 diabetes mellitus with diabetic chronic kidney disease Current Visit: No Status: Chronic Qualifiers: Diabetes mellitus detention insulin use: with detention use Chronic kidney disease stage: stage 3 (moderate) Qualified Code(s): E11.22 - Type 2 diabetes mellitus with diabetic chronic kidney disease; N18.3 - Chronic kidney disease, stage 3 (moderate); N18.3 - Chronic kidney disease, stage 3 (moderate); Z79.4 - senior care (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 insulin; Z79.4 - bereavement counselor (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 insulin; Z79.4 - bereavement counselor (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 insulin; Z79.4 - bereavement counselor (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 insulin (7) CAD (coronary artery disease) Current Visit: No Status: Chronic Qualifiers: Coronary Disease-Associated Artery/Lesion type: [place] artery [place] vs. transplanted heart: [place] heart Associated angina: without angina Qualified Code(s): I25.10 - Atherosclerotic heart disease of [place] coronary artery without angina pectoris History of Present Illness Consult date: 05/11/17 Requesting physician: Nette Wang Reason for consult: other (Critical care management of hypoglycemia, CHF) Chief complaint: Hypoglycemia, CHF, CKD History of present illness: 61-year-old male with history of CAD, CHF, CK D, arrives to emergency emergency department one day ago for complaint of worsening swelling and difficulty breathing. The patient has an extensive history of CHF with the patient was taking Bumex, 1 mg by mouth daily. The patient was recently admitted to [facility] where he had a stent placed associated with an N STEMI. At that time the Bumex was discontinued. The patient went home and began experiencing bilateral lower extremity swelling. He restarted Bumex on his own, 1 mg by mouth daily. The patient states that his swelling continued to worsen and now he is having difficulty breathing. The patient was admitted to the hospital and was being treated for CHF overnight. The the patient was administered 1 dose of Levemir that he takes at home at baseline and was found unresponsive this morning in bed at roughly 6 AM. A rapid response was called at that time and the patient was noted to be hypoglycemic with a blood glucose of 15. The patient was administered 3 doses of D50, an amp of bicarbonate, and placed on a D10 drip at 100 mL per hour. The patient was transported to the ICU for further care. Pulmonology was consulted. The patient remains hypoglycemic with a trend downward despite being on a D10 drip at 100 mL per hour. His last glucose was noted at 73 despite this drip. He was administered one more amp of D50 as well as increased his rate to 150 mL of D10. In addition the patient was fairly somnolent. He is controlling his airway at this time and is on BiPAP. Repeat chest x-ray demonstrates a worsening right lower lobe pleural effusion. Given the patient's cough and associated symptoms he was started on antibiotics, Flagyl, cefepime, and vancomycin. Past Med Surg Social Fam HX - Past Medical History Source: old records reviewed Medical history: CHF, coronary artery disease, diabetes, hypertension, myocardial infarction, renal disease, other Psychiatric history: depression - Past Surgical History Surgical History: angioplasty/stent - Social History Smoking Status: Former smoker Smokeless Tobacco Status: No Alcohol use: none Drug use: none - Family History Father Adopted: [place]: Duane Renee Family Member Ethnicity: Non- Living Status: Age at : 77 Cause of : Cancer Hx Family Cardiac Disorders: Yes (triple bypass) Hx Family Respiratory Disorders: Yes Hx Family Cancer: Yes (lung) Hx Family GI Disorders: No Hx Family Genitourinary Disorders: No Hx Family Endocrine Disorder: Yes (diabetes) Hx Family Musculoskeletal Disorders: No Hx Family Neuromuscular Disorders: No Hx Family Neurologic Disorders: No Hx Family HEENT Disorders: No Hx Family Autoimmune Disorders: No Hx Family Reproductive Disorders: No Hx Family Psychosocial Disorders: No Hx Family Medical Disorders: No Mother Adopted: [place]: Tori Renee Family Member Ethnicity: Non- Living Status: Cause of : Cancer Hx Family Cardiac Disorders: No Hx Family Respiratory Disorders: No Hx Family Cancer: Yes (throat, lung) Hx Family GI Disorders: No Hx Family Genitourinary Disorders: No Hx Family Endocrine Disorder: No Hx Family Musculoskeletal Disorders: No Hx Family Neuromuscular Disorders: No Hx Family Neurologic Disorders: No Hx Family HEENT Disorders: No Hx Family Autoimmune Disorders: No Hx Family Reproductive Disorders: No Hx Family Psychosocial Disorders: No Hx Family Medical Disorders: No Medications and Allergies Aspirin Enteric Coated [Aspirin EC] 81 mg PO DAILY 06/08/16 [History] Atorvastatin Calcium [Lipitor] 80 mg PO HS 06/08/16 [History] Clopidogrel [Plavix] 75 mg PO DAILY 06/08/16 [History] Dextrose [Glucose Gel] 15 gm PO ONCE PRN 06/08/16 [History] FLUoxetine HCl [Prozac] 40 mg PO QAM 06/08/16 [History] Glucagon,Human Recombinant [Glucagon Emergency Kit] 1 mg IJ ONCE PRN 06/08/16 [ History] Insulin ASPART [Novolog Flexpen] 20 unit SQ TIDAC 06/08/16 [History] Isosorbide MONOnitrate (24 HR) [Imdur] 60 mg PO DAILY 06/08/16 [History] Nitroglycerin [Nitrostat] 0.4 mg SL Q5M PRN 06/08/16 [History] OxyCODONE Immed Rel [Roxicodone 10 MG] 10 mg PO Q6H PRN 06/08/16 [History] Topiramate [Topamax] 25 mg PO BID 06/08/16 [History] Carvedilol [Coreg] 12.5 mg PO BIDWM #120 tablet 06/12/16 [Rx] Insulin Degludec [Tresiba Flextouch U-200] 90 unit SQ HS 01/01/17 [History] Naloxegol Oxalate [Movantik] 12.5 mg PO DAILY 01/01/17 [History] Pregabalin [Lyrica] 100 mg PO BID 01/01/17 [History] Tizanidine HCl [Zanaflex] 4 mg PO TID PRN 01/01/17 [History] Trazodone HCl 50 mg PO HS 01/01/17 [History] NIFEdipine XL (24 HR) [Procardia XL] 60 mg PO DAILY 04/29/17 [History] hydrALAZINE [HydrALAZINE] 50 mg PO Q8HR 04/29/17 [History] Tamsulosin HCl [Flomax] 0.4 mg PO DAILY #30 cap.er.24h 04/30/17 [Rx] Pantoprazole Sodium [Protonix] 40 mg PO DAILY 05/10/17 [History] 3 Allergy/AdvReac Type Severity Reaction Status Date / Time Methadone Allergy Hives Verified 05/10/17 12:17 Penicillins Allergy Hives Verified 05/10/17 12:17 linaclotide [From Linzess] AdvReac Nausea Verified 05/10/17 12:17 phenazopyridine AdvReac See Verified 05/10/17 12:17 [From Pyridium] Comments All Systems: A 10-system review of systems was performed and is negative for pertinent findings except as documented above in the HPI. - Constitutional Constitutional: fatigue, weakness - EENT Nose, mouth and throat: no sore throat - Cardiovascular Cardiovascular: dyspnea, edema, no chest pain - Respiratory Respiratory: cough, dyspnea, no hemoptysis - Gastrointestinal Gastrointestinal: no abdominal pain - Musculoskeletal Musculoskeletal: weakness, muscle weakness - Neurological Neurological: confusion, weakness Physical Examination Vital Signs: Vital Signs, Last 4 Hours Temp Pulse Resp BP Pulse Ox 05/11/17 07:27 19 130/65 100 05/11/17 07:07 96.5 F L 68 22 154/71 100 05/11/17 06:37 97.5 F L 69 17 135/54 99 05/11/17 06:17 98.3 F 69 19 123/48 78 05/11/17 06:15 98.3 F 69 19 123/48 78 Results - Laboratory Findings CBC and BMP: 05/11/17 08:00 05/11/17 07:05 ABG ABG pH 7.30 pH Units (7.32-7.45) L 05/11/17 06:35 ABG pCO2 44 mmHg (35-45) 05/11/17 06:35 ABG pO2 96 mmHg (85-104) 05/11/17 06:35 ABG O2 Saturation 97 % (95-98) 05/11/17 06:35 Abnormal lab findings: Abnormal lab results RBC 2.95 M/mcL (4.19-5.50) L 05/10/17 13:06 Hgb 8.3 g/dL (12.9-16.9) L 05/10/17 13:06 Hct 26.3 % (37.5-50.1) L 05/10/17 13:06 RDW 15.3 % (11.5-14.5) H 05/10/17 13:06 ABG pH 7.30 pH Units (7.32-7.45) L 05/11/17 06:35 ABG Base Excess -5 mEq/L (-2 to 3) L 05/11/17 06:35 Chloride 115 mEq/L (98-107) H 05/11/17 07:05 Carbon Dioxide 20 mEq/L (23-29) L 05/11/17 07:05 BUN 75 mg/dL (6-20) H 05/11/17 07:05 Creatinine 2.49 mg/dL (0.70-1.30) H 05/11/17 07:05 Est GFR ( Amer) 32 (> 60) L 05/11/17 07:05 Est GFR (Non-Af Amer) 27 (> 60) L 05/11/17 07:05 BUN/Creatinine Ratio 30 (6-26) H 05/11/17 07:05 Glucose 161 mg/dL (70-105) H 05/11/17 07:05 POC Glucose 137 (58-89) H 05/11/17 07:31 Calculated Osmolality 320 (280-300) H 05/11/17 07:05 Calcium 7.7 mg/dL (8.6-10.3) L 05/11/17 07:05 Troponin I 0.06 ng/mL (< 0.04) H* 05/10/17 19:04 C-Reactive Protein 53 mg/L (Less than 10) H 05/11/17 07:05 B-Natriuretic Peptide 1032 pg/mL (Less than 100) H 05/10/17 13:06 - Clinical Findings Intake & Output: Intake & Output 05/10/17 05/10/17 05/11/17 15:59 23:59 07:59 Intake Total 360 / 360 120 / 120 Output Total 600 / 600 350 / 350 Balance -240 / -240 -230 / -230 Weight 91.9 kg 87.9 kg Consult Discharge Plan - Plan Referrals: Marcial Wolf DO [Primary Care Provider] - - Attending Attestation I examined this patient and my medical decision-making was reviewed with the Resident Physician. I agree with the documented findings, disposition and treatment plan as described except to the extent set forth below. I examined this patient and my medical decision-making was reviewed with the Resident Physician. I agree with the documented findings, disposition and treatment plan as described except to the extent set forth below. <Shyam Land W - Last Filed: 05/11/17 12:04> Date of Encounter: 05/11/17 All Systems: A 10-system review of systems was performed and is negative for pertinent findings except as documented above in the HPI. Physical Examination Vital Signs: Vital Signs, Last 4 Hours Pulse Resp BP Pulse Ox 05/11/17 11:03 16 95 05/11/17 11:00 61 16 146/72 96 05/11/17 10:00 55 13 143/65 100 05/11/17 09:00 54 19 127/61 100 05/11/17 08:16 15 139/72 100 05/11/17 08:11 62 16 139/72 100 Results - Laboratory Findings CBC and BMP: 05/11/17 08:00 05/11/17 07:05 ABG ABG pH 7.30 pH Units (7.32-7.45) L 05/11/17 06:35 ABG pCO2 44 mmHg (35-45) 05/11/17 06:35 ABG pO2 96 mmHg (85-104) 05/11/17 06:35 ABG O2 Saturation 97 % (95-98) 05/11/17 06:35 Abnormal lab findings: Abnormal lab results WBC 17.2 K/mcL (4.3-11.1) H D 05/11/17 08:00 RBC 2.70 M/mcL (4.19-5.50) L 05/11/17 08:00 Hgb 7.7 g/dL (12.9-16.9) L 05/11/17 08:00 Hct 23.9 % (37.5-50.1) L 05/11/17 08:00 RDW 15.2 % (11.5-14.5) H 05/11/17 08:00 Neutrophils # 15.8 K/mcL (1.6-8.9) H 05/11/17 08:00 Lymphocytes # 0.4 K/mcL (0.6-4.6) L 05/11/17 08:00 ESR 30 mm/hr (0-10) H 05/11/17 07:05 ABG pH 7.30 pH Units (7.32-7.45) L 05/11/17 06:35 ABG Base Excess -5 mEq/L (-2 to 3) L 05/11/17 06:35 Chloride 115 mEq/L (98-107) H 05/11/17 07:05 Carbon Dioxide 20 mEq/L (23-29) L 05/11/17 07:05 BUN 75 mg/dL (6-20) H 05/11/17 07:05 Creatinine 2.49 mg/dL (0.70-1.30) H 05/11/17 07:05 Est GFR ( Amer) 32 (> 60) L 05/11/17 07:05 Est GFR (Non-Af Amer) 27 (> 60) L 05/11/17 07:05 BUN/Creatinine Ratio 30 (6-26) H 05/11/17 07:05 Glucose 161 mg/dL (70-105) H 05/11/17 07:05 POC Glucose 117 (58-89) H 05/11/17 10:08 Calculated Osmolality 320 (280-300) H 05/11/17 07:05 Calcium 7.7 mg/dL (8.6-10.3) L 05/11/17 07:05 Troponin I 0.06 ng/mL (< 0.04) H* 05/10/17 19:04 C-Reactive Protein 53 mg/L (Less than 10) H 05/11/17 07:05 B-Natriuretic Peptide 1032 pg/mL (Less than 100) H 05/10/17 13:06 - Clinical Findings Intake & Output: Intake & Output 05/10/17 05/11/17 05/11/17 23:59 07:59 15:59 Intake Total 360 / 360 120 / 120 Output Total 600 / 600 350 / 350 Balance -240 / -240 -230 / -230 Weight 87.9 kg - Attending Attestation I examined this patient and my medical decision-making was reviewed with the Resident Physician. I agree with the documented findings, disposition and treatment plan as described except to the extent set forth below. We independently had vefy-ro-etol contact with the patient Patient seen and examined at bedside Labs, radiology, chart personally reviewed. Management was reviewed during multidisciplinary critical care rounds. VERIFIER OPERATOR: Encephalopathy likely related to hypoglycemia no focal neurological deficit on exam Pulm: Suspected CARINA with desaturation during sleep which PAP will be started concern for hydrostatic pulmonary edema possible aspiration Cards: History of heart failure clearly volume overloaded cautious diuresis planned FEN-GI: Nothing by mouth for now because of obtundation Renal: Chronic kidney disease slightly worse from baseline nephrology consulted continue cautious diuresis with close monitoring of serum creatinine and electrolytes ID: Concern for sepsis possible aspiration also has several ulcers in the context of diabetes broad-spectrum antimicrobial started with planned to de- escalate 24-48 hours Heme/Onc: DVT prophylaxis given Endo: Iatrogenic hypoglycemia on dextrose infusion continue hourly Accu-Cheks Integ/MSK: Skin Care per routine ICU Nursing Protocol to prevent ulcers. Patient has foot ulcer with plan for wound care consultation and x-ray to evaluate for osteomyelitis podiatry consultation based upon findings and clinical course Lines: All lines examined without evidence of infection : Dispo: Remain in ICU CODE: Full
[2017-05-11] MEDS: Furosemide 40 MG/4 ML VIAL IVP SCH (08:05)
[2017-05-11 08:08] LABS: Basophils % 0.2 %; Eosinophils # 0.1 K/mcL (0.0-0.6); Eosinophils % 0.5 %; Hematocrit 23.9 % (37.5-50.1); Hemoglobin 7.7 g/dL (12.9-16.9); Immature Granulocytes % 0.5 % (0-4); Immature Platelets 2.5 % (1.1-6.1); Lymphocytes # 0.4 K/mcL (0.6-4.6); Lymphocytes % 2.5 %; Mean Corpuscular HGB Conc 32.2 g/dL (31.6-35.5); Mean Corpuscular Hemoglobin 28.5 pg (28.0-33.3); Mean Corpuscular Volume 88.5 fL (83.0-100.0); Mean Platelet Volume 10.6 fL (9.4-12.4); Monocytes # 0.8 K/mcL (0.0-1.3); Monocytes % 4.6 %; Neutrophils # 15.8 K/mcL (1.6-8.9); Platelet Count 206 K/mcL (140-400); Red Cell Distribution Width 15.2 % (11.5-14.5); Segmented Neutrophils % 91.7 %
[2017-05-11] MEDS: Ipratropium/Albuterol Neb 3 ML IH SCH ×5 (08:16→23:19)
[2017-05-11] MEDS ORDERED: Vancomycin 1,250 MG in D5% in Water 250 ML IVPB SCH ×2 (10:00→11:00)
[2017-05-11] MEDS: Dextrose 50 % in Water (Vial) 50 ML in D5% in 0.2% NACL 500 ML IVC SCH ×4 (10:14→18:24)
--- NOTE | 2017-05-11 10:23 | Nephrology Consult Note ---
Date of Encounter: 05/11/17 Time of Encounter: 10:00 Assessment and Plan (1) CKD (chronic kidney disease) Current Visit: No Status: Acute CHF on diuretic. Stable CKD 4, baseline 2.3-2.5. Known nephrotic range proteinuria in setting of poorly controlled DM and HTN. Pregabalin may be contributing to edema. History of neurogenic bladder. Maintain niño catheter, Accurate I&O's. Avoid nephrotoxins. Will continue to monitor. Qualifiers: Chronic kidney disease stage: stage 4 (severe) Qualified Code(s): N18.4 - Chronic kidney disease, stage 4 (severe) History of Present Illness - Reason for Consult Chronic Kidney Disease - History of Present Illness Mr. Renee is a 61 year old male known to practice with CKD stage 4, baseline creatinine 2.3-2.5. Known Nephrotic range proteinuria 8 gms in setting of DM, poorly controlled HTN and neurogenic bladder. He is compliant and straight caths 5 times daily and follows with [facility]. Other PMH-CHF, coronary artery disease, diabetes, hypertension, myocardial infarction, renal disease, depression, angioplasty/stent. Mr. Renee presented yesterday with increasing LE swelling and shortness of breath. He was admitted with CHF started on Lasix with Cardiology to consult. DENIZ/ARB held with increasing diuresis. At time of consult, Mr. Renee is in ICU on Bipap following incident this morning of decreased mentation and blood sugar of 15. He is unable to provide additional history. He is awake, focuses, non verbal but will nod head. At present time creat 2.49 which is patients baseline. Urology has placed an indwelling niño catheter. LE swelling appears at his known baseline mild-1+ pitting. right foot/ ankle wrapped, blistering per nursing staff. Past Med Surg Social Fam HX - Past Medical History Medical history: CHF, coronary artery disease, diabetes, hypertension, myocardial infarction, renal disease, other Psychiatric history: depression - Past Surgical History Surgical History: angioplasty/stent - Social History Smoking Status: Former smoker Smokeless Tobacco Status: No Alcohol use: none Drug use: none - Family History Father Adopted: [place]: Duane Renee Family Member Ethnicity: Non- Living Status: Age at : 77 Cause of : Cancer Hx Family Cardiac Disorders: Yes (triple bypass) Hx Family Respiratory Disorders: Yes Hx Family Cancer: Yes (lung) Hx Family GI Disorders: No Hx Family Genitourinary Disorders: No Hx Family Endocrine Disorder: Yes (diabetes) Hx Family Musculoskeletal Disorders: No Hx Family Neuromuscular Disorders: No Hx Family Neurologic Disorders: No Hx Family HEENT Disorders: No Hx Family Autoimmune Disorders: No Hx Family Reproductive Disorders: No Hx Family Psychosocial Disorders: No Hx Family Medical Disorders: No Mother Adopted: [place]: Tori Renee Family Member Ethnicity: Non- Living Status: Cause of : Cancer Hx Family Cardiac Disorders: No Hx Family Respiratory Disorders: No Hx Family Cancer: Yes (throat, lung) Hx Family GI Disorders: No Hx Family Genitourinary Disorders: No Hx Family Endocrine Disorder: No Hx Family Musculoskeletal Disorders: No Hx Family Neuromuscular Disorders: No Hx Family Neurologic Disorders: No Hx Family HEENT Disorders: No Hx Family Autoimmune Disorders: No Hx Family Reproductive Disorders: No Hx Family Psychosocial Disorders: No Hx Family Medical Disorders: No Medications and Allergies Aspirin Enteric Coated [Aspirin EC] 81 mg PO DAILY 06/08/16 [History] Atorvastatin Calcium [Lipitor] 80 mg PO HS 06/08/16 [History] Clopidogrel [Plavix] 75 mg PO DAILY 06/08/16 [History] Dextrose [Glucose Gel] 15 gm PO ONCE PRN 06/08/16 [History] FLUoxetine HCl [Prozac] 40 mg PO QAM 06/08/16 [History] Glucagon,Human Recombinant [Glucagon Emergency Kit] 1 mg IJ ONCE PRN 06/08/16 [ History] Insulin ASPART [Novolog Flexpen] 20 unit SQ TIDAC 06/08/16 [History] Isosorbide MONOnitrate (24 HR) [Imdur] 60 mg PO DAILY 06/08/16 [History] Nitroglycerin [Nitrostat] 0.4 mg SL Q5M PRN 06/08/16 [History] OxyCODONE Immed Rel [Roxicodone 10 MG] 10 mg PO Q6H PRN 06/08/16 [History] Topiramate [Topamax] 25 mg PO BID 06/08/16 [History] Carvedilol [Coreg] 12.5 mg PO BIDWM #120 tablet 06/12/16 [Rx] Insulin Degludec [Tresiba Flextouch U-200] 90 unit SQ HS 01/01/17 [History] Naloxegol Oxalate [Movantik] 12.5 mg PO DAILY 01/01/17 [History] Pregabalin [Lyrica] 100 mg PO BID 01/01/17 [History] Tizanidine HCl [Zanaflex] 4 mg PO TID PRN 01/01/17 [History] Trazodone HCl 50 mg PO HS 01/01/17 [History] NIFEdipine XL (24 HR) [Procardia XL] 60 mg PO DAILY 04/29/17 [History] hydrALAZINE [HydrALAZINE] 50 mg PO Q8HR 04/29/17 [History] Tamsulosin HCl [Flomax] 0.4 mg PO DAILY #30 cap.er.24h 04/30/17 [Rx] Pantoprazole Sodium [Protonix] 40 mg PO DAILY 05/10/17 [History] 3 Allergy/AdvReac Type Severity Reaction Status Date / Time Methadone Allergy Hives Verified 05/10/17 12:17 Penicillins Allergy Hives Verified 05/10/17 12:17 linaclotide [From Linzess] AdvReac Nausea Verified 05/10/17 12:17 phenazopyridine AdvReac See Verified 05/10/17 12:17 [From Pyridium] Comments Review of Systems All Systems: reviewed and no additional remarkable complaints except as stated Exam - Vital Signs Vital signs: Initial Vital Signs Temp Pulse Resp BP Pulse Ox 97.8 F 64 16 156/68 97 05/10/17 12:13 05/10/17 12:13 05/10/17 12:13 05/10/17 12:13 05/10/17 12:13 Vital Signs - Last 8 Hours Temp Pulse Resp BP Pulse Ox 05/11/17 10:00 55 13 143/65 100 05/11/17 09:00 54 19 127/61 100 05/11/17 08:16 15 139/72 100 05/11/17 08:11 62 16 139/72 100 05/11/17 07:27 19 130/65 100 05/11/17 07:10 65 05/11/17 07:07 96.5 F L 68 22 154/71 100 05/11/17 06:37 97.5 F L 69 17 135/54 99 05/11/17 06:17 98.3 F 69 19 123/48 78 05/11/17 06:15 98.3 F 69 19 123/48 78 05/11/17 03:17 99.3 F 71 18 142/63 95 Intake and Output 05/10/17 05/11/17 05/11/17 23:59 07:59 15:59 Intake Total 360 / 360 120 / 120 Output Total 600 / 600 350 / 350 Balance -240 / -240 -230 / -230 Intake: Oral 360 / 360 120 / 120 Output: Catheter 600 / 600 350 / 350 Urethral (Niño) 600 / 600 350 / 350 Other: Meal Dinner Percent of Meal Consumed 100% Weight 87.9 kg Blood Glucose* 268 126 117 Patient Weight 05/11/17 23:59 Weight 87.9 kg - General Appearance General appearance: well-developed, well-nourished, appears started age EENT: mucous membranes moist Neck: no JVD Respiratory: clear Cardiology: regular rate, regular rhythm Additional Comments: Mild-1+ pitting edema Gastrointestinal: normoactive bowel sounds, no tenderness Integumentary: warm and dry Psychiatric: cooperative Results - Lab Results 05/11/17 08:00 05/11/17 07:05 Most recent lab results ABG pH 7.30 pH Units (7.32-7.45) L 05/11/17 06:35 ABG pCO2 44 mmHg (35-45) 05/11/17 06:35 ABG pO2 96 mmHg (85-104) 05/11/17 06:35 ABG HCO3 21 mEq/L (21-27) 05/11/17 06:35 ABG O2 Saturation 97 % (95-98) 05/11/17 06:35 Calcium 7.7 mg/dL (8.6-10.3) L 05/11/17 07:05 Magnesium 2.0 mg/dL (1.6-2.6) 05/11/17 08:00 Consult Discharge Plan - Plan Referrals: Marcial Wolf DO [Primary Care Provider] -
[2017-05-11] MEDS: MetroNIDAZOLE 500 MG/100 ML 500 MG/100 ML BAG IVPB SCH ×2 (10:43→16:16)
[2017-05-11] MEDS: Cefepime HCl 1,000 MG in Water for inj. (sterile) 10 ML IVP SCH ×2 (10:43→18:19)
[2017-05-11] MEDS: Isosorbide MONOnitrate (24 HR) 60 MG TAB.ER.24H PO SCH (11:06)
[2017-05-11] MEDS: Topiramate 25 MG TABLET PO SCH ×2 (11:07→20:02)
[2017-05-11] MEDS: FLUoxetine 20 MG CAPSULE PO SCH (11:07)
[2017-05-11] MEDS: Aspirin Enteric Coated 81 MG Tablet PO SCH (11:08)
[2017-05-11] MEDS: Pregabalin 50 MG CAPSULE PO SCH (11:08)
[2017-05-11] MEDS: NIFEdipine XL (24 HR) 60 MG TAB.ER.24 PO SCH (11:56)
[2017-05-11] MEDS: *HR* Heparin 5,000 UNIT/ML VIAL SQ SCH ×2 (14:36→20:02)
[2017-05-11 15:21] LABS: Hematocrit 24.9 % (37.5-50.1)
[2017-05-11] MEDS ORDERED: MetroNIDAZOLE 500 MG/100 ML 500 MG/100 ML BAG IVPB SCH (16:00)
[2017-05-11] MEDS: *HR* OxyCODONE/APAP 5/325 TABLET PO PRN (17:10)
--- NOTE | 2017-05-11 17:30 | Electrocardiograph Report ---
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
[2017-05-11 17:50] LABS: Calcium 7.5 mg/dL (8.6-10.3); Magnesium 1.8 mg/dL (1.6-2.6); Potassium 4.4 mEq/L (3.5-5.1)
[2017-05-11] MEDS ORDERED: Cefepime HCl 1,000 MG in D5% in Water (Mini-Bag+) 100 ML IVPB SCH (18:00)
[2017-05-11] MEDS: Pregabalin 75 MG CAPSULE PO SCH (20:02)
[2017-05-11] MEDS: traZODone 50 MG TABLET PO SCH (20:02)
[2017-05-12] MEDS: hydrALAZINE 25 MG TABLET PO SCH ×3 (00:19→17:03)
[2017-05-12] MEDS: MetroNIDAZOLE 500 MG/100 ML 500 MG/100 ML BAG IVPB SCH ×3 (00:20→17:04)
[2017-05-12] MEDS: Ipratropium/Albuterol Neb 3 ML IH SCH ×5 (03:23→20:00)
[2017-05-12] MEDS: Cefepime HCl 1,000 MG in Water for inj. (sterile) 10 ML IVP SCH (06:17)
[2017-05-12] MEDS: *HR* Heparin 5,000 UNIT/ML VIAL SQ SCH ×3 (06:17→20:18)
[2017-05-12] MEDS: *HR* OxyCODONE/APAP 5/325 TABLET PO PRN ×3 (06:50→20:11)
--- NOTE | 2017-05-12 07:49 | Event Note ---
Date of Encounter: 05/12/17 Time of Encounter: 07:48 Pulmonology service will be signing off at this time. Hospital service made aware that they will need to see patient today.
--- NOTE | 2017-05-12 07:54 | Nephrology Progress Note ---
Date of Encounter: 05/12/17 Time of Encounter: 07:52 - Assessment and Plan (1) Chronic kidney disease, stage III (moderate) Current Visit: Yes Status: Acute The patient has late stage III to early stage IV chronic kidney disease with associated nephrotic range proteinuria in the setting of diabetes and diabetic nephropathy. From renal standpoint is relatively stable. His blood pressure is controlled. His azotemia is stable. Studies are currently pending. (2) Proteinuria Current Visit: No Status: Acute Qualifiers: Proteinuria type: persistent Qualified Code(s): R80.1 - Persistent proteinuria, unspecified (3) Neurogenic bladder Current Visit: No Status: Chronic (4) Diabetic renal disease Current Visit: No Status: Acute Qualifiers: Diabetes mellitus type: type 2 Qualified Code(s): E11.21 - Type 2 diabetes mellitus with diabetic nephropathy (5) Type 2 diabetes mellitus with diabetic chronic kidney disease Current Visit: No Status: Chronic Qualifiers: Diabetes mellitus chcf insulin use: with chcf use Chronic kidney disease stage: stage 3 (moderate) Qualified Code(s): E11.22 - Type 2 diabetes mellitus with diabetic chronic kidney disease; N18.3 - Chronic kidney disease, stage 3 (moderate); N18.3 - Chronic kidney disease, stage 3 (moderate); Z79.4 - long-term (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 insulin; Z79.4 - terminal operations manager (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 insulin; Z79.4 - terminal operations manager (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 insulin; Z79.4 - terminal operations manager (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 insulin Subjective Interval history: The patient denies any specific complaints. He denies any shortness of breath. His of yesterday his creatinine was stable. Lab studies today are pending. Urine output is recorded as 1.5 L. Objective - Vital Signs Vital signs: Vital Signs Temp Pulse Resp BP Pulse Ox 05/12/17 07:00 71 18 161/67 92 05/12/17 06:00 69 16 128/65 90 05/12/17 05:00 72 18 156/64 93 05/12/17 04:00 61 14 141/58 100 05/12/17 03:43 98.3 F 05/12/17 03:25 23 140/58 100 05/12/17 03:00 61 12 140/58 100 05/12/17 02:00 62 18 137/57 100 05/12/17 01:00 60 21 134/60 100 05/12/17 00:19 98.4 F 05/12/17 00:00 63 21 137/59 100 05/11/17 23:19 20 134/57 100 05/11/17 23:00 63 20 134/57 100 05/11/17 22:00 64 20 139/59 99 05/11/17 21:00 66 18 130/56 99 05/11/17 20:00 70 19 132/57 89 05/11/17 19:50 98.0 F 05/11/17 19:40 16 92 05/11/17 19:30 70 05/11/17 19:00 70 16 132/55 91 05/11/17 18:00 71 16 129/63 92 05/11/17 17:00 76 16 132/59 95 05/11/17 16:00 97.5 F L 76 18 142/60 96 05/11/17 15:58 16 99 05/11/17 15:00 77 18 150/60 95 05/11/17 14:00 75 16 162/68 97 Intake and Output 05/11/17 05/11/17 05/12/17 15:59 23:59 07:59 Intake Total 950 / 1310 835 / 835 320 / 320 Output Total 525 / 525 350 / 350 Balance 950 / 610 310 / 310 -30 / -30 Intake: IV Fluids 550 / 660 735 / 735 110 / 110 Dextrose 50% (Vial) 50 ML In D5 550 / 550 625 / 625 % And 0.2% Nacl 500 Ml Bag 500 ML @ 150 mls/hr IVC .Q3H40M [facility] Rx#:[id number] Maxipime 1,000 MG In Water for inj. (sterile) 10 ML @ 150 mls/ hr IVP Q12HR [facility] Rx#:[id number] Flagyl Premix 500 MG/100 ML 500 100 / 100 100 / 100 mg In 100 ml @ 100 mls/hr IVPB Q8HR [facility] Rx#:[id number] Oral 400 / 400 100 / 100 210 / 210 Output: Catheter 525 / 525 350 / 350 Other: Meal Lunch Percent of Meal Consumed 100% Stool Size Small Stool Consistency soft Stool Color Brown # Bowel Movements 1 Weight 94.3 kg Blood Glucose* 144 137 114 Patient Weight 05/12/17 23:59 Weight 94.3 kg - General Appearance Exam: Patient is alert and oriented. He is in no acute distress. Lungs management sounds otherwise clear. Heart regular rhythm. Abdomen is benign. He has 2+ lower extremity swelling. - Lab 05/11/17 15:03 05/11/17 15:03 Most recent lab results ABG pH 7.30 pH Units (7.32-7.45) L 05/11/17 06:35 ABG pCO2 44 mmHg (35-45) 05/11/17 06:35 ABG pO2 96 mmHg (85-104) 05/11/17 06:35 ABG HCO3 21 mEq/L (21-27) 05/11/17 06:35 ABG O2 Saturation 97 % (95-98) 05/11/17 06:35 Calcium 7.5 mg/dL (8.6-10.3) L 05/11/17 15:03 Magnesium 1.8 mg/dL (1.6-2.6) 05/11/17 15:03 Consult Discharge Plan - Plan Referrals: Marcial Wolf DO [Primary Care Provider] -
[2017-05-12] MEDS: NIFEdipine XL (24 HR) 60 MG TAB.ER.24 PO SCH ×2 (08:10→10:25)
[2017-05-12] MEDS: Isosorbide MONOnitrate (24 HR) 60 MG TAB.ER.24H PO SCH ×2 (08:10→10:24)
[2017-05-12] MEDS: FLUoxetine 20 MG CAPSULE PO SCH ×2 (08:10→10:26)
[2017-05-12] MEDS: Pregabalin 75 MG CAPSULE PO SCH ×3 (08:10→20:17)
[2017-05-12] MEDS: Topiramate 25 MG TABLET PO SCH ×3 (08:11→20:17)
[2017-05-12] MEDS: Aspirin Enteric Coated 81 MG Tablet PO SCH ×2 (08:11→10:23)
[2017-05-12] MEDS ORDERED: *HR* Dextrose 50 % in Water (Syg) 50 ML SYRINGE IVP PRN ×2 (08:23→10:21)
[2017-05-12] MEDS ORDERED: D5% in Water 1,000 ML IVC PRN ×2 (08:23→10:21)
[2017-05-12] MEDS ORDERED: Nitroglycerin 0.4 MG TAB.SUBL SL PRN (08:23)
[2017-05-12] MEDS ORDERED: Dextrose Gel 15 GM/37.5 ML TUBE PO PRN ×4 (08:23→10:21)
[2017-05-12] MEDS ORDERED: Albuterol 2.5 MG/3 ML NEBULIZER IH PRN (08:23)
--- NOTE | 2017-05-12 08:31 | Urology Progress Note ---
Date of Encounter: 05/12/17 Time of Encounter: 08:30 - Assessment and Plan (1) Urinary retention Current Visit: Yes Status: Acute Assessment and plan: Catheter draining well. Patient will need follow-up with me or Dr. Olmstead in 1 -2 weeks for catheter removal and to evaluate the patient's ability to resume intermittent catheterization (2) Acute kidney failure, unspecified Current Visit: No Status: Acute Assessment and plan: Stable and nephrology following Qualifiers: Acute renal failure type: unspecified Qualified Code(s): N17.9 - Acute kidney failure, unspecified (3) Neurogenic bladder Current Visit: No Status: Chronic Progress Note Narrative: Patient was seen in the ICU. States catheter feels okay. Patient has had good urine output. Objective Initial Vital Signs Temp Pulse Resp BP Pulse Ox 97.8 F 64 16 156/68 97 05/10/17 12:13 05/10/17 12:13 05/10/17 12:13 05/10/17 12:13 05/10/17 12:13 - General physical appearance Present: well developed - Abdomen Present: soft - Genitourinary Present: other (Clear urine in the tubing) - Labs 05/11/17 15:03 05/11/17 15:03 Diabetes panel 05/11/17 Range/Units 15:03 Sodium 140 (136-145) mEq/L Potassium 4.4 (3.5-5.1) mEq/L Chloride 113 H (98-107) mEq/L Carbon Dioxide 20 L (23-29) mEq/L BUN 77 H (6-20) mg/dL Creatinine 2.39 H (0.70-1.30) mg/dL Glucose 133 H (70-105) mg/dL Calcium 7.5 L (8.6-10.3) mg/dL Calcium panel 05/11/17 Range/Units 15:03 Calcium 7.5 L (8.6-10.3) mg/dL Pituitary panel 05/11/17 Range/Units 15:03 Sodium 140 (136-145) mEq/L Potassium 4.4 (3.5-5.1) mEq/L Chloride 113 H (98-107) mEq/L Carbon Dioxide 20 L (23-29) mEq/L BUN 77 H (6-20) mg/dL Creatinine 2.39 H (0.70-1.30) mg/dL Glucose 133 H (70-105) mg/dL Calcium 7.5 L (8.6-10.3) mg/dL Adrenal panel 05/11/17 Range/Units 15:03 Sodium 140 (136-145) mEq/L Potassium 4.4 (3.5-5.1) mEq/L Chloride 113 H (98-107) mEq/L Carbon Dioxide 20 L (23-29) mEq/L BUN 77 H (6-20) mg/dL Creatinine 2.39 H (0.70-1.30) mg/dL Glucose 133 H (70-105) mg/dL Calcium 7.5 L (8.6-10.3) mg/dL Consult Discharge Plan - Plan Referrals: Marcial Wolf DO [Primary Care Provider] -
[2017-05-12] MEDS ORDERED: Furosemide 40 MG/4 ML VIAL IVP SCH (09:00)
[2017-05-12] MEDS: Furosemide 40 MG/4 ML VIAL IVP SCH (10:24)
--- NOTE | 2017-05-12 10:31 | Internal Med Progress Note ---
Date of Encounter: 05/12/17 Time of Encounter: 09:50 - Assessment and plan (1) Sepsis Current Visit: Yes Status: Resolved Assessment and plan: likely secondary to aspiration PNA will continue broad spectrum IV abx at this time awaiting repeat labs today will de-escalate therapy as per clinical response and blood culture results will continue to closely monitor Qualifiers: Sepsis type: sepsis due to unspecified organism Qualified Code(s): A41.9 - Sepsis, unspecified organism (2) Aspiration pneumonia Current Visit: Yes Status: Acute Assessment and plan: as listed above Qualifiers: Aspiration pneumonia type: unspecified Laterality: right Lung location: lower lobe of lung Qualified Code(s): J69.0 - Pneumonitis due to inhalation of food and vomit (3) Acute CHF Current Visit: Yes Status: Acute Assessment and plan: clinically improving noted to have good urine output will continue Lasix 40mg IV Daily monitor daily weights, I/Os fluid restriction diet Qualifiers: Heart failure type: combined systolic and diastolic Qualified Code(s): I50.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 (4) Bilateral lower extremity edema Current Visit: Yes Status: Acute Assessment and plan: secondary to CHF decompensation continue IV diuresis (5) Chronic kidney disease, stage III (moderate) Current Visit: Yes Status: Chronic Assessment and plan: renal function back to baseline nephrology input appreciated continue to closely monitor renal function (6) Urinary retention Current Visit: Yes Status: Chronic Assessment and plan: urology evaluation appreciated pt will be discharged with niño cath with further work up as outpatient (7) CAD (coronary artery disease) Current Visit: No Status: Chronic Assessment and plan: no signs of angina present at this time continue home dose of ASA, Plavix, statin, BB Qualifiers: Coronary Disease-Associated Artery/Lesion type: [place] artery [place] vs. transplanted heart: [place] heart Associated angina: without angina Qualified Code(s): I25.10 - Atherosclerotic heart disease of [place] coronary artery without angina pectoris (8) Diabetes mellitus Current Visit: No Status: Chronic Assessment and plan: Noted to have HbA1C Of 6.4 d/c levemir sliding scale insulin algorithm will closely monitor FS and BG ADA diet 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 mellitus complication status: with kidney complications Diabetes mellitus complication detail: with chronic kidney disease Diabetes mellitus care home insulin use: with care home use Chronic kidney disease stage: stage 3 (moderate) Qualified Code(s): E11.22 - Type 2 diabetes mellitus with diabetic chronic kidney disease; N18.3 - Chronic kidney disease, stage 3 (moderate); N18.3 - Chronic kidney disease, stage 3 ( moderate); Z79.4 - snf (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 insulin; Z79.4 - snf ( 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 insulin; Z79.4 - terminal clerk (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 insulin; Z79.4 - terminal clerk (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 insulin (9) Hypertension Current Visit: No Status: Chronic Assessment and plan: BP within acceptable range continue to closely monitor continue home meds Qualifiers: Hypertension type: renovascular hypertension Qualified Code(s): I15.0 - Renovascular hypertension (10) DVT prophylaxis Current Visit: No Status: Acute Assessment and plan: Heparin SQ (11) Wound of lower extremity Current Visit: Yes Status: Chronic Assessment and plan: b/l LE pressure wounds wound care consultation requested continue daily wound care PT/OT evaluation requested Qualifiers: Encounter type: initial encounter Laterality: unspecified laterality Qualified Code(s): S81.809A - Unspecified open wound, unspecified lower leg, initial encounter - Subjective Interval history: Patient is a 61y/o male who is admitted for acute CHF decompensation, Sepsis secondary to Rt lung PNA, TIANA on CKD secondary to urinary retention. He was transferred to the ICU for acute change in mental status secondary to hypoglycemia/respiratory distress. he was noted to have been given Levemir 90units SQ as per his home medications, however patient's last HbA1C in Apr 2017 was 6.4 and reported of taking Lantus 20units qd. At this time, pt's mental status is back to his baseline, he is saturating well on room air, and will be transferred out of the ICU to (05/12/17). Pt seen and examined at bedside. Resting in bed and reports of feeling better compared to the previous day. Denies any shortness of breath. - Constitutional Vitals: Temp Pulse Resp BP Pulse Ox 98.2 F 71 18 138/58 94 05/12/17 08:00 05/12/17 10:00 05/12/17 10:00 05/12/17 10:00 05/12/17 10:00 General appearance: Present: A&O X 3, no acute distress, answers questions appropriately - Head Head exam: Present: atraumatic, normocephalic - Eye Eye exam: Present: conjuntiva pink, sclera anicteric - Respiratory Respiratory exam: Absent: respiratory distress, wheezes (scatterd rales) - Cardiovascular Cardiovascular exam: Present: RRR, +S1, +S2. Absent: diastolic murmur, gallop, rubs, systolic murmur - GI/Abdominal GI/Abdominal exam: Present: normal bowel sounds, soft, no peritoneal signs. Absent: distended, tenderness - Extremities Exam Extremities exam: Present: pedal edema (pitting edema in b/l LE, pressure wounds on b/l ankles and b/l medial knee (dressing intact), right heel dressing intact ), warm, radial pulses palpable and symmetrical. Absent: calf tenderness - Neurological Exam Neurological exam: Present: alert, oriented X3 - Psychiatric Psychiatric exam: Present: normal affect, normal mood Internal Medicine: Result - Labs CBC & Chem 7: 05/11/17 15:03 05/12/17 09:43 Labs: Short CBC 05/11/17 Range/Units 15:03 Hgb 8.0 L (12.9-16.9) g/dL Hct 24.9 L (37.5-50.1) % BMP 05/11/17 05/12/17 15:03 09:43 Sodium 140 Potassium 4.4 Chloride 113 H Carbon Dioxide 20 L BUN 77 H 75 H Creatinine 2.39 H 2.38 H Glucose 133 H Calcium 7.5 L - ABG Interpretation ABG results: ABG ABG pH 7.30 pH Units (7.32-7.45) L 05/11/17 06:35 ABG pCO2 44 mmHg (35-45) 05/11/17 06:35 ABG pO2 96 mmHg (85-104) 05/11/17 06:35 ABG O2 Saturation 97 % (95-98) 05/11/17 06:35 - Impressions Impressions Echocardiogram 05/11/17 16:23 Impressions: LVEF 60%. Normal LV chamber size and function. Mild concentric left ventricular hypertrophy. Mild left ventricular diastolic dysfunction. Normal right ventricular structure and function. Mild pulmonary hypertension. Estimated RVSP of 40 mmHg. There is a trivial pericardial effusion present. Left Ventricular Wall Motion: Rest Echo Findings All wall segments showed normal motion. Findings: Study Quality * Technically adequate exam. ECG Findings * Normal sinus rhythm. Left Ventricle * LVEF 60%. * Normal LV chamber size and function. * Mild concentric left ventricular hypertrophy. * Mild left ventricular diastolic dysfunction. Right Ventricle * Normal right ventricular structure and function. Left Atrium * Mildly dilated left atrium. Right Atrium * Mildly dilated right atrium. Interatrial Septum * Interatrial septum not well evaluated. Aortic Valve * Trileaflet aortic valve with normal function. * No aortic regurgitation. * No aortic stenosis. Mitral Valve * Normal mitral valve structure and function. * No mitral stenosis. * Trace mitral regurgitation. Tricuspid Valve * Normal tricuspid valve structure and function. * Trace tricuspid regurgitation. * Mild pulmonary hypertension. Estimated RVSP of 40 mmHg. Pulmonic Valve * Normal pulmonic valve structure and function. * No pulmonic regurgitation. Aorta * Normally sized aortic root. Pericardium * There is a trivial pericardial effusion present. IVC * Normal IVC dimensions and inspiratory collapse. Pulmonary Artery * Normal visualized portions of the main pulmonary artery. Consult Discharge Plan - Plan Referrals: Marcial Wolf DO [Primary Care Provider] -
[2017-05-12 10:52] LABS: Basophils % 0.4 %; Eosinophils # 0.3 K/mcL (0.0-0.6); Eosinophils % 2.7 %; Hematocrit 25.9 % (37.5-50.1); Hemoglobin 8.1 g/dL (12.9-16.9); Immature Granulocytes % 0.6 % (0-4); Lymphocytes # 0.6 K/mcL (0.6-4.6); Lymphocytes % 6.6 %; Mean Corpuscular HGB Conc 31.3 g/dL (31.6-35.5); Mean Corpuscular Hemoglobin 27.9 pg (28.0-33.3); Mean Corpuscular Volume 89.3 fL (83.0-100.0); Monocytes # 0.5 K/mcL (0.0-1.3); Monocytes % 4.8 %; Neutrophils # 8.2 K/mcL (1.6-8.9); Platelet Count 244 K/mcL (140-400); Red Cell Distribution Width 15.9 % (11.5-14.5); Segmented Neutrophils % 84.9 %
[2017-05-12 11:00] LABS: Calcium 7.5 mg/dL (8.6-10.3); Magnesium 1.9 mg/dL (1.6-2.6); Potassium 4.5 mEq/L (3.5-5.1)
[2017-05-12] MEDS ORDERED: Vancomycin 1,250 MG in D5% in Water 250 ML IVPB SCH (11:00)
[2017-05-12] MEDS: Insulin LISPRO 300 UNITS/3 ML VIAL SQ SCH ×3 (11:27→20:18)
[2017-05-12] MEDS: Cefepime HCl 1,000 MG in Water for inj. (sterile) 20 ML 20 ML IVP SCH (17:04)
[2017-05-12] MEDS: traZODone 50 MG TABLET PO SCH (20:18)
[2017-05-13] MEDS: hydrALAZINE 25 MG TABLET PO SCH ×3 (00:20→16:36)
[2017-05-13] MEDS: MetroNIDAZOLE 500 MG/100 ML 500 MG/100 ML BAG IVPB SCH ×3 (00:20→16:36)
[2017-05-13] MEDS: Ipratropium/Albuterol Neb 3 ML IH SCH ×7 (00:47→23:41)
[2017-05-13] MEDS: *HR* OxyCODONE/APAP 5/325 TABLET PO PRN ×3 (05:05→20:25)
[2017-05-13] MEDS: Cefepime HCl 1,000 MG in Water for inj. (sterile) 20 ML 20 ML IVP SCH (05:05)
[2017-05-13] MEDS: *HR* Heparin 5,000 UNIT/ML VIAL SQ SCH ×3 (05:06→20:24)
[2017-05-13 06:13] LABS: Basophils % 0.4 %; Eosinophils # 0.3 K/mcL (0.0-0.6); Eosinophils % 2.5 %; Hematocrit 23.7 % (37.5-50.1); Hemoglobin 7.6 g/dL (12.9-16.9); Immature Granulocytes % 0.6 % (0-4); Lymphocytes # 0.6 K/mcL (0.6-4.6); Lymphocytes % 5.5 %; Mean Corpuscular HGB Conc 32.1 g/dL (31.6-35.5); Mean Corpuscular Volume 87.5 fL (83.0-100.0); Mean Platelet Volume 10.9 fL (9.4-12.4); Monocytes # 0.5 K/mcL (0.0-1.3); Monocytes % 4.8 %; Neutrophils # 9.6 K/mcL (1.6-8.9); Platelet Count 252 K/mcL (140-400); Red Blood Count 2.71 M/mcL (4.19-5.50); Red Cell Distribution Width 15.8 % (11.5-14.5); Segmented Neutrophils % 86.2 %
[2017-05-13 06:35] LABS: Calcium 7.6 mg/dL (8.6-10.3); Phosphorous 5.1 mg/dL (2.7-4.5); Potassium 4.9 mEq/L (3.5-5.1)
--- NOTE | 2017-05-13 07:34 | Nephrology Progress Note ---
Date of Encounter: 05/13/17 Time of Encounter: 07:33 - Assessment and Plan (1) Chronic kidney disease, stage III (moderate) Current Visit: Yes Status: Chronic The patient has late stage III to early stage IV chronic kidney disease with associated nephrotic range proteinuria in the setting of diabetes and diabetic nephropathy. The patient's serum creatinine is bit higher today compared to yesterday. He continues on Lasix 40 mg IV twice daily. We will continue to monitor his renal function. If his creatinine continues to increase with may need to reduce the dose of his Lasix. (2) Proteinuria Current Visit: No Status: Acute Qualifiers: Proteinuria type: persistent Qualified Code(s): R80.1 - Persistent proteinuria, unspecified (3) Neurogenic bladder Current Visit: No Status: Chronic (4) Diabetic renal disease Current Visit: No Status: Acute Qualifiers: Diabetes mellitus type: type 2 Qualified Code(s): E11.21 - Type 2 diabetes mellitus with diabetic nephropathy (5) Type 2 diabetes mellitus with diabetic chronic kidney disease Current Visit: No Status: Chronic Qualifiers: Diabetes mellitus terminal system operator insulin use: with terminal system operator use Chronic kidney disease stage: stage 3 (moderate) Qualified Code(s): E11.22 - Type 2 diabetes mellitus with diabetic chronic kidney disease; N18.3 - Chronic kidney disease, stage 3 (moderate); N18.3 - Chronic kidney disease, stage 3 (moderate); Z79.4 - senior living (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 insulin; Z79.4 - terminal system operator (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 insulin; Z79.4 - terminal system operator (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 insulin; Z79.4 - senior living (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 insulin Subjective Interval history: Patient is experiencing some mild shortness of breath. He denies any cough. Urine output is recorded is 1075 mL. Serum creatinine is gone up from 2.38- 2.74. He continues to have significant lower extremity edema. Objective - Vital Signs Vital signs: Vital Signs Temp Pulse Resp BP Pulse Ox 05/13/17 02:53 98.0 F 76 18 148/61 93 05/13/17 00:47 16 92 05/12/17 23:41 98.2 F 75 18 143/64 94 05/12/17 20:00 16 91 05/12/17 19:49 99.0 F 76 18 142/63 92 05/12/17 17:00 98.2 F 70 17 135/55 91 05/12/17 15:34 16 92 05/12/17 12:16 16 93 05/12/17 10:43 98.1 F 66 16 125/53 95 05/12/17 10:00 71 18 138/58 94 05/12/17 09:00 73 15 165/70 92 05/12/17 08:00 98.2 F 71 16 159/69 92 05/12/17 07:49 16 159/69 91 Intake and Output 05/12/17 05/12/17 05/13/17 15:59 23:59 07:59 Intake Total 100 / 100 120 / 120 Output Total 475 / 475 300 / 300 Balance 100 / 100 -355 / -355 -300 / -300 Intake: IV Fluids 100 / 100 120 / 120 Maxipime 1,000 MG In Water for 20 / 20 inj. (sterile) 20 ML @ 300 mls/ hr IVP Q12HR [facility] Rx#:[id number] Flagyl Premix 500 MG/100 ML 500 100 / 100 100 / 100 mg In 100 ml @ 100 mls/hr IVPB Q8HR [facility] Rx#:[id number] Output: Catheter 475 / 475 300 / 300 Urethral (Quan) 475 / 475 300 / 300 Other: Meal 2 jellos Percent of Meal Consumed 100% Weight 92.646 kg Blood Glucose* 175 242 Patient Weight 05/13/17 23:59 Weight 92.646 kg - General Appearance Exam: Patient is alert and oriented. He is in no acute distress. Lungs coarse breath sounds. Heart regular rate and rhythm. Abdomen is benign. There is 2+ lower extremity edema bilaterally. - Lab 05/13/17 05:48 05/13/17 05:48 Most recent lab results ABG pH 7.30 pH Units (7.32-7.45) L 05/11/17 06:35 ABG pCO2 44 mmHg (35-45) 05/11/17 06:35 ABG pO2 96 mmHg (85-104) 05/11/17 06:35 ABG HCO3 21 mEq/L (21-27) 05/11/17 06:35 ABG O2 Saturation 97 % (95-98) 05/11/17 06:35 Calcium 7.6 mg/dL (8.6-10.3) L 05/13/17 05:48 Phosphorus 5.1 mg/dL (2.7-4.5) H 05/13/17 05:48 Magnesium 2.0 mg/dL (1.6-2.6) 05/13/17 05:48 Consult Discharge Plan - Plan Referrals: Marcial Wolf DO [Primary Care Provider] -
--- NOTE | 2017-05-13 07:36 | Event Note ---
Date of Encounter: 05/13/17 Time of Encounter: 07:35 Since the patient's serum creatinine is starting to elevate. It also would be prudent to discontinue the vancomycin due to his potential nephrotoxicity and use an alternative agent for gram-positive coverage.
[2017-05-13] MEDS ORDERED: Aminoglycoside Consult 1 EACH MC ONE (08:15)
[2017-05-13] MEDS: FLUoxetine 20 MG CAPSULE PO SCH (10:02)
[2017-05-13] MEDS: Topiramate 25 MG TABLET PO SCH ×2 (10:03→20:25)
[2017-05-13] MEDS: Aspirin Enteric Coated 81 MG Tablet PO SCH (10:03)
[2017-05-13] MEDS: Pregabalin 75 MG CAPSULE PO SCH ×2 (10:03→20:24)
[2017-05-13] MEDS: NIFEdipine XL (24 HR) 60 MG TAB.ER.24 PO SCH (10:03)
[2017-05-13] MEDS: Isosorbide MONOnitrate (24 HR) 60 MG TAB.ER.24H PO SCH (10:04)
[2017-05-13] MEDS: Furosemide 40 MG/4 ML VIAL IVP SCH (10:04)
[2017-05-13] MEDS: Insulin LISPRO 300 UNITS/3 ML VIAL SQ SCH ×4 (10:05→23:16)
[2017-05-13 10:32] LABS: Hematocrit 25.4 % (37.5-50.1)
--- NOTE | 2017-05-13 14:44 | Internal Med Progress Note ---
Date of Encounter: 05/13/17 Time of Encounter: 14:42 - Assessment and plan (1) Sepsis Current Visit: Yes Status: Resolved Assessment and plan: likely secondary to aspiration PNA will continue broad spectrum IV abx at this time (d/abel Vancomycin given worsening renal function) will de-escalate therapy as per clinical response and blood culture results will continue to closely monitor Qualifiers: Sepsis type: sepsis due to unspecified organism Qualified Code(s): A41.9 - Sepsis, unspecified organism (2) Aspiration pneumonia Current Visit: Yes Status: Acute Assessment and plan: as listed above Qualifiers: Aspiration pneumonia type: unspecified Laterality: right Lung location: lower lobe of lung Qualified Code(s): J69.0 - Pneumonitis due to inhalation of food and vomit (3) Acute CHF Current Visit: Yes Status: Acute Assessment and plan: clinically improving noted to have good urine output will continue Lasix 40mg IV Daily monitor daily weights, I/Os fluid restriction diet Qualifiers: Heart failure type: combined systolic and diastolic Qualified Code(s): I50.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 (4) Bilateral lower extremity edema Current Visit: Yes Status: Acute Assessment and plan: secondary to CHF decompensation continue IV diuresis (5) Chronic kidney disease, stage III (moderate) Current Visit: Yes Status: Chronic Assessment and plan: renal function slightly worsened from previous day nephrology input appreciated continue to closely monitor renal function (6) Urinary retention Current Visit: Yes Status: Chronic Assessment and plan: urology evaluation appreciated pt will be discharged with niño cath with further work up as outpatient (7) CAD (coronary artery disease) Current Visit: No Status: Chronic Assessment and plan: no signs of angina present at this time continue home dose of ASA, Plavix, statin, BB Qualifiers: Coronary Disease-Associated Artery/Lesion type: [place] artery [place] vs. transplanted heart: [place] heart Associated angina: without angina Qualified Code(s): I25.10 - Atherosclerotic heart disease of [place] coronary artery without angina pectoris (8) Diabetes mellitus Current Visit: No Status: Chronic Assessment and plan: Noted to have HbA1C Of 6.4 sliding scale insulin algorithm will closely monitor FS and BG ADA diet 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 mellitus complication status: with kidney complications Diabetes mellitus complication detail: with chronic kidney disease Diabetes mellitus skilled nursing insulin use: with skilled nursing use Chronic kidney disease stage: stage 3 (moderate) Qualified Code(s): E11.22 - Type 2 diabetes mellitus with diabetic chronic kidney disease; N18.3 - Chronic kidney disease, stage 3 (moderate); N18.3 - Chronic kidney disease, stage 3 ( moderate); Z79.4 - rn long term care (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 insulin; Z79.4 - [facility] ( 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 insulin; Z79.4 - [facility] (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 insulin; Z79.4 - [facility] (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 insulin (9) Hypertension Current Visit: No Status: Chronic Assessment and plan: NOted to be hypertensive will add Hydralazine 10mg IV q6h prn SBP>160 continue to closely monitor continue home meds Qualifiers: Hypertension type: renovascular hypertension Qualified Code(s): I15.0 - Renovascular hypertension (10) DVT prophylaxis Current Visit: No Status: Acute Assessment and plan: Heparin SQ (11) Wound of lower extremity Current Visit: Yes Status: Chronic Assessment and plan: b/l LE pressure wounds wound care consultation requested continue daily wound care PT/OT evaluation requested Qualifiers: Encounter type: initial encounter Laterality: unspecified laterality Qualified Code(s): S81.809A - Unspecified open wound, unspecified lower leg, initial encounter - Subjective Interval history: Patient is a 61y/o male who is admitted for acute CHF decompensation, Sepsis secondary to Rt lung PNA, TIANA on CKD secondary to urinary retention. He was transferred to the ICU for acute change in mental status secondary to hypoglycemia/respiratory distress. he was noted to have been given Levemir 90units SQ as per his home medications, however patient's last HbA1C in Apr 2017 was 6.4 and reported of taking Lantus 20units qd. At this time, pt's mental status is back to his baseline, he is saturating well on room air, and will be transferred out of the ICU to (05/12/17). Pt seen and examined at bedside. Resting in bed and reports of feeling better compared to the previous day. Denies any shortness of breath. noted to have jump in serum creatinine. will d/c iv vancomycin currently on lasix IV qdaily noted to be hypertensive, will adjust medications for better BP control - Constitutional Vitals: Temp Pulse Resp BP Pulse Ox 97.8 F 75 15 163/65 92 02/11/18 11:51 05/13/17 11:51 05/13/17 11:51 05/13/17 11:51 05/13/17 11:51 General appearance: Present: A&O X 3, no acute distress, answers questions appropriately - Head Head exam: Present: atraumatic, normocephalic - Eye Eye exam: Present: conjuntiva pink, sclera anicteric - Respiratory Respiratory exam: Present: CTAB. Absent: respiratory distress, wheezes - Cardiovascular Cardiovascular exam: Present: RRR, +S1, +S2. Absent: diastolic murmur, gallop, rubs, systolic murmur - GI/Abdominal GI/Abdominal exam: Present: normal bowel sounds, soft, no peritoneal signs. Absent: distended, tenderness - Extremities Exam Extremities exam: Present: warm, radial pulses palpable and symmetrical (b/l LE pedal edema, b/l LE ulcers-dressing intact ). Absent: calf tenderness - Neurological Exam Neurological exam: Present: alert, oriented X3 Internal Medicine: Result - Labs CBC & Chem 7: 05/13/17 10:15 05/13/17 05:48 Labs: Short CBC 05/13/17 05/13/17 Range/Units 05:48 10:15 WBC 11.2 H (4.3-11.1) K/mcL Hgb 7.6 L 8.0 L (12.9-16.9) g/dL Hct 23.7 L 25.4 L (37.5-50.1) % Plt Count 252 (140-400) K/mcL Neutrophils # 9.6 H (1.6-8.9) K/mcL BMP 05/13/17 05:48 Sodium 139 Potassium 4.9 Chloride 114 H Carbon Dioxide 20 L BUN 76 H Creatinine 2.74 H Glucose 154 H Calcium 7.6 L - ABG Interpretation ABG results: ABG ABG pH 7.30 pH Units (7.32-7.45) L 05/11/17 06:35 ABG pCO2 44 mmHg (35-45) 05/11/17 06:35 ABG pO2 96 mmHg (85-104) 05/11/17 06:35 ABG O2 Saturation 97 % (95-98) 05/11/17 06:35 Consult Discharge Plan - Plan Referrals: Marcial Wolf DO [Primary Care Provider] -
[2017-05-13] MEDS: traZODone 50 MG TABLET PO SCH (20:25)
[2017-05-14] MEDS: MetroNIDAZOLE 500 MG/100 ML 500 MG/100 ML BAG IVPB SCH ×4 (00:34→23:29)
[2017-05-14] MEDS: hydrALAZINE 25 MG TABLET PO SCH ×4 (00:34→23:29)
[2017-05-14] MEDS: Ipratropium/Albuterol Neb 3 ML IH SCH ×6 (03:58→23:55)
[2017-05-14] MEDS: *HR* Heparin 5,000 UNIT/ML VIAL SQ SCH ×3 (05:02→20:50)
[2017-05-14] MEDS: *HR* OxyCODONE/APAP 5/325 TABLET PO PRN ×3 (05:05→18:08)
[2017-05-14 05:07] LABS: Basophils # 0.1 K/mcL (0.0-0.2); Basophils % 0.5 %; Eosinophils # 0.2 K/mcL (0.0-0.6); Eosinophils % 2.5 %; Hematocrit 23.4 % (37.5-50.1); Hemoglobin 7.5 g/dL (12.9-16.9); Immature Granulocytes % 0.6 % (0-4); Lymphocytes # 0.6 K/mcL (0.6-4.6); Lymphocytes % 6.4 %; Mean Corpuscular HGB Conc 32.1 g/dL (31.6-35.5); Mean Corpuscular Hemoglobin 28.2 pg (28.0-33.3); Mean Platelet Volume 10.9 fL (9.4-12.4); Monocytes # 0.6 K/mcL (0.0-1.3); Monocytes % 5.8 %; Neutrophils # 8.1 K/mcL (1.6-8.9); Platelet Count 246 K/mcL (140-400); Red Blood Count 2.66 M/mcL (4.19-5.50); Red Cell Distribution Width 15.8 % (11.5-14.5); Segmented Neutrophils % 84.2 %
[2017-05-14 05:34] LABS: Albumin 2.1 g/dL (3.5-5.7); Albumin/Globulin Ratio 0.7 (1.1-2.2); Bilirubin,Total 0.3 mg/dL (0.3-1.0); Calcium 7.7 mg/dL (8.6-10.3); Globulin 3.1 g/dL (2.4-3.5); Potassium 4.5 mEq/L (3.5-5.1); Total Protein 5.2 g/dL (6.4-8.9)
[2017-05-14 05:37] LABS: Phosphorous 5.1 mg/dL (2.7-4.5)
[2017-05-14] MEDS ORDERED: Cefepime HCl 1,000 MG in Water for inj. (sterile) 20 ML 20 ML IVP SCH (06:00)
[2017-05-14] MEDS: NIFEdipine XL (24 HR) 30 MG TAB.ER.24 PO SCH (09:10)
[2017-05-14] MEDS: Aspirin Enteric Coated 81 MG Tablet PO SCH (09:11)
[2017-05-14] MEDS: FLUoxetine 20 MG CAPSULE PO SCH (09:11)
[2017-05-14] MEDS: Isosorbide MONOnitrate (24 HR) 60 MG TAB.ER.24H PO SCH (09:12)
[2017-05-14] MEDS: Topiramate 25 MG TABLET PO SCH ×2 (09:12→20:50)
[2017-05-14] MEDS: Furosemide 40 MG/4 ML VIAL IVP SCH (09:12)
[2017-05-14] MEDS: Insulin LISPRO 300 UNITS/3 ML VIAL SQ SCH ×4 (09:13→20:41)
[2017-05-14] MEDS: Pregabalin 75 MG CAPSULE PO SCH ×2 (09:14→20:50)
--- NOTE | 2017-05-14 10:04 | Nephrology Progress Note ---
Date of Encounter: 05/14/17 Time of Encounter: 09:30 - Assessment and Plan (1) CKD (chronic kidney disease) Current Visit: No Status: Acute CHF on diuretic. Stable CKD 4, baseline 2.3-2.5. Creat peak yeasterday 2.74, plateued today 2.72. Known nephrotic range proteinuria in setting of poorly controlled DM and HTN. Pregabalin may be contributing to edema. History of neurogenic bladder. Maintain niño catheter, Accurate I&O's. Avoid nephrotoxins. Will continue to monitor. Qualifiers: Chronic kidney disease stage: stage 4 (severe) Qualified Code(s): N18.4 - Chronic kidney disease, stage 4 (severe) Subjective Interval history: Laying quietly, states feeling better, denies NIKO. LE swelling improved. Objective - Vital Signs Vital signs: Vital Signs Temp Pulse Resp BP Pulse Ox 05/14/17 08:20 98.2 F 78 14 171/69 92 05/14/17 04:30 97.7 F 71 18 155/62 93 05/14/17 00:30 97.8 F 71 18 139/63 95 05/13/17 20:45 97.9 F 71 18 129/52 93 05/13/17 19:59 16 93 05/13/17 16:20 16 95 05/13/17 15:07 98.0 F 72 16 144/62 91 05/13/17 11:51 97.8 F 75 15 163/65 92 05/13/17 11:02 16 93 Intake and Output 05/13/17 05/14/17 05/14/17 23:59 07:59 15:59 Intake Total 100 / 100 100 / 100 240 / 240 Output Total 800 / 800 400 / 400 Balance -700 / -700 -300 / -300 240 / 240 Intake: IV Fluids 100 / 100 100 / 100 Flagyl Premix 500 MG/100 ML 500 100 / 100 100 / 100 mg In 100 ml @ 100 mls/hr IVPB Q8HR [facility] Rx#:[id number] Oral 0 / 0 240 / 240 Output: Catheter 800 / 800 400 / 400 Urethral (Niño) 400 / 400 400 / 400 Other: Meal Breakfast Percent of Meal Consumed 100% Weight 92.6 kg Blood Glucose* 196 183 Patient Weight 05/14/17 23:59 Weight 92.6 kg - General Appearance General appearance: Present: well-developed, well-nourished, appears started age EENT: Present: mucous membranes moist Neck: Present: no JVD Respiratory: Present: clear Cardiology: Present: edema, regular rate, regular rhythm Additional Comments: mild LE edema Gastrointestinal: Present: normoactive bowel sounds, no tenderness Integumentary: Present: warm and dry Neurologic: Present: alert and oriented x3 - Lab 05/14/17 04:28 05/14/17 04:28 Most recent lab results ABG pH 7.30 pH Units (7.32-7.45) L 05/11/17 06:35 ABG pCO2 44 mmHg (35-45) 05/11/17 06:35 ABG pO2 96 mmHg (85-104) 05/11/17 06:35 ABG HCO3 21 mEq/L (21-27) 05/11/17 06:35 ABG O2 Saturation 97 % (95-98) 05/11/17 06:35 Calcium 7.7 mg/dL (8.6-10.3) L 05/14/17 04:28 Phosphorus 5.1 mg/dL (2.7-4.5) H 05/14/17 04:28 Magnesium 2.0 mg/dL (1.6-2.6) 05/14/17 04:28 Consult Discharge Plan - Plan Referrals: Marcial Wolf DO [Primary Care Provider] - (web request sent on 05/14)
--- NOTE | 2017-05-14 13:35 | Internal Med Progress Note ---
Date of Encounter: 05/14/17 Time of Encounter: 13:32 - Assessment and plan (1) Sepsis Current Visit: Yes Status: Resolved Assessment and plan: likely secondary to aspiration PNA will continue broad spectrum IV abx at this time (d/abel Vancomycin given worsening renal function) d/c Cefepime will start PO levaquin to finish abx for total of ten days will continue to closely monitor prelim blood cultures reported no growth, will follow up final results Qualifiers: Sepsis type: sepsis due to unspecified organism Qualified Code(s): A41.9 - Sepsis, unspecified organism (2) Aspiration pneumonia Current Visit: Yes Status: Acute Assessment and plan: as listed above Qualifiers: Aspiration pneumonia type: unspecified Laterality: right Lung location: lower lobe of lung Qualified Code(s): J69.0 - Pneumonitis due to inhalation of food and vomit (3) Acute CHF Current Visit: Yes Status: Acute Assessment and plan: clinically improving noted to have good urine output will d/c IV lasix and start Lasix 40mg PO BID monitor daily weights, I/Os fluid restriction diet Qualifiers: Heart failure type: combined systolic and diastolic Qualified Code(s): I50.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 (4) Bilateral lower extremity edema Current Visit: Yes Status: Acute Assessment and plan: secondary to CHF decompensation continue diuresis (5) Chronic kidney disease, stage III (moderate) Current Visit: Yes Status: Chronic Assessment and plan: renal function slightly improved from previous day nephrology input appreciated continue to closely monitor renal function (6) Urinary retention Current Visit: Yes Status: Chronic Assessment and plan: urology evaluation appreciated pt will be discharged with niño cath with further work up as outpatient (7) CAD (coronary artery disease) Current Visit: No Status: Chronic Assessment and plan: no signs of angina present at this time continue home dose of ASA, Plavix, statin, BB Qualifiers: Coronary Disease-Associated Artery/Lesion type: [place] artery [place] vs. transplanted heart: [place] heart Associated angina: without angina Qualified Code(s): I25.10 - Atherosclerotic heart disease of [place] coronary artery without angina pectoris (8) Diabetes mellitus Current Visit: No Status: Chronic Assessment and plan: Noted to have HbA1C Of 6.4 sliding scale insulin algorithm will closely monitor FS and BG ADA diet 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 mellitus complication status: with kidney complications Diabetes mellitus complication detail: with chronic kidney disease Diabetes mellitus shelter insulin use: with intermediate card tender use Chronic kidney disease stage: stage 3 (moderate) Qualified Code(s): E11.22 - Type 2 diabetes mellitus with diabetic chronic kidney disease; N18.3 - Chronic kidney disease, stage 3 (moderate); N18.3 - Chronic kidney disease, stage 3 ( moderate); Z79.4 - intermediate (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 insulin; Z79.4 - medical terminologist ( 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 insulin; Z79.4 - intermediate (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 insulin; Z79.4 - medical terminologist (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 insulin (9) Hypertension Current Visit: No Status: Chronic Assessment and plan: NOted to be hypertensive this morning increased home dose of Nifedipine to 90mg PO qdaily, repeat BP within acceptable range continue Hydralazine 10mg IV q6h prn SBP>160 continue to closely monitor continue home meds Qualifiers: Hypertension type: renovascular hypertension Qualified Code(s): I15.0 - Renovascular hypertension (10) DVT prophylaxis Current Visit: No Status: Acute Assessment and plan: Heparin SQ (11) Wound of lower extremity Current Visit: Yes Status: Chronic Assessment and plan: b/l LE pressure wounds continue daily wound care PT/OT evaluation recommended inpatient rehab/swing bed, public health social worker consulted for placement Qualifiers: Encounter type: initial encounter Laterality: unspecified laterality Qualified Code(s): S81.809A - Unspecified open wound, unspecified lower leg, initial encounter - Subjective Interval history: Patient is a 61y/o male who is admitted for acute CHF decompensation, Sepsis secondary to Rt lung PNA, TIANA on CKD secondary to urinary retention. He was transferred to the ICU for acute change in mental status secondary to hypoglycemia/respiratory distress. he was noted to have been given Levemir 90units SQ as per his home medications, however patient's last HbA1C in Apr 2017 was 6.4 and reported of taking Lantus 20units qd. At this time, pt's mental status is back to his baseline, he is saturating well on room air, and will be transferred out of the ICU to (05/12/17). Pt seen and examined at bedside. Resting in bed and reports of feeling better compared to the previous day. Denies any shortness of breath. Physical therapy evaluated the patient and inpatient rehab/swing bed was recommended. [place] worker consulted for placement - Constitutional Vitals: Temp Pulse Resp BP Pulse Ox 98.2 F 73 16 136/49 96 05/14/17 10:54 05/14/17 10:54 05/14/17 11:52 05/14/17 10:54 05/14/17 11:52 General appearance: Present: A&O X 3, no acute distress, answers questions appropriately - Head Head exam: Present: atraumatic, normocephalic - Eye Eye exam: Present: conjuntiva pink, sclera anicteric - Respiratory Respiratory exam: Present: CTAB. Absent: respiratory distress, wheezes - Cardiovascular Cardiovascular exam: Present: RRR, +S1, +S2. Absent: diastolic murmur, gallop, rubs, systolic murmur - GI/Abdominal GI/Abdominal exam: Present: normal bowel sounds, soft, no peritoneal signs. Absent: distended, tenderness - Extremities Exam Extremities exam: Present: pedal edema, warm, radial pulses palpable and symmetrical. Absent: calf tenderness - Neurological Exam Neurological exam: Present: oriented X3 Internal Medicine: Result - Labs CBC & Chem 7: 05/14/17 04:28 05/14/17 04:28 Labs: Short CBC 05/14/17 Range/Units 04:28 WBC 9.6 (4.3-11.1) K/mcL Hgb 7.5 L (12.9-16.9) g/dL Hct 23.4 L (37.5-50.1) % Plt Count 246 (140-400) K/mcL Neutrophils # 8.1 (1.6-8.9) K/mcL BMP 05/14/17 04:28 Sodium 139 Potassium 4.5 Chloride 115 H Carbon Dioxide 19 L BUN 79 H Creatinine 2.72 H Glucose 188 H Calcium 7.7 L Liver Function 05/14/17 Range/Units 04:28 Total Bilirubin 0.3 (0.3-1.0) mg/dL AST 21 (13-39) Units/L ALT 21 (7-52) Units/L Alkaline Phosphatase 80 (34-104) Units/L Albumin 2.1 L (3.5-5.7) g/dL - ABG Interpretation ABG results: ABG ABG pH 7.30 pH Units (7.32-7.45) L 05/11/17 06:35 ABG pCO2 44 mmHg (35-45) 05/11/17 06:35 ABG pO2 96 mmHg (85-104) 05/11/17 06:35 ABG O2 Saturation 97 % (95-98) 05/11/17 06:35 Consult Discharge Plan - Plan Referrals: Marcial Wolf DO [Primary Care Provider] - (web request sent on 05/14)
--- NOTE | 2017-05-14 16:49 | Urology Progress Note ---
Date of Encounter: 05/14/17 Time of Encounter: 16:47 - Assessment and Plan (1) Bilateral lower extremity edema Current Visit: Yes Status: Acute Assessment and plan: As his peripheral edema improves expected sees his scrotal edema improved as well. There is no urologic intervention necessary at this time. Continue with scrotal elevation. There is no evidence of scrotal cellulitis. (2) Urinary retention Current Visit: Yes Status: Chronic Assessment and plan: Continue catheter for now. He can follow for a voiding trial with Dr. Olmstead or Dr. Wise 1-2 weeks. Please call with questions. Progress Note Narrative: 61-year-old man status post catheter placement. He has scrotal edema as well as peripheral edema. There is some mild excoriation along the scrotal surface. He is having some tenderness in the scrotum. Objective Initial Vital Signs Temp Pulse Resp BP Pulse Ox 97.8 F 64 16 156/68 97 05/10/17 12:13 05/10/17 12:13 05/10/17 12:13 05/10/17 12:13 05/10/17 12:13 - General physical appearance Present: well developed, well nourished, no distress - Respiratory Present: normal respiratory effort - Abdomen Present: soft - Genitourinary Present: other (Catheter in place with clear urine. Circumcised penis. There is penoscrotal edema.) - Musculoskeletal Present: other (There is pitting peripheral edema.) - Labs 05/14/17 04:28 05/14/17 04:28 Diabetes panel 05/14/17 Range/Units 04:28 Sodium 139 (136-145) mEq/L Potassium 4.5 (3.5-5.1) mEq/L Chloride 115 H (98-107) mEq/L Carbon Dioxide 19 L (23-29) mEq/L BUN 79 H (6-20) mg/dL Creatinine 2.72 H (0.70-1.30) mg/dL Glucose 188 H (70-105) mg/dL Calcium 7.7 L (8.6-10.3) mg/dL AST 21 (13-39) Units/L ALT 21 (7-52) Units/L Alkaline Phosphatase 80 (34-104) Units/L Albumin 2.1 L (3.5-5.7) g/dL Calcium panel 05/14/17 05/14/17 Range/Units 04:28 04:28 Calcium 7.7 L (8.6-10.3) mg/dL Phosphorus 5.1 H (2.7-4.5) mg/dL Albumin 2.1 L (3.5-5.7) g/dL Pituitary panel 05/14/17 Range/Units 04:28 Sodium 139 (136-145) mEq/L Potassium 4.5 (3.5-5.1) mEq/L Chloride 115 H (98-107) mEq/L Carbon Dioxide 19 L (23-29) mEq/L BUN 79 H (6-20) mg/dL Creatinine 2.72 H (0.70-1.30) mg/dL Glucose 188 H (70-105) mg/dL Calcium 7.7 L (8.6-10.3) mg/dL Adrenal panel 05/14/17 Range/Units 04:28 Sodium 139 (136-145) mEq/L Potassium 4.5 (3.5-5.1) mEq/L Chloride 115 H (98-107) mEq/L Carbon Dioxide 19 L (23-29) mEq/L BUN 79 H (6-20) mg/dL Creatinine 2.72 H (0.70-1.30) mg/dL Glucose 188 H (70-105) mg/dL Calcium 7.7 L (8.6-10.3) mg/dL Total Bilirubin 0.3 (0.3-1.0) mg/dL AST 21 (13-39) Units/L ALT 21 (7-52) Units/L Alkaline Phosphatase 80 (34-104) Units/L Albumin 2.1 L (3.5-5.7) g/dL Consult Discharge Plan - Plan Referrals: Marcial Wolf DO [Primary Care Provider] - 05/18/17 2:30 pm ()
[2017-05-14] MEDS: levoFLOXacin 750 MG TABLET PO SCH (18:08)
[2017-05-14] MEDS: traZODone 50 MG TABLET PO SCH (20:50)
[2017-05-15] MEDS: Ipratropium/Albuterol Neb 3 ML IH SCH ×6 (04:10→23:44)
[2017-05-15 04:29] LABS: Basophils % 0.4 %; Eosinophils # 0.2 K/mcL (0.0-0.6); Eosinophils % 1.9 %; Hematocrit 24.2 % (37.5-50.1); Hemoglobin 7.6 g/dL (12.9-16.9); Immature Granulocytes % 0.4 % (0-4); Lymphocytes # 0.6 K/mcL (0.6-4.6); Lymphocytes % 5.5 %; Mean Corpuscular HGB Conc 31.4 g/dL (31.6-35.5); Mean Corpuscular Hemoglobin 27.8 pg (28.0-33.3); Mean Corpuscular Volume 88.6 fL (83.0-100.0); Mean Platelet Volume 10.5 fL (9.4-12.4); Monocytes # 0.6 K/mcL (0.0-1.3); Monocytes % 5.5 %; Neutrophils # 8.8 K/mcL (1.6-8.9); Platelet Count 253 K/mcL (140-400); Red Blood Count 2.73 M/mcL (4.19-5.50); Red Cell Distribution Width 15.7 % (11.5-14.5); Segmented Neutrophils % 86.3 %
[2017-05-15 04:52] LABS: Calcium 7.9 mg/dL (8.6-10.3); Phosphorous 4.8 mg/dL (2.7-4.5); Potassium 4.8 mEq/L (3.5-5.1)
[2017-05-15] MEDS: *HR* Heparin 5,000 UNIT/ML VIAL SQ SCH ×3 (05:30→21:54)
[2017-05-15] MEDS ORDERED: Furosemide 40 MG TABLET PO SCH (08:00)
[2017-05-15 08:55] LABS: % Iron Saturation 35 % (20-55); Iron 66 mcg/dL (65-175); Transferrin 136 mg/dL (203-362)
[2017-05-15] MEDS ORDERED: levoFLOXacin 750 MG TABLET PO SCH (09:00)
--- NOTE | 2017-05-15 09:15 | Nephrology Progress Note ---
Date of Encounter: 05/15/17 Time of Encounter: 08:50 - Assessment and Plan (1) CKD (chronic kidney disease) Current Visit: No Status: Acute CHF on diuretic. Stable CKD 4, Known nephrotic range proteinuria in setting of poorly controlled DM and HTN, baseline creat 2.3-2.5. Renal fct slight worse, creat 2.78. Will decrease PO Lasix. Hx nephrotic range proteinuria, Pregabalin and CCB may be contributing to edema. History of neurogenic bladder. Maintain niño catheter, Accurate I&O's. Avoid nephrotoxins. Will continue to monitor. Qualifiers: Chronic kidney disease stage: stage 4 (severe) Qualified Code(s): N18.4 - Chronic kidney disease, stage 4 (severe) Subjective Interval history: Laying quietly, states feeling better, denies NIKO. Objective - Vital Signs Vital signs: Vital Signs Temp Pulse Resp BP Pulse Ox 05/15/17 07:46 18 95 05/15/17 03:59 97.7 F 70 16 164/67 96 05/14/17 23:25 97.9 F 69 16 133/62 95 05/14/17 20:39 97.8 F 71 16 108/56 99 05/14/17 20:33 18 91 05/14/17 16:47 97.6 F 74 14 115/50 90 05/14/17 11:52 16 96 05/14/17 10:54 98.2 F 73 16 136/49 95 Intake and Output 05/14/17 05/15/17 05/15/17 23:59 07:59 15:59 Intake Total 100 / 100 Output Total 1000 / 1000 Balance 100 / 100 -1000 / -1000 Intake: IV Fluids 100 / 100 Flagyl Premix 500 MG/100 ML 500 100 / 100 mg In 100 ml @ 100 mls/hr IVPB Q8HR [facility] Rx#:[id number] Output: Catheter 1000 / 1000 Other: Stool Size Moderate Stool Consistency formed Stool Color Brown Weight 93.894 kg Blood Glucose* 157 Patient Weight 05/15/17 23:59 Weight 93.894 kg - General Appearance General appearance: Present: well-developed, well-nourished, appears started age EENT: Present: mucous membranes moist Neck: Present: no JVD Respiratory: Present: clear Cardiology: Present: edema, regular rate, regular rhythm Additional Comments: mild-1+ Gastrointestinal: Present: normoactive bowel sounds, no tenderness, no guarding Integumentary: Present: warm and dry Neurologic: Present: alert and oriented x3 - Lab 05/15/17 03:50 05/15/17 03:50 Most recent lab results ABG pH 7.30 pH Units (7.32-7.45) L 05/11/17 06:35 ABG pCO2 44 mmHg (35-45) 05/11/17 06:35 ABG pO2 96 mmHg (85-104) 05/11/17 06:35 ABG HCO3 21 mEq/L (21-27) 05/11/17 06:35 ABG O2 Saturation 97 % (95-98) 05/11/17 06:35 Calcium 7.9 mg/dL (8.6-10.3) L 05/15/17 03:50 Phosphorus 4.8 mg/dL (2.7-4.5) H 05/15/17 03:50 Magnesium 2.0 mg/dL (1.6-2.6) 05/15/17 03:50 Consult Discharge Plan - Plan Referrals: Marcial Wolf DO [Primary Care Provider] - 05/18/17 2:30 pm ()
[2017-05-15] MEDS: Insulin LISPRO 300 UNITS/3 ML VIAL SQ SCH ×4 (09:41→22:45)
[2017-05-15] MEDS: NIFEdipine XL (24 HR) 30 MG TAB.ER.24 PO SCH (09:42)
[2017-05-15] MEDS: Pregabalin 75 MG CAPSULE PO SCH ×2 (09:42→21:54)
[2017-05-15] MEDS: Topiramate 25 MG TABLET PO SCH ×2 (09:42→21:54)
[2017-05-15] MEDS: hydrALAZINE 25 MG TABLET PO SCH ×3 (09:42→23:50)
[2017-05-15] MEDS: FLUoxetine 20 MG CAPSULE PO SCH (09:43)
[2017-05-15] MEDS: *HR* OxyCODONE/APAP 5/325 TABLET PO PRN ×2 (09:43→17:48)
[2017-05-15] MEDS: Aspirin Enteric Coated 81 MG Tablet PO SCH (09:43)
[2017-05-15] MEDS: Isosorbide MONOnitrate (24 HR) 60 MG TAB.ER.24H PO SCH (09:43)
--- NOTE | 2017-05-15 13:53 | Internal Med Progress Note ---
Date of Encounter: 05/15/17 Time of Encounter: 13:53 - Assessment and plan (1) Sepsis Current Visit: Yes Status: Resolved Assessment and plan: likely secondary to aspiration PNA will continue broad spectrum IV abx at this time (d/abel Vancomycin given worsening renal function) continue PO levaquin to finish abx for total of ten days will continue to closely monitor prelim blood cultures reported no growth, will follow up final results Qualifiers: Sepsis type: sepsis due to unspecified organism Qualified Code(s): A41.9 - Sepsis, unspecified organism (2) Aspiration pneumonia Current Visit: Yes Status: Acute Assessment and plan: as listed above Qualifiers: Aspiration pneumonia type: unspecified Laterality: right Lung location: lower lobe of lung Qualified Code(s): J69.0 - Pneumonitis due to inhalation of food and vomit (3) Acute CHF Current Visit: Yes Status: Acute Assessment and plan: clinically improving noted to have good urine output decreased to Lasix 20mg PO BID monitor daily weights, I/Os fluid restriction diet Qualifiers: Heart failure type: combined systolic and diastolic Qualified Code(s): I50.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 (4) Bilateral lower extremity edema Current Visit: Yes Status: Acute Assessment and plan: secondary to CHF decompensation continue diuresis (5) Chronic kidney disease, stage III (moderate) Current Visit: Yes Status: Chronic Assessment and plan: renal function slightly worsened from previous day nephrology input appreciated continue to closely monitor renal function (6) Urinary retention Current Visit: Yes Status: Chronic Assessment and plan: urology evaluation appreciated pt will be discharged with niño cath with further work up as outpatient (7) CAD (coronary artery disease) Current Visit: No Status: Chronic Assessment and plan: no signs of angina present at this time continue home dose of ASA, Plavix, statin, BB Qualifiers: Coronary Disease-Associated Artery/Lesion type: [place] artery [place] vs. 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: with correction use Chronic kidney disease stage: stage 3 (moderate) Qualified Code(s): E11.22 - Type 2 diabetes mellitus with diabetic chronic kidney disease; N18.3 - Chronic kidney disease, stage 3 (moderate); N18.3 - Chronic kidney disease, stage 3 ( moderate); Z79.4 - USP (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 insulin; Z79.4 - USP ( 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 insulin; Z79.4 - manager terminal (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 insulin; Z79.4 - USP (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 insulin (9) Hypertension Current Visit: No Status: Chronic Assessment and plan: BP better controlled continue Nifedipine to 90mg PO qdaily continue Hydralazine 10mg IV q6h prn SBP>160 continue to closely monitor continue home meds Qualifiers: Hypertension type: renovascular hypertension Qualified Code(s): I15.0 - Renovascular hypertension (10) DVT prophylaxis Current Visit: No Status: Acute Assessment and plan: Heparin SQ (11) Wound of lower extremity Current Visit: Yes Status: Chronic Assessment and plan: b/l LE pressure wounds continue daily wound care PT/OT evaluation recommended inpatient rehab/swing bed, [employer] school social [employer] teacher consulted for placement Qualifiers: Encounter type: initial encounter Laterality: unspecified laterality Qualified Code(s): S81.809A - Unspecified open wound, unspecified lower leg, initial encounter - Subjective Interval history: Patient is a 61y/o male who is admitted for acute CHF decompensation, Sepsis secondary to Rt lung PNA, TIANA on CKD secondary to urinary retention. He was transferred to the ICU for acute change in mental status secondary to hypoglycemia/respiratory distress. he was noted to have been given Levemir 90units SQ as per his home medications, however patient's last HbA1C in Apr 2017 was 6.4 and reported of taking Lantus 20units qd. At this time, pt's mental status is back to his baseline, he is saturating well on room air, and will be transferred out of the ICU to (05/12/17). Pt seen and examined at bedside. Resting in bed and reports of feeling better compared to the previous day. Denies any shortness of breath. Physical therapy evaluated the patient and inpatient rehab/swing bed was recommended. beam worker consulted for placement - Constitutional Vitals: Temp Pulse Resp BP Pulse Ox 97.9 F 80 18 115/53 93 05/15/17 12:20 05/15/17 12:20 05/15/17 12:20 05/15/17 12:20 05/15/17 12:20 General appearance: Present: A&O X 3, no acute distress, answers questions appropriately - Head Head exam: Present: atraumatic, normocephalic - Eye Eye exam: Present: conjuntiva pink, sclera anicteric - Respiratory Respiratory exam: Absent: respiratory distress, wheezes - Cardiovascular Cardiovascular exam: Present: RRR, +S1, +S2. Absent: diastolic murmur, gallop, rubs, systolic murmur - GI/Abdominal GI/Abdominal exam: Present: normal bowel sounds, soft, no peritoneal signs. Absent: distended, tenderness - Extremities Exam Extremities exam: Present: pedal edema, warm, radial pulses palpable and symmetrical. Absent: calf tenderness - Neurological Exam Neurological exam: Present: alert, oriented X3 Internal Medicine: Result - Labs CBC & Chem 7: 05/15/17 03:50 05/15/17 03:50 Labs: Short CBC 05/15/17 Range/Units 03:50 WBC 10.1 (4.3-11.1) K/mcL Hgb 7.6 L (12.9-16.9) g/dL Hct 24.2 L (37.5-50.1) % Plt Count 253 (140-400) K/mcL Neutrophils # 8.8 (1.6-8.9) K/mcL BMP 05/15/17 03:50 Sodium 140 Potassium 4.8 Chloride 115 H Carbon Dioxide 18 L BUN 81 H Creatinine 2.78 H Glucose 132 H Calcium 7.9 L - ABG Interpretation ABG results: ABG ABG pH 7.30 pH Units (7.32-7.45) L 05/11/17 06:35 ABG pCO2 44 mmHg (35-45) 05/11/17 06:35 ABG pO2 96 mmHg (85-104) 05/11/17 06:35 ABG O2 Saturation 97 % (95-98) 05/11/17 06:35 Consult Discharge Plan - Plan Referrals: Marcial Wolf DO [Primary Care Provider] - 05/18/17 2:30 pm ()
[2017-05-15] MEDS: Furosemide 20 MG TABLET PO SCH (17:49)
[2017-05-15] MEDS: traZODone 50 MG TABLET PO SCH (21:54)
[2017-05-16 04:19] LABS: Basophils # 0.1 K/mcL (0.0-0.2); Basophils % 0.7 %; Eosinophils # 0.2 K/mcL (0.0-0.6); Hemoglobin 7.1 g/dL (12.9-16.9); Immature Granulocytes % 0.5 % (0-4); Lymphocytes # 0.7 K/mcL (0.6-4.6); Lymphocytes % 8.6 %; Mean Corpuscular HGB Conc 30.9 g/dL (31.6-35.5); Mean Corpuscular Hemoglobin 27.4 pg (28.0-33.3); Mean Corpuscular Volume 88.8 fL (83.0-100.0); Mean Platelet Volume 10.5 fL (9.4-12.4); Monocytes # 0.6 K/mcL (0.0-1.3); Monocytes % 7.4 %; Neutrophils # 6.6 K/mcL (1.6-8.9); Platelet Count 251 K/mcL (140-400); Red Blood Count 2.59 M/mcL (4.19-5.50); Red Cell Distribution Width 15.8 % (11.5-14.5); Segmented Neutrophils % 80.8 %
[2017-05-16] MEDS: Ipratropium/Albuterol Neb 3 ML IH SCH ×6 (04:22→23:41)
[2017-05-16 04:43] LABS: Calcium 7.8 mg/dL (8.6-10.3); Phosphorous 4.8 mg/dL (2.7-4.5); Potassium 4.6 mEq/L (3.5-5.1)
[2017-05-16] MEDS: *HR* Heparin 5,000 UNIT/ML VIAL SQ SCH ×3 (05:58→20:56)
[2017-05-16] MEDS ORDERED: Darbepoetin 100 MCG/0.5 ML SYRINGE SQ SCH (09:30)
--- NOTE | 2017-05-16 09:30 | Nephrology Progress Note ---
Date of Encounter: 05/16/17 Time of Encounter: 08:50 - Assessment and Plan (1) CKD (chronic kidney disease) Current Visit: No Status: Acute CHF on diuretic. Stable CKD 4, Known nephrotic range proteinuria in setting of poorly controlled DM and HTN, baseline creat 2.3-2.5. Renal fct improving, creat 2.68 following decrease in Lasix yesterday. Hx nephrotic range proteinuria , Pregabalin and CCB may be contributing to edema. Will start on Aranesp injections, Hgb7.1, Tsat 35. History of neurogenic bladder. Maintain niño catheter, Accurate I&O's. Avoid nephrotoxins. Will continue to monitor. Qualifiers: Chronic kidney disease stage: stage 4 (severe) Qualified Code(s): N18.4 - Chronic kidney disease, stage 4 (severe) Subjective Interval history: Laying quietly, states feeling better, denies NIKO. Objective - Vital Signs Vital signs: Vital Signs Temp Pulse Resp BP Pulse Ox 05/16/17 07:22 98.0 F 77 16 186/67 96 05/16/17 03:53 98.1 F 72 16 140/60 96 05/15/17 23:43 98.1 F 76 16 145/62 94 05/15/17 20:14 14 92 05/15/17 19:17 98.3 F 75 16 145/57 95 05/15/17 16:00 97.9 F 86 16 131/66 92 05/15/17 15:52 18 91 05/15/17 12:20 97.9 F 80 18 115/53 93 05/15/17 11:32 18 88 Intake and Output 05/15/17 05/16/17 05/16/17 23:59 07:59 15:59 Other: Weight 93.7 kg Blood Glucose* 190 136 Patient Weight 05/16/17 23:59 Weight 93.7 kg - General Appearance General appearance: Present: well-developed, well-nourished, appears started age EENT: Present: mucous membranes moist Neck: Present: no JVD Respiratory: Present: clear Cardiology: Present: edema, regular rate, regular rhythm Additional Comments: mild Gastrointestinal: Present: normoactive bowel sounds, no tenderness Integumentary: Present: warm and dry Neurologic: Present: alert and oriented x3 - Lab 05/16/17 04:02 05/16/17 04:02 Most recent lab results ABG pH 7.30 pH Units (7.32-7.45) L 05/11/17 06:35 ABG pCO2 44 mmHg (35-45) 05/11/17 06:35 ABG pO2 96 mmHg (85-104) 05/11/17 06:35 ABG HCO3 21 mEq/L (21-27) 05/11/17 06:35 ABG O2 Saturation 97 % (95-98) 05/11/17 06:35 Calcium 7.8 mg/dL (8.6-10.3) L 05/16/17 04:02 Phosphorus 4.8 mg/dL (2.7-4.5) H 05/16/17 04:02 Magnesium 2.0 mg/dL (1.6-2.6) 05/16/17 04:02 Consult Discharge Plan - Plan Referrals: Marcial Wolf DO [Primary Care Provider] - 05/25/17 1:00 pm (Please follow up as schedule...)
[2017-05-16] MEDS: FLUoxetine 20 MG CAPSULE PO SCH (10:12)
[2017-05-16] MEDS: Isosorbide MONOnitrate (24 HR) 60 MG TAB.ER.24H PO SCH (10:12)
[2017-05-16] MEDS: Aspirin Enteric Coated 81 MG Tablet PO SCH (10:12)
[2017-05-16] MEDS: *HR* OxyCODONE/APAP 5/325 TABLET PO PRN ×3 (10:13→23:00)
[2017-05-16] MEDS: Furosemide 20 MG TABLET PO SCH ×2 (10:13→16:59)
[2017-05-16] MEDS: Pregabalin 75 MG CAPSULE PO SCH ×2 (10:13→20:55)
[2017-05-16] MEDS: hydrALAZINE 25 MG TABLET PO SCH ×3 (10:13→23:44)
[2017-05-16] MEDS: Insulin LISPRO 300 UNITS/3 ML VIAL SQ SCH ×4 (10:14→23:02)
[2017-05-16] MEDS: Topiramate 25 MG TABLET PO SCH ×2 (10:32→20:55)
[2017-05-16] MEDS: NIFEdipine XL (24 HR) 30 MG TAB.ER.24 PO SCH (13:52)
--- NOTE | 2017-05-16 16:41 | Internal Med Progress Note ---
Date of Encounter: 05/16/17 Time of Encounter: 11:00 - Assessment and plan (1) Sepsis Current Visit: Yes Status: Resolved Assessment and plan: likely secondary to aspiration PNA will continue broad spectrum IV abx at this time (d/abel Vancomycin given worsening renal function) continue PO levaquin to finish abx for total of ten days prelim blood cultures reported no growth, will follow up final results Qualifiers: Sepsis type: sepsis due to unspecified organism Qualified Code(s): A41.9 - Sepsis, unspecified organism (2) Aspiration pneumonia Current Visit: Yes Status: Acute Assessment and plan: Management as above Qualifiers: Aspiration pneumonia type: unspecified Laterality: right Lung location: lower lobe of lung Qualified Code(s): J69.0 - Pneumonitis due to inhalation of food and vomit (3) Acute CHF Current Visit: Yes Status: Acute Assessment and plan: clinically improving; decreased lower extremity swelling and decreased scrotal edema Oral diuresis has been decreased to Lasix 20mg PO BID monitor daily weights, I/Os fluid restriction diet Qualifiers: Heart failure type: combined systolic and diastolic Qualified Code(s): I50.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 (4) Bilateral lower extremity edema Current Visit: Yes Status: Acute Assessment and plan: secondary to CHF decompensation continue diuresis (5) Chronic kidney disease, stage III (moderate) Current Visit: Yes Status: Chronic Assessment and plan: Stable CKD 4; baseline creat 2.3-2.5. Renal fct improving, creat improving with decrease in Lasix dose nephrology following and appreciate recommendations (6) Urinary retention Current Visit: Yes Status: Chronic Assessment and plan: Secondary to neurogenic bladder We will continue Quan catheter as an outpatient with further workup urology following. Appreciate recommendations (7) Type 2 diabetes mellitus with diabetic chronic kidney disease Current Visit: No Status: Chronic Assessment and plan: -Stable; continue Humalog Qualifiers: Diabetes mellitus senior care insulin use: with senior care use Chronic kidney disease stage: stage 3 (moderate) Qualified Code(s): E11.22 - Type 2 diabetes mellitus with diabetic chronic kidney disease; N18.3 - Chronic kidney disease, stage 3 (moderate); N18.3 - Chronic kidney disease, stage 3 (moderate); Z79.4 - intermodal customer service (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 insulin; Z79.4 - intermodal customer service (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 insulin; Z79.4 - [facility] (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 insulin; Z79.4 - intermodal customer service (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 insulin (8) DVT prophylaxis Current Visit: No Status: Acute Assessment and plan: Heparin SQ - Subjective Interval history: Patient reports improvement in lower extremity edema and shortness of breath secondary to CHF exacerbation. Patient also with resolved leukocytosis and has been afebrile with treatment on Levaquin for sepsis secondary to aspiration pneumonia - Constitutional Vitals: Temp Pulse Resp BP Pulse Ox 97.6 F 74 17 107/56 95 05/16/17 16:25 05/16/17 16:25 05/16/17 16:25 05/16/17 16:25 05/16/17 16:25 General appearance: Present: A&O X 3, no acute distress, answers questions appropriately - Respiratory Respiratory exam: Present: CTAB. Absent: accessory muscle use, rales, rhonchi, wheezes - Cardiovascular Cardiovascular exam: Present: RRR, +S1, +S2. Absent: diastolic murmur, gallop, rubs, systolic murmur - Expanded Lower Extremities Exam Lower Leg exam: Present: swelling (Patient with bilateral lower extremity pitting edema +1 with scrotal edema) Internal Medicine: Result - Labs CBC & Chem 7: 05/16/17 04:02 05/16/17 04:02 Labs: Short CBC 05/16/17 Range/Units 04:02 WBC 8.2 (4.3-11.1) K/mcL Hgb 7.1 L (12.9-16.9) g/dL Hct 23.0 L (37.5-50.1) % Plt Count 251 (140-400) K/mcL Neutrophils # 6.6 (1.6-8.9) K/mcL BMP 05/16/17 04:02 Sodium 140 Potassium 4.6 Chloride 116 H Carbon Dioxide 19 L BUN 79 H Creatinine 2.68 H Glucose 136 H Calcium 7.8 L - ABG Interpretation ABG results: ABG ABG pH 7.30 pH Units (7.32-7.45) L 05/11/17 06:35 ABG pCO2 44 mmHg (35-45) 05/11/17 06:35 ABG pO2 96 mmHg (85-104) 05/11/17 06:35 ABG O2 Saturation 97 % (95-98) 05/11/17 06:35 Consult Discharge Plan - Plan Referrals: Marcial Wolf DO [Primary Care Provider] - 05/25/17 1:00 pm (Please follow up as schedule...)
[2017-05-16] MEDS: levoFLOXacin 750 MG TABLET PO SCH (17:00)
[2017-05-16] MEDS: traZODone 50 MG TABLET PO SCH (20:55)
[2017-05-17] MEDS: Ipratropium/Albuterol Neb 3 ML IH SCH ×6 (03:34→23:18)
[2017-05-17] MEDS: *HR* Heparin 5,000 UNIT/ML VIAL SQ SCH ×3 (06:51→21:06)
[2017-05-17] MEDS: FLUoxetine 20 MG CAPSULE PO SCH (09:03)
[2017-05-17] MEDS: Isosorbide MONOnitrate (24 HR) 60 MG TAB.ER.24H PO SCH (09:04)
[2017-05-17] MEDS: Aspirin Enteric Coated 81 MG Tablet PO SCH (09:04)
[2017-05-17] MEDS: Topiramate 25 MG TABLET PO SCH ×2 (09:04→21:05)
[2017-05-17] MEDS: hydrALAZINE 25 MG TABLET PO SCH ×2 (09:04→15:42)
[2017-05-17] MEDS: Furosemide 20 MG TABLET PO SCH ×2 (09:04→16:10)
[2017-05-17] MEDS: Pregabalin 75 MG CAPSULE PO SCH ×2 (09:04→21:05)
[2017-05-17] MEDS: NIFEdipine XL (24 HR) 30 MG TAB.ER.24 PO SCH (09:04)
[2017-05-17] MEDS: Insulin LISPRO 300 UNITS/3 ML VIAL SQ SCH ×4 (09:13→21:04)
[2017-05-17] MEDS: *HR* OxyCODONE/APAP 5/325 TABLET PO PRN ×3 (09:17→21:05)
[2017-05-17 09:36] LABS: Basophils # 0.1 K/mcL (0.0-0.2); Eosinophils # 0.1 K/mcL (0.0-0.6); Eosinophils % 1.8 %; Hematocrit 26.7 % (37.5-50.1); Hemoglobin 8.1 g/dL (12.9-16.9); Immature Granulocytes % 0.5 % (0-4); Lymphocytes # 0.6 K/mcL (0.6-4.6); Lymphocytes % 6.9 %; Mean Corpuscular HGB Conc 30.3 g/dL (31.6-35.5); Mean Corpuscular Hemoglobin 27.8 pg (28.0-33.3); Mean Corpuscular Volume 91.8 fL (83.0-100.0); Mean Platelet Volume 10.3 fL (9.4-12.4); Monocytes # 0.5 K/mcL (0.0-1.3); Neutrophils # 6.7 K/mcL (1.6-8.9); Platelet Count 289 K/mcL (140-400); Red Blood Count 2.91 M/mcL (4.19-5.50); Red Cell Distribution Width 15.6 % (11.5-14.5); Segmented Neutrophils % 83.8 %
[2017-05-17 10:31] LABS: Calcium 8.1 mg/dL (8.6-10.3); Potassium 4.8 mEq/L (3.5-5.1)
--- NOTE | 2017-05-17 11:03 | Nephrology Progress Note ---
Date of Encounter: 05/17/17 Time of Encounter: 09:00 - Assessment and Plan (1) CKD (chronic kidney disease) Current Visit: No Status: Acute CHF on diuretic. Stable CKD 4, Known nephrotic range proteinuria in setting of poorly controlled DM and HTN, baseline creat 2.3-2.5. Renal fct improving, creat 2.53 following decrease in Lasix yesterday. Hx nephrotic range proteinuria , Pregabalin and CCB may be contributing to edema. Started on Aranesp injections , Hgb 8.0, Tsat 35. History of neurogenic bladder. Maintain niño catheter, Accurate I&O's. Avoid nephrotoxins. Will continue to monitor. Qualifiers: Chronic kidney disease stage: stage 4 (severe) Qualified Code(s): N18.4 - Chronic kidney disease, stage 4 (severe) Subjective Interval history: Laying quietly, states feeling better, denies NIKO. Objective - Vital Signs Vital signs: Vital Signs Temp Pulse Resp BP Pulse Ox 05/17/17 07:38 98.0 F 74 18 163/64 100 05/17/17 07:35 17 95 05/17/17 04:37 98.5 F 74 16 149/75 96 05/17/17 00:11 97.4 F L 66 16 127/60 99 05/16/17 19:40 16 95 05/16/17 19:20 98.2 F 69 16 104/51 92 05/16/17 16:25 97.6 F 74 17 107/56 95 05/16/17 16:04 18 94 05/16/17 12:09 184/76 05/16/17 11:21 97.8 F 70 16 184/76 97 Intake and Output 05/16/17 05/17/17 05/17/17 23:59 07:59 15:59 Intake Total 120 / 120 300 / 300 Output Total 550 / 550 300 / 300 Balance 120 / 120 -550 / -550 0 / 0 Intake: Oral 120 / 120 300 / 300 Output: Urine 0 / 0 Catheter 550 / 550 300 / 300 Other: Meal Dinner Breakfast Percent of Meal Consumed 100% 30% Weight 94.9 kg Blood Glucose* 195 142 Patient Weight 05/17/17 23:59 Weight 94.9 kg - General Appearance General appearance: Present: well-developed, well-nourished, appears started age EENT: Present: mucous membranes moist Neck: Present: no JVD Respiratory: Present: clear Cardiology: Present: edema, regular rate, regular rhythm Additional Comments: trace Gastrointestinal: Present: normoactive bowel sounds, no tenderness Integumentary: Present: warm and dry Neurologic: Present: alert and oriented x3 - Lab 05/17/17 09:26 05/17/17 09:26 Most recent lab results ABG pH 7.30 pH Units (7.32-7.45) L 05/11/17 06:35 ABG pCO2 44 mmHg (35-45) 05/11/17 06:35 ABG pO2 96 mmHg (85-104) 05/11/17 06:35 ABG HCO3 21 mEq/L (21-27) 05/11/17 06:35 ABG O2 Saturation 97 % (95-98) 05/11/17 06:35 Calcium 8.1 mg/dL (8.6-10.3) L 05/17/17 09:26 Phosphorus 4.8 mg/dL (2.7-4.5) H 05/16/17 04:02 Magnesium 2.0 mg/dL (1.6-2.6) 05/16/17 04:02 Consult Discharge Plan - Plan Referrals: Marcial Wolf DO [Primary Care Provider] - 05/25/17 1:00 pm (Please follow up as schedule...)
[2017-05-17] MEDS ORDERED: Furosemide 40 MG/4 ML VIAL IVP ONE (12:07)
--- NOTE | 2017-05-17 18:35 | Internal Med Progress Note ---
Date of Encounter: 05/17/17 Time of Encounter: 11:00 - Assessment and plan (1) Sepsis Current Visit: Yes Status: Resolved Assessment and plan: likely secondary to aspiration PNA will continue broad spectrum IV abx at this time (d/abel Vancomycin given worsening renal function) continue PO levaquin to finish abx for total of ten days prelim blood cultures reported no growth, will follow up final results Qualifiers: Sepsis type: sepsis due to unspecified organism Qualified Code(s): A41.9 - Sepsis, unspecified organism (2) Aspiration pneumonia Current Visit: Yes Status: Acute Assessment and plan: Management as above Qualifiers: Aspiration pneumonia type: unspecified Laterality: right Lung location: lower lobe of lung Qualified Code(s): J69.0 - Pneumonitis due to inhalation of food and vomit (3) Acute CHF Current Visit: Yes Status: Acute Assessment and plan: clinically improving; decreased lower extremity swelling and decreased scrotal edema Oral diuresis has been decreased to Lasix 20mg PO BID; an additional dose of IV Lasix 40 mg 1 given today monitor daily weights, I/Os fluid restriction diet Qualifiers: Heart failure type: combined systolic and diastolic Qualified Code(s): I50.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 (4) Bilateral lower extremity edema Current Visit: Yes Status: Acute Assessment and plan: secondary to CHF decompensation continue diuresis (5) Chronic kidney disease, stage III (moderate) Current Visit: Yes Status: Chronic Assessment and plan: Stable CKD 4; baseline creat 2.3-2.5. Renal fct improving, creat improving with decrease in Lasix dose nephrology following and appreciate recommendations (6) Urinary retention Current Visit: Yes Status: Chronic Assessment and plan: Secondary to neurogenic bladder We will continue Quan catheter as an outpatient with further workup urology following. Appreciate recommendations (7) Type 2 diabetes mellitus with diabetic chronic kidney disease Current Visit: No Status: Chronic Assessment and plan: -Stable; continue Humalog Qualifiers: Diabetes mellitus intermediate accountant insulin use: with intermediate accountant use Chronic kidney disease stage: stage 3 (moderate) Qualified Code(s): E11.22 - Type 2 diabetes mellitus with diabetic chronic kidney disease; N18.3 - Chronic kidney disease, stage 3 (moderate); N18.3 - Chronic kidney disease, stage 3 (moderate); Z79.4 - nursing home (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 insulin; Z79.4 - nursing home (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 insulin; Z79.4 - nursing home (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 insulin; Z79.4 - nursing home (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 insulin (8) DVT prophylaxis Current Visit: No Status: Acute Assessment and plan: Heparin SQ - Subjective Interval history: Patient reports improvement in lower extremity edema and shortness of breath secondary to CHF exacerbation. Patient also with resolved leukocytosis and has been afebrile with treatment on Levaquin for sepsis secondary to aspiration pneumonia - Constitutional Vitals: Temp Pulse Resp BP Pulse Ox 97.4 F L 66 12 100/47 98 05/17/17 15:29 05/17/17 15:29 05/17/17 16:34 05/17/17 15:29 05/17/17 16:34 General appearance: Present: A&O X 3, no acute distress, answers questions appropriately - Respiratory Respiratory exam: Present: CTAB. Absent: accessory muscle use, rales, rhonchi, wheezes - Cardiovascular Cardiovascular exam: Present: RRR, +S1, +S2. Absent: diastolic murmur, gallop, rubs, systolic murmur - Expanded Lower Extremities Exam Lower Leg exam: Present: swelling Internal Medicine: Result - Labs CBC & Chem 7: 05/17/17 09:26 05/17/17 09:26 Labs: Short CBC 05/17/17 Range/Units 09:26 WBC 8.0 (4.3-11.1) K/mcL Hgb 8.1 L (12.9-16.9) g/dL Hct 26.7 L (37.5-50.1) % Plt Count 289 (140-400) K/mcL Neutrophils # 6.7 (1.6-8.9) K/mcL BMP 05/17/17 09:26 Sodium 141 Potassium 4.8 Chloride 117 H Carbon Dioxide 18 L BUN 73 H Creatinine 2.53 H Glucose 168 H Calcium 8.1 L - ABG Interpretation ABG results: ABG ABG pH 7.30 pH Units (7.32-7.45) L 05/11/17 06:35 ABG pCO2 44 mmHg (35-45) 05/11/17 06:35 ABG pO2 96 mmHg (85-104) 05/11/17 06:35 ABG O2 Saturation 97 % (95-98) 05/11/17 06:35 Consult Discharge Plan - Plan Referrals: Marcial Wolf DO [Primary Care Provider] - 05/25/17 1:00 pm (Please follow up as schedule...)
[2017-05-17] MEDS: traZODone 50 MG TABLET PO SCH (21:05)
[2017-05-17 22:51] LABS: Bilirubin,Urine Negative (Negative); Blood,Urine Small (Negative); Clarity,Urine Turbid (Clear); Color,Urine Yellow (Yellow); Glucose,Urine (UA) Normal (Normal); Ketones,Urine Negative (Negative); Leukocyte Esterase,Urine Large (Negative); Nitrite,Urine Negative (Negative); Protein,Urine 100 mg/dL (Neg-Trace); Specific Gravity,Urine 1.014 (1.010-1.025); Urobilinogen,Urine Normal (Normal)
[2017-05-17 22:56] LABS: Squamous Epithelial Cell,Urine Many per lpf (None-Few); WBC,Urine TNTC per hpf (0-3)
[2017-05-17 23:05] LABS: Yeast,Urine Moderate per hpf (None Seen)
[2017-05-17 23:06] LABS: Bacteria,Urine Moderate per hpf (None-Few)
[2017-05-18] MEDS: hydrALAZINE 25 MG TABLET PO SCH ×2 (00:35→08:40)
[2017-05-18] MEDS: Ipratropium/Albuterol Neb 3 ML IH SCH ×4 (03:55→15:55)
[2017-05-18] MEDS: *HR* Heparin 5,000 UNIT/ML VIAL SQ SCH ×2 (05:11→13:05)
[2017-05-18] MEDS: *HR* OxyCODONE/APAP 5/325 TABLET PO PRN (05:12)
[2017-05-18] MEDS: Aspirin Enteric Coated 81 MG Tablet PO SCH (08:40)
[2017-05-18] MEDS: NIFEdipine XL (24 HR) 30 MG TAB.ER.24 PO SCH (08:40)
[2017-05-18] MEDS: FLUoxetine 20 MG CAPSULE PO SCH (08:40)
[2017-05-18] MEDS: Isosorbide MONOnitrate (24 HR) 60 MG TAB.ER.24H PO SCH (08:40)
[2017-05-18] MEDS: Pregabalin 75 MG CAPSULE PO SCH (08:40)
[2017-05-18] MEDS: Topiramate 25 MG TABLET PO SCH (08:40)
[2017-05-18] MEDS: Furosemide 20 MG TABLET PO SCH (08:40)
[2017-05-18] MEDS: Insulin LISPRO 300 UNITS/3 ML VIAL SQ SCH ×2 (08:41→12:21)
[2017-05-18 10:35] VITALS: BP 164/87
[2017-05-18 10:38] LABS: Basophils # 0.1 K/mcL (0.0-0.2); Basophils % 0.9 %; Eosinophils # 0.1 K/mcL (0.0-0.6); Eosinophils % 1.9 %; Hematocrit 25.2 % (37.5-50.1); Hemoglobin 7.7 g/dL (12.9-16.9); Immature Granulocytes % 0.7 % (0-4); Lymphocytes # 0.7 K/mcL (0.6-4.6); Lymphocytes % 9.7 %; Mean Corpuscular HGB Conc 30.6 g/dL (31.6-35.5); Mean Corpuscular Hemoglobin 27.6 pg (28.0-33.3); Mean Corpuscular Volume 90.3 fL (83.0-100.0); Mean Platelet Volume 10.9 fL (9.4-12.4); Monocytes # 0.5 K/mcL (0.0-1.3); Monocytes % 7.7 %; Neutrophils # 5.5 K/mcL (1.6-8.9); Platelet Count 271 K/mcL (140-400); Red Blood Count 2.79 M/mcL (4.19-5.50); Red Cell Distribution Width 15.6 % (11.5-14.5); Segmented Neutrophils % 79.1 %
--- NOTE | 2017-05-18 11:51 | Nephrology Progress Note ---
Date of Encounter: 05/18/17 Time of Encounter: 11:30 - Assessment and Plan (1) CKD (chronic kidney disease) Current Visit: No Status: Acute CHF on diuretic. Stable CKD 4, Known nephrotic range proteinuria in setting of poorly controlled DM and HTN, baseline creat 2.3-2.5. today labs pending. received additional IV Lasix yesterday. Hx nephrotic range proteinuria, Pregabalin and CCB may be contributing to edema. History of neurogenic bladder. Maintain niño catheter, Accurate I&O's. Avoid nephrotoxins. Will continue to monitor. Qualifiers: Chronic kidney disease stage: stage 4 (severe) Qualified Code(s): N18.4 - Chronic kidney disease, stage 4 (severe) Subjective Interval history: Laying quietly, states feeling better, denies NIKO. Objective - Vital Signs Vital signs: Vital Signs Temp Pulse Resp BP Pulse Ox 05/18/17 11:44 18 90 05/18/17 10:34 97.8 F 85 16 164/87 94 05/18/17 08:21 97.8 F 68 16 117/53 98 05/18/17 07:40 18 97 05/18/17 05:00 98.2 F 72 18 178/73 98 05/18/17 00:50 98.2 F 71 16 164/67 95 05/17/17 21:11 97.7 F 77 18 174/78 96 05/17/17 19:45 18 95 05/17/17 16:34 12 98 05/17/17 15:29 97.4 F L 66 14 100/47 96 Intake and Output 05/17/17 05/18/17 05/18/17 23:59 07:59 15:59 Intake Total 700 / 700 500 / 500 240 / 240 Output Total 3800 / 3800 2600 / 2600 600 / 600 Balance -3100 / -3100 -2100 / -2100 -360 / -360 Intake: IV Fluids 500 / 500 Vancocin 1,750 MG In 0.9 % 500 / 500 Sodium Chloride 500 ML @ 333.3 mls/hr IVPB ONCE ONE Rx#: [id number] Oral 700 / 700 240 / 240 Output: Urine 600 / 600 Catheter 3800 / 3800 2600 / 2600 Urethral (Niño) 1900 / 1900 1400 / 1400 Other: Meal Breakfast Percent of Meal Consumed 100% Weight 97.6 kg Blood Glucose* 192 219 Patient Weight 05/18/17 23:59 Weight 97.6 kg - General Appearance General appearance: Present: well-developed, well-nourished, appears started age EENT: Present: mucous membranes moist Neck: Present: no JVD Respiratory: Present: clear Cardiology: Present: edema, regular rate, regular rhythm Additional Comments: mild. scrotal Gastrointestinal: Present: normoactive bowel sounds, no tenderness Integumentary: Present: warm and dry Neurologic: Present: alert and oriented x3 Psychiatric: Present: mood/affect appropriate, cooperative - Lab 05/18/17 08:19 05/17/17 09:26 Most recent lab results ABG pH 7.30 pH Units (7.32-7.45) L 05/11/17 06:35 ABG pCO2 44 mmHg (35-45) 05/11/17 06:35 ABG pO2 96 mmHg (85-104) 05/11/17 06:35 ABG HCO3 21 mEq/L (21-27) 05/11/17 06:35 ABG O2 Saturation 97 % (95-98) 05/11/17 06:35 Calcium 8.1 mg/dL (8.6-10.3) L 05/17/17 09:26 Phosphorus 4.8 mg/dL (2.7-4.5) H 05/16/17 04:02 Magnesium 2.0 mg/dL (1.6-2.6) 05/16/17 04:02 Consult Discharge Plan - Plan Referrals: Marcial Wolf DO [Primary Care Provider] - 05/25/17 1:00 pm (Please follow up as schedule...)
[2017-05-18 12:10] LABS: Calcium 7.9 mg/dL (8.6-10.3); Potassium 4.9 mEq/L (3.5-5.1)
[2017-05-18] MEDS ORDERED: Furosemide 40 MG/4 ML VIAL IVP ONE (12:19)
--- NOTE | 2017-05-18 16:00 | Discharge Summary ---
Date of Encounter: 05/18/17 Time of Encounter: 11:00 - Discharge Diagnosis (1) Sepsis Priority: Primary Status: Resolved Qualifiers: Sepsis type: sepsis due to unspecified organism Qualified Code(s): A41.9 - Sepsis, unspecified organism (2) Aspiration pneumonia Priority: Primary Status: Acute Qualifiers: Aspiration pneumonia type: unspecified Laterality: right Lung location: lower lobe of lung Qualified Code(s): J69.0 - Pneumonitis due to inhalation of food and vomit (3) Acute CHF Priority: Primary Status: Acute Qualifiers: Heart failure type: combined systolic and diastolic Qualified Code(s): I50.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 (4) Bilateral lower extremity edema Priority: Primary Status: Acute (5) Chronic kidney disease, stage III (moderate) Priority: Primary Status: Chronic (6) Urinary retention Priority: Primary Status: Chronic (7) Type 2 diabetes mellitus with diabetic chronic kidney disease Priority: Secondary Status: Chronic Qualifiers: Diabetes mellitus director long term care insulin use: with prison use Chronic kidney disease stage: stage 3 (moderate) Qualified Code(s): E11.22 - Type 2 diabetes mellitus with diabetic chronic kidney disease; N18.3 - Chronic kidney disease, stage 3 (moderate); N18.3 - Chronic kidney disease, stage 3 (moderate); Z79.4 - superintendent terminal (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 insulin; Z79.4 - penitentiary (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 insulin; Z79.4 - penitentiary (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 insulin; Z79.4 - penitentiary (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 insulin - Discharge Medications Prescriptions: OxyCODONE Immed Rel [Roxicodone 10 MG] 10 mg PO Q6H PRN 3 Days #10 tablet PRN Reason: Moderate Pain Pregabalin [Lyrica] 75 mg PO BID 5 Days #10 capsule Home Medications: Aspirin Enteric Coated [Aspirin EC] 81 mg PO DAILY 06/08/16 [History] Atorvastatin Calcium [Lipitor] 80 mg PO HS 06/08/16 [History] Clopidogrel [Plavix] 75 mg PO DAILY 06/08/16 [History] Dextrose [Glucose Gel] 15 gm PO ONCE PRN 06/08/16 [History] FLUoxetine HCl [Prozac] 40 mg PO QAM 06/08/16 [History] Glucagon,Human Recombinant [Glucagon Emergency Kit] 1 mg IJ ONCE PRN 06/08/16 [ History] Insulin ASPART [Novolog Flexpen] 20 unit SQ TIDAC 06/08/16 [History] Isosorbide MONOnitrate (24 HR) [Imdur] 60 mg PO DAILY 06/08/16 [History] Nitroglycerin [Nitrostat] 0.4 mg SL Q5M PRN 06/08/16 [History] Topiramate [Topamax] 25 mg PO BID 06/08/16 [History] Carvedilol [Coreg] 12.5 mg PO BIDWM #120 tablet 06/12/16 [Rx] Insulin Degludec [Tresiba Flextouch U-200] 20 - 30 unit SQ HS 01/01/17 [History] Naloxegol Oxalate [Movantik] 12.5 mg PO DAILY 01/01/17 [History] Tizanidine HCl [Zanaflex] 4 mg PO TID PRN 01/01/17 [History] Trazodone HCl 50 mg PO HS 01/01/17 [History] NIFEdipine XL (24 HR) [Procardia XL] 60 mg PO DAILY 04/29/17 [History] hydrALAZINE [HydrALAZINE] 50 mg PO Q8HR 04/29/17 [History] Tamsulosin HCl [Flomax] 0.4 mg PO DAILY #30 cap.er.24h 04/30/17 [Rx] Pantoprazole Sodium [Protonix] 40 mg PO DAILY 05/10/17 [History] Furosemide [Lasix] 20 mg PO BIDDIURETIC tablet 05/18/17 [Rx] OxyCODONE Immed Rel [Roxicodone 10 MG] 10 mg PO Q6H PRN 3 Days #10 tablet [Rx] Pregabalin [Lyrica] 75 mg PO BID 5 Days #10 capsule 05/18/17 [Rx] levoFLOXacin [Levaquin] 750 mg PO Q48H tablet 05/18/17 [Rx] Allergies/Adverse Reactions: 3 Allergy/AdvReac Type Severity Reaction Status Date / Time Methadone Allergy Hives Verified 05/10/17 12:17 Penicillins Allergy Hives Verified 05/10/17 12:17 linaclotide [From Linzess] AdvReac Nausea Verified 05/10/17 12:17 phenazopyridine AdvReac See Verified 05/10/17 12:17 [From Pyridium] Comments Date of admission: 05/11/17 12:52 Primary care physician: Marcial Wolf DO Consults: 05/12/17 10:31 Consult to Occupational Therapy [CONS] Routine Comment: Evaluate, develop and implement POC Reason for Consult: evaluation for disposition Consult to Physical Therapy [CONS] Routine Comment: Evaluate, develop and implement POC Reason for Consult: evaluation for disposition 05/14/17 13:35 Consult to Medical Detail Representative [CONS] Routine Reason for SW Consult: inpatient rehab/swing bed placement - Patient Status Disposition: Transfer SNF Condition: Fair - Discharge Instructions Follow Up With: Marcial Wolf DO [Primary Care Provider] - 05/25/17 1:00 pm (Please follow up as schedule...) Cb Ayala MD [Partnered Physician] - 05/30/17 8:30 am Hospital course: Patient is a 61-year-old male with past medical history significant for CAD and chronic systolic HF who had 2 coronary artery stents placed at [facility] in [place], [place] approximately one month ago. When he was discharded his Bumex was not restarted and he began noticing increasing LE edema so he restarted it himself ( 1 mg PO daily). His LE edema has worsened and he's SOB today. He denies chest pain. His Trp is mildly elevated 0.06. He has CKD-3 and his creatinine is essentially near BL for him ( 2.3). His LE edema extends from feet to scrotum and is 4+. He was given 80 mg IV Lasix x1 dose in the ER. He has neurogenic bladder syndrom so a Quan cath was placed. He's currently hemodynamically stable. Patient was admitted to the medical surgical floor for further evaluation. During patients hospital stay he was treated for sepsis secondary to aspiration pneumonia with IV Levaquin. Patient will be discharged to ECF to continue Levaquin every other day for a total of 1 week. Patient was also treated for acute on chronic heart failure with IV Lasix and will continue his oral Lasix daily. In addition patient also with urinary retention and was evaluated by urology with recommendations to maintain Quan catheter and to follow-up as outpatient. Patient is medically stable to be discharged to ECF for further strengthening and reconditioning. - Time Spent with Patient Total time spent providing and/or coordinating discharge services: Less than 30 minutes - Constitutional Vitals: Temp Pulse Resp BP Pulse Ox 97.8 F 85 18 164/87 90 05/18/17 10:34 05/18/17 10:34 05/18/17 11:44 05/18/17 10:34 05/18/17 11:44 General appearance: Present: A&O X 3, no acute distress, answers questions appropriately - Respiratory Respiratory exam: Present: CTAB. Absent: accessory muscle use, rales, rhonchi, wheezes - Cardiovascular Cardiovascular exam: Present: RRR, +S1, +S2. Absent: diastolic murmur, gallop, rubs, systolic murmur
--- NOTE | 2017-05-18 16:02 | Physician Discharge Referral ---
ExtendedCare Referral Info Institutional Level of Care: Skilled - Diagnosis (1) Sepsis Priority: Primary Status: Resolved (2) Aspiration pneumonia Priority: Primary Status: Acute (3) Acute CHF Priority: Primary Status: Acute (4) Bilateral lower extremity edema Priority: Secondary Status: Acute (5) Chronic kidney disease, stage III (moderate) Priority: Secondary Status: Chronic (6) Urinary retention Priority: Secondary Status: Chronic (7) Type 2 diabetes mellitus with diabetic chronic kidney disease Priority: Secondary Status: Chronic - Transfer Medications Prescriptions: OxyCODONE Immed Rel [Roxicodone 10 MG] 10 mg PO Q6H PRN 3 Days #10 tablet PRN Reason: Moderate Pain Pregabalin [Lyrica] 75 mg PO BID 5 Days #10 capsule Home Medications: Aspirin Enteric Coated [Aspirin EC] 81 mg PO DAILY 06/08/16 [History] Atorvastatin Calcium [Lipitor] 80 mg PO HS 06/08/16 [History] Clopidogrel [Plavix] 75 mg PO DAILY 06/08/16 [History] Dextrose [Glucose Gel] 15 gm PO ONCE PRN 06/08/16 [History] FLUoxetine HCl [Prozac] 40 mg PO QAM 06/08/16 [History] Glucagon,Human Recombinant [Glucagon Emergency Kit] 1 mg IJ ONCE PRN 06/08/16 [ History] Insulin ASPART [Novolog Flexpen] 20 unit SQ TIDAC 06/08/16 [History] Isosorbide MONOnitrate (24 HR) [Imdur] 60 mg PO DAILY 06/08/16 [History] Nitroglycerin [Nitrostat] 0.4 mg SL Q5M PRN 06/08/16 [History] Topiramate [Topamax] 25 mg PO BID 06/08/16 [History] Carvedilol [Coreg] 12.5 mg PO BIDWM #120 tablet 06/12/16 [Rx] Insulin Degludec [Tresiba Flextouch U-200] 20 - 30 unit SQ HS 01/01/17 [History] Naloxegol Oxalate [Movantik] 12.5 mg PO DAILY 01/01/17 [History] Tizanidine HCl [Zanaflex] 4 mg PO TID PRN 01/01/17 [History] Trazodone HCl 50 mg PO HS 01/01/17 [History] NIFEdipine XL (24 HR) [Procardia XL] 60 mg PO DAILY 04/29/17 [History] hydrALAZINE [HydrALAZINE] 50 mg PO Q8HR 04/29/17 [History] Tamsulosin HCl [Flomax] 0.4 mg PO DAILY #30 cap.er.24h 04/30/17 [Rx] Pantoprazole Sodium [Protonix] 40 mg PO DAILY 05/10/17 [History] Furosemide [Lasix] 20 mg PO BIDDIURETIC tablet 05/18/17 [Rx] OxyCODONE Immed Rel [Roxicodone 10 MG] 10 mg PO Q6H PRN 3 Days #10 tablet [Rx] Pregabalin [Lyrica] 75 mg PO BID 5 Days #10 capsule 05/18/17 [Rx] levoFLOXacin [Levaquin] 750 mg PO Q48H tablet 05/18/17 [Rx] Allergies/Adverse Reactions: 3 Allergy/AdvReac Type Severity Reaction Status Date / Time Methadone Allergy Hives Verified 05/10/17 12:17 Penicillins Allergy Hives Verified 05/10/17 12:17 linaclotide [From Linzess] AdvReac Nausea Verified 05/10/17 12:17 phenazopyridine AdvReac See Verified 05/10/17 12:17 [From Pyridium] Comments - Respiratory Orders Smoking Cessation: Smoking cessation has been advised. For more information, call the [place] Tobacco Quit Line at 3-656-OLDW-NOW. CERTIFICATION: I certify that the transfer of the above named patient to an Extended Care Facility is necessary for the continuing treatment of the diagnosis listed. The above information is true and accurate reflection of patient's current condition. Confidential - Redisclosure prohibited without a patient's written consent.
[2017-05-18] MEDS ORDERED: Aminoglycoside Consult 1 EACH MC ONE (17:22)
--- NOTE | 2017-05-26 17:06 | Event Note ---
Date of Encounter: 05/26/17 Time of Encounter: 17:03 Multiple attempts were made to contact this patient. He was initially sent to [facility] in [place]. However, they reported that he signed out AGAINST MEDICAL ADVICE. I have also made multiple attempts to contact his personal cell phone we have on file. I attempted to contact his emergency contact on file however nobody answered. The patient does need Diflucan 100 mg by mouth twice a day 7 days
== END 2017-05-18 17:23 | DRG 291 ==
LOC: EMEROO 12:02 → 2ANU 12:02 → ICNU 05-11 07:05 → SUATTDRO 05-11 12:52 → 2ANU 05-12 10:14
PROVIDERS: ADMIT Internal Medicine; ATTEND Hospitalist

== ENCOUNTER 2017-07-04 00:33 | Inpatient (IN) ==
[2017-07-04 06:36] LABS: Basophils # 0.1 K/mcL (0.0-0.2); Basophils % 0.8 %; Eosinophils # 0.1 K/mcL (0.0-0.6); Eosinophils % 1.3 %; Hematocrit 26.1 % (37.5-50.1); Immature Granulocytes % 1.3 % (0-4); Lymphocytes # 0.8 K/mcL (0.6-4.6); Lymphocytes % 12.4 %; Mean Corpuscular HGB Conc 32.2 g/dL (31.6-35.5); Mean Corpuscular Hemoglobin 27.1 pg (28.0-33.3); Mean Corpuscular Volume 84.2 fL (83.0-100.0); Mean Platelet Volume 10.4 fL (9.4-12.4); Monocytes # 0.3 K/mcL (0.0-1.3); Monocytes % 4.9 %; Neutrophils # 4.8 K/mcL (1.6-8.9); Platelet Count 170 K/mcL (140-400); Red Cell Distribution Width 14.6 % (11.5-14.5); Segmented Neutrophils % 79.3 %
[2017-07-04 06:37] LABS: Hemoglobin 8.4 g/dL (12.9-16.9)
--- NOTE | 2017-07-04 08:07 | Internal Med History&Physical ---
Date of Encounter: 07/04/17 Time of Encounter: 07:00 Internal Medicine - H&P: HPI Admitted From: Intrahospital Transfer Plans for Post Hospital Care: Home History of present illness: Mr. Renee is a 61 year old man transferred overnight from [facility] with a suspected upper GIB. His Hgb in their ER was 6.6 and he had heme positive stool. He's noticed Dark black stools for several days, but is not certain exactly when the melana began. He does take Aspirin (81 mg) and Plavix for a recent (Apr 2017) coronary artery stent. His last known Hbg is from at the time of discharge from [facility] and was 7.7. He denies any other source of bleeding but does have a history of hematuria. He had an EGD approximately 5 yrs ago at [facility] per pt report, but he does not recall the diagnosis. He takes a PPI daily for his GERD. He was given 2 Units of PRBC prior to transfer and his Hgb after arrival was 8.4. He was given 80 mg of IV Protonix prior to transfer. He reports no further melana, cp,sob abd pain, N/V/D or other signicant symptoms. His other comorbid conditions include CHF, chronic bilateral LE wounds, CKD-III, neurogenic bladder requiring straight cath, DM-2, and recent aspiration PNA. Past Med Surg Social Fam HX - Past Medical History Medical history: CHF, coronary artery disease, diabetes, hypertension, myocardial infarction, renal disease, other Psychiatric history: depression - Past Surgical History Surgical History: angioplasty/stent - Social History Smoking Status: Former smoker Smokeless Tobacco Status: No Alcohol use: none Drug use: none - Family History Father Adopted: No Family Member Ethnicity: Non- Living Status: Hx Family Cardiac Disorders: Yes (triple bypass) Hx Family Respiratory Disorders: Yes Hx Family Cancer: Yes (lung) Hx Family GI Disorders: No Hx Family Endocrine Disorder: Yes (diabetes) Hx Family Neuromuscular Disorders: No Hx Family Neurologic Disorders: No Hx Family HEENT Disorders: No Hx Family Autoimmune Disorders: No Mother Adopted: No Family Member Ethnicity: Non- Living Status: Hx Family Cardiac Disorders: No Hx Family Respiratory Disorders: No Hx Family Cancer: Yes (throat, lung) Hx Family GI Disorders: No Hx Family Endocrine Disorder: No Hx Family Neuromuscular Disorders: No Hx Family Neurologic Disorders: No Hx Family HEENT Disorders: No Hx Family Autoimmune Disorders: No Internal Medicine - H&P: Meds Aspirin Enteric Coated [Aspirin EC] 81 mg PO DAILY 06/08/16 [History] Atorvastatin Calcium [Lipitor] 80 mg PO HS 06/08/16 [History] Clopidogrel [Plavix] 75 mg PO DAILY 06/08/16 [History] Dextrose [Glucose Gel] 15 gm PO ONCE PRN 06/08/16 [History] FLUoxetine HCl [Prozac] 40 mg PO QAM 06/08/16 [History] Glucagon,Human Recombinant [Glucagon Emergency Kit] 1 mg IJ ONCE PRN 06/08/16 [ History] Insulin ASPART [Novolog Flexpen] 20 unit SQ TIDAC 06/08/16 [History] Isosorbide MONOnitrate (24 HR) [Imdur] 60 mg PO DAILY 06/08/16 [History] Nitroglycerin [Nitrostat] 0.4 mg SL Q5M PRN 06/08/16 [History] Topiramate [Topamax] 25 mg PO BID 06/08/16 [History] Carvedilol [Coreg] 12.5 mg PO BIDWM #120 tablet 06/12/16 [Rx] Insulin Degludec [Tresiba Flextouch U-200] 20 - 30 unit SQ HS 01/01/17 [History] Naloxegol Oxalate [Movantik] 12.5 mg PO DAILY 01/01/17 [History] Tizanidine HCl [Zanaflex] 4 mg PO TID PRN 01/01/17 [History] Trazodone HCl 50 mg PO HS 01/01/17 [History] NIFEdipine XL (24 HR) [Procardia XL] 60 mg PO DAILY 04/29/17 [History] hydrALAZINE [HydrALAZINE] 50 mg PO Q8HR 04/29/17 [History] Tamsulosin HCl [Flomax] 0.4 mg PO DAILY #30 cap.er.24h 04/30/17 [Rx] Pantoprazole Sodium [Protonix] 40 mg PO DAILY 05/10/17 [History] Furosemide [Lasix] 20 mg PO BIDDIURETIC tablet 05/18/17 [Rx] OxyCODONE Immed Rel [Roxicodone 10 MG] 10 mg PO Q6H PRN 3 Days #10 tablet [Rx] Pregabalin [Lyrica] 75 mg PO BID 5 Days #10 capsule 05/18/17 [Rx] levoFLOXacin [Levaquin] 750 mg PO Q48H tablet 05/18/17 [Rx] 3 Allergy/AdvReac Type Severity Reaction Status Date / Time Methadone Allergy Hives Verified 05/10/17 12:17 Penicillins Allergy Hives Verified 05/10/17 12:17 linaclotide [From Linzess] AdvReac Nausea Verified 05/10/17 12:17 phenazopyridine AdvReac See Verified 05/10/17 12:17 [From Pyridium] Comments All Systems PM: A 10-system review of systems was performed and is negative for pertinent findings except as documented above in the HPI. - Constitutional Constitutional: lethargy, weakness, no anorexia, no chills - EENT Eyes: no blurry vision, no change in vision Ears: no ear discharge, no tinnitus Nose, mouth and throat: no dry mouth, no epistaxis, no mouth pain - Cardiovascular Cardiovascular ROS IM: edema, no chest pain, no diaphoresis - Respiratory Respiratory: no cough, no dyspnea, no hemoptysis - Gastrointestinal Gastrointestinal: melena, no abdominal pain, no coffee ground emesis, no constipation - Genitourinary Genitourinary ROS male: other Additional comments: zNeurogenic bladder - Integumentary Integumentary IM: non-healing lesions, sores Additional comments: Bilateral LE edema - Constitutional Vitals: Temp Pulse Resp BP Pulse Ox 98.3 F 71 16 181/85 94 07/04/17 07:18 07/04/17 07:18 07/04/17 07:18 07/04/17 07:18 07/04/17 07:18 General appearance: Present: A&O X 3, pleasant, no acute distress, answers questions appropriately - Head Head exam: Present: atraumatic, normocephalic - Eye Eye exam: Present: EOMI, PERRL, conjuntiva pink, sclera anicteric Pupils: Present: PERRL - Neck Neck exam general surgery: Present: normal inspection, trachea midline. Absent : lymphadenopathy - Respiratory Respiratory exam: Present: CTAB. Absent: accessory muscle use, rales, rhonchi, wheezes - Cardiovascular Cardiovascular exam: Present: RRR, +S1, +S2. Absent: diastolic murmur, gallop, rubs, systolic murmur - GI/Abdominal GI/Abdominal exam: Present: normal bowel sounds, soft, no peritoneal signs. Absent: distended, tenderness - Extremities Exam Extremities exam: Present: pedal edema, warm. Absent: calf tenderness, cyanotic - Neurological Exam Neurological exam: Present: CN II-XII intact, oriented X3, no focal deficits. Absent: pronater drift, facial droop, speech deficit - Skin Skin exam: Present: dry, intact Internal Med - H&P Results - Labs CBC & Chem 7: 07/04/17 06:25 Labs: Short CBC 07/04/17 Range/Units 06:25 WBC 6.1 (4.3-11.1) K/mcL Hgb 8.4 L D (12.9-16.9) g/dL Hct 26.1 L (37.5-50.1) % Plt Count 170 (140-400) K/mcL Neutrophils # 4.8 (1.6-8.9) K/mcL - Assessment and plan (1) GIB (gastrointestinal bleeding) Current Visit: Yes Status: Acute Assessment and plan: GI Consulted Serial H&H q6 hrs first 24 hrs S/p 2 units PRBCs at [facility] Protonix 80 mg IVP given prior to transfer Protonix 40 mg IVP q12 Coags nl Hold Aspirin and Plavix NPO Qualifiers: GI bleed type/associated pathology: unspecified gastrointestinal hemorrhage type Qualified Code(s): K92.2 - Gastrointestinal hemorrhage, unspecified (2) Acute blood loss anemia Current Visit: Yes Status: Acute Assessment and plan: See problem #1 (3) CKD (chronic kidney disease) Current Visit: No Status: Acute Assessment and plan: CKD-III with TIANA Monitor renal function Hold Qualifiers: Chronic kidney disease stage: stage 4 (severe) Qualified Code(s): N18.4 - Chronic kidney disease, stage 4 (severe) (4) CAD (coronary artery disease) Current Visit: No Status: Chronic Assessment and plan: Holding aspirin and Plavix Check serial troponins Continue telemetry No chest pain Qualifiers: Coronary Disease-Associated Artery/Lesion type: [place] artery Habematolel vs. transplanted heart: [place] heart Associated angina: without angina Qualified Code(s): I25.10 - Atherosclerotic heart disease of [place] coronary artery without angina pectoris (5) Acute CHF Current Visit: No Status: Chronic Assessment and plan: Well compensated now His diuretics were held due to TIANA on CKD-III, but after transfusion he will need Lasix Qualifiers: Heart failure type: combined systolic and diastolic Qualified Code(s): I50.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 (6) Chronic kidney disease, stage III (moderate) Current Visit: No Status: Chronic Assessment and plan: TIANA on CKD-III Hold all nephrotoxic agents (7) Diabetes mellitus Current Visit: No Status: Chronic Assessment and plan: While NPO check AccuChecks q6 hrs and use SSI ACHS Return to normal regimen when eating normally 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 mellitus smeller insulin use: with smeller use Diabetes mellitus complication status: with kidney complications Diabetes mellitus complication detail: with chronic kidney disease Chronic kidney disease stage: stage 3 (moderate) Qualified Code(s): E11.22 - Type 2 diabetes mellitus with diabetic chronic kidney disease; N18.3 - Chronic kidney disease, stage 3 (moderate); N18.3 - Chronic kidney disease, stage 3 (moderate); Z79.4 - automatic pilot mechanic (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 insulin; Z79.4 - automatic pilot mechanic (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 insulin; Z79.4 - longterm (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 insulin; Z79.4 - longterm (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 insulin - Time Spent With Patient Total time spent is greater than 50% in coordination of care (as documented) at patient's floor/unit and/or counseling patient: Greater than 35 minutes
[2017-07-04 08:20] LABS: INR 1.2; Prothrombin Time 12.6 Seconds (9.4-12.1)
[2017-07-04 08:21] LABS: Hematocrit 26.5 % (37.5-50.1); Hemoglobin 8.5 g/dL (12.9-16.9)
[2017-07-04 08:23] LABS: Activated Partial Thrombo Time 31.1 Seconds (26.0-36.0)
[2017-07-04] MEDS ORDERED: D5% in Water 1,000 ML IVC PRN (08:27)
[2017-07-04] MEDS ORDERED: Dextrose Gel 15 GM/37.5 ML TUBE PO PRN ×3 (08:27→11:11)
[2017-07-04] MEDS ORDERED: *HR* Dextrose 50 % in Water (Syg) 50 ML SYRINGE IVP PRN (08:27)
[2017-07-04] MEDS: Nicotine 14 MG PATCH.TD24 TD SCH (10:01)
[2017-07-04] MEDS ORDERED: Nitroglycerin 0.4 MG TAB.SUBL SL PRN (11:11)
[2017-07-04] MEDS ORDERED: tiZANidine 4 MG TABLET PO PRN (11:11)
--- NOTE | 2017-07-04 11:14 | Gastroenterology Consult Note ---
<DextergonzaloChantell H - Last Filed: 07/04/17 11:06> Date of Encounter: 07/04/17 Time of Encounter: 11:06 - Assessment and plan (1) GIB (gastrointestinal bleeding) Status: Acute Assessment and plan: 61-year-old male with multiple medical comorbidities presents with hemoglobin of 6.6 from outside hospital s/p transfusion 2 units PRBCs. -Hgb stable, 8.5 currently, 8.4 this morning. Continue serial H&H. -agree with PPI. -Nothing by mouth -INR 1.2. -Transfusion per primary team. -EGD today. Qualifiers: GI bleed type/associated pathology: unspecified gastrointestinal hemorrhage type Qualified Code(s): K92.2 - Gastrointestinal hemorrhage, unspecified (2) Acute blood loss anemia Status: Acute Assessment and plan: Seen management as per above. (3) CAD (coronary artery disease) Status: Chronic Assessment and plan: Agree with hold of aspirin and Plavix. Qualifiers: Coronary Disease-Associated Artery/Lesion type: [place] artery [place] vs. transplanted heart: [place] heart Associated angina: without angina Qualified Code(s): I25.10 - Atherosclerotic heart disease of [place] coronary artery without angina pectoris (4) Chronic kidney disease, stage III (moderate) Status: Chronic Assessment and plan: Management per primary team - Time Spent With Patient Total time spent is greater than 50% in coordination of care (as documented) at patient's floor/unit and/or counseling patient: GI History of Present Illness - Data of Consult Patient: new to practice Consult date: 07/04/17 Requesting Physician: Michael Lazaro MD - Consult Narrative Reason for consult: Gi bleed History of present illness: Mr. Renee is a 61 year old male with past medical history of COPD, HTN, DM 2 CHF, CAD, recent IN with 2 stents, CKD, neurogenic bladder, and chronic bilateral lower extremity wounds. Mr. Renee presented to the wound clinic on 07/03/2017 for management of her his bilateral lower extremity wounds and had lab work performed at that time. He was told to report to [facility] when his hemoglobin was found to be below 7. At [facility] emergency department his hemoglobin was 6.6. He was transfused 2 units of blood and transferred to [facility] where he was accepted by the hospitalist. The patient was heme-positive in his stool and was started on Protonix twice a day. Patient is currently taking aspirin and Plavix for recent LHC with stenting in April. Patient denies any recent sources of bleeding including melena, hematochezia, hematemesis, or hematuria. He does, however, state he does not look at his stool. He does state he has a chronic history of hematuria, although, he denies any recent episodes of hematuria. Patient's most recent hemoglobin was 7.7 upon discharge from [facility] on 05/18/2017 when he was hospitalized for aspiration pneumonia, sepsis, and acute exacerbation of CHF. This morning, patient is resting comfortably. He states his only complaints are fatigue, weakness, and shortness of breath. He denies any dizziness, headaches, visual disturbances, chest pain, palpitations, nausea, vomiting, diarrhea, constipation, melena, hematochezia, hematemesis, or hematuria. Colonoscopy: Never EGD: Approximately 5 years ago at an outside facility. Past Med Surg Social Fam HX - Past Medical History Attestation: Yes The following information was validated with the patient. Source: patient, old records reviewed Medical history: CHF, coronary artery disease (2 stents placed in April 2017) , diabetes, hypertension, myocardial infarction, renal disease, other Psychiatric history: depression - Past Surgical History Surgical History: angioplasty/stent - Social History Smoking Status: Former smoker Smokeless Tobacco Status: No Alcohol use: none Drug use: none - Family History Father Adopted: No Family Member Ethnicity: Non- Living Status: Hx Family Cardiac Disorders: Yes (triple bypass) Hx Family Respiratory Disorders: Yes Hx Family Cancer: Yes (lung) Hx Family GI Disorders: No Hx Family Endocrine Disorder: Yes (diabetes) Hx Family Neuromuscular Disorders: No Hx Family Neurologic Disorders: No Hx Family HEENT Disorders: No Hx Family Autoimmune Disorders: No Mother Adopted: No Family Member Ethnicity: Non- Living Status: Hx Family Cardiac Disorders: No Hx Family Respiratory Disorders: No Hx Family Cancer: Yes (throat, lung) Hx Family GI Disorders: No Hx Family Endocrine Disorder: No Hx Family Neuromuscular Disorders: No Hx Family Neurologic Disorders: No Hx Family HEENT Disorders: No Hx Family Autoimmune Disorders: No - Gastrointestinal NSAID use: Aspirin Anticoagulation Use: None Number of BM Per Day: 1 Gastrointestinal: Absent: abdominal pain, bloating, change in bowel habits, coffee ground emesis, diarrhea, dyspepsia, heartburn, hematemesis, hematochezia , melena, nausea, vomiting - Constitutional Constitutional: fatigue, no fever(s), no weight gain, no weight loss - EENT Nose, mouth and throat: Absent: dysphagia - Cardiovascular Cardiovascular ROS: Absent: chest pain, irregular heart rhythm, palpitations - Respiratory Respiratory IM: Absent: cough, dyspnea - Neurological ROS Neurological GI: Present: weakness. Absent: dizziness, headache(s), memory loss - Hematologic/Lymphatic Hematologic/Lymphatic pediatric: Absent: easy bleeding - Musculoskeletal Musculoskeletal ROS GI: Absent: back pain - Integumentary Integumentary GI: Absent: pruritis, rash - Psychiatric ROS Psychiatric GI: Present: depression - Constitutional Vitals: Temp Pulse Resp BP Pulse Ox 98.3 F 71 16 185/84 94 07/04/17 07:18 07/04/17 07:18 07/04/17 07:18 07/04/17 09:00 07/04/17 07:18 General appearance: Present: cooperative, A&O X 3, no acute distress (Mildly lethargic), answers questions appropriately - Head Head exam: Present: atraumatic, normocephalic - Eye Eye exam: Present: normal appearance, sclera anicteric - Neck Neck exam general surgery: Present: normal inspection, trachea midline - Respiratory Respiratory exam: Present: CTAB (Breath sounds somewhat coarse). Absent: rales , wheezes - Cardiovascular Cardiovascular exam: Present: RRR, +S1, +S3 - GI/Abdominal GI/Abdominal exam: Present: normal bowel sounds, soft, no peritoneal signs. Absent: distended, firm, guarding, tenderness - Expanded GI/Abdominal Exam GI/Abdominal exam expanded: Absent: ascites - Extremities Exam Extremities exam: Present: pedal edema. Absent: calf tenderness, tenderness, warm Additional comments: Patients with bilateral lower extremities wrapped in gauze. Dressing is clean and dry. - Neurological Exam Neurological exam: Present: CN II-XII intact, no focal deficits - Psychiatric Psychiatric exam: Present: normal affect, normal mood - Skin Skin exam: Present: dry, intact, pallor, warm Results - Labs CBC & Chem 7: 07/04/17 07:59 Labs: Last Result Troponin I < 0.03 ng/mL (< 0.04) 07/04/17 09:25 Entire Visit Hgb 8.5 g/dL (12.9-16.9) L 07/04/17 07:59 Hct 26.5 % (37.5-50.1) L 07/04/17 07:59 PT 12.6 Seconds (9.4-12.1) H 07/04/17 07:59 - ABG ABG results: PT/INR, D-dimer PT 12.6 Seconds (9.4-12.1) H 07/04/17 07:59 Consult Discharge Plan - Plan Instructions: Diabetes Mellitus Type 2 in Adults (DC), Anemia (GEN) Referrals: Marlo Menendez MD [Partnered Physician] - (Follow up in 1-2 weeks, Please call pat sunday to schedule appointment. Office is closed at this time. ) Marcial Wolf DO [Primary Care Provider] - (Follow up in 1-2 weeks. Please Call this provider sunday to schedule followup, as office is closed today. ) Prescriptions: Ferrous Sulfate 325 mg PO BIDWM #60 tablet Lisinopril [Zestril] 10 mg PO DAILY #30 tablet Pantoprazole Sodium [Protonix] 40 mg PO BID #60 tablet.dr <Marlo Menendez - Last Filed: 07/23/17 07:41> Date of Encounter: 07/04/17 - Time Spent With Patient Total time spent is greater than 50% in coordination of care (as documented) at patient's floor/unit and/or counseling patient: GI History of Present Illness - Data of Consult Requesting Physician: Una Salas MD - Consult Narrative History of present illness: Mr. Renee is a 62 year old male - Constitutional Vitals: Temp Pulse Resp BP Pulse Ox 97.8 F 64 16 141/63 93 07/07/17 14:40 07/07/17 14:40 07/07/17 14:40 07/07/17 14:40 07/07/17 14:40 Results - Labs CBC & Chem 7: 07/07/17 06:02 07/07/17 06:02 Labs: Last Result Calcium 7.9 mg/dL (8.6-10.3) L 07/07/17 06:02 Iron 28 mcg/dL (65-175) L 07/06/17 11:28 % Saturation 14 % (20-55) L 07/06/17 11:28 Transferrin 147 mg/dL (203-362) L 07/06/17 11:28 Troponin I < 0.03 ng/mL (< 0.04) 07/04/17 15:41 Entire Visit Hgb 8.3 g/dL (12.9-16.9) L 07/07/17 06:02 Hct 26.3 % (37.5-50.1) L 07/07/17 06:02 PT 12.6 Seconds (9.4-12.1) H 07/04/17 07:59 Total Bilirubin 0.3 mg/dL (0.3-1.0) 07/07/17 06:02 AST 9 Units/L (13-39) L 07/07/17 06:02 ALT 6 Units/L (7-52) L 07/07/17 06:02 - ABG ABG results: PT/INR, D-dimer PT 12.6 Seconds (9.4-12.1) H 07/04/17 07:59 - Attending Attestation Patient presents with severe anemia with a hemoglobin of 6.6 receive 2 units of packed RBCs I examined this patient and my medical decision-making was reviewed with the Resident Physician. I agree with the documented findings, disposition and treatment plan as described except to the extent set forth below. will need an EGD and colonoscopy a long discussion with Mr. Renee explained the risks and benefits of the procedure
[2017-07-04] MEDS: amLODIPine 5 MG TABLET PO SCH (11:57)
[2017-07-04] MEDS: Insulin LISPRO 300 UNITS/3 ML VIAL SQ SCH ×2 (11:57→20:13)
[2017-07-04] MEDS: Ondansetron 4 MG/2 ML VIAL IVP SCH ×2 (15:48→20:52)
[2017-07-04 16:04] LABS: Hematocrit 28.7 % (37.5-50.1); Hemoglobin 9.1 g/dL (12.9-16.9)
[2017-07-04] MEDS: hydrALAZINE 25 MG TABLET PO SCH (16:19)
[2017-07-04] MEDS ORDERED: SODIUM CHLORIDE/NAHCO3/KCL/PEG 4,000 ML SOLN.RECON PO ONE (19:00)
[2017-07-04] MEDS: Pantoprazole 40 MG VIAL IVP SCH ×2 (19:01→20:52)
[2017-07-04] MEDS: Topiramate 25 MG TABLET PO SCH (20:52)
[2017-07-04] MEDS: traZODone 50 MG TABLET PO SCH (20:52)
[2017-07-04 20:57] LABS: Hematocrit 28.8 % (37.5-50.1); Hemoglobin 9.3 g/dL (12.9-16.9)
[2017-07-04] MEDS: Pregabalin 50 MG CAPSULE PO SCH (22:07)
[2017-07-05] MEDS: Insulin LISPRO 300 UNITS/3 ML VIAL SQ SCH ×5 (00:16→23:00)
[2017-07-05] MEDS: hydrALAZINE 25 MG TABLET PO SCH ×4 (00:21→23:37)
[2017-07-05] MEDS: Ondansetron 4 MG/2 ML VIAL IVP SCH ×6 (00:22→21:16)
[2017-07-05] MEDS: Pantoprazole 40 MG VIAL IVP SCH ×2 (05:34→17:57)
[2017-07-05] MEDS ORDERED: Polyethylene Glycol 3350 255 GM POWDER PO ONE (10:04)
[2017-07-05] MEDS: Topiramate 25 MG TABLET PO SCH ×2 (11:21→21:18)
[2017-07-05] MEDS: Isosorbide MONOnitrate (24 HR) 60 MG TAB.ER.24H PO SCH (11:21)
[2017-07-05] MEDS: amLODIPine 5 MG TABLET PO SCH (11:22)
[2017-07-05] MEDS: Nicotine 14 MG PATCH.TD24 TD SCH (11:22)
[2017-07-05] MEDS: FLUoxetine 20 MG CAPSULE PO SCH (11:23)
[2017-07-05] MEDS: (Naloxegol Oxalate [Movantik] 12.5 MG) PO SCH (11:23)
[2017-07-05] MEDS ORDERED: *HR* OxyCODONE Immed Rel 5 MG TABLET PO ONE (12:44)
[2017-07-05] MEDS: Pregabalin 50 MG CAPSULE PO SCH ×2 (13:07→21:17)
[2017-07-05] MEDS ORDERED: *HR* OxyCODONE Immed Rel 5 MG TABLET PO PRN (13:33)
[2017-07-05 14:12] LABS: Hematocrit 27.4 % (37.5-50.1); Hemoglobin 8.6 g/dL (12.9-16.9)
--- NOTE | 2017-07-05 16:24 | Internal Med Progress Note ---
Date of Encounter: 07/05/17 Time of Encounter: 16:22 - Assessment and plan (1) GIB (gastrointestinal bleeding) Current Visit: Yes Status: Acute Assessment and plan: -Acute on chronic anemia due to GI blood loss, CKD, and Iron deficiency. - FOBT positive. - on asa and plavix, both on hold now. - Hgb 6.6 upon admission, received 2 unit PRBC, Hgb 8.6 this am. - EGD today, and possible C-scope tomorrow. - continue IV PPI. continue cycle H/H Q8h. Qualifiers: GI bleed type/associated pathology: unspecified gastrointestinal hemorrhage type Qualified Code(s): K92.2 - Gastrointestinal hemorrhage, unspecified (2) CAD (coronary artery disease) Current Visit: No Status: Chronic Assessment and plan: - Had PCI with stent in April, Asa and Plavix on hold due to GI bleeding. - continue other meds including BB, isosorbide/hydralazine, and ACEI. Qualifiers: Coronary Disease-Associated Artery/Lesion type: [place] artery [place] vs. transplanted heart: [place] heart Associated angina: without angina Qualified Code(s): I25.10 - Atherosclerotic heart disease of [place] coronary artery without angina pectoris (3) Diabetes mellitus Current Visit: No Status: Chronic Assessment and plan: - on insulin SS, hold home insulin regimen due to NPO, will resume once diet resumed. 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 Diabetes mellitus complication status: with kidney complications Diabetes mellitus complication detail: with chronic kidney disease Chronic kidney disease stage: stage 3 (moderate) Qualified Code(s): E11.22 - Type 2 diabetes mellitus with diabetic chronic kidney disease; N18.3 - Chronic kidney disease, stage 3 (moderate); N18.3 - Chronic kidney disease, stage 3 (moderate); Z79.4 - correction (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 insulin; Z79.4 - correction (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 insulin; Z79.4 - remote computer terminal operator (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 insulin; Z79.4 - remote computer terminal operator (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 insulin (4) CKD (chronic kidney disease) Current Visit: No Status: Chronic Assessment and plan: - Cr at baseline. stage 4 RF. - euvolemic, Lasix on hold, will resume if volume overload. Qualifiers: Chronic kidney disease stage: stage 4 (severe) Qualified Code(s): N18.4 - Chronic kidney disease, stage 4 (severe) - Time Spent With Patient Total time spent is greater than 50% in coordination of care (as documented) at patient's floor/unit and/or counseling patient: Greater than 35 minutes - Subjective Interval history: Patient resting, he has no complaints. - Constitutional Vitals: Temp Pulse Resp BP Pulse Ox 98.4 F 63 12 149/66 93 07/05/17 14:53 07/05/17 14:53 07/05/17 14:53 07/05/17 14:53 07/05/17 14:53 General appearance: Present: A&O X 3, pleasant, no acute distress, answers questions appropriately Exam: PHYSICAL EXAMINATION: GENERAL APPEARANCE: The patient is alert, oriented and in no acute distress. HEENT: Head is normocephalic. The sinuses are nontender. Pupils are equal and reactive. The nares are patent. Oropharynx clear without lesions. NECK: Supple without lymphadenopathy. HEART: Regular rate and rhythm. LUNGS: No crackles or wheezes are heard. ABDOMEN: Soft, nontender, nondistended with good bowel sounds heard. Inguinal area is normal. EXTREMITIES: Without cyanosis, clubbing or edema. NEUROLOGICAL: Gross nonfocal. SKIN: Warm and dry without any rash. Internal Medicine: Result - Labs CBC & Chem 7: 07/05/17 13:35 Labs: Short CBC 07/04/17 07/04/17 07/05/17 Range/Units 15:41 20:40 13:35 Hgb 9.1 L 9.3 L 8.6 L (12.9-16.9) g/dL Hct 28.7 L 28.8 L 27.4 L (37.5-50.1) % Cardiac Enzymes 07/04/17 Range/Units 15:41 Troponin I < 0.03 (< 0.04) ng/mL - ABG Interpretation ABG results: PT/INR, D-dimer PT 12.6 Seconds (9.4-12.1) H 07/04/17 07:59 Consult Discharge Plan - Plan Referrals: Marcial Wolf DO [Primary Care Provider] -
--- NOTE | 2017-07-05 17:05 | Anesthesia Evaluation PreOp ---
Date of Encounter: 07/05/17 Time of Encounter: 17:10 - Past History Planned Operation: EGD Cardiac History: [place], CHF, HTN Pulmonary History: Smoker FISHER [place] History: Denies Any Significant HX Other Medical History: Renal (CKD), Diabetes Type II Anesthesia History: No Prior Anesthetic Complications Alcohol Use: none Drug use: none Medications and Allergies Aspirin Enteric Coated [Aspirin EC] 81 mg PO DAILY 06/08/16 [History] Atorvastatin Calcium [Lipitor] 80 mg PO HS 06/08/16 [History] Clopidogrel [Plavix] 75 mg PO DAILY 06/08/16 [History] Dextrose [Glucose Gel] 15 gm PO ONCE PRN 06/08/16 [History] FLUoxetine HCl [Prozac] 40 mg PO QAM 06/08/16 [History] Glucagon,Human Recombinant [Glucagon Emergency Kit] 1 mg IJ ONCE PRN 06/08/16 [ History] Insulin ASPART [Novolog Flexpen] 20 unit SQ TIDAC 06/08/16 [History] Isosorbide MONOnitrate (24 HR) [Imdur] 60 mg PO DAILY 06/08/16 [History] Nitroglycerin [Nitrostat] 0.4 mg SL Q5M PRN 06/08/16 [History] Topiramate [Topamax] 25 mg PO BID 06/08/16 [History] Carvedilol [Coreg] 12.5 mg PO BIDWM #120 tablet 06/12/16 [Rx] Insulin Degludec [Tresiba Flextouch U-200] 20 - 30 unit SQ HS 01/01/17 [History] Naloxegol Oxalate [Movantik] 12.5 mg PO DAILY 01/01/17 [History] Tizanidine HCl [Zanaflex] 4 mg PO TID PRN 01/01/17 [History] Trazodone HCl 50 mg PO HS 01/01/17 [History] hydrALAZINE [HydrALAZINE] 50 mg PO Q8HR 04/29/17 [History] Tamsulosin HCl [Flomax] 0.4 mg PO DAILY #30 cap.er.24h 04/30/17 [Rx] Pantoprazole Sodium [Protonix] 40 mg PO DAILY 05/10/17 [History] OxyCODONE Immed Rel [Roxicodone 10 MG] 10 mg PO Q6H PRN 3 Days #10 tablet [Rx] Amlodipine Besylate 10 mg PO DAILY 07/04/17 [History] Bumetanide 2 mg PO DAILY 07/04/17 [History] Lisinopril [Zestril] 5 mg PO DAILY 07/04/17 [History] Pregabalin [Lyrica] 100 mg PO BID 07/04/17 [History] 3 Allergy/AdvReac Type Severity Reaction Status Date / Time Methadone Allergy Hives Verified 05/10/17 12:17 Penicillins Allergy Hives Verified 05/10/17 12:17 linaclotide [From Linzess] AdvReac Nausea Verified 05/10/17 12:17 phenazopyridine AdvReac See Verified 05/10/17 12:17 [From Pyridium] Comments - Meds/Allergy Pre-op Review Medications Reviewed: Yes Allergies Reviewed: Yes Beta Blockers on Current Med List: Yes Anesthesia Results - Labs 07/05/17 13:35 Laboratory Tests 07/02/17 07/04/17 07/04/17 16:07 06:25 07:59 Hgb Hct Plt Count 170 PT 12.6 H INR 1.2 APTT 31.1 Sodium 140 Potassium 4.8 BUN 48 H Creatinine 2.87 H 07/05/17 13:35 Hgb 8.6 L Hct 27.4 L Plt Count PT INR APTT Sodium Potassium BUN Creatinine - Imaging EKG: report reviewed (SR) Additional studies: ECHO EF 60%, mild Pulm htn Anesthesia Exam Vital Signs/O2 Sat/Glucose, Most Current Temp Pulse Resp BP Pulse Ox 07/05/17 14:53 98.4 F 63 12 149/66 93 Height: 6'0 Weight: 198 lbs NPO (# of Hours): [place] Pain Scale: 0 - HEENT Pupil (Motor): Pupils equal, EOMI Oral Opening: Greater than 3 - FISHER [place] LOC: Oriented [place] Motor: Normal RUE, Normal LUE, Normal RLE, Normal LLE, Normal Face [place] Sensory: Normal: RUE, LUE, RLE, LLE, Face - Cardiac Rhythm: Regular Murmur: None JVD: No Carotid Bruit: No - Pulmonary Breath Sounds: bilateral Clear Respiratory Effort: Symmetrical Anesthesia Assess/Plan ASA Score: 3 (HTN CAD DM) Modified [place] Scale for Level of Consciousness: Cooperative, oriented, and tranquil Anesthetic Plan: MAC Monitoring Plan: Standard Monitors Recovery Plan: Other (Discussed MAC, agrees to proceed)
[2017-07-05] MEDS ORDERED: *HR* FentaNYL (PF) 100 MCG/2 ML VIAL ONE (17:12)
[2017-07-05] MEDS ORDERED: Lidocaine -MPF 2% 2 ML VIAL ONE (17:12)
[2017-07-05] MEDS ORDERED: *HR* Propofol 200 MG/20 ML VIAL IVP ONE (17:13)
--- NOTE | 2017-07-05 18:14 | Anesthesia Evaluation Post Op ---
Date of Encounter: 07/05/17 Time of Encounter: 18:10 - Vital Signs Vital Signs: Vital Signs/O2 Sat/Glucose, Most Current Temp Pulse Resp BP Pulse Ox 07/05/17 17:00 69 18 155/68 100 07/05/17 14:53 98.4 F 63 12 149/66 93 - Lungs Lungs: Clear Ascult./Percussion - Airway Airway: Non-obstructed - Cardiovascular Regular Rate - Mental Status Mental Status: Alert & Oriented, Answers Appropriately - Pain Pain Scale: 0 - Nausea Vomiting Nausea Vomiting: Not Present - Hydration Hydration: NPO - Discharge PostOp Status: Transfer Patient to floor
[2017-07-05] MEDS: traZODone 50 MG TABLET PO SCH (21:17)
[2017-07-05 21:58] LABS: Hematocrit 28.9 % (37.5-50.1); Hemoglobin 9.1 g/dL (12.9-16.9)
[2017-07-06] MEDS: Ondansetron 4 MG/2 ML VIAL IVP SCH ×6 (00:29→21:06)
[2017-07-06] MEDS: Insulin LISPRO 300 UNITS/3 ML VIAL SQ SCH ×5 (03:54→16:58)
[2017-07-06 05:40] LABS: Hematocrit 26.6 % (37.5-50.1); Hemoglobin 8.4 g/dL (12.9-16.9)
[2017-07-06] MEDS: Pantoprazole 40 MG VIAL IVP SCH (06:01)
[2017-07-06] MEDS ORDERED: *HR* Propofol 200 MG/20 ML VIAL IVP ONE (06:56)
[2017-07-06] MEDS ORDERED: Lidocaine -MPF 2% 2 ML VIAL ONE (06:57)
[2017-07-06] MEDS: hydrALAZINE 25 MG TABLET PO SCH ×2 (07:34→16:56)
[2017-07-06] MEDS: Nicotine 14 MG PATCH.TD24 TD SCH (07:34)
[2017-07-06] MEDS: (Naloxegol Oxalate [Movantik] 12.5 MG) PO SCH (07:35)
[2017-07-06] MEDS: Isosorbide MONOnitrate (24 HR) 60 MG TAB.ER.24H PO SCH (08:58)
[2017-07-06] MEDS: amLODIPine 5 MG TABLET PO SCH (08:58)
[2017-07-06] MEDS: Pregabalin 50 MG CAPSULE PO SCH ×2 (08:58→21:07)
[2017-07-06] MEDS: Topiramate 25 MG TABLET PO SCH ×2 (08:58→21:07)
[2017-07-06] MEDS: FLUoxetine 20 MG CAPSULE PO SCH (08:58)
[2017-07-06] MEDS ORDERED: Isosorbide MONOnitrate (24 HR) 30 MG TAB.ER.24H PO SCH (11:00)
--- NOTE | 2017-07-06 11:16 | Internal Med Progress Note ---
Date of Encounter: 07/06/17 Time of Encounter: 11:11 - Assessment and plan (1) GIB (gastrointestinal bleeding) Current Visit: Yes Status: Acute Assessment and plan: -Acute on chronic anemia due to GI blood loss, CKD, and Iron deficiency. - FOBT positive. - on asa and plavix, both on hold now. - Hgb 6.6 upon admission, received 2 unit PRBC, Hgb 8.4 this am. - EGD and C-scope revealed [place] esophagus, mild gastritis, diverticulosis, and internal hemorrhoid. - change IV PPI to po, add fibercon. - will workup for other cause of anemia, check reti count and iron profile, may need epogen and iron supplement. - Hold asa and plavix for now, continue monitoring H/H, of stable, will resume. - need refer to [facility] for capsule study if anemia persists. Qualifiers: GI bleed type/associated pathology: unspecified gastrointestinal hemorrhage type Qualified Code(s): K92.2 - Gastrointestinal hemorrhage, unspecified (2) CAD (coronary artery disease) Current Visit: No Status: Chronic Assessment and plan: - Had PCI with stent in April, Asa and Plavix on hold due to GI bleeding. - BP not well-controlled, increase dose of isosorbide, dc lisinopril due to CKD , continue BB and hydralazine, will adjust dose to achieve BP<120 per current guideline. - will resume asa and plavix if H/H stable. Qualifiers: Coronary Disease-Associated Artery/Lesion type: [place] artery [place] vs. transplanted heart: [place] heart Associated angina: without angina Qualified Code(s): I25.10 - Atherosclerotic heart disease of [place] coronary artery without angina pectoris (3) Diabetes mellitus Current Visit: No Status: Chronic Assessment and plan: - resume home insulin, and continue insulin SS. 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 mellitus terminal superintendent insulin use: with terminal superintendent use Diabetes mellitus complication status: with kidney complications Diabetes mellitus complication detail: with chronic kidney disease Chronic kidney disease stage: stage 3 (moderate) Qualified Code(s): E11.22 - Type 2 diabetes mellitus with diabetic chronic kidney disease; N18.3 - Chronic kidney disease, stage 3 (moderate); N18.3 - Chronic kidney disease, stage 3 (moderate); Z79.4 - [facility] (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 insulin; Z79.4 - [facility] (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 insulin; Z79.4 - [facility] (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 insulin; Z79.4 - extermination supervisor (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 insulin (4) CKD (chronic kidney disease) Current Visit: No Status: Chronic Assessment and plan: - BP not well controlled, suspicious for bilateral renal artery stenosis, will dc Lisinopril, renal artery doppler. Qualifiers: Chronic kidney disease stage: stage 4 (severe) Qualified Code(s): N18.4 - Chronic kidney disease, stage 4 (severe) - Time Spent With Patient Total time spent is greater than 50% in coordination of care (as documented) at patient's floor/unit and/or counseling patient: - Subjective Interval history: Patient resting, he has no complaints. - Constitutional Vitals: Temp Pulse Resp BP Pulse Ox 97.9 F 69 16 155/57 92 07/06/17 10:41 07/06/17 10:41 07/06/17 10:41 07/06/17 10:41 07/06/17 10:41 General appearance: Present: A&O X 3, pleasant, no acute distress, answers questions appropriately Exam: PHYSICAL EXAMINATION: GENERAL APPEARANCE: The patient is alert, oriented and in no acute distress. HEENT: Head is normocephalic. The sinuses are nontender. Pupils are equal and reactive. The nares are patent. Oropharynx clear without lesions. NECK: Supple without lymphadenopathy. HEART: Regular rate and rhythm. LUNGS: No crackles or wheezes are heard. ABDOMEN: Soft, nontender, nondistended with good bowel sounds heard. Inguinal area is normal. EXTREMITIES: Without cyanosis, clubbing or edema. NEUROLOGICAL: Gross nonfocal. SKIN: Warm and dry without any rash. Internal Medicine: Result - Labs CBC & Chem 7: 07/06/17 05:14 Labs: Short CBC 07/05/17 07/05/17 07/06/17 Range/Units 13:35 21:23 05:14 Hgb 8.6 L 9.1 L 8.4 L (12.9-16.9) g/dL Hct 27.4 L 28.9 L 26.6 L (37.5-50.1) % - ABG Interpretation ABG results: PT/INR, D-dimer PT 12.6 Seconds (9.4-12.1) H 07/04/17 07:59 Consult Discharge Plan - Plan Referrals: Marcial Wolf DO [Primary Care Provider] -
[2017-07-06] MEDS ORDERED: *HR* Dextrose 50 % in Water (Syg) 50 ML SYRINGE IVP PRN (11:28)
[2017-07-06] MEDS ORDERED: D5% in Water 1,000 ML IVC PRN (11:28)
[2017-07-06] MEDS ORDERED: Dextrose Gel 15 GM/37.5 ML TUBE PO PRN ×2 (11:28)
[2017-07-06] MEDS: Bumetanide 1 MG TABLET PO SCH (12:09)
[2017-07-06 12:25] LABS: % Iron Saturation 14 % (20-55); Iron 28 mcg/dL (65-175); Transferrin 147 mg/dL (203-362)
[2017-07-06 12:39] LABS: Immature Reticulocyte % 13.6 % (11.0-38.0); Retculocyte # 0.05 M/mcL (0.05-0.10); Reticulocyte % 1.6 % (1.6-2.8)
[2017-07-06] MEDS ORDERED: Insulin DETEMIR 100 UNIT/ML X5UNITS SQ SCH (21:00)
[2017-07-06] MEDS ORDERED: Insulin LISPRO 300 UNITS/3 ML VIAL SQ SCH (21:00)
[2017-07-06] MEDS: traZODone 50 MG TABLET PO SCH (21:07)
[2017-07-07] MEDS: Ondansetron 4 MG/2 ML VIAL IVP SCH ×4 (00:19→12:03)
[2017-07-07] MEDS: hydrALAZINE 25 MG TABLET PO SCH ×2 (00:22→08:10)
[2017-07-07 06:22] LABS: Hematocrit 26.3 % (37.5-50.1); Hemoglobin 8.3 g/dL (12.9-16.9); Mean Corpuscular HGB Conc 31.6 g/dL (31.6-35.5); Mean Corpuscular Hemoglobin 26.8 pg (28.0-33.3); Mean Corpuscular Volume 84.8 fL (83.0-100.0); Mean Platelet Volume 10.6 fL (9.4-12.4); Platelet Count 189 K/mcL (140-400); Red Cell Distribution Width 14.6 % (11.5-14.5)
[2017-07-07 06:47] LABS: Albumin 2.5 g/dL (3.5-5.7); Albumin/Globulin Ratio 0.9 (1.1-2.2); Bilirubin,Total 0.3 mg/dL (0.3-1.0); Calcium 7.9 mg/dL (8.6-10.3); Globulin 2.9 g/dL (2.4-3.5); Potassium 4.1 mEq/L (3.5-5.1); Total Protein 5.4 g/dL (6.4-8.9)
[2017-07-07] MEDS ORDERED: Iron Sucrose Complex 250 MG in 0.9 % Sodium Chloride 250 ML IVPB ONE (08:05)
[2017-07-07] MEDS: FLUoxetine 20 MG CAPSULE PO SCH (08:10)
[2017-07-07] MEDS: amLODIPine 5 MG TABLET PO SCH (08:10)
[2017-07-07] MEDS: Pregabalin 50 MG CAPSULE PO SCH (08:10)
[2017-07-07] MEDS: Topiramate 25 MG TABLET PO SCH (08:11)
[2017-07-07] MEDS: Insulin LISPRO 300 UNITS/3 ML VIAL SQ SCH ×4 (08:11→12:03)
[2017-07-07] MEDS: Bumetanide 1 MG TABLET PO SCH (08:11)
[2017-07-07] MEDS: Nicotine 14 MG PATCH.TD24 TD SCH (08:12)
[2017-07-07] MEDS: (Naloxegol Oxalate [Movantik] 12.5 MG) PO SCH (08:13)
[2017-07-07] MEDS ORDERED: Isosorbide MONOnitrate (24 HR) 30 MG TAB.ER.24H PO SCH (09:00)
--- NOTE | 2017-07-07 12:52 | Discharge Summary ---
- NOTES TO OUTPATIENT PROVIDER Notes to Outpatient Provider: Patient admitted with GI bleed. Underwent upper GI endoscopy and colonoscopy. 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 Placed on PPI. Has iron deficiency anemia. Placed on iron supplements. Follow-up as outpatient and with GI. Date of Encounter: 07/07/17 Time of Encounter: 12:49 - Discharge Diagnosis (1) GIB (gastrointestinal bleeding) Priority: Primary Status: Acute Qualifiers: GI bleed type/associated pathology: unspecified gastrointestinal hemorrhage type Qualified Code(s): K92.2 - Gastrointestinal hemorrhage, unspecified (2) Diabetes mellitus Priority: Secondary Status: Chronic 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 mellitus custodial insulin use: with continuous churn buttermaker use Diabetes mellitus complication status: with kidney complications Diabetes mellitus complication detail: with chronic kidney disease Chronic kidney disease stage: stage 3 (moderate) Qualified Code(s): E11.22 - Type 2 diabetes mellitus with diabetic chronic kidney disease; N18.3 - Chronic kidney disease, stage 3 (moderate); N18.3 - Chronic kidney disease, stage 3 (moderate); Z79.4 - oysterman (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 insulin; Z79.4 - halfway (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 insulin; Z79.4 - halfway (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 insulin; Z79.4 - halfway (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 insulin (3) CKD (chronic kidney disease) Priority: Secondary Status: Chronic Qualifiers: Chronic kidney disease stage: stage 4 (severe) Qualified Code(s): N18.4 - Chronic kidney disease, stage 4 (severe) (4) CAD (coronary artery disease) Priority: Secondary Status: Chronic Qualifiers: Coronary Disease-Associated Artery/Lesion type: [place] artery [place] vs. transplanted heart: [place] heart Associated angina: without angina Qualified Code(s): I25.10 - Atherosclerotic heart disease of [place] coronary artery without angina pectoris (5) Anemia Priority: Secondary Status: Acute Qualifiers: Anemia type: due to chronic kidney disease Chronic kidney disease stage: stage 4 (severe) Qualified Code(s): N18.4 - Chronic kidney disease, stage 4 ( severe); D63.1 - Anemia in chronic kidney disease; D63.1 - Anemia in chronic kidney disease Hospital course: Mr. Renee is a 61 year old male patient with a history of chronic kidney disease and chronic anemia who was hospitalized with GI bleed. He underwent upper GI endoscopy and colonoscopy yesterday. He was found to have Pierce's esophagitis, chronic gastritis and hiatal hernia. Colonoscopy showed nonbleeding internal hemorrhoids and diverticulosis. His blood counts have remained stable here. He has been recommended capsule endoscopy as outpatient. He will follow up with GI for further management. Patient also had uncontrolled hypertension here. She is on multiple medications for hypertension including carvedilol hydralazine, Imdur and lisinopril. I am increasing his lisinopril dosage to 10 mg daily. He can follow-up with his primary care provider for further management and follow-up. Discharge discussed with: patient, nurse - Time Spent with Patient Total time spent providing and/or coordinating discharge services: Greater than 30 minutes (32 min) - Discharge Medications Prescriptions: Ferrous Sulfate 325 mg PO BIDWM #60 tablet Lisinopril [Zestril] 10 mg PO DAILY #30 tablet Pantoprazole Sodium [Protonix] 40 mg PO BID #60 tablet.dr Home Medications: Aspirin Enteric Coated [Aspirin EC] 81 mg PO DAILY 06/08/16 [History] Atorvastatin Calcium [Lipitor] 80 mg PO HS 06/08/16 [History] Clopidogrel [Plavix] 75 mg PO DAILY 06/08/16 [History] Dextrose [Glucose Gel] 15 gm PO ONCE PRN 06/08/16 [History] FLUoxetine HCl [Prozac] 40 mg PO QAM 06/08/16 [History] Glucagon,Human Recombinant [Glucagon Emergency Kit] 1 mg IJ ONCE PRN 06/08/16 [ History] Insulin ASPART [Novolog Flexpen] 20 unit SQ TIDAC 06/08/16 [History] Isosorbide MONOnitrate (24 HR) [Imdur] 60 mg PO DAILY 06/08/16 [History] Nitroglycerin [Nitrostat] 0.4 mg SL Q5M PRN 06/08/16 [History] Topiramate [Topamax] 25 mg PO BID 06/08/16 [History] Carvedilol [Coreg] 12.5 mg PO BIDWM #120 tablet 06/12/16 [Rx] Insulin Degludec [Tresiba Flextouch U-200] 20 - 30 unit SQ HS 01/01/17 [History] Naloxegol Oxalate [Movantik] 12.5 mg PO DAILY 01/01/17 [History] Tizanidine HCl [Zanaflex] 4 mg PO TID PRN 01/01/17 [History] Trazodone HCl 50 mg PO HS 01/01/17 [History] hydrALAZINE [HydrALAZINE] 50 mg PO Q8HR 04/29/17 [History] Tamsulosin HCl [Flomax] 0.4 mg PO DAILY #30 cap.er.24h 04/30/17 [Rx] Amlodipine Besylate 10 mg PO DAILY 07/04/17 [History] Bumetanide 2 mg PO DAILY 07/04/17 [History] Pregabalin [Lyrica] 100 mg PO BID 07/04/17 [History] Ferrous Sulfate 325 mg PO BIDWM #60 tablet 07/07/17 [Rx] Lisinopril [Zestril] 10 mg PO DAILY #30 tablet 07/07/17 [Rx] Pantoprazole Sodium [Protonix] 40 mg PO BID #60 tablet. 07/07/17 [Rx] Allergies/Adverse Reactions: 3 Allergy/AdvReac Type Severity Reaction Status Date / Time Methadone Allergy Hives Verified 05/10/17 12:17 Penicillins Allergy Hives Verified 05/10/17 12:17 linaclotide [From Linzess] AdvReac Nausea Verified 05/10/17 12:17 phenazopyridine AdvReac See Verified 05/10/17 12:17 [From Pyridium] Comments Date of admission: 07/04/17 07:40 Primary care physician: Marcial Wolf DO Consults: 07/04/17 07:44 Consult to Gastroenterology [CONS] Routine Consulting Provider: Gastroenterology Susie Reason for Consult: GIB Time Notified: 07:45 Call Completed: Yes Discharging clinician: Una Salas Anticipated date of discharge: 07/07/17 - Constitutional Vitals: Temp Pulse Resp BP Pulse Ox 98.6 F 61 16 169/69 92 07/07/17 10:50 07/07/17 10:50 07/07/17 10:50 07/07/17 10:50 07/07/17 10:50 General appearance: Present: A&O X 3, pleasant, no acute distress, answers questions appropriately - Neck Neck exam general surgery: Present: supple, trachea midline. Absent: lymphadenopathy - Respiratory Respiratory exam: Present: CTAB. Absent: accessory muscle use, rales, rhonchi, wheezes - Cardiovascular Cardiovascular exam: Present: RRR, +S1, +S2. Absent: diastolic murmur, gallop, rubs, systolic murmur - GI/Abdominal GI/Abdominal exam: Present: normal bowel sounds, soft, no peritoneal signs. Absent: distended, tenderness - Extremities Exam Extremities exam: Present: warm, radial pulses palpable and symmetrical. Absent : calf tenderness, cyanotic, pedal edema - Neurological Exam Neurological exam: Present: alert, oriented X3, no focal deficits. Absent: facial droop, speech deficit - Skin Skin exam: Present: dry, intact - Patient Status Disposition: Home, Self-Care Condition: Good Functional capacity at discharge: independent ambulation Overall status at discharge: patient is progressing back to baseline - Discharge Instructions Instructions: Diabetes Mellitus Type 2 in Adults (DC), Anemia (GEN) Follow Up With: Marlo Menendez MD [Partnered Physician] - (Follow up in 1-2 weeks, Please call pat sunday to schedule appointment. Office is closed at this time. ) Betty-Marcial Bronson DO [Primary Care Provider] - (Follow up in 1-2 weeks. Please Call this provider sunday to schedule followup, as office is closed today. ) - Diet and Activity Activity: increase activity as tolerated, wear oxygen at all times Diet: diabetic diet, low fat, low cholesterol, low salt diet
[2017-07-07 14:43] VITALS: BP 141/63
== END 2017-07-07 15:40 | disposition home or self-care (01) | DRG 378 ==
LOC: 2SOUTHHOLD → SUATTDRO 07:40 → 3ANU 07-05 17:44
PROVIDERS: ADMIT Family Medicine; ATTEND Internal Medicine

== ENCOUNTER 2017-08-19 00:08 | Inpatient (IN) ==
--- NOTE | 2017-08-19 03:12 | Internal Med History&Physical ---
Date of Encounter: 08/19/17 Time of Encounter: 03:30 Internal Medicine - H&P: HPI Chief complaint: swelling of hands Admitted From: Intrahospital Transfer Plans for Post Hospital Care: Home History of present illness: Mr. Renee is a 62 year old male with history of CHF, anemia, sepsis, stents 2/ 2 previous [place], DM, COPD, depression presents from [facility] due to worsening right upper extremity swelling bilaterally. He had originally presented to [facility] for generalized edema. He is on chronic 4L O2 NC at home. Patient confirms that he is taking all of his home medications. Per transfer report, patient is received IV antibiotics via right arm PICC line for treatment of lower extremity wounds likely diabetic ulcers. Patient is unsure of which antibiotics he is taking. Patient is overall a poor historian, he admits to numbness and tingling in all extremities, denies f/c/n/v, chest pain, abdominal pain, dysuria, hematuria. Does admit to SOB. Past Med Surg Social Fam HX - Past Medical History Medical history: CHF, COPD, coronary artery disease, diabetes, hypertension, myocardial infarction, renal disease, other Psychiatric history: depression - Past Surgical History Surgical History: angioplasty/stent - Social History Smoking Status: Current every day smoker Packs per day: 1 Smokeless Tobacco Status: No Alcohol use: none Drug use: none - Family History Father History Unknown: Yes Adopted: [place]: Henry Renee Family Member Ethnicity: Non- Living Status: Hx Family Cardiac Disorders: Yes Hx Family Respiratory Disorders: Yes Hx Family Cancer: Yes (lung) Hx Family GI Disorders: No Hx Family Endocrine Disorder: Yes (diabetes) Hx Family Neuromuscular Disorders: No Hx Family Neurologic Disorders: No Hx Family HEENT Disorders: No Hx Family Autoimmune Disorders: No Mother Adopted: [place]: williams Renee Family Member Ethnicity: Non- Living Status: Cause of : throat cancer Hx Family Cardiac Disorders: No Hx Family Respiratory Disorders: No Hx Family Cancer: Yes Hx Family GI Disorders: No Hx Family Genitourinary Disorders: No Hx Family Endocrine Disorder: Yes Hx Family Musculoskeletal Disorders: No Hx Family Neuromuscular Disorders: No Hx Family Neurologic Disorders: No Hx Family HEENT Disorders: No Hx Family Autoimmune Disorders: No Hx Family Reproductive Disorders: No Hx Family Psychosocial Disorders: No Hx Family Medical Disorders: No Internal Medicine - H&P: Meds Aspirin Enteric Coated [Aspirin EC] 81 mg PO DAILY 06/08/16 [History] Atorvastatin Calcium [Lipitor] 80 mg PO HS 06/08/16 [History] Clopidogrel [Plavix] 75 mg PO DAILY 06/08/16 [History] Dextrose [Glucose Gel] 15 gm PO ONCE PRN 06/08/16 [History] FLUoxetine HCl [Prozac] 40 mg PO QAM 06/08/16 [History] Glucagon,Human Recombinant [Glucagon Emergency Kit] 1 mg IJ ONCE PRN 06/08/16 [ History] Insulin ASPART [Novolog Flexpen] 20 unit SQ TIDAC 06/08/16 [History] Isosorbide MONOnitrate (24 HR) [Imdur] 60 mg PO DAILY 06/08/16 [History] Nitroglycerin [Nitrostat] 0.4 mg SL Q5M PRN 06/08/16 [History] Topiramate [Topamax] 25 mg PO BID 06/08/16 [History] Carvedilol [Coreg] 12.5 mg PO BIDWM #120 tablet 06/12/16 [Rx] Insulin Degludec [Tresiba Flextouch U-200] 20 - 30 unit SQ HS 01/01/17 [History] Naloxegol Oxalate [Movantik] 12.5 mg PO DAILY 01/01/17 [History] Tizanidine HCl [Zanaflex] 4 mg PO TID PRN 01/01/17 [History] Trazodone HCl 50 mg PO HS 01/01/17 [History] hydrALAZINE [HydrALAZINE] 50 mg PO Q8HR 04/29/17 [History] Tamsulosin HCl [Flomax] 0.4 mg PO DAILY #30 cap.er.24h 04/30/17 [Rx] Amlodipine Besylate 10 mg PO DAILY 07/04/17 [History] Bumetanide 2 mg PO DAILY 07/04/17 [History] Pregabalin [Lyrica] 100 mg PO BID 07/04/17 [History] Ferrous Sulfate 325 mg PO BIDWM #60 tablet 07/07/17 [Rx] Lisinopril [Zestril] 10 mg PO DAILY #30 tablet 07/07/17 [Rx] Pantoprazole Sodium [Protonix] 40 mg PO BID #60 tablet. 07/07/17 [Rx] 3 Allergy/AdvReac Type Severity Reaction Status Date / Time Methadone Allergy Hives Verified 05/10/17 12:17 Penicillins Allergy Hives Verified 05/10/17 12:17 linaclotide [From Linzess] AdvReac Nausea Verified 05/10/17 12:17 phenazopyridine AdvReac See Verified 05/10/17 12:17 [From Pyridium] Comments All Systems PM: A 10-system review of systems was performed and is negative for pertinent findings except as documented above in the HPI. - Constitutional Constitutional: no chills, no fever(s), no night sweats - EENT Eyes: no change in vision, no discharge, no pain, no photophobia Ears: no ear discharge, no ear pain, no tinnitus Nose, mouth and throat: no dysphagia, no nasal discharge, no neck pain, no sore throat - Cardiovascular Cardiovascular ROS IM: no chest pain, no diaphoresis, no dyspnea, no lightheadedness, no palpitations, no syncope - Respiratory Respiratory: no cough, no dyspnea, no wheezing, no excessive phlegm production - Gastrointestinal Gastrointestinal: no abdominal pain, no diarrhea, no hematemesis, no hematochezia, no melena, no nausea, no vomiting - Genitourinary Genitourinary ROS male: no dysuria, no nocturia Additional comments: chronic catheter. no changes in urine color or consistency - Musculoskeletal Musculoskeletal ROS IM: numbness, tingling Additional comments: swelling of both hands. - Integumentary Integumentary IM: no rash, no unusual bruising - Neurological Neurological ROS: no confusion, no convulsions, no focal weakness, no numbness, no tingling, no tremor(s) - Hematologic/Lymphatic Hematologic/Lymphatic: no easy bruising - Constitutional Vitals: Pulse Pulse Ox 58 96 08/19/17 02:22 08/19/17 02:22 General appearance: Present: A&O X 3, no acute distress, answers questions appropriately - Head Head exam: Present: atraumatic, normocephalic - Eye Eye exam: Present: EOMI, conjuntiva pink, sclera anicteric - Neck Neck exam general surgery: Present: supple, trachea midline. Absent: lymphadenopathy - Respiratory Respiratory exam: Present: CTAB. Absent: accessory muscle use, rales, rhonchi, wheezes - Cardiovascular Cardiovascular exam: Present: RRR, +S1, +S2. Absent: diastolic murmur, gallop, rubs, systolic murmur - GI/Abdominal GI/Abdominal exam: Present: normal bowel sounds, soft, no peritoneal signs. Absent: distended, tenderness - Extremities Exam Extremities exam: Present: warm, radial pulses palpable and symmetrical. Absent : calf tenderness, cyanotic, pedal edema Additional comments: edematous in all 4 extremities. bilateral lower extremity ulcerations. - Neurological Exam Neurological exam: Present: oriented X3, no focal deficits. Absent: pronater drift, facial droop, speech deficit - Skin Skin exam: Present: dry, erythema, intact Additional comments: anasarca noted. Internal Med - H&P Results - Labs CBC & Chem 7: 08/19/17 02:54 08/19/17 02:54 - Assessment and plan (1) Fluid overload Current Visit: Yes Status: Acute Assessment and plan: Last Echo LVEF 60% with normal wall segments. Start lasix 40mg BID. Strict I/Os Measure weight daily. Qualifiers: Qualified Code(s): E87.70 - Fluid overload, unspecified (2) Anemia of chronic disease Current Visit: Yes Status: Acute Assessment and plan: Hb = 6.7, no active source of bleeding. History of CHF Patient has normocytic anemia. FOBT pending. Patient had GIB with appropriate work up. EGD on 07/20/17 without active bleed. Start RBC transfusion and recheck H/H RBC transfusion if Hb < 8 or symptomatic (3) Acute kidney injury superimposed on CKD Current Visit: Yes Status: Acute Assessment and plan: Patient has CKD stage III, creatinine above baseline. Continue IV Lasix. Consult nephrology, recommendations appreciated. (4) Chronic kidney disease, stage III (moderate) Current Visit: No Status: Chronic Assessment and plan: as above. Continue home medications when available. 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 Lasix. Reconcile home medications when available. (7) Hypertension Current Visit: No Status: Chronic Assessment and plan: Reconcile home medications when available. Qualifiers: Hypertension type: renovascular hypertension Qualified Code(s): I15.0 - Renovascular hypertension (8) Neurogenic bladder Current Visit: No Status: Chronic Assessment and plan: Permanent catheter in place. (9) Tobacco abuse Current Visit: No Status: Chronic (10) Wound of lower extremity Current Visit: No Status: Chronic Assessment and plan: Currently on unknown antibiotic from [facility]. Wound culture pending. Qualifiers: Encounter type: initial encounter Laterality: unspecified laterality Qualified Code(s): S81.809A - Unspecified open wound, unspecified lower leg, initial encounter (11) DVT prophylaxis Current Visit: No Status: Acute Assessment and plan: SCDs - Time Spent With Patient Total time spent is greater than 50% in coordination of care (as documented) at patient's floor/unit and/or counseling patient: Greater than 35 minutes
[2017-08-19 03:22] LABS: Hematocrit 21.4 % (37.5-50.1); Hemoglobin 6.7 g/dL (12.9-16.9); Mean Corpuscular HGB Conc 31.3 g/dL (31.6-35.5); Mean Corpuscular Hemoglobin 27.3 pg (28.0-33.3); Mean Corpuscular Volume 87.3 fL (83.0-100.0); Mean Platelet Volume 10.3 fL (9.4-12.4); Platelet Count 208 K/mcL (140-400); Red Blood Count 2.45 M/mcL (4.19-5.50); Red Cell Distribution Width 15.6 % (11.5-14.5)
[2017-08-19 03:28] LABS: INR 1.1; Prothrombin Time 12.2 Seconds (9.4-12.1)
[2017-08-19 03:30] LABS: Activated Partial Thrombo Time 30.7 Seconds (26.0-36.0)
--- NOTE | 2017-08-19 03:39 | Event Note ---
Date of Encounter: 08/19/17 Time of Encounter: 03:26 Patient was seen and examined. I agree with the H&P as written by the Resident Physician. Briefly, Patient is transferred from [facility] due to worsening edema of the right upper extremities bilaterally. Patient actually has generalized anasarca on examination. He has a history of CKD4, CAD, GIB, diastolic HF, DM,HTN, chronic niño for neurogenic bladder, Chronic resp failure on about 3-4 L O2 nasal cannula, chronic LE wounds for which he is on abx IV by his analog circuit designer but we are unable to tell which IV abx he is on and he is not aware either. At [facility] patient was hemodynamically stable. Labs there showed mainly Hgb of 6.8 and elevated creatinine 3.35 (Baseline around 2.3-2.6). He denies any bleeding, melena, hematochezia, or Rest of CBC and CMP were unremarkable. Patient seems to have had chronic anemia since early 2016 with Hgb ranging from 7-10. No BNP or CXR sent. EKG with no acute findings. Upon arrival here, he is hemodynamically stable. Patient was here in July and had an EGD/colonoscopy showing Pierce's esophagitis, chronic gastritis, non-bleeding internal hemorrhoids and hiatal hernia. Echo in May 2017 EF 60%, LVH, mild diastolic dysfunction. mild pulm htn A/Ox3, NAD RRR. S1,S2, Diminshed breath sounds, crackles at bases Soft, NT,ND,+BS Generalized anasarca noted. Edema in the ankles and in the thighs bilaterally. Edema in the upper extremities bilaterally up to the arms Nonfocal Will admit for generalized anasarca possibly from renal failure vs CHF exacerbation. Repeat labs including CBC, CMP, PT/INR, BNP STAT CXR Transfuse 1 unit PRBCs c/s nephrology. Patient has needed HD in the past Lasix 40 mg IV x1 FOBT Resume IV abx once verified. Resume home meds when verified. SCDs
[2017-08-19 03:44] LABS: Calcium 7.8 mg/dL (8.6-10.3); Magnesium 2.3 mg/dL (1.6-2.6); Phosphorous 4.8 mg/dL (2.7-4.5); Potassium 5.1 mEq/L (3.5-5.1)
[2017-08-19] MEDS ORDERED: Acetaminophen 325 MG TABLET PO PRN (04:15)
[2017-08-19] MEDS ORDERED: Naloxone 0.4 MG/ML INJ IVP PRN (04:15)
[2017-08-19 04:41] LABS: Albumin 2.4 g/dL (3.5-5.7); Albumin/Globulin Ratio 0.8 (1.1-2.2); Bilirubin,Direct 0.1 mg/dL (0.0-0.2); Bilirubin,Indirect 0.1 mg/dL (0.0-1.2); Bilirubin,Total 0.2 mg/dL (0.3-1.0); Total Protein 5.4 g/dL (6.4-8.9)
[2017-08-19] MEDS ORDERED: 0.9 % Sodium Chloride 250 ML ONE (04:42)
[2017-08-19] MEDS ORDERED: *HR* Dextrose 50 % in Water (Syg) 50 ML SYRINGE IVP PRN (05:08)
[2017-08-19] MEDS ORDERED: D5% in Water 1,000 ML IVC PRN (05:08)
[2017-08-19] MEDS ORDERED: Dextrose Gel 15 GM/37.5 ML TUBE PO PRN ×2 (05:08)
[2017-08-19] MEDS: Insulin LISPRO 300 UNITS/3 ML VIAL SQ SCH ×4 (09:31→20:59)
[2017-08-19] MEDS: Furosemide 40 MG/4 ML VIAL IVP SCH ×2 (09:31→17:17)
[2017-08-19 10:01] LABS: Bilirubin,Urine Negative (Negative); Blood,Urine Trace (Negative); Clarity,Urine Clear (Clear); Color,Urine Yellow (Yellow); Glucose,Urine (UA) Normal (Normal); Ketones,Urine Negative (Negative); Leukocyte Esterase,Urine Negative (Negative); Nitrite,Urine Negative (Negative); PH,Urine 5.5 pH Units (5.0-8.0); Protein,Urine >=300 mg/dL (Neg-Trace); Specific Gravity,Urine 1.017 (1.010-1.025); Urobilinogen,Urine Normal (Normal)
[2017-08-19 12:20] LABS: Hematocrit 26.1 % (37.5-50.1); Hemoglobin 7.9 g/dL (12.9-16.9)
--- NOTE | 2017-08-19 15:56 | Internal Med Progress Note ---
<Leo Sanchez - Last Filed: 08/19/17 16:12> Date of Encounter: 08/19/17 Time of Encounter: 15:52 - Assessment and plan (1) Heart failure with preserved ejection fraction Current Visit: Yes Status: Chronic Assessment and plan: Acute on chronic diastolic heart failure. Patient reports increased fluid intake including drinking a lot of soda Last echo 05/11/2017: LVEF 60% with mild left ventricular diastolic dysfunction. BNp elevated 1341 We will continue IV Lasix. Cardiac, ADA diet. Strict I's and O's. (2) Diabetes mellitus Current Visit: Yes Status: Chronic Assessment and plan: Insulin-dependent diabetes. Continue sliding scale insulin. Diabetic diet. 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 Continue home meds. Qualifiers: Hypertension type: renovascular hypertension Qualified Code(s): I15.0 - Renovascular hypertension (4) Neurogenic bladder Current Visit: Yes Status: Chronic Assessment and plan: Chronic Quan catheter in place. 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 (6) DVT prophylaxis Current Visit: Yes Status: Acute Assessment and plan: SCDs (7) Wound of lower extremity Current Visit: No Status: Chronic Assessment and plan: patient on IV antiboitcs for diabetic foot ulcer of b/l heels on exam no discharge, clean dry patient followed by wound care at [facility] obtaining records of which antibiotics he is on. Qualifiers: Encounter type: initial encounter Laterality: unspecified laterality Qualified Code(s): S81.809A - Unspecified open wound, unspecified lower leg, initial encounter (8) Anemia of chronic disease Current Visit: Yes Status: Acute Assessment and plan: Hb = 6.7, no active source of bleeding. Patient has iron def anemia hold asipirn and statin FOBT pending. Patient had GIB with appropriate work up. EGD on 07/20/17 without active bleed. but findings of barretts s/p RBC transfusion and repeat h/h 7.7 plan: will check h/h tomorrow morning. continue iron supplementation - Time Spent With Patient Total time spent is greater than 50% in coordination of care (as documented) at patient's floor/unit and/or counseling patient: - Subjective Interval history: Patient comfortable lying in bed. He has no complaints. - Constitutional Vitals: Temp Pulse Resp BP Pulse Ox 97.7 F 62 12 172/72 98 08/19/17 12:02 08/19/17 14:23 08/19/17 14:23 08/19/17 14:23 08/19/17 14:23 General appearance: Present: A&O X 3, no acute distress, answers questions appropriately - Other Additional findings: General: without distress HEENT: Head atraumatic, normocephalic, EOMI, PERRL, neck nontender to palpation , absent lymphadenopathy, Moist Mucous Membranes, Heart: Regular rate and rhythm with no murmur Lungs: Clear to auscultation bilaterally Abdomen: Soft nontender, nondistended positive bowel sounds Skin: Bilateral heel decubitus ulcers: Both without discharge, dry. Extremities: Bilateral upper extremity and lower extremity edema. Neuro: Alert oriented 3 Vascular: Pedal and radial pulses 2 out of 4 Internal Medicine: Result - Labs CBC & Chem 7: 08/19/17 10:50 08/19/17 02:54 Labs: Short CBC 08/19/17 08/19/17 Range/Units 02:54 10:50 WBC 6.9 (4.3-11.1) K/mcL Hgb 6.7 L 7.9 L (12.9-16.9) g/dL Hct 21.4 L 26.1 L (37.5-50.1) % Plt Count 208 (140-400) K/mcL BMP 08/19/17 02:54 Sodium 140 Potassium 5.1 Chloride 118 H Carbon Dioxide 18 L BUN 60 H Creatinine 3.02 H Glucose 119 H Calcium 7.8 L Liver Function 08/19/17 Range/Units 02:54 Total Bilirubin 0.2 L (0.3-1.0) mg/dL Direct Bilirubin 0.1 (0.0-0.2) mg/dL AST 9 L (13-39) Units/L ALT 7 (7-52) Units/L Alkaline Phosphatase 80 (34-104) Units/L Albumin 2.4 L (3.5-5.7) g/dL Urine 08/19/17 Range/Units 09:45 Urine Color Yellow (Yellow) Urine Clarity Clear (Clear) Urine pH 5.5 (5.0-8.0) pH Units Ur Specific [place] 1.017 (1.010-1.025) Urine Protein >=300 H (Neg-Trace) mg/dL Urine Glucose (UA) Normal (Normal) mg/dL - ABG Interpretation ABG results: PT/INR, D-dimer PT 12.2 Seconds (9.4-12.1) H 08/19/17 02:54 - Impressions Impressions Chest X-Ray 08/19/17 02:54 IMPRESSION: No significant interval change since 08/18/2017. Unchanged bibasilar pulmonary opacities and bilateral pleural effusions. Recommend radiographic follow-up to complete resolution. 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 Diabetes mellitus complication status: with kidney complications Diabetes mellitus complication detail: with chronic kidney disease Chronic kidney disease stage: stage 3 (moderate) Qualified Code(s): E11.22 - Type 2 diabetes mellitus with diabetic chronic kidney disease; N18.3 - Chronic kidney disease, stage 3 (moderate); 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 (3) Hypertension Current Visit: Yes Status: Chronic Qualifiers: Hypertension type: renovascular hypertension Qualified Code(s): I15.0 - Renovascular hypertension (4) Neurogenic bladder Current Visit: Yes Status: Chronic (5) Chronic kidney disease, stage III (moderate) Current Visit: Yes Status: Chronic (6) DVT prophylaxis Current Visit: Yes Status: Acute (7) Wound of lower extremity Current Visit: No Status: Chronic Qualifiers: Encounter type: initial encounter Laterality: unspecified laterality Qualified Code(s): S81.809A - Unspecified open wound, unspecified lower leg, initial encounter (8) Anemia of chronic disease Current Visit: Yes Status: Acute - Time Spent With Patient Total time spent is greater than 50% in coordination of care (as documented) at patient's floor/unit and/or counseling patient: - Constitutional Vitals: Temp Pulse Resp BP Pulse Ox 97.7 F 76 12 184/73 98 08/19/17 17:26 08/19/17 17:09 08/19/17 17:09 08/19/17 17:09 08/19/17 17:09 Internal Medicine: Result - Labs CBC & Chem 7: 08/19/17 10:50 08/19/17 02:54 Labs: Short CBC 08/19/17 08/19/17 Range/Units 02:54 10:50 WBC 6.9 (4.3-11.1) K/mcL Hgb 6.7 L 7.9 L (12.9-16.9) g/dL Hct 21.4 L 26.1 L (37.5-50.1) % Plt Count 208 (140-400) K/mcL BMP 08/19/17 02:54 Sodium 140 Potassium 5.1 Chloride 118 H Carbon Dioxide 18 L BUN 60 H Creatinine 3.02 H Glucose 119 H Calcium 7.8 L Liver Function 08/19/17 Range/Units 02:54 Total Bilirubin 0.2 L (0.3-1.0) mg/dL Direct Bilirubin 0.1 (0.0-0.2) mg/dL AST 9 L (13-39) Units/L ALT 7 (7-52) Units/L Alkaline Phosphatase 80 (34-104) Units/L Albumin 2.4 L (3.5-5.7) g/dL Urine 08/19/17 Range/Units 09:45 Urine Color Yellow (Yellow) Urine Clarity Clear (Clear) Urine pH 5.5 (5.0-8.0) pH Units Ur Specific [place] 1.017 (1.010-1.025) Urine Protein >=300 H (Neg-Trace) mg/dL Urine Glucose (UA) Normal (Normal) mg/dL - ABG Interpretation ABG results: PT/INR, D-dimer PT 12.2 Seconds (9.4-12.1) H 08/19/17 02:54 - Impressions Impressions Chest X-Ray 08/19/17 02:54 IMPRESSION: No significant interval change since 08/18/2017. Unchanged bibasilar pulmonary opacities and bilateral pleural effusions. Recommend radiographic follow-up to complete resolution. D/ / 08/19/2017 06:03:50 Humza Wells MD / marionyer Interpreting Provider: Humza Wells MD - Attending Attestation I examined this patient and my medical decision-making was reviewed with the Resident Physician on 08/19/17. I agree with the documented findings, disposition and treatment plan as described except to the extent set forth below. Mr Renee was admitted early this AM with anasarca, TIANA and CHF. Agree with assessment and plan as above.
[2017-08-19] MEDS: hydrALAZINE 25 MG TABLET PO SCH (20:46)
[2017-08-19] MEDS: traZODone 50 MG TABLET PO SCH (20:46)
[2017-08-19] MEDS: Topiramate 25 MG TABLET PO SCH (20:46)
[2017-08-19] MEDS ORDERED: Pregabalin 50 MG CAPSULE PO SCH (21:00)
[2017-08-20 05:24] LABS: Hematocrit 24.5 % (37.5-50.1); Hemoglobin 7.7 g/dL (12.9-16.9); Immature Granulocytes % 0.6 % (0-4); Lymphocytes % 8.5 %; Mean Corpuscular HGB Conc 31.4 g/dL (31.6-35.5); Mean Corpuscular Hemoglobin 26.8 pg (28.0-33.3); Mean Corpuscular Volume 85.4 fL (83.0-100.0); Mean Platelet Volume 10.5 fL (9.4-12.4); Monocytes % 4.5 %; Platelet Count 229 K/mcL (140-400); Red Blood Count 2.87 M/mcL (4.19-5.50); Red Cell Distribution Width 16.4 % (11.5-14.5); Segmented Neutrophils % 84.2 %
[2017-08-20 05:25] LABS: Basophils % 0.3 %; Eosinophils # 0.1 K/mcL (0.0-0.6); Eosinophils % 1.9 %; Lymphocytes # 0.6 K/mcL (0.6-4.6); Monocytes # 0.3 K/mcL (0.0-1.3); Neutrophils # 5.4 K/mcL (1.6-8.9)
[2017-08-20 05:42] LABS: Calcium 7.7 mg/dL (8.6-10.3); Potassium 5.3 mEq/L (3.5-5.1)
[2017-08-20] MEDS ORDERED: Darbepoetin 100 MCG/0.5 ML SYRINGE SQ SCH (08:30)
[2017-08-20] MEDS: Insulin LISPRO 300 UNITS/3 ML VIAL SQ SCH ×4 (09:18→20:39)
--- NOTE | 2017-08-20 09:28 | Internal Med Progress Note ---
<SofiaashutoshNick - Last Filed: 08/20/17 13:39> Date of Encounter: 08/20/17 Time of Encounter: 09:28 - Assessment and plan (1) Heart failure with preserved ejection fraction Current Visit: Yes Status: Chronic Assessment and plan: Acute on chronic diastolic heart failure. Patient reported increased fluid intake including drinking a lot of soda. Last echo 05/11/2017: LVEF 60% with mild left ventricular diastolic dysfunction. BNP was elevated at 1341 -1660 mL/24hrs. Swelling improving. Switche to Lasix 40mg bid po. Continue monitioring I/O Cardiac, ADA diet. (2) Chronic kidney disease, stage III (moderate) Current Visit: Yes Status: Chronic Assessment and plan: TIANA on CKD in setting of anemia Cr improved to 2.74 from 3.02 yesterday. Baseline 2.3-2.5. CKD secondary to diabetes Nephrology note reviewed. Start aranesp for anemia and losartan 25mg bid. Continue monitoring labs. (3) Diabetes mellitus Current Visit: Yes Status: Chronic Assessment and plan: Insulin-dependent diabetes. Glucose 122 this morning. Continue sliding scale insulin. Diabetic diet. 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 Discussed with pharmacist, patient grew e.coli, klebsiella, and enterococcus. Discharged with Ceftriaxone for duration 08/08-08/23. To completed additional 4 days as patient did not get antibiotic yesterday. Following with Wound Care at [facility], obtaining records Wound care on board. Qualifiers: Encounter type: initial encounter Laterality: unspecified laterality Qualified Code(s): S81.809A - Unspecified open wound, unspecified lower leg, initial encounter (5) Hypertension Current Visit: Yes Status: Chronic Assessment and plan: Uncontrolled currently, has been off of home meds. Continue with home meds and changes per Nephro. Continue monitoring vitals. Qualifiers: Hypertension type: renovascular hypertension Qualified Code(s): I15.0 - Renovascular hypertension (6) Neurogenic bladder Current Visit: Yes Status: Chronic Assessment and plan: Chronic Niño catheter in place. (7) DVT prophylaxis Current Visit: Yes Status: Acute Assessment and plan: SCDs (8) Anemia of chronic disease Current Visit: Yes Status: Acute Assessment and plan: Hb 6.7 on arrival. Hb 7.7 this morning stable after 1 Unit pRBC No active source, may have been lab error., no active source of bleeding. Iron deficiency anemia and anemia of chronic disease secondary to CKD Hx of GI bleed with egd 07/20/17 without active bleed, revealed Barretts esophagus. Continue Iron supplementation and Aranesp started. - Time Spent With Patient Total time spent is greater than 50% in coordination of care (as documented) at patient's floor/unit and/or counseling patient: - Subjective Interval history: Mr. Renee reports doing well this morning. He reports no problems with urination and reports swelling of his upper extremities is improving. Patient denies fevers, chills, sweats, nausea, vomiting, chest pain, shortness of breath , abdominal pain, changes in bowels or bladder, dysuria, weakness, or loss of sensation. -1660 mL past 24 hours. - Constitutional Vitals: Temp Pulse Resp BP Pulse Ox 98.2 F 57 18 167/63 97 08/20/17 07:08 08/20/17 07:08 08/20/17 07:08 08/20/17 07:08 08/20/17 07:08 General appearance: Present: A&O X 3, pleasant, no acute distress, answers questions appropriately - Head Head exam: Present: atraumatic, normal inspection, normocephalic - Eye Eye exam: Present: EOMI, normal appearance - ENT ENT exam: Present: mucous membranes moist, normal exam - Neck Neck exam general surgery: Present: full ROM, normal inspection, supple - Respiratory Respiratory exam: Present: CTAB. Absent: rales, respiratory distress, rhonchi, wheezes - Cardiovascular Cardiovascular exam: Present: RRR, +S1, +S2 - GI/Abdominal GI/Abdominal exam: Present: normal bowel sounds, soft. Absent: tenderness - Additional comments: niño in place - Extremities Exam Extremities exam: Present: full ROM, pedal edema (1+ pitting edema bilateral lower ext, left upper extremity minimal edema, right upper extremity no edema.) , warm, radial pulses palpable and symmetrical. Absent: tenderness Additional comments: bilateral heels clean warm dry intact dressings - Neurological Exam Neurological exam: Present: alert, oriented X3, no focal deficits, strengths equal and symetr throughout - Skin Skin exam: Present: dry, intact, normal color, warm Internal Medicine: Result - Labs CBC & Chem 7: 08/20/17 05:00 08/20/17 05:00 Labs: Short CBC 08/19/17 08/20/17 Range/Units 10:50 05:00 WBC 6.5 (4.3-11.1) K/mcL Hgb 7.9 L 7.7 L (12.9-16.9) g/dL Hct 26.1 L 24.5 L (37.5-50.1) % Plt Count 229 (140-400) K/mcL Neutrophils # 5.4 (1.6-8.9) K/mcL BMP 08/20/17 05:00 Sodium 143 Potassium 5.3 H Chloride 122 H Carbon Dioxide 20 L BUN 58 H Creatinine 2.74 H Glucose 122 H Calcium 7.7 L Urine 08/19/17 Range/Units 09:45 Urine Color Yellow (Yellow) Urine Clarity Clear (Clear) Urine pH 5.5 (5.0-8.0) pH Units Ur Specific [place] 1.017 (1.010-1.025) Urine Protein >=300 H (Neg-Trace) mg/dL Urine Glucose (UA) Normal (Normal) mg/dL - ABG Interpretation ABG results: PT/INR, D-dimer PT 12.2 Seconds (9.4-12.1) H 08/19/17 02:54 - Impressions Impressions Chest X-Ray 08/19/17 02:54 IMPRESSION: No significant interval change since 08/18/2017. Unchanged bibasilar pulmonary opacities and bilateral pleural effusions. Recommend radiographic follow-up to complete resolution. D/ / 08/19/2017 06:03:50 Humza Wells MD / jona Interpreting Provider: Humza Wells MD Consult Discharge Plan - Plan Referrals: Marcial Wolf DO [Primary Care Provider] - <Ernesto Luna - Last Filed: 08/20/17 15:38> Date of Encounter: 08/20/17 - Assessment and plan (1) Acute CHF Current Visit: No Status: Chronic Qualifiers: Heart failure type: diastolic Qualified Code(s): I50.31 - Acute diastolic ( congestive) heart failure (2) Diabetes mellitus Current Visit: Yes Status: Chronic 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 mellitus penitentiary insulin use: with penitentiary use Diabetes mellitus complication status: with kidney complications Diabetes mellitus complication detail: with chronic kidney disease Chronic kidney disease stage: stage 3 (moderate) Qualified Code(s): E11.22 - Type 2 diabetes mellitus with diabetic chronic kidney disease; N18.3 - Chronic kidney disease, stage 3 (moderate); 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 (3) Hypertension Current Visit: Yes Status: Chronic Qualifiers: Hypertension type: renovascular hypertension Qualified Code(s): I15.0 - Renovascular hypertension (4) Neurogenic bladder Current Visit: Yes Status: Chronic (5) Chronic kidney disease, stage III (moderate) Current Visit: Yes Status: Chronic (6) DVT prophylaxis Current Visit: Yes Status: Acute (7) Wound of lower extremity Current Visit: Yes Status: Chronic Qualifiers: Encounter type: initial encounter Laterality: right Qualified Code(s): S81.801A - Unspecified open wound, right lower leg, initial encounter (8) Anemia of chronic disease Current Visit: Yes Status: Acute (9) Heart failure with preserved ejection fraction Current Visit: Yes Status: Chronic - Time Spent With Patient Total time spent is greater than 50% in coordination of care (as documented) at patient's floor/unit and/or counseling patient: - Constitutional Vitals: Temp Pulse Resp BP Pulse Ox 97.8 F 61 16 170/76 98 08/20/17 11:16 08/20/17 11:16 08/20/17 11:16 08/20/17 11:16 08/20/17 11:16 Internal Medicine: Result - Labs CBC & Chem 7: 08/20/17 05:00 08/20/17 05:00 Labs: Short CBC 08/20/17 Range/Units 05:00 WBC 6.5 (4.3-11.1) K/mcL Hgb 7.7 L (12.9-16.9) g/dL Hct 24.5 L (37.5-50.1) % Plt Count 229 (140-400) K/mcL Neutrophils # 5.4 (1.6-8.9) K/mcL BMP 08/20/17 05:00 Sodium 143 Potassium 5.3 H Chloride 122 H Carbon Dioxide 20 L BUN 58 H Creatinine 2.74 H Glucose 122 H Calcium 7.7 L - ABG Interpretation ABG results: PT/INR, D-dimer PT 12.2 Seconds (9.4-12.1) H 08/19/17 02:54 - Attending Attestation I examined this patient and my medical decision-making was reviewed with the Resident Physician on 08/20/17. I agree with the documented findings, disposition and treatment plan as described except to the extent set forth below. Mr Renee is currently admitted for acute exac diastolic CHF and hyponatremia. He remains moderate to high risk due to potential for worsening cardiac and respiratory status. Mr Renee is feeling OK at this time. No fever. No CP. SOB improving slowly. Wound care to see. Exam alert Comfortable Mucus membranes dry Heart distant Diminished breath sounds. Abd soft Edema present I/P 1 Anasarca - diuresing 2. hyponatremia 3. CHF Further diagnoses and plan as above.
[2017-08-20] MEDS: Furosemide 40 MG/4 ML VIAL IVP SCH (09:31)
[2017-08-20] MEDS: hydrALAZINE 25 MG TABLET PO SCH ×2 (09:32→20:36)
[2017-08-20] MEDS: amLODIPine 5 MG TABLET PO SCH (09:32)
[2017-08-20] MEDS: FLUoxetine 20 MG CAPSULE PO SCH (09:32)
[2017-08-20] MEDS: Pregabalin 50 MG CAPSULE PO SCH ×2 (09:33→20:36)
[2017-08-20] MEDS: Topiramate 25 MG TABLET PO SCH ×2 (09:33→20:36)
[2017-08-20] MEDS: Isosorbide MONOnitrate (24 HR) 60 MG TAB.ER.24H PO SCH (09:33)
--- NOTE | 2017-08-20 10:20 | Nephrology Consult Note ---
Date of Encounter: 08/20/17 Time of Encounter: 09:35 Assessment and Plan (1) Renal failure (ARF), acute on chronic Current Visit: No Status: Acute CHF on diuretic. TIANA in setting of CHF/diuresis superimposed on CKD 4, baseline 2.3-2.5. Known nephrotic range proteinuria in setting of poorly controlled DM and HTN. Pregabalin and Amlodipine may be contributing to edema. History of neurogenic bladder. Maintain niño catheter. Will start on Aranesp and start on ACEI-Losartan 25 mg BID. Fluid restriction. Accurate I&O's. Avoid nephrotoxins. Will continue to monitor. Qualifiers: Acute renal failure type: unspecified Chronic kidney disease stage: stage 3 (moderate) Qualified Code(s): N17.9 - Acute kidney failure, unspecified; N18.3 - Chronic kidney disease, stage 3 (moderate); N18.3 - Chronic kidney disease, stage 3 (moderate) (2) CHF (congestive heart failure) Current Visit: No Status: Resolved Qualifiers: Qualified Code(s): I50.23 - Acute on chronic systolic (congestive) heart failure (3) Neurogenic bladder Current Visit: Yes Status: Chronic History of Present Illness - Reason for Consult Acute Kidney Injury - History of Present Illness Mr. Renee is a 62 year old male known to practice with CKD stage 4, baseline creatinine 2.3-2.5. Known Nephrotic range proteinuria in setting of DM, poorly controlled HTN and neurogenic bladder with chronic niño. Mr. Renee was transferred from [facility] [place] where he presented with increased generalized swelling and shortness of breath for past few days. He also has a PICC line and is receiving antibiotics at home for foot wounds. He is unsure of what antibiotics he is taking. He denies chest pain, any nausea, vomiting or diarrhea. Labs from [facility] [place], Hgb of 6.8 and elevated creatinine 3.35. BNP 1341. EKG without acute findings. CXR-No significant interval change since 08/18/2017. Unchanged bibasilar pulmonary opacities and bilateral pleural effusions. Today creat 2.74 , gfr 24, K 5.3. Hgb 7.7. Other PMH-CHF, coronary artery disease, diabetes, hypertension, myocardial infarction, renal disease, depression, angioplasty/ stent. Echo in May 2017 EF 60%, LVH, mild diastolic dysfunction. mild pulm htn. Recent hospital stay in July for CHF/diuresis-EGD/colonoscopy showing Pierce' s esophagitis, chronic gastritis, non-bleeding internal hemorrhoids and hiatal hernia. Today at consult, he admits drinking large volumes of fluids though knows from prior hospital stays to measure fluids. LE swelling appears at his known baseline mild-1+ pitting. Kerlix wrap to bilateral feet. Bilateral forearms with moderate edema. He states his swelling greatly improved. He states breathing much easier. Past Med Surg Social Fam HX - Past Medical History Medical history: CHF, COPD, coronary artery disease, diabetes, hypertension, myocardial infarction, renal disease, other Psychiatric history: depression - Past Surgical History Surgical History: angioplasty/stent - Social History Smoking Status: Current every day smoker Packs per day: 1 Smokeless Tobacco Status: No Alcohol use: none Drug use: none - Family History Father History Unknown: Yes Adopted: [place]: Henry Renee Family Member Ethnicity: Non- Living Status: Hx Family Cardiac Disorders: Yes Hx Family Respiratory Disorders: Yes Hx Family Cancer: Yes (lung) Hx Family GI Disorders: No Hx Family Endocrine Disorder: Yes (diabetes) Hx Family Neuromuscular Disorders: No Hx Family Neurologic Disorders: No Hx Family HEENT Disorders: No Hx Family Autoimmune Disorders: No Mother Adopted: [place]: williams Renee Family Ethnicity: Non- Living Status: Cause of : throat cancer Hx Family Cardiac Disorders: No Hx Family Respiratory Disorders: No Hx Family Cancer: Yes Hx Family GI Disorders: No Hx Family Genitourinary Disorders: No Hx Family Endocrine Disorder: Yes Hx Family Musculoskeletal Disorders: No Hx Family Neuromuscular Disorders: No Hx Family Neurologic Disorders: No Hx Family HEENT Disorders: No Hx Family Autoimmune Disorders: No Hx Family Reproductive Disorders: No Hx Family Psychosocial Disorders: No Hx Family Medical Disorders: No Medications and Allergies Aspirin Enteric Coated [Aspirin EC] 81 mg PO DAILY 06/08/16 [History] Atorvastatin Calcium [Lipitor] 80 mg PO HS 06/08/16 [History] Clopidogrel [Plavix] 75 mg PO DAILY 06/08/16 [History] Dextrose [Glucose Gel] 15 gm PO ONCE PRN 06/08/16 [History] FLUoxetine HCl [Prozac] 40 mg PO QAM 06/08/16 [History] Glucagon,Human Recombinant [Glucagon Emergency Kit] 1 mg IJ ONCE PRN 06/08/16 [ History] Insulin ASPART [Novolog Flexpen] 20 unit SQ TIDAC 06/08/16 [History] Isosorbide MONOnitrate (24 HR) [Imdur] 60 mg PO DAILY 06/08/16 [History] Nitroglycerin [Nitrostat] 0.4 mg SL Q5M PRN 06/08/16 [History] Topiramate [Topamax] 25 mg PO BID 06/08/16 [History] Carvedilol [Coreg] 12.5 mg PO BIDWM #120 tablet 06/12/16 [Rx] Insulin Degludec [Tresiba Flextouch U-200] 20 - 30 unit SQ HS 01/01/17 [History] Naloxegol Oxalate [Movantik] 12.5 mg PO DAILY 01/01/17 [History] Tizanidine HCl [Zanaflex] 4 mg PO TID PRN 01/01/17 [History] Trazodone HCl 50 mg PO HS 01/01/17 [History] hydrALAZINE [HydrALAZINE] 50 mg PO BID 04/29/17 [History] Tamsulosin HCl [Flomax] 0.4 mg PO DAILY #30 cap.er.24h 04/30/17 [Rx] Amlodipine Besylate 10 mg PO DAILY 07/04/17 [History] Pregabalin [Lyrica] 100 mg PO BID 07/04/17 [History] Ferrous Sulfate 325 mg PO BIDWM #60 tablet 07/07/17 [Rx] Pantoprazole Sodium [Protonix] 40 mg PO BID #60 tablet. 07/07/17 [Rx] Furosemide [Lasix] 20 mg PO DAILY 08/19/17 [History] Lisinopril [Zestril] 5 mg PO DAILY 08/19/17 [History] OxyCODONE Immed Rel [Roxicodone 10 MG] 10 mg PO Q6H PRN 08/19/17 [History] Sacubitril/Valsartan [Entresto 24 mg-26 mg Tablet] 1 tab PO DAILY 08/19/17 [ History] 3 Allergy/AdvReac Type Severity Reaction Status Date / Time Methadone Allergy Hives Verified 05/10/17 12:17 Penicillins Allergy Hives Verified 05/10/17 12:17 linaclotide [From Linzess] AdvReac Nausea Verified 05/10/17 12:17 phenazopyridine AdvReac See Verified 05/10/17 12:17 [From Pyridium] Comments Review of Systems All Systems: reviewed and no additional remarkable complaints except as stated Exam - Vital Signs Vital signs: Initial Vital Signs Pulse Pulse Ox 58 96 08/19/17 02:22 08/19/17 02:22 Vital Signs - Last 8 Hours Temp Pulse Resp BP Pulse Ox 08/20/17 09:32 167/63 08/20/17 07:08 98.2 F 57 18 167/63 97 08/20/17 03:13 98.2 F 57 16 169/62 96 Intake and Output 08/19/17 08/20/17 08/20/17 23:59 07:59 15:59 Intake Total 50 / 50 100 / 100 240 / 240 Output Total 1000 / 1000 1999 Balance -950 / -950 -1900 / -1900 240 / 240 Intake: Oral 40 / 40 100 / 100 240 / 240 Other Output: Catheter 1000 / 1000 1999 Other: Meal Breakfast Percent of Meal Consumed 95% Weight 91.4 kg Blood Glucose* 158 108 Patient Weight 08/20/17 23:59 Weight 91.4 kg - General Appearance General appearance: well-developed, well-nourished, appears started age EENT: mucous membranes moist Neck: no JVD Respiratory: clear Cardiology: edema, regular rate, regular rhythm Additional Comments: mild to 1+ LE and moderate bilateral forearms Gastrointestinal: normoactive bowel sounds, no tenderness Integumentary: warm and dry Neurologic: alert and oriented x3 Results - Lab Results 08/20/17 05:00 08/20/17 05:00 Most recent lab results Calcium 7.7 mg/dL (8.6-10.3) L 08/20/17 05:00 Phosphorus 4.8 mg/dL (2.7-4.5) H 08/19/17 02:54 Magnesium 2.3 mg/dL (1.6-2.6) 08/19/17 02:54 Consult Discharge Plan - Plan Referrals: Marcial Wolf DO [Primary Care Provider] -
[2017-08-20] MEDS ORDERED: cefTRIAXone 1,000 MG in Water for inj. (sterile) 20 ML 10 ML IVP SCH (14:00)
[2017-08-20] MEDS ORDERED: Furosemide 40 MG TABLET PO SCH (17:00)
[2017-08-20] MEDS: traZODone 50 MG TABLET PO SCH (20:36)
[2017-08-21] MEDS: Leptospermum Honey Gel 44 ML TUBE TP SCH ×2 (04:50→09:40)
[2017-08-21 05:00] LABS: Hematocrit 23.9 % (37.5-50.1); Hemoglobin 7.6 g/dL (12.9-16.9); Mean Corpuscular HGB Conc 31.8 g/dL (31.6-35.5); Mean Corpuscular Volume 84.8 fL (83.0-100.0); Mean Platelet Volume 10.1 fL (9.4-12.4); Platelet Count 208 K/mcL (140-400); Red Blood Count 2.82 M/mcL (4.19-5.50); Red Cell Distribution Width 16.3 % (11.5-14.5)
[2017-08-21 05:22] LABS: Calcium 7.8 mg/dL (8.6-10.3); Potassium 5.1 mEq/L (3.5-5.1)
--- NOTE | 2017-08-21 08:03 | Nephrology Progress Note ---
Date of Encounter: 08/21/17 Time of Encounter: 08:01 - Assessment and Plan (1) Chronic kidney disease, stage IV (severe) Current Visit: Yes Status: Acute Patient has acute kidney injury superimposed on stage IV chronic kidney disease associated with nephrotic syndrome and diabetic nephropathy. Renal function is improving and his creatinine is close to his previous baseline. Blood pressure is suboptimal. I am going to increase the losartan. (2) Diabetic renal disease Current Visit: No Status: Acute Qualifiers: Diabetes mellitus type: type 2 Qualified Code(s): E11.21 - Type 2 diabetes mellitus with diabetic nephropathy (3) Renal failure (ARF), acute on chronic Current Visit: No Status: Acute Qualifiers: Acute renal failure type: unspecified Chronic kidney disease stage: stage 4 (severe) Qualified Code(s): N17.9 - Acute kidney failure, unspecified; N18.4 - Chronic kidney disease, stage 4 (severe) (4) Acute kidney failure, unspecified Current Visit: No Status: Acute Qualifiers: Acute renal failure type: unspecified Qualified Code(s): N17.9 - Acute kidney failure, unspecified (5) Nephrotic syndrome due to diabetes mellitus Current Visit: No Status: Chronic Subjective Interval history: The patient reports she is feeling better. His swelling is improved as well as his shortness of breath. Serum creatinine is improved down to 2.58 which is close to his baseline. Urine output was 3.1 L yesterday. Blood pressure remains elevated at 180/70. He was started on losartan yesterday. Objective - Vital Signs Vital signs: Vital Signs Temp Pulse Resp BP Pulse Ox 08/21/17 07:10 97.8 F 60 17 180/70 98 08/21/17 03:50 98.2 F 57 16 164/63 97 08/20/17 23:24 97.9 F 57 16 150/61 94 08/20/17 19:31 97.7 F 67 16 191/89 96 08/20/17 15:42 97.7 F 56 16 155/62 96 08/20/17 11:16 97.8 F 61 16 170/76 98 08/20/17 09:32 167/63 Intake and Output 08/20/17 08/21/17 08/21/17 23:59 07:59 15:59 Output Total 1000 / 1000 Balance -1000 / -1000 Output: Catheter 1000 / 1000 Other: Weight 92 kg Blood Glucose* 162 112 Patient Weight 08/21/17 23:59 Weight 92 kg - General Appearance Exam: Patient is alert and oriented. He is in no acute distress. Lungs/breath sounds otherwise clear. Heart regular rate and rhythm with a 2/6 talk ejection murmur. Abdomen is benign. There is minimal lower extremity swelling. - Lab 08/21/17 04:45 08/21/17 04:45 Most recent lab results Calcium 7.8 mg/dL (8.6-10.3) L 08/21/17 04:45 Phosphorus 4.8 mg/dL (2.7-4.5) H 08/19/17 02:54 Magnesium 2.3 mg/dL (1.6-2.6) 08/19/17 02:54 Consult Discharge Plan - Plan Referrals: Marcial Wolf DO [Primary Care Provider] -
--- NOTE | 2017-08-21 08:50 | Discharge Summary ---
<Leo Sanchez - Last Filed: 08/21/17 11:09> - NOTES TO OUTPATIENT PROVIDER Notes to Outpatient Provider: Patient admitted with CHF exacerbation, anemia. He was diuresed with IV Lasix. He was given 1 unit [facility]. Patient also had acute renal injury nephrology was consulted. Acute renal injury improves with diuresis. Nephrology started patient on aranesp. Patient also had his bilateral heel wounds cultured and grew out MDRO enterococcus and Pseudomonas. He was started on Levaquin by mouth. He will need open for total 14 days. Orders not resulted at time of discharge: Pending orders 08/19/17 02:54 Occult Blood,Stool [BF] Routine 08/19/17 07:08 Culture,Blood [BC] Stat 08/19/17 09:45 Culture,Blood,Additional [BC] Stat Culture,Wound [RM] Stat Date of Encounter: 08/21/17 Time of Encounter: 08:48 - Discharge Diagnosis (1) Acute CHF Priority: Primary Status: Resolved Assessment and Plan: Admitted for acute seasonal exacerbation. Diuresed with IV Lasix. [id number] Last echo on May 2017 showed LVEF of 60% with mild left ventricular diastolic dysfunction. We will increase his Lasix on discharge to 40 mg daily. Qualifiers: Heart failure type: diastolic Qualified Code(s): I50.31 - Acute diastolic ( congestive) heart failure (2) Diabetes mellitus Priority: Secondary Status: Chronic Assessment and Plan: Continue diabetic and cardiac diet. Continue low-salt diet. Continue insulin regimen at home. 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 It is dangerous for patient to be on both lisinopril and entresto. Lisinopril discontinued. Patient was started on losartan in the hospital by nephrology. He was given 1 dose on 08/20/2017. Her for he will need another 24 hours before he can restart entresto. His hydralazine was increased to 50 mg 3 times a day. He will continue his amlodipine at home. Qualifiers: Hypertension type: renovascular hypertension Qualified Code(s): I15.0 - Renovascular hypertension (4) Neurogenic bladder Priority: Secondary Status: Chronic (5) Chronic kidney disease, stage III (moderate) Priority: Secondary Status: Chronic Assessment and Plan: TIANA on CKD in setting of anemia Resolved. (6) DVT prophylaxis Priority: Secondary Status: Acute (7) Wound of lower extremity Priority: Secondary Status: Chronic Assessment and Plan: Discussed with pharmacist, patient grew e.coli, klebsiella, and enterococcus. Discharged with Ceftriaxone for duration 08/08-08/23. To completed additional 4 days as patient did not get antibiotic yesterday. From cultures taken during this admission grew multidrug resistant enterococcus and pseudomonas aeruginosa. Patient is started on Levaquin. He will complete a total days of 14 on Levaquin. Follow-up with Dr. Henriquez. Following with Wound Care at [facility] Wound care on board. Comments: patient was offered xray of b/l feet to asses heel ulers but he refused stating he just had MRI at [facility] and also will follow up with his foot surgeon on . he will be discharged with levaquin for 2 weeks. Qualifiers: Encounter type: initial encounter Laterality: right Qualified Code(s): S81.801A - Unspecified open wound, right lower leg, initial encounter (8) Anemia of chronic disease Priority: Secondary Status: Chronic Assessment and Plan: Hb 6.7 on arrival. Hb 7.7 this morning stable after 1 Unit pRBC No active source, may have been lab error., no active source of bleeding. Iron deficiency anemia and anemia of chronic disease secondary to CKD Hx of GI bleed with egd 07/20/17 without active bleed, revealed Barretts esophagus. Hemoglobin stable for the last 48 hours. Continue Iron supplementation and Aranesp started. Hospital course: Mr. Renee is a 62 year old male presented with upper and lower etremity edema. Patient admitted with CHF exacerbation, anemia. He was diuresed with IV Lasix. He was given 1 unit [facility]. Patient also had acute renal injury nephrology was consulted. Acute renal injury improves with diuresis. Nephrology started patient on aranesp. Patient also had his bilateral heel wounds cultured and grew out MDRO enterococcus and Pseudomonas. He was started on Levaquin by mouth. He will need open for total 14 days. Follow-up with Dr. Henriquez on 08/23, his content production specialist outpatient. - Time Spent with Patient Total time spent providing and/or coordinating discharge services: - Discharge Medications Prescriptions: Darbepoetin [Aranesp] 100 mcg SQ QWEEK #3 syringe Furosemide [Lasix] 40 mg PO DAILY #30 tablet hydrALAZINE [HydrALAZINE] 50 mg PO TID #90 tablet levoFLOXacin [Levaquin] 750 mg PO Q24H #14 tablet Omeprazole [PriLOSEC] 40 mg PO DAILY #30 cap Home Medications: Aspirin Enteric Coated [Aspirin EC] 81 mg PO DAILY 06/08/16 [History] Atorvastatin Calcium [Lipitor] 80 mg PO HS 06/08/16 [History] Clopidogrel [Plavix] 75 mg PO DAILY 06/08/16 [History] Dextrose [Glucose Gel] 15 gm PO ONCE PRN 06/08/16 [History] FLUoxetine HCl [Prozac] 40 mg PO QAM 06/08/16 [History] Glucagon,Human Recombinant [Glucagon Emergency Kit] 1 mg IJ ONCE PRN 06/08/16 [ History] Insulin ASPART [Novolog Flexpen] 20 unit SQ TIDAC 06/08/16 [History] Isosorbide MONOnitrate (24 HR) [Imdur] 60 mg PO DAILY 06/08/16 [History] Nitroglycerin [Nitrostat] 0.4 mg SL Q5M PRN 06/08/16 [History] Topiramate [Topamax] 25 mg PO BID 06/08/16 [History] Carvedilol [Coreg] 12.5 mg PO BIDWM #120 tablet 06/12/16 [Rx] Insulin Degludec [Tresiba Flextouch U-200] 20 - 30 unit SQ HS 01/01/17 [History] Naloxegol Oxalate [Movantik] 12.5 mg PO DAILY 01/01/17 [History] Tizanidine HCl [Zanaflex] 4 mg PO TID PRN 01/01/17 [History] Trazodone HCl 50 mg PO HS 01/01/17 [History] Tamsulosin HCl [Flomax] 0.4 mg PO DAILY #30 cap.er.24h 04/30/17 [Rx] Amlodipine Besylate 10 mg PO DAILY 07/04/17 [History] Pregabalin [Lyrica] 100 mg PO BID 07/04/17 [History] Ferrous Sulfate 325 mg PO BIDWM #60 tablet 07/07/17 [Rx] Pantoprazole Sodium [Protonix] 40 mg PO BID #60 tablet.dr 07/07/17 [Rx] OxyCODONE Immed Rel [Roxicodone 10 MG] 10 mg PO Q6H PRN 08/19/17 [History] Sacubitril/Valsartan [Entresto 24 mg-26 mg Tablet] 1 tab PO DAILY 08/19/17 [ History] Darbepoetin [Aranesp] 100 mcg SQ QWEEK #3 syringe 08/21/17 [Rx] Furosemide [Lasix] 40 mg PO DAILY #30 tablet 08/21/17 [Rx] Omeprazole [PriLOSEC] 40 mg PO DAILY #30 cap 08/21/17 [Rx] hydrALAZINE [HydrALAZINE] 50 mg PO TID #90 tablet 08/21/17 [Rx] levoFLOXacin [Levaquin] 750 mg PO Q24H #14 tablet 08/21/17 [Rx] Allergies/Adverse Reactions: 3 Allergy/AdvReac Type Severity Reaction Status Date / Time Methadone Allergy Hives Verified 05/10/17 12:17 Penicillins Allergy Hives Verified 05/10/17 12:17 linaclotide [From Linzess] AdvReac Nausea Verified 05/10/17 12:17 phenazopyridine AdvReac See Verified 05/10/17 12:17 [From Pyridium] Comments Date of admission: 08/19/17 03:10 Primary care physician: Marcial Wolf DO Consults: 08/19/17 02:52 Consult to Miner Operator [CONS] Routine Reason for SW Consult: home health 08/19/17 10:48 Consult to Nephrology [CONS] Routine Consulting Provider: [facility] MARIELLE Reason for Consult: TIANA Call Completed: Yes 08/19/17 17:25 Consult to Wound Care [CONS] Routine Reason for Consult: Multiple diabetic ulcers/ necrotic Call Completed: No 08/21/17 08:43 Consult to Occupational Therapy [CONS] Routine Comment: Evaluate, develop and implement POC Reason for Consult: Physical debilitation Does patient have active BEDREST order?: No Is patient medically & hemodynamically stable?: Yes Consult to Physical Therapy [CONS] Routine Comment: Evaluate, develop and implement POC Reason for Consult: Physical deconditioning Does patient have active BEDREST order?: No Is patient medically & hemodynamically stable?: Yes Discharging clinician: Leo Sanchez Anticipated date of discharge: 08/21/17 - Constitutional Vitals: Temp Pulse Resp BP Pulse Ox 97.8 F 60 17 180/70 98 08/21/17 07:10 08/21/17 07:10 08/21/17 07:10 08/21/17 07:10 08/21/17 07:10 General appearance: Present: A&O X 3, pleasant, no acute distress, answers questions appropriately - Other Additional findings: General: without distress HEENT: Head atraumatic, normocephalic, EOMI, PERRL, neck nontender to palpation , absent lymphadenopathy, Moist Mucous Membranes, Heart: Regular rate and rhythm with no murmur Lungs: Clear to auscultation bilaterally Abdomen: Soft nontender, nondistended positive bowel sounds Skin: Bilateral heel decubitus ulcers: Both without discharge, dry. Extremities: mild LE edema Neuro: Alert oriented 3 Vascular: Pedal and radial pulses 2 out of 4 - Patient Status Disposition: Home Health Service Condition: Fair Functional capacity at discharge: uses cane/walker Overall status at discharge: patient is progressing back to baseline - Discharge Instructions Instructions: Acute Kidney Injury (DC), Diabetes Mellitus Type 2 in Adults (DC) Follow Up With: Lowell Henriquez MD [Non-Partnered Physician] - 08/22/17 1:00 pm Marcial Wolf DO [Primary Care Provider] - 08/28/17 1:00 pm - Diet and Activity Activity: increase activity as tolerated, wear oxygen at all times (3L) <Terrance Benitez - Last Filed: 08/21/17 12:51> Orders not resulted at time of discharge: Pending orders 08/19/17 02:54 Occult Blood,Stool [BF] Routine 08/19/17 07:08 Culture,Blood [BC] Stat 08/19/17 09:45 Culture,Blood,Additional [BC] Stat Culture,Wound [RM] Stat Date of Encounter: 08/21/17 - Discharge Diagnosis (1) Diabetes mellitus Status: Chronic 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 mellitus long-term insulin use: with long-term use Diabetes mellitus complication status: with kidney complications Diabetes mellitus complication detail: with chronic kidney disease Chronic kidney disease stage: stage 3 (moderate) Qualified Code(s): E11.22 - Type 2 diabetes mellitus with diabetic chronic kidney disease; N18.3 - Chronic kidney disease, stage 3 (moderate); 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.4 - 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 supervisor (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 insulin (2) Hypertension Status: Chronic Qualifiers: Hypertension type: renovascular hypertension Qualified Code(s): I15.0 - Renovascular hypertension (3) Neurogenic bladder Status: Chronic (4) Chronic kidney disease, stage III (moderate) Status: Chronic (5) DVT prophylaxis Status: Acute (6) Acute CHF Status: Resolved Qualifiers: Heart failure type: diastolic Qualified Code(s): I50.31 - Acute diastolic ( congestive) heart failure (7) Wound of lower extremity Status: Chronic Qualifiers: Encounter type: initial encounter Laterality: right Qualified Code(s): S81.801A - Unspecified open wound, right lower leg, initial encounter (8) Anemia of chronic disease Status: Chronic Hospital course: Mr. Renee is a 62 year old male - Time Spent with Patient Total time spent providing and/or coordinating discharge services: Date of admission: 08/19/17 03:10 Primary care physician: Marcial Wolf DO Consults: 08/19/17 02:52 Consult to Miner Operator [CONS] Routine Reason for SW Consult: home health 08/19/17 10:48 Consult to Nephrology [CONS] Routine Consulting Provider: [facility] PALOMARES Reason for Consult: TIANA Call Completed: Yes 08/19/17 17:25 Consult to Wound Care [CONS] Routine Reason for Consult: Multiple diabetic ulcers/ necrotic Call Completed: No 08/21/17 08:43 Consult to Occupational Therapy [CONS] Routine Comment: Evaluate, develop and implement POC Reason for Consult: Physical debilitation Does patient have active BEDREST order?: No Is patient medically & hemodynamically stable?: Yes Consult to Physical Therapy [CONS] Routine Comment: Evaluate, develop and implement POC Reason for Consult: Physical deconditioning Does patient have active BEDREST order?: No Is patient medically & hemodynamically stable?: Yes - Constitutional Vitals: Temp Pulse Resp BP Pulse Ox 97.9 F 76 16 141/60 94 08/21/17 10:33 08/21/17 10:33 08/21/17 10:33 08/21/17 12:44 08/21/17 10:33 - Attending Attestation Acute diastolic CHF exacerbation Continue Lasix Leg wounds growing Enterobacter cloacae and Pseudomonas both sensitive to Levaquin. Prescription for omeprazole 40 mg daily for 30 days was printed out Time spent 40 minutes I examined this patient and my medical decision-making was reviewed with the Resident Physician. I agree with the documented findings, disposition and treatment plan as described except to the extent set forth below.
[2017-08-21] MEDS ORDERED: levoFLOXacin 750 MG TABLET PO SCH ×2 (09:00)
[2017-08-21] MEDS ORDERED: hydrALAZINE 25 MG TABLET PO SCH ×2 (09:00→16:00)
[2017-08-21] MEDS ORDERED: Furosemide 40 MG TABLET PO SCH (09:00)
[2017-08-21] MEDS: Insulin LISPRO 300 UNITS/3 ML VIAL SQ SCH ×2 (09:31→11:56)
[2017-08-21] MEDS: amLODIPine 5 MG TABLET PO SCH (09:38)
[2017-08-21] MEDS: FLUoxetine 20 MG CAPSULE PO SCH (09:38)
[2017-08-21] MEDS: Isosorbide MONOnitrate (24 HR) 60 MG TAB.ER.24H PO SCH (09:39)
[2017-08-21] MEDS: Topiramate 25 MG TABLET PO SCH (09:39)
[2017-08-21] MEDS: Pregabalin 50 MG CAPSULE PO SCH (09:39)
--- NOTE | 2017-08-21 10:44 | Physician Discharge Referral ---
<Leo Sanchez - Last Filed: 08/21/17 10:42> Home Health/Hosp Referral Info Transfer to: Home Health Attending Provider: Dr. cardenas Provider in Charge Post Discharge: PCP - Diagnosis (1) Acute CHF Priority: Primary Status: Resolved (2) Diabetes mellitus Priority: Secondary Status: Chronic (3) Hypertension Priority: Secondary Status: Chronic (4) Neurogenic bladder Priority: Secondary Status: Chronic (5) Chronic kidney disease, stage III (moderate) Priority: Secondary Status: Chronic (6) DVT prophylaxis Priority: Secondary Status: Acute (7) Wound of lower extremity Priority: Secondary Status: Chronic (8) Anemia of chronic disease Priority: Secondary Status: Chronic - Respiratory Orders Oxygen / L per min (3L) Smoking Cessation: Smoking cessation has been advised. For more information, call the [employer] Quit Line at 6-828-OBLM-NOW. - Dressing/Wound Care Site: diabetic ulcers to bilateral feet - resume orders as per Dr. Lowell Henriquez ( [facility]): cleanse wounds with soap and water - rinse well with water and pat dry - apply Medihoney gel to wounds - cover with calcium alginate (CSS-Maxorb) pad with 4x4s - wrap with kerlix from toes to knees - wrap with 4" andrey bandage from toes to knees - change daily - Diet/Nutrition Diet/Nutrition Orders: Renal - Activity Activity Orders: Chair, Walker - Services Needed Following services are medically necessary services: Nursing, Home Health Aide, Physical Therapy, Occupational Therapy - Transfer Medications Prescriptions: Darbepoetin [Aranesp] 100 mcg SQ QWEEK #3 syringe Furosemide [Lasix] 40 mg PO DAILY #30 tablet hydrALAZINE [HydrALAZINE] 50 mg PO TID #90 tablet levoFLOXacin [Levaquin] 750 mg PO Q24H #14 tablet Omeprazole [PriLOSEC] 40 mg PO DAILY #30 cap Home Medications: Aspirin Enteric Coated [Aspirin EC] 81 mg PO DAILY 06/08/16 [History] Atorvastatin Calcium [Lipitor] 80 mg PO HS 06/08/16 [History] Clopidogrel [Plavix] 75 mg PO DAILY 06/08/16 [History] Dextrose [Glucose Gel] 15 gm PO ONCE PRN 06/08/16 [History] FLUoxetine HCl [Prozac] 40 mg PO QAM 06/08/16 [History] Glucagon,Human Recombinant [Glucagon Emergency Kit] 1 mg IJ ONCE PRN 06/08/16 [ History] Insulin ASPART [Novolog Flexpen] 20 unit SQ TIDAC 06/08/16 [History] Isosorbide MONOnitrate (24 HR) [Imdur] 60 mg PO DAILY 06/08/16 [History] Nitroglycerin [Nitrostat] 0.4 mg SL Q5M PRN 06/08/16 [History] Topiramate [Topamax] 25 mg PO BID 06/08/16 [History] Carvedilol [Coreg] 12.5 mg PO BIDWM #120 tablet 06/12/16 [Rx] Insulin Degludec [Tresiba Flextouch U-200] 20 - 30 unit SQ HS 01/01/17 [History] Naloxegol Oxalate [Movantik] 12.5 mg PO DAILY 01/01/17 [History] Tizanidine HCl [Zanaflex] 4 mg PO TID PRN 01/01/17 [History] Trazodone HCl 50 mg PO HS 01/01/17 [History] Tamsulosin HCl [Flomax] 0.4 mg PO DAILY #30 cap.er.24h 04/30/17 [Rx] Amlodipine Besylate 10 mg PO DAILY 07/04/17 [History] Pregabalin [Lyrica] 100 mg PO BID 07/04/17 [History] Ferrous Sulfate 325 mg PO BIDWM #60 tablet 07/07/17 [Rx] Pantoprazole Sodium [Protonix] 40 mg PO BID #60 tablet. 07/07/17 [Rx] OxyCODONE Immed Rel [Roxicodone 10 MG] 10 mg PO Q6H PRN 08/19/17 [History] Sacubitril/Valsartan [Entresto 24 mg-26 mg Tablet] 1 tab PO DAILY 08/19/17 [ History] Darbepoetin [Aranesp] 100 mcg SQ QWEEK #3 syringe 08/21/17 [Rx] Furosemide [Lasix] 40 mg PO DAILY #30 tablet 08/21/17 [Rx] Omeprazole [PriLOSEC] 40 mg PO DAILY #30 cap 08/21/17 [Rx] hydrALAZINE [HydrALAZINE] 50 mg PO TID #90 tablet 08/21/17 [Rx] levoFLOXacin [Levaquin] 750 mg PO Q24H #14 tablet 08/21/17 [Rx] Allergies/Adverse Reactions: 3 Allergy/AdvReac Type Severity Reaction Status Date / Time Methadone Allergy Hives Verified 05/10/17 12:17 Penicillins Allergy Hives Verified 05/10/17 12:17 linaclotide [From Linzess] AdvReac Nausea Verified 05/10/17 12:17 phenazopyridine AdvReac See Verified 05/10/17 12:17 [From Pyridium] Comments Certification: Further, I certify that my clinical findings support that this patient is homebound (i.e. absences from home require considerable and taxing effort and are for medical reasons or hindu services or infrequently or short duration when for other reasons) because: Homebound Reason: Patient requires assistance of a person or device to safely leave home, Absences from home are contraindicated except to recieve medical care, Leaving home requires considerable and taxing effort due to condition Attestation: My signature below is to certify that this patient is under my care and that I, or nurse practitioner, or a physician's family law legal assistant working with me, has a face-to -face encounter with this patient. <Terrance Benitez - Last Filed: 08/21/17 12:51> - Diagnosis (1) Diabetes mellitus Status: Chronic (2) Hypertension Status: Chronic (3) Neurogenic bladder Status: Chronic (4) Chronic kidney disease, stage III (moderate) Status: Chronic (5) DVT prophylaxis Status: Acute (6) Acute CHF Status: Resolved (7) Wound of lower extremity Status: Chronic (8) Anemia of chronic disease Status: Chronic - Respiratory Orders Smoking Cessation: Smoking cessation has been advised. For more information, call the [place] [employer] Quit Line at 8-614-NEBF-NOW. Certification: Further, I certify that my clinical findings support that this patient is homebound (i.e. absences from home require considerable and taxing effort and are for medical reasons or hindu services or infrequently or short duration when for other reasons) because: Attestation: My signature below is to certify that this patient is under my care and that I, or nurse practitioner, or a physician's family law legal assistant working with me, has a face-to -face encounter with this patient. Prescription for omeprazole 40 mg daily for 30 days was printed out I examined this patient and my medical decision-making was reviewed with the Resident Physician. I agree with the documented findings, disposition and treatment plan as described except to the extent set forth below.
[2017-08-21 12:45] VITALS: BP 141/60
== END 2017-08-21 13:18 | disposition home health service (06) | DRG 291 ==
LOC: ICNU → SUATTDRO 03:10 → 2ANU 19:26
PROVIDERS: ADMIT Internal Medicine; ATTEND Internal Medicine

== ENCOUNTER 2021-09-16 12:43 | Inpatient (IN) ==
[2021-09-17] MEDS ORDERED: Naloxone 0.4 MG/ML INJ IVP PRN (16:38)
[2021-09-17] MEDS ORDERED: Ondansetron 4 MG/2 ML VIAL IVP PRN (16:38)
[2021-09-17] MEDS ORDERED: D5% in Water 1,000 ML IVC PRN (16:43)
[2021-09-17] MEDS ORDERED: Dextrose Gel 15 GM/37.5 ML TUBE PO PRN ×2 (16:43)
[2021-09-17 17:42] LABS: INR 1.1; Prothrombin Time 12.6 Seconds (9.4-12.1)
[2021-09-17 17:45] LABS: Activated Partial Thrombo Time 31.4 Seconds (26.0-36.0)
[2021-09-17 17:57] LABS: Albumin 3.3 g/dL (3.5-5.7); Albumin/Globulin Ratio 1.4 (1.1-2.2); Bilirubin,Total 0.7 mg/dL (0.3-1.0); Calcium 8.3 mg/dL (8.6-10.3); Globulin 2.4 g/dL (2.4-3.5); Potassium 4.3 mEq/L (3.5-5.1); Total Protein 5.7 g/dL (6.4-8.9); Troponin I 0.03 ng/mL (< 0.04)
[2021-09-17 18:01] LABS: Basophils # 0.1 K/mcL (0.0-0.2); Basophils % 0.9 %; Eosinophils # 0.1 K/mcL (0.0-0.6); Hematocrit 24.8 % (37.5-50.1); Hemoglobin 8.3 g/dL (12.9-16.9); Immature Granulocytes % 0.3 % (0-4); Lymphocytes # 0.6 K/mcL (0.6-4.6); Lymphocytes % 8.4 %; Mean Corpuscular HGB Conc 33.5 g/dL (31.6-35.5); Mean Corpuscular Hemoglobin 30.2 pg (28.0-33.3); Mean Corpuscular Volume 90.2 fL (83.0-100.0); Mean Platelet Volume 11.1 fL (9.4-12.4); Monocytes # 0.7 K/mcL (0.0-1.3); Monocytes % 10.1 %; Neutrophils # 5.2 K/mcL (1.6-8.9); Platelet Count 118 K/mcL (140-400); Red Blood Count 2.75 M/mcL (4.19-5.50); Red Cell Distribution Width 14.8 % (11.5-14.5); Segmented Neutrophils % 78.3 %; White Blood Count 6.6 K/mcL (4.3-11.1)
[2021-09-17 18:36] LABS: Estimated Average Glucose 148 mg/dl; Hemoglobin A1C 6.8 %
[2021-09-17] MEDS: Insulin LISPRO 300 UNITS/3 ML VIAL SUBQ SCH (20:54)
[2021-09-18 04:47] LABS: Basophils # 0.1 K/mcL (0.0-0.2); Basophils % 0.7 %; Eosinophils # 0.1 K/mcL (0.0-0.6); Eosinophils % 1.9 %; Hematocrit 24.3 % (37.5-50.1); Immature Granulocytes % 0.3 % (0-4); Immature Platelets 4.9 % (1.1-6.1); Lymphocytes # 0.7 K/mcL (0.6-4.6); Lymphocytes % 9.4 %; Mean Corpuscular HGB Conc 32.9 g/dL (31.6-35.5); Mean Corpuscular Hemoglobin 30.2 pg (28.0-33.3); Mean Corpuscular Volume 91.7 fL (83.0-100.0); Monocytes # 0.7 K/mcL (0.0-1.3); Monocytes % 10.1 %; Neutrophils # 5.6 K/mcL (1.6-8.9); Platelet Count 118 K/mcL (140-400); Red Blood Count 2.65 M/mcL (4.19-5.50); Red Cell Distribution Width 14.7 % (11.5-14.5); Segmented Neutrophils % 77.6 %; White Blood Count 7.2 K/mcL (4.3-11.1)
[2021-09-18 04:54] LABS: Calcium 8.3 mg/dL (8.6-10.3); Potassium 4.3 mEq/L (3.5-5.1)
[2021-09-18] MEDS: *HR* Dextrose 50 % in Water (Syg) 50 ML SYRINGE IVP PRN ×2 (06:04→10:03)
[2021-09-18] MEDS: Insulin LISPRO 300 UNITS/3 ML VIAL SUBQ SCH ×4 (07:09→19:56)
[2021-09-18] MEDS ORDERED: Albuterol 2.5 MG/3 ML NEBULIZER IH PRN (07:28)
[2021-09-18] MEDS ORDERED: *HR* HYDROmorphone PF 0.5 MG/0.5 ML SYRINGE IVP PRN (07:28)
[2021-09-18] MEDS ORDERED: Ondansetron 4 MG/2 ML VIAL IVP PRN (07:28)
[2021-09-18] MEDS ORDERED: *HR* Labetalol 20 MG/4 ML SYRINGE IVP PRN (07:28)
[2021-09-18] MEDS ORDERED: *HR* Meperidine 25 MG/ML SYRINGE IVP PRN (07:28)
[2021-09-18] MEDS ORDERED: *HR* OxyCODONE Immed Rel 5 MG TABLET PO PRN (07:28)
[2021-09-18] MEDS ORDERED: Ipratropium Neb 0.5 MG NEBULIZER IH PRN (07:28)
[2021-09-18] MEDS ORDERED: CeFAZolin Syr 2,000MG/20 ML 2,000 MG/20 ML SYRINGE IVPB ONE (09:57)
[2021-09-18] MEDS: Ringers Solution, Lactated 1,000 ML IVC SCH (10:02)
[2021-09-18] MEDS ORDERED: *HR* FentaNYL (PF) 100 MCG/2 ML VIAL ONE ×2 (10:45→12:11)
[2021-09-18] MEDS ORDERED: *HR* Rocuronium Bromide 50 MG/5 ML VIAL ONE ×2 (10:45→12:26)
[2021-09-18] MEDS ORDERED: Ondansetron 4 MG/2 ML VIAL ONE (10:45)
[2021-09-18] MEDS ORDERED: Lidocaine -MPF 2% 2 ML VIAL ONE (10:45)
[2021-09-18] MEDS ORDERED: *HR* Propofol 200 MG/20 ML VIAL IVP ONE (10:45)
[2021-09-18] MEDS ORDERED: *HR* HYDROMORPHONE 2 MG/ML VIAL ONE (12:42)
[2021-09-18] MEDS ORDERED: Sugammadex Sodium 200 MG/2 ML VIAL IV ONE (13:32)
[2021-09-18] MEDS: CeFAZolin 2 GM/120 ML BAG IVPB SCH ×2 (16:22→23:32)
[2021-09-18] MEDS ORDERED: Nitroglycerin 0.4 MG TAB.SUBL SL PRN (17:39)
[2021-09-18] MEDS: Topiramate 25 MG TABLET PO SCH (19:48)
[2021-09-18] MEDS: traZODone 50 MG TABLET PO SCH (19:48)
[2021-09-18] MEDS: Sacubitril/Valsartan 24/26 MG 1 TABLET PO SCH (19:48)
[2021-09-18] MEDS: Pregabalin 50 MG CAPSULE PO SCH (19:48)
[2021-09-18] MEDS: Acetaminophen 325 MG TABLET PO PRN (23:31)
[2021-09-19 05:16] LABS: Basophils % 0.1 %; Hematocrit 20.9 % (37.5-50.1); Hemoglobin 6.9 g/dL (12.9-16.9); Immature Granulocytes % 0.4 % (0-4); Lymphocytes # 0.4 K/mcL (0.6-4.6); Mean Corpuscular Hemoglobin 29.7 pg (28.0-33.3); Mean Corpuscular Volume 90.1 fL (83.0-100.0); Monocytes # 0.5 K/mcL (0.0-1.3); Monocytes % 7.6 %; Neutrophils # 6.1 K/mcL (1.6-8.9); Platelet Count 131 K/mcL (140-400); Red Blood Count 2.32 M/mcL (4.19-5.50); Red Cell Distribution Width 14.4 % (11.5-14.5); Segmented Neutrophils % 86.9 %
[2021-09-19 05:36] LABS: Albumin 3.1 g/dL (3.5-5.7); Calcium 7.9 mg/dL (8.6-10.3); Phosphorous 8.4 mg/dL (2.7-4.5)
[2021-09-19 05:45] LABS: Albumin 3.1 g/dL (3.5-5.7); Albumin/Globulin Ratio 1.2 (1.1-2.2); Bilirubin,Direct 0.1 mg/dL (0.0-0.2); Bilirubin,Indirect 0.4 mg/dL (0.0-1.0); Bilirubin,Total 0.5 mg/dL (0.3-1.0); Globulin 2.5 g/dL (2.4-3.5); Magnesium 2.1 mg/dL (1.6-2.6); Total Protein 5.6 g/dL (6.4-8.9)
[2021-09-19 05:47] LABS: Thyroid Stimulating Hormone 1.006 mcIU/mL (0.340-5.600)
[2021-09-19 06:05] LABS: Folate > 22.3 ng/mL (3.0-16.0); Vitamin B12 399 pg/mL (250-1100)
[2021-09-19] MEDS ORDERED: 0.9 % Sodium Chloride 250 ML IVC SCH (08:00)
[2021-09-19] MEDS: Pregabalin 50 MG CAPSULE PO SCH ×2 (09:01→21:08)
[2021-09-19] MEDS: calcitrioL 0.25 MCG CAPSULE PO SCH (09:01)
[2021-09-19] MEDS: FLUoxetine 20 MG CAPSULE PO SCH (09:01)
[2021-09-19] MEDS: Aspirin Enteric Coated 81 MG Tablet PO SCH (09:02)
[2021-09-19] MEDS: carvediloL 6.25 MG TABLET PO SCH ×2 (09:02→21:12)
[2021-09-19] MEDS: Topiramate 25 MG TABLET PO SCH ×2 (09:03→21:08)
[2021-09-19] MEDS: Isosorbide MONOnitrate (24 HR) 60 MG TAB.ER.24H PO SCH (09:03)
[2021-09-19] MEDS: Sacubitril/Valsartan 24/26 MG 1 TABLET PO SCH ×2 (09:03→21:08)
[2021-09-19] MEDS: amLODIPine 5 MG TABLET PO SCH (09:03)
[2021-09-19] MEDS: Insulin LISPRO 300 UNITS/3 ML VIAL SUBQ SCH ×3 (09:19→19:31)
[2021-09-19] MEDS ORDERED: Ethyl Chloride Spray Bottle (104 SPRAY/BOTTLE) TP PRN (09:19)
[2021-09-19] MEDS ORDERED: 0.9 % Sodium Chloride 250 ML IVC PRN (09:19)
[2021-09-19] MEDS ORDERED: 0.9 % Sodium Chloride 2,000 ML PRIME SCH (09:30)
[2021-09-19 10:49] LABS: Hepatitis B Surface Antibody 37.59 mIU/mL
[2021-09-19] MEDS: Nicotine 14 MG PATCH.TD24 TD SCH (10:55)
[2021-09-19 11:00] LABS: Hepatitis B Surface Antigen Nonreactive (Nonreactive)
[2021-09-19] MEDS ORDERED: *HR* LORazepam 2 MG/ML VIAL IVP STA (11:08)
[2021-09-19] MEDS ORDERED: Morphine Sulfate 2 MG/ML SYRINGE IVP ONE (11:09)
[2021-09-19] MEDS: traZODone 50 MG TABLET PO SCH (21:08)
[2021-09-19] MEDS: *HR* Heparin 5,000 UNIT/ML VIAL SQ SCH (22:46)
[2021-09-20] MEDS: Insulin LISPRO 300 UNITS/3 ML VIAL SUBQ SCH ×5 (02:16→22:32)
[2021-09-20] MEDS: *HR* Heparin 5,000 UNIT/ML VIAL SQ SCH ×2 (05:46→17:09)
[2021-09-20 07:22] LABS: Basophils % 0.7 %; Eosinophils # 0.1 K/mcL (0.0-0.6); Eosinophils % 2.3 %; Hematocrit 23.5 % (37.5-50.1); Hemoglobin 7.6 g/dL (12.9-16.9); Immature Granulocytes % 0.4 % (0-4); Lymphocytes # 0.6 K/mcL (0.6-4.6); Lymphocytes % 10.4 %; Mean Corpuscular HGB Conc 32.3 g/dL (31.6-35.5); Mean Corpuscular Hemoglobin 29.2 pg (28.0-33.3); Mean Corpuscular Volume 90.4 fL (83.0-100.0); Mean Platelet Volume 11.1 fL (9.4-12.4); Monocytes # 0.5 K/mcL (0.0-1.3); Monocytes % 8.5 %; Neutrophils # 4.4 K/mcL (1.6-8.9); Platelet Count 135 K/mcL (140-400); Red Cell Distribution Width 15.1 % (11.5-14.5); Segmented Neutrophils % 77.7 %; White Blood Count 5.7 K/mcL (4.3-11.1)
[2021-09-20 07:50] LABS: Calcium 8.3 mg/dL (8.6-10.3); Magnesium 2.1 mg/dL (1.6-2.6)
[2021-09-20] MEDS: Sacubitril/Valsartan 24/26 MG 1 TABLET PO SCH ×2 (08:14→22:31)
[2021-09-20] MEDS: amLODIPine 5 MG TABLET PO SCH (08:14)
[2021-09-20] MEDS: Aspirin Enteric Coated 81 MG Tablet PO SCH (08:14)
[2021-09-20] MEDS: Isosorbide MONOnitrate (24 HR) 60 MG TAB.ER.24H PO SCH (08:15)
[2021-09-20] MEDS: Topiramate 25 MG TABLET PO SCH ×2 (08:15→22:31)
[2021-09-20] MEDS: FLUoxetine 20 MG CAPSULE PO SCH (08:15)
[2021-09-20] MEDS: carvediloL 6.25 MG TABLET PO SCH ×2 (08:15→17:09)
[2021-09-20] MEDS: calcitrioL 0.25 MCG CAPSULE PO SCH (08:16)
[2021-09-20] MEDS: Pregabalin 50 MG CAPSULE PO SCH ×2 (08:17→22:31)
[2021-09-20] MEDS: Nicotine 14 MG PATCH.TD24 TD SCH (08:17)
[2021-09-20 11:09] LABS: Campylobacter by PCR Not detected (Not detect)
[2021-09-20 11:10] LABS: Adenovirus F 40/41 PCR Not detected (Not detect); Astrovirus PCR Not detected (Not detect); Cryptosporidium by PCR Not detected (Not detect); Cyclospora cayetanensis PCR Not detected (Not detect); E. coli O157 by PCR Not detected (Not detect); Entamoeba histolytica PCR Not detected (Not detect); Enteroaggregative E.coli(EAEC) Not detected (Not detect); Enteropathogenic E.coli(EPEC) Not detected (Not detect); Enterotoxigenic E.coli (ETEC) Not detected (Not detect); Giardia lamblia PCR Not detected (Not detect); Norovirus GI/GII PCR Not detected (Not detect); Plesiomonas shigelloides PCR Not detected (Not detect); Rotavirus A PCR Not detected (Not detect); Salmonella PCR Not detected (Not detect); Sapovirus PCR Not detected (Not detect); Shig/EnteroinvasiveE coli EIEC Not detected (Not detect); Shigalike tox-prod E coli STEC Not detected (Not detect); Vibrio PCR Not detected (Not detect); Vibrio cholerae PCR Not detected (Not detect); Yersinia enterocolitica PCR Not detected (Not detect)
[2021-09-20 11:11] LABS: C.difficile Toxin A/B Gene PCR DETECTED (Not detect)
[2021-09-20] MEDS: Vancomycin Oral Soln 125 MG/2.5 ML UDC PO SCH ×2 (15:44→19:06)
[2021-09-20] MEDS: traZODone 50 MG TABLET PO SCH (22:31)
[2021-09-21] MEDS: Vancomycin Oral Soln 125 MG/2.5 ML UDC PO SCH ×5 (00:27→22:26)
[2021-09-21 02:17] LABS: Basophils % 0.7 %; Eosinophils # 0.2 K/mcL (0.0-0.6); Eosinophils % 3.5 %; Hematocrit 22.4 % (37.5-50.1); Hemoglobin 7.2 g/dL (12.9-16.9); Immature Granulocytes % 0.2 % (0-4); Lymphocytes # 0.5 K/mcL (0.6-4.6); Lymphocytes % 9.1 %; Mean Corpuscular HGB Conc 32.1 g/dL (31.6-35.5); Mean Corpuscular Hemoglobin 28.9 pg (28.0-33.3); Monocytes # 0.5 K/mcL (0.0-1.3); Monocytes % 8.9 %; Neutrophils # 4.3 K/mcL (1.6-8.9); Platelet Count 135 K/mcL (140-400); Red Blood Count 2.49 M/mcL (4.19-5.50); Red Cell Distribution Width 14.9 % (11.5-14.5); Segmented Neutrophils % 77.6 %; White Blood Count 5.5 K/mcL (4.3-11.1)
[2021-09-21 02:34] LABS: Calcium 8.1 mg/dL (8.6-10.3); Potassium 4.4 mEq/L (3.5-5.1)
[2021-09-21] MEDS: *HR* Heparin 5,000 UNIT/ML VIAL SQ SCH ×2 (05:18→17:25)
[2021-09-21] MEDS ORDERED: 0.9 % Sodium Chloride 250 ML IVC PRN (07:42)
[2021-09-21] MEDS: Pregabalin 50 MG CAPSULE PO SCH ×2 (08:29→20:29)
[2021-09-21] MEDS: Isosorbide MONOnitrate (24 HR) 60 MG TAB.ER.24H PO SCH (08:29)
[2021-09-21] MEDS: Topiramate 25 MG TABLET PO SCH ×2 (08:29→20:29)
[2021-09-21] MEDS: amLODIPine 5 MG TABLET PO SCH (08:29)
[2021-09-21] MEDS: Aspirin Enteric Coated 81 MG Tablet PO SCH (08:29)
[2021-09-21] MEDS: Sacubitril/Valsartan 24/26 MG 1 TABLET PO SCH ×2 (08:29→20:29)
[2021-09-21] MEDS: calcitrioL 0.25 MCG CAPSULE PO SCH (08:29)
[2021-09-21] MEDS: Insulin LISPRO 300 UNITS/3 ML VIAL SUBQ SCH ×4 (08:30→20:29)
[2021-09-21] MEDS: FLUoxetine 20 MG CAPSULE PO SCH (08:30)
[2021-09-21] MEDS: carvediloL 6.25 MG TABLET PO SCH ×2 (08:30→17:26)
[2021-09-21] MEDS: Nicotine 14 MG PATCH.TD24 TD SCH (08:30)
[2021-09-21] MEDS: traZODone 50 MG TABLET PO SCH (20:29)
[2021-09-22] MEDS: *HR* Heparin 5,000 UNIT/ML VIAL SQ SCH ×2 (07:00→18:02)
[2021-09-22 08:10] LABS: Basophils # 0.1 K/mcL (0.0-0.2); Eosinophils # 0.2 K/mcL (0.0-0.6); Hematocrit 23.7 % (37.5-50.1); Hemoglobin 7.6 g/dL (12.9-16.9); Immature Granulocytes % 0.3 % (0-4); Lymphocytes # 0.8 K/mcL (0.6-4.6); Lymphocytes % 12.1 %; Mean Corpuscular HGB Conc 32.1 g/dL (31.6-35.5); Mean Corpuscular Hemoglobin 29.9 pg (28.0-33.3); Mean Corpuscular Volume 93.3 fL (83.0-100.0); Mean Platelet Volume 10.2 fL (9.4-12.4); Monocytes # 0.6 K/mcL (0.0-1.3); Neutrophils # 4.7 K/mcL (1.6-8.9); Platelet Count 146 K/mcL (140-400); Red Blood Count 2.54 M/mcL (4.19-5.50); Red Cell Distribution Width 14.7 % (11.5-14.5); Segmented Neutrophils % 74.6 %; White Blood Count 6.3 K/mcL (4.3-11.1)
[2021-09-22 08:57] LABS: Calcium 8.5 mg/dL (8.6-10.3); Potassium 4.2 mEq/L (3.5-5.1)
[2021-09-22] MEDS: calcitrioL 0.25 MCG CAPSULE PO SCH (09:45)
[2021-09-22] MEDS: Pregabalin 50 MG CAPSULE PO SCH ×2 (09:45→20:08)
[2021-09-22] MEDS: FLUoxetine 20 MG CAPSULE PO SCH (09:45)
[2021-09-22] MEDS: Isosorbide MONOnitrate (24 HR) 60 MG TAB.ER.24H PO SCH (09:45)
[2021-09-22] MEDS: Sacubitril/Valsartan 24/26 MG 1 TABLET PO SCH ×2 (09:46→20:08)
[2021-09-22] MEDS: Topiramate 25 MG TABLET PO SCH ×2 (09:46→20:08)
[2021-09-22] MEDS: Nicotine 14 MG PATCH.TD24 TD SCH (09:46)
[2021-09-22] MEDS: amLODIPine 5 MG TABLET PO SCH (09:46)
[2021-09-22] MEDS: Vancomycin Oral Soln 125 MG/2.5 ML UDC PO SCH ×4 (09:46→20:08)
[2021-09-22] MEDS: Aspirin Enteric Coated 81 MG Tablet PO SCH (09:46)
[2021-09-22] MEDS: carvediloL 6.25 MG TABLET PO SCH ×2 (09:52→18:02)
[2021-09-22] MEDS: Insulin LISPRO 300 UNITS/3 ML VIAL SUBQ SCH ×4 (10:42→19:59)
[2021-09-22] MEDS: traZODone 50 MG TABLET PO SCH (20:07)
[2021-09-23] MEDS: Acetaminophen 325 MG TABLET PO PRN ×2 (00:05→06:22)
[2021-09-23 06:12] LABS: White Blood Count 6.3 K/mcL (4.3-11.1)
[2021-09-23 06:13] LABS: Basophils # 0.1 K/mcL (0.0-0.2); Basophils % 0.8 %; Eosinophils # 0.3 K/mcL (0.0-0.6); Eosinophils % 4.1 %; Hematocrit 23.4 % (37.5-50.1); Hemoglobin 7.3 g/dL (12.9-16.9); Immature Granulocytes % 0.3 % (0-4); Lymphocytes # 0.7 K/mcL (0.6-4.6); Lymphocytes % 11.6 %; Mean Corpuscular HGB Conc 31.2 g/dL (31.6-35.5); Mean Corpuscular Hemoglobin 28.7 pg (28.0-33.3); Mean Corpuscular Volume 92.1 fL (83.0-100.0); Mean Platelet Volume 10.7 fL (9.4-12.4); Monocytes # 0.5 K/mcL (0.0-1.3); Monocytes % 8.4 %; Neutrophils # 4.7 K/mcL (1.6-8.9); Platelet Count 170 K/mcL (140-400); Red Blood Count 2.54 M/mcL (4.19-5.50); Red Cell Distribution Width 14.5 % (11.5-14.5); Segmented Neutrophils % 74.8 %
[2021-09-23] MEDS: *HR* Heparin 5,000 UNIT/ML VIAL SQ SCH ×2 (06:22→17:01)
[2021-09-23 06:31] LABS: Calcium 8.5 mg/dL (8.6-10.3); Potassium 4.3 mEq/L (3.5-5.1)
[2021-09-23] MEDS ORDERED: 0.9 % Sodium Chloride 250 ML IVC PRN (07:37)
[2021-09-23] MEDS: Insulin LISPRO 300 UNITS/3 ML VIAL SUBQ SCH ×4 (09:49→20:25)
[2021-09-23] MEDS: Sacubitril/Valsartan 24/26 MG 1 TABLET PO SCH ×2 (14:57→20:25)
[2021-09-23] MEDS: amLODIPine 5 MG TABLET PO SCH (14:57)
[2021-09-23] MEDS: carvediloL 6.25 MG TABLET PO SCH ×2 (14:57→14:58)
[2021-09-23] MEDS: Aspirin Enteric Coated 81 MG Tablet PO SCH (14:57)
[2021-09-23] MEDS: FLUoxetine 20 MG CAPSULE PO SCH (14:58)
[2021-09-23] MEDS: Vancomycin Oral Soln 125 MG/2.5 ML UDC PO SCH ×4 (14:58→20:25)
[2021-09-23] MEDS: Isosorbide MONOnitrate (24 HR) 60 MG TAB.ER.24H PO SCH (14:58)
[2021-09-23] MEDS: calcitrioL 0.25 MCG CAPSULE PO SCH (14:58)
[2021-09-23] MEDS: Topiramate 25 MG TABLET PO SCH ×2 (14:58→20:25)
[2021-09-23] MEDS: Nicotine 14 MG PATCH.TD24 TD SCH (14:59)
[2021-09-23] MEDS: Pregabalin 75 MG CAPSULE PO SCH (20:25)
[2021-09-23] MEDS: traZODone 50 MG TABLET PO SCH (20:25)
[2021-09-24] MEDS: Ringers Solution, Lactated 1,000 ML IVC SCH (03:56)
[2021-09-24] MEDS: Pregabalin 50 MG CAPSULE PO SCH (03:57)
[2021-09-24] MEDS: *HR* Heparin 5,000 UNIT/ML VIAL SQ SCH ×2 (04:22→16:38)
[2021-09-24 06:30] LABS: Basophils # 0.1 K/mcL (0.0-0.2); Basophils % 0.8 %; Eosinophils # 0.3 K/mcL (0.0-0.6); Eosinophils % 3.4 %; Hematocrit 23.8 % (37.5-50.1); Hemoglobin 7.7 g/dL (12.9-16.9); Immature Granulocytes % 0.7 % (0-4); Lymphocytes # 0.6 K/mcL (0.6-4.6); Lymphocytes % 8.4 %; Mean Corpuscular HGB Conc 32.4 g/dL (31.6-35.5); Mean Corpuscular Hemoglobin 29.4 pg (28.0-33.3); Mean Corpuscular Volume 90.8 fL (83.0-100.0); Mean Platelet Volume 10.2 fL (9.4-12.4); Monocytes # 0.6 K/mcL (0.0-1.3); Monocytes % 7.4 %; Platelet Count 183 K/mcL (140-400); Red Blood Count 2.62 M/mcL (4.19-5.50); Red Cell Distribution Width 14.2 % (11.5-14.5); Segmented Neutrophils % 79.3 %; White Blood Count 7.6 K/mcL (4.3-11.1)
[2021-09-24 06:51] LABS: Calcium 8.6 mg/dL (8.6-10.3); Magnesium 1.9 mg/dL (1.6-2.6); Potassium 4.5 mEq/L (3.5-5.1)
[2021-09-24] MEDS: Insulin LISPRO 300 UNITS/3 ML VIAL SUBQ SCH ×4 (07:27→22:01)
[2021-09-24] MEDS: Topiramate 25 MG TABLET PO SCH ×2 (07:39→22:46)
[2021-09-24] MEDS: amLODIPine 5 MG TABLET PO SCH (07:39)
[2021-09-24] MEDS: FLUoxetine 20 MG CAPSULE PO SCH (07:39)
[2021-09-24] MEDS: carvediloL 6.25 MG TABLET PO SCH ×2 (07:39→16:38)
[2021-09-24] MEDS: Aspirin Enteric Coated 81 MG Tablet PO SCH (07:39)
[2021-09-24] MEDS: Sacubitril/Valsartan 24/26 MG 1 TABLET PO SCH ×2 (07:39→22:45)
[2021-09-24] MEDS: calcitrioL 0.25 MCG CAPSULE PO SCH (07:39)
[2021-09-24] MEDS: Isosorbide MONOnitrate (24 HR) 60 MG TAB.ER.24H PO SCH (07:39)
[2021-09-24] MEDS: Nicotine 14 MG PATCH.TD24 TD SCH (07:40)
[2021-09-24] MEDS: Vancomycin Oral Soln 125 MG/2.5 ML UDC PO SCH ×4 (07:40→22:46)
[2021-09-24] MEDS: Pregabalin 75 MG CAPSULE PO SCH (22:45)
[2021-09-24] MEDS: Lactobacillus 1 EACH CAP.SPRINK PO SCH (22:45)
[2021-09-24] MEDS: traZODone 50 MG TABLET PO SCH (22:46)
[2021-09-25] MEDS: *HR* Heparin 5,000 UNIT/ML VIAL SQ SCH ×2 (06:01→16:35)
[2021-09-25 06:32] LABS: Basophils # 0.1 K/mcL (0.0-0.2); Basophils % 0.9 %; Eosinophils # 0.3 K/mcL (0.0-0.6); Eosinophils % 3.1 %; Hematocrit 24.4 % (37.5-50.1); Immature Granulocytes % 0.6 % (0-4); Lymphocytes # 0.7 K/mcL (0.6-4.6); Lymphocytes % 8.8 %; Mean Corpuscular HGB Conc 32.8 g/dL (31.6-35.5); Mean Corpuscular Hemoglobin 29.5 pg (28.0-33.3); Mean Platelet Volume 10.4 fL (9.4-12.4); Monocytes # 0.6 K/mcL (0.0-1.3); Monocytes % 7.4 %; Neutrophils # 6.3 K/mcL (1.6-8.9); Platelet Count 198 K/mcL (140-400); Red Blood Count 2.71 M/mcL (4.19-5.50); Red Cell Distribution Width 14.4 % (11.5-14.5); Segmented Neutrophils % 79.2 %
[2021-09-25 06:47] LABS: Calcium 9.2 mg/dL (8.6-10.3); Potassium 4.6 mEq/L (3.5-5.1)
[2021-09-25] MEDS: Nicotine 14 MG PATCH.TD24 TD SCH (08:11)
[2021-09-25] MEDS: FLUoxetine 20 MG CAPSULE PO SCH (08:12)
[2021-09-25] MEDS: calcitrioL 0.25 MCG CAPSULE PO SCH (08:13)
[2021-09-25] MEDS: Vancomycin Oral Soln 125 MG/2.5 ML UDC PO SCH ×4 (08:13→21:09)
[2021-09-25] MEDS: Topiramate 25 MG TABLET PO SCH ×2 (08:13→21:09)
[2021-09-25] MEDS: carvediloL 6.25 MG TABLET PO SCH ×2 (08:13→16:35)
[2021-09-25] MEDS: amLODIPine 5 MG TABLET PO SCH (08:13)
[2021-09-25] MEDS: Isosorbide MONOnitrate (24 HR) 60 MG TAB.ER.24H PO SCH (08:13)
[2021-09-25] MEDS: Sacubitril/Valsartan 24/26 MG 1 TABLET PO SCH ×2 (08:13→21:09)
[2021-09-25] MEDS: Aspirin Enteric Coated 81 MG Tablet PO SCH (08:13)
[2021-09-25] MEDS: Insulin LISPRO 300 UNITS/3 ML VIAL SUBQ SCH ×4 (08:14→21:02)
[2021-09-25] MEDS: Lactobacillus 1 EACH CAP.SPRINK PO SCH ×2 (10:53→21:09)
[2021-09-25] MEDS: *HR* OxyCODONE/APAP 5/325 TABLET PO PRN (16:35)
[2021-09-25] MEDS: Pregabalin 75 MG CAPSULE PO SCH (21:09)
[2021-09-25] MEDS: traZODone 50 MG TABLET PO SCH (21:09)
[2021-09-26] MEDS: *HR* Heparin 5,000 UNIT/ML VIAL SQ SCH ×2 (05:53→16:52)
[2021-09-26] MEDS: Insulin LISPRO 300 UNITS/3 ML VIAL SUBQ SCH ×4 (07:02→22:41)
[2021-09-26 07:19] LABS: Calcium 9.2 mg/dL (8.6-10.3); Potassium 4.9 mEq/L (3.5-5.1)
[2021-09-26] MEDS ORDERED: 0.9 % Sodium Chloride 250 ML IVC PRN (08:45)
[2021-09-26] MEDS: FLUoxetine 20 MG CAPSULE PO SCH (09:37)
[2021-09-26] MEDS: Aspirin Enteric Coated 81 MG Tablet PO SCH (09:38)
[2021-09-26] MEDS: Lactobacillus 1 EACH CAP.SPRINK PO SCH ×2 (09:38→20:43)
[2021-09-26] MEDS: calcitrioL 0.25 MCG CAPSULE PO SCH (09:38)
[2021-09-26] MEDS: Topiramate 25 MG TABLET PO SCH ×2 (09:38→20:44)
[2021-09-26] MEDS: Nicotine 14 MG PATCH.TD24 TD SCH (09:39)
[2021-09-26] MEDS: *HR* OxyCODONE/APAP 5/325 TABLET PO PRN ×2 (11:50→15:04)
[2021-09-26] MEDS: Vancomycin Oral Soln 125 MG/2.5 ML UDC PO SCH ×4 (12:23→20:43)
[2021-09-26] MEDS: Isosorbide MONOnitrate (24 HR) 60 MG TAB.ER.24H PO SCH (12:23)
[2021-09-26] MEDS: carvediloL 6.25 MG TABLET PO SCH ×2 (12:24→16:52)
[2021-09-26] MEDS: Sacubitril/Valsartan 24/26 MG 1 TABLET PO SCH ×2 (12:25→20:44)
[2021-09-26] MEDS: amLODIPine 5 MG TABLET PO SCH (12:25)
[2021-09-26] MEDS: Acetaminophen 325 MG TABLET PO PRN (14:23)
[2021-09-26] MEDS: Pregabalin 75 MG CAPSULE PO SCH (20:44)
[2021-09-26] MEDS: traZODone 50 MG TABLET PO SCH (20:44)
[2021-09-26] MEDS: *HR* OxyCODONE/APAP 5/325 TABLET PO SCH (20:44)
[2021-09-27] MEDS: *HR* OxyCODONE/APAP 5/325 TABLET PO PRN (04:25)
[2021-09-27] MEDS: *HR* Heparin 5,000 UNIT/ML VIAL SQ SCH (05:17)
[2021-09-27 07:54] LABS: Calcium 9.6 mg/dL (8.6-10.3); Potassium 4.3 mEq/L (3.5-5.1)
[2021-09-27] MEDS: calcitrioL 0.25 MCG CAPSULE PO SCH (08:50)
[2021-09-27] MEDS: Lactobacillus 1 EACH CAP.SPRINK PO SCH (08:51)
[2021-09-27] MEDS: Isosorbide MONOnitrate (24 HR) 60 MG TAB.ER.24H PO SCH (08:52)
[2021-09-27] MEDS: Aspirin Enteric Coated 81 MG Tablet PO SCH (08:52)
[2021-09-27] MEDS: Sacubitril/Valsartan 24/26 MG 1 TABLET PO SCH (08:52)
[2021-09-27] MEDS: amLODIPine 5 MG TABLET PO SCH (08:53)
[2021-09-27] MEDS: FLUoxetine 20 MG CAPSULE PO SCH (08:54)
[2021-09-27] MEDS: Topiramate 25 MG TABLET PO SCH (08:55)
[2021-09-27] MEDS: Nicotine 14 MG PATCH.TD24 TD SCH (08:55)
[2021-09-27] MEDS: carvediloL 6.25 MG TABLET PO SCH (08:55)
[2021-09-27] MEDS: Vancomycin Oral Soln 125 MG/2.5 ML UDC PO SCH ×2 (08:56→11:32)
[2021-09-27] MEDS: Insulin LISPRO 300 UNITS/3 ML VIAL SUBQ SCH ×2 (09:02→11:32)
[2021-09-27] MEDS: *HR* OxyCODONE/APAP 5/325 TABLET PO SCH (09:08)
[2021-09-27] MEDS ORDERED: *HR* OxyCODONE/APAP 5/325 TABLET PO PRN (10:34)
[2021-09-27 11:07] VITALS: BP 176/67; PULSE 74; TEMP 98.2; O2SAT 98
== END 2021-09-27 15:00 | disposition other institution (70) | DRG 480 ==
LOC: 4WAOSI → SUATTDRO 09-17 13:18 → 2ANU 09-22 22:45
PROVIDERS: ADMIT Internal Medicine; ATTEND Internal Medicine